=== PATIENT | female | born 1955 | race Caucasian/White ===

== ENCOUNTER → 2023-09-19 | Outpatient (CLI) | payer MEDICARE, OTHER, SELFPAY ==
--- NOTE | 2023-09-19 08:14 | BI_ITS ---
MAMMOGRAPHY - BILATERAL SCREENING REASON FOR EXAM: Female, 68 years old. Routine annual screening examination. PERTINENT HISTORY: Non-contributory. TECHNIQUE: Digital bilateral breast racquel (3D mammographic acquisition) in the CC and MLO projections. 2-D mediolateral oblique (MLO) and craniocaudad (CC) views of both breasts were obtained. CAD: Full Field Digital Mammography with Computer Added Detection was performed. COMPARISON: Comparison is made with prior outside examination dated January 02, 2023. FINDINGS: Breast Composition: There are scattered areas of fibroglandular density. There are no dominant masses or suspicious calcifications. No other significant abnormalities are identified. There has been no significant change since the prior study. BI/SCRN MAMM (CAD)W/RACQUEL BILAT IMPRESSION: Stable bilateral screening mammogram. Yearly follow-up mammogram recommended. (A) ASSESSMENT CATEGORY: BIRADS Category 1: Negative. A letter regarding these results will be sent to the patient by the facility within 30 days. Approximately 10% of breast cancers are not detected by mammography. A normal mammogram should not delay biopsy of a clinically suspicious abnormality. [id number] Electronically Signed: Shadi Wang MD at 10:24 EST ,
== END | disposition home or self-care (01) ==
LOC: OPBI 08:10
DX: Z12.31 Encounter for screening mammogram for malignant neoplasm of breast (principal)
CPT/HCPCS: 77063; 77067

== ENCOUNTER 2024-09-05 08:00 | Outpatient (RCR) | payer MEDICARE, OTHER, SELFPAY ==
--- NOTE | 2024-05-28 12:48 | HP.PTEVAL_ITS ---
Patient's Visit Information Visit Information Visit Information: RINKU ALCANTARA is a 68 year old F referred to Physical Therapy by DOROTHY MITCHELL with a diagnosis of DISPLACED PILON FRACTURE RIGHT FIBULA TIBIA ,. Date of Evaluation: 05/28/24 Physical Therapist: Demond Dawn, PT, Cert MDT, OCS Visit Plan Frequency: 2x /Week Duration: 6 Weeks Plan: BRACE ON WHEN WALKING IN COMMUNITY OKAY TO REMOVE WITH EX'S WITH SHOE PT INTERVENTIONS ROM ANKLE ,FLEXABILITY G-S ,MANUAL THERAPY CALF/MOBILIZATION FOOT/ANKLE ,STRENGTHENING ANKLE STABILIZERS ,FUNCTIONAL STRENGTHENING,PROPRIOCEPTION PROGRESSION AND VASO FOR EDEMA Subjective Subjective: This 68 y/o female presents to physical therapy with right displaced tibia fibula pilon fracture. Patient fracture tibia/fibula February 21 walking down stairs with suitcase with patient leg collapsed ,thuns went Urgent care x-rays showed severe fracture then went to [facility] repeated x-rays showed pilon fracture. Thus underwent s/p ORIF plate /screws/ shanita on 02/25/[address] Mitchell. Patient was in hospital 4 days due to pain. Patient d/c to 02/28 to home with W/C with NWB RLE with hard cast ,then replaced with CAM boot in 4 weeks.Patient was 8weeks NWB RLE then 50% WB with CAM boot with FWW. Eventually ,05/20 removed boot ,placed on brace and WBAT. Each visit had x-rays showed 20% healed. Patient has had OT/ PT HHC March 07 then last Sunday.Patient has edema . Patient has min pain worse with walking. Patient denies paresthesia/tingling. Patient sleeping good. Patient retired last week . Julia gonzalez stay with mother who has 95 with dementia. Patient has ramp. Laundry in basement. Tub/shower with seated. Patient RTD Jul 22. SOCIAL: VCATION: retired Pain Right Ankle: Pain Intensity (Out of 10): 5 Pain Intensity Range: 10 Objective Objective: POSTURE: ( frontal plane mechanics) pes planus NEURO: denies paresthesia/tingling SKIN: well approximate TRIMALLEOLAR JOINT: 81 cm GAIT: ambulates with antalgic gait decrease stance time poor tibia moving anterior on tibia with ankle AROM ANKLE: dorsiflexion 5 degrees from 0 ,plantar flexion 45 degrees ,eversion 0 ,inversion 25 degrees MMT: ( peak force) dorsiflexion 8.5 ,plantarflexion 14.8 , peroneus 4.5 ,posterior tibialis 7.7 STAIRS: one step at tight PALAPTION: calf tender Balance/Special Test Scores Lower Extremity Functional Score: 25 Goals Goal 1:: Patient to be I with HEP for ankle Goal Time Frame: 6-8 Weeks Goal 2:: Patient to improve AROM ankle by 5-10 degrees to improve gait and stairs Goal Time Frame: 6-8 Weeks Goal 3:: Patient to improve peak force ankle stabilizers by 10-15# to improve gait and function Goal Time Frame: 6-8 Weeks Goal 4:: Patient to normalize gait pattern Goal Time Frame: 4-6 Weeks Goal 5:: Patient to improve improve LFES score by 10 points to improve QOL and fucntion Goal Time Frame: 6-8 Weeks Goal 6:: Patient to demonstrate 70% improvement with improved function with less pain Goal Time Frame: 6-8 Weeks Rehabilitation Potential Physical Therapy Diagnosis: This patient underwent s/p ORIF due to pilon fx tib/fibula with increase edema ,pain weakness ,poor proprioception ,decrease ankle ROM impairs gait and function thus benefit from skilled PT Rehabilitation Potential: Good Anticipated Interventions Patient/Client Instruction: Educate patient on: Condition and Plan of Care For the Purpose of:: To decrease pain, To increase ROM, To improve muscle performance and motor function, To increase tolerance to activity/condition/position, To improve ability of physical actions for home/community/work/leisure, To improve health of tissue, To decrease soft tissue restriction, To increase flexibility/ROM, To improve endurance, To improve balance and To reduce risk of recurrence Therapeutic Exercise to Include: Strength training, Endurance training, Balance training, Flexibilty training, Gait and locomotor training and Active ROM Comment: ANKLE STABILZERS ,HIP/KNEE For the Purpose of:: To decrease pain, To decrease swelling/inflammation, To increase ROM, To improve muscle performance and motor function, To improve ability to perform ADL's, To increase tolerance to activity/condition/position, To improve ability of physical actions for home/community/work/leisure, To improve gait and locomotor functions, To improve health of tissue, To decrease soft tissue restriction, To increase flexibility/ROM, To improve endurance, To reduce risk of recurrence, To prevent re-injury and To improve tolerance to ADL's Manual Therapy Techniques to Include: Mobilization and Soft tissue mobilization Comment: CALF AND FOOT /ANKLE GRADE 1-3 For the Purpose of:: To decrease pain, To increase ROM, To improve health of tissue, To decrease soft tissue restriction and To increase flexibility/ROM Vasopneumatic device: Yes For the Purpose of:: To decrease pain, To decrease swelling/inflammation, To increase ROM, To improve nutrient delivery to tissue, To increase oxygenation perfusion, To improve health of tissue and To decrease soft tissue restriction Text: Thank you for the opportunity to evaluate your patient. For Medicare and Medicare HMO plans, please review the plan of care and approve it. It will need to be FAXED BACK to us at [phone] for Medicare purposes. For Medicare only, by signing this I certify the plan of care. Please let me know if there are questions or concerns regarding this plan of care. Physician Signature: Date:
--- NOTE | 2024-08-04 14:16 | HP.PTREVAL ---
Re-Evaluation Intro: DOROTHY MITCHELL, It has been my pleasure to treat RINKU ALCANTARA over the last 14 visits for DISPLACED PILON FRACTURE RIGHT FIBULA TIBIA ,. Please see the progress note below for an update on the physical therapy plan of care! Subjective Subjective: Seen happy with progress x-rays showed 50% healed Objective Objective/Function: POSTURE: ( frontal plane mechanics) pes planus NEURO: denies paresthesia/tingling SKIN: well approximate TRIMALLEOLAR JOINT: 81 cm GAIT: ambulates with reciprocal pattern AROM ANKLE: dorsiflexion 0 ,plantar flexion 65 degrees ,eversion 5 ,inversion 40 degrees MMT: ( peak force) dorsiflexion 32.2 ,plantarflexion 33.8 , peroneus 19.9 ,posterior tibialis 23.2 STAIRS: one step at tight SLS: 10SEC Plan Plan Plan: CONTINUE IASTM WHICH HELPED INTERVENTIONS ROM ANKLE ,FLEXABILITY G-S ,MANUAL THERAPY CALF/MOBILIZATION FOOT/ANKLE ,STRENGTHENING ANKLE STABILIZERS ,FUNCTIONAL STRENGTHENING,PROPRIOCEPTION PROGRESSION Balance/Gait/Functional tests Balance/Special Test Scores Lower Extremity Functional Score: 42 Goals Goals Goal 1:: Patient to be I with HEP for ankle Goal Time Frame: 6-8 Weeks Goal Progress: Progressing Goal 2:: Patient to improve AROM ankle by 5-10 degrees to improve gait and stairs Goal Time Frame: 6-8 Weeks Goal Progress: Progressing Goal 3:: Patient to improve peak force ankle stabilizers by 10-15# to improve gait and function( NEW GOAL) Goal Time Frame: 6-8 Weeks Goal 4:: Patient to normalize gait pattern Goal Time Frame: 4-6 Weeks Goal Progress: Goal Met Goal 5:: Patient to improve improve LFES score by 10 points to improve QOL and function( NEW GOAL) Goal Time Frame: 6-8 Weeks Goal 6:: Patient to demonstrate 70% improvement with improved function with less pain Goal Time Frame: 6-8 Weeks Goal Progress: Progressing Anticipated Interventions Anticipated Interventions Patient/Client Instruction: Educate patient on: Condition and Plan of Care For the Purpose of:: To decrease pain, To increase ROM, To improve muscle performance and motor function, To increase tolerance to activity/condition/position, To improve ability of physical actions for home/community/work/leisure, To improve health of tissue, To decrease soft tissue restriction, To increase flexibility/ROM, To improve endurance, To improve balance and To reduce risk of recurrence Therapeutic Exercise to Include: Strength training, Endurance training, Balance training, Flexibilty training, Gait and locomotor training and Active ROM Comment: ANKLE STABILZERS ,HIP/KNEE For the Purpose of:: To decrease pain, To decrease swelling/inflammation, To increase ROM, To improve muscle performance and motor function, To improve ability to perform ADL's, To increase tolerance to activity/condition/position, To improve ability of physical actions for home/community/work/leisure, To improve gait and locomotor functions, To improve health of tissue, To decrease soft tissue restriction, To increase flexibility/ROM, To improve endurance, To reduce risk of recurrence, To prevent re-injury and To improve tolerance to ADL's Manual Therapy Techniques to Include: Mobilization and Soft tissue mobilization Comment: CALF AND FOOT /ANKLE GRADE 1-3 For the Purpose of:: To decrease pain, To increase ROM, To improve health of tissue, To decrease soft tissue restriction and To increase flexibility/ROM Vasopneumatic device: Yes For the Purpose of:: To decrease pain, To decrease swelling/inflammation, To increase ROM, To improve nutrient delivery to tissue, To increase oxygenation perfusion, To improve health of tissue and To decrease soft tissue restriction Re-Evaluation Ending Re-evaluation ending: Please do not hesitate to contact me at [phone] by phone or if you have questions or concerns regarding this new plan of care! Sincerely, Demond Dawn PT, Cert MDT, OCS
--- NOTE | 2024-09-05 08:22 | HP.PTDCSUM ---
Discharge Summary D/C summary: It has been my pleasure to treat RINKU ALCANTARA referred by DOROTHY MITCHELL, with the diagnosis of DISPLACED PILON FRACTURE RIGHT FIBULA TIBIA , for a total of 22 visit(s). Discharge Date: 09/05/24 Please see the following information for a summary of their discharge status. Subjective Subjective: No pain . Just have stiffness Able to go stairs ascend/descend better Pain Right Ankle: Pain Intensity (Out of 10): 0 Overall Improvement % Improvement: 75 Objective Objective/Function: POSTURE: ( frontal plane mechanics) pes planus NEURO: denies paresthesia/tingling SKIN: well approximate TRIMALLEOLAR JOINT: 81 cm GAIT: ambulates with reciprocal pattern AROM ANKLE: dorsiflexion 5,plantar flexion 65 degrees ,eversion 5 ,inversion 40 degrees MMT: ( peak force) dorsiflexion 32.2 ,plantarflexion 33.8 , peroneus 22.8 ,posterior tibialis 25.2 STAIRS: one step at tight SLS: 30SEC Goals Goal 1:: Patient to be I with HEP for ankle Goal Progress: Goal Met Goal 2:: Patient to improve AROM ankle by 5-10 degrees to improve gait and stairs Goal Progress: Goal Met Goal 3:: Patient to improve peak force ankle stabilizers by 10-15# to improve gait and function( NEW GOAL) Goal Progress: Goal Met Goal 4:: Patient to normalize gait pattern Goal Progress: Goal Met Goal 5:: Patient to improve improve LFES score by 10 points to improve QOL and function( NEW GOAL) Goal 6:: Patient to demonstrate 70% improvement with improved function with less pain Goal Progress: Progressing Plan Plan: D/C TO HEP D/C Information Discharge Comments: HEP d/c sentence: If there are questions or concerns regarding this patient's physical therapy, please feel free to call me at [phone]. Thank you for the referral of this patient. Sincerely, Demond Dawn, PT, Cert MDT, OCS Balance/Gait/Functional tests Balance/Special Test Scores Lower Extremity Functional Score: 57 Improvement % Improvement: 75
== END 2024-09-05 19:00 | disposition home or self-care (01) ==
LOC: PT 08:00
DX: S82.871D Displaced pilon fracture of right tibia, subsequent encounter for closed fracture with routine healing (principal)
CPT/HCPCS: 97016; 97110; 97140; 97162; 97530

== ENCOUNTER → 2024-10-16 | Outpatient (CLI) | payer MEDICARE, OTHER, SELFPAY ==
--- NOTE | 2024-10-16 08:57 | BD_ITS ---
STUDY: DUAL ENERGY X-RAY ABSORPTIOMETRY / DXA REASON FOR EXAM: Female, 69 years old. Postmenopausal TECHNIQUE: Bone Mineral Density (BMD) measurements of lumbar spine and bilateral hips were obtained. COMPARISON: No relevant prior comparison study available FINDINGS: Lumbar Spine (L1-L4): g/cm2 (1.177) / T-score (1.2) / Z-score (3.4) Left Femur Total: g/cm2 (0.973) / T-score (0.3) / Z-score (1.8) Left Femoral Neck: g/cm2 (0.833) / T-score (-0.1) / Z-score (1.7) Right Femur Total: g/cm2 (0.977) / T-score (0.3) / Z-score (1.9) Right Femoral Neck: g/cm2 (0.851) / T-score (0.0) / Z-score (1.9) BD/Dexa Bone Density Study IMPRESSION: The patient is considered normal as outlined below according to World Harvey Organization (WHO) criteria with a low fracture risk. Reference Information: The T-score is the number of standard deviations above or below the standard which is normal for young adults at their peak bone mineral density. The World Health Organization (WHO) interprets the T-scores as follows: Above -1 Normal bone density Between -1 and -2.5 Osteopenia Equal to / or below -2.5 Osteoporosis As a practical clinical guideline, osteopenia may be graded as follows: Mild -1 through -1.5 Moderate -1.6 through -2.0 Severe -2.1 through -2.4 The Z-score is the number of standard deviations above or below age-matched controls. A Z-score of less than -1.5 would be considered abnormal. References: 1. NIH Osteoporosis and Related Bone Diseases http://www.osteo.org 2. International Society for Clinical Densitometry http://www.iscd.org 3. National Osteoporosis Foundation http://www.nof.org Electronically Signed: Jade Lyon MD at 9:40 EST ,
--- NOTE | 2024-10-16 08:58 | BI_ITS ---
MAMMOGRAPHY - BILATERAL SCREENING 3-D TOMOSYNTHESIS REASON FOR EXAM: Female, 69 years old. SCREENING PERTINENT HISTORY: No significant family history. TECHNIQUE: 2-D mammograms and 3-D Tomosynthesis of the breast (s) were performed. CAD was performed. COMPARISON: 09/19/2023 FINDINGS: The breast composition is composed of scattered fibroglandular density. Scattered benign calcifications are seen. No dense spiculated masses or suspicious microcalcifications are identified. No architectural distortion is identified. There is no skin thickening or retraction. There has been no significant change since the prior study. BI/SCRN MAMM (CAD)W/RACQUEL BILAT IMPRESSION: No mammographic signs of malignancy. Routine yearly mammograms recommended. ASSESSMENT CATEGORY: BIRADS Category 1: Negative. A letter regarding these results will be sent to the patient by the facility within 30 days. FOLLOW UP RECOMMENDATION: Yearly follow up mammogram recommended. (A) Approximately 10% of breast cancers are not detected by mammography. A normal mammogram should not delay biopsy of a clinically suspicious abnormality. Electronically Signed: Timothy Maddox MD at 10:21 EST ,
== END | disposition home or self-care (01) ==
LOC: OPBD 08:55
DX: Z13.820 Encounter for screening for osteoporosis (principal); M84.471A Pathological fracture, right ankle, initial encounter for fracture; Z78.0 Asymptomatic menopausal state; Z12.31 Encounter for screening mammogram for malignant neoplasm of breast
CPT/HCPCS: 77063; 77067; 77080

== ENCOUNTER 2025-09-06 11:02 | Emergency (ER) | payer MEDICARE, OTHER, SELFPAY ==
[2025-09-06 11:02] VITALS: BP 165/70; PULSE 65; RESP 14; TEMP 36.1; O2SAT 98
--- NOTE | 2025-09-06 11:14 | EDS_ITS ---
HPI History of Present Illness Chief Complaint: Lower Extremity Injury Narrative Narrative: 70-year-old female past medical history of hypothyroidism, hypertension, presents with injury to her left ankle that she sustained approximately 2 hours ago. She states that she is in the area taking care of her 96-year-old mother. She was trying to let her dogs out when she twisted her left ankle. Of note, 18 months ago she had a right ankle fracture which required ORIF by orthopedics in [place]. She had done the same thing and broke her ankle. While she did not immediately fall, she still had a hold of the door, and sat down. She thinks she may have inverted her left ankle. She complains of pain and swelling more on the lateral malleolus area. She denies hitting her head or loss of consciousness, no other injury. Pain is worse with weightbearing and movement. She has iced the area as well. She presents stating that she knows she needs an x-ray of her left ankle. PFSH [facility] Home Medications Medication Instructions Recorded Last Taken Type levothyroxine 100 mcg tablet 100 mcg PO DAILY 09/06/25 09/06/25 History metoprolol succinate 100 mg 100 mg PO DAILY 09/06/25 1 11/06/24 History tablet,extended release 24 hr vitamin D3 125 mcg (5,000 1 cap PO DAILY 09/06/2508/22 History unit)-vitamin K2 100 mcg capsule Allergy/AdvReac Type Severity Reaction Status Date / Time nitrofurantoin (From AdvReac Vomiting Verified 09/06/25 11:03 Macrobid) Social History Smoking Status: Never smoker ROS ROS ED ROS Narrative Review of systems positive for left lateral ankle pain and swelling. No hitting of head, no loss of consciousness, no neck pain or other injury. Pain worse with weightbearing and walking/movement. Relieved by nothing. EXAM Physical Exam Narrative Exam Narrative: GCS 15. ABCs intact. Cardiovascular examination regular rate and rhythm. Lungs are clear to auscultation bilaterally. Abdomen soft and nontender. Focused examination of the left ankle does show diffuse swelling throughout the left lateral malleolus, no crepitance. No pain at the base of the fifth metatarsal. Palpable dorsalis pedis pulse, left, no proximal fibular head tenderness, no palpable Achilles tendon deficit. Dorsiflexion and plantarflexion of left foot intact. Const Vital Signs: 09/06/25 11:02 Temperature 96.9 F L Temperature Source Temporal Pulse Rate 65 Respiratory Rate 14 Blood Pressure 165/70 H Blood Pressure Mean 101 Pulse Ox 98 Oxygen Delivery Method Room Air MDM MDM MDM Narrative Medical decision making narrative: The differential diagnosis includes but not limited to left ankle sprain versus fracture. She was administered ibuprofen 600 mg orally here she drove herself here, and she declined ice pack as she had already performed this at home. X- rays were obtained of the left ankle and 3 views and interpreted by myself independently. I see no evidence of acute fracture. I reviewed the radiology report which confirms my independent interpretation. At this point in time, she was placed in an Aircast. She states she has a walker and a wheelchair at home. She can be weightbearing as tolerated but especially over the first week perhaps nonweightbearing. She was referred to podiatry on-call as needed or she can follow-up with her primary care provider. IFISH can take [id number] medications for analgesia and continue ice and elevation at home. Return instructions to the emergency department were reviewed. Disposition is discharged home in stable condition. History & Record Review Discussion w/independent historian: Patient Additional record(s) reviewed:: No prior records (No prior ED visit) Radiography Diagnostic Testing: Clinical Impression(s) from Imaging Studies Ankle X-Ray 09/06/25 11:55 IMPRESSION: NEGATIVE ANKLE SERIES Reading Location: [facility] Discharge Plan Triage Chief Complaint: Lower Extremity Injury ED Provider: Rishi Staton Dx/Rx/DC Orders Clinical Impression: Left ankle sprain, Fall Instructions: ED Mechanical Fall, ED Ankle Sprain (Adult) Prescriptions: No Action metoprolol succinate 100 mg tablet extended release 24 hr 100 mg PO DAILY levothyroxine 100 mcg tablet 100 mcg PO DAILY vitamin D3-vitamin K2 125 mcg (5,000 unit)-100 mcg capsule 1 cap PO DAILY Primary Care Provider: TYLER GARCIA Referrals: TYLER GARCIA [Other] Chester Crawford MD [Med Staff - Active Staff, Podiatry] - 1 Week if not improving Activity Restrictions/Additional Instructions: Follow-up with your primary care provider in 1 week or podiatry in 1 week, especially if not improving. Wear Aircast but you may remove it for bathing or sleeping. Use your walker to help ambulate over the next week. Continue ice and elevation and [id number] medications as needed for pain. Return with increased swelling, new or worsening symptoms. Print Language: Nepali Disposition Disposition: Home, Self Care
--- OUTSIDE RECORDS SUMMARY | 2025-09-06 11:53 | XMS RPT_ITS | CCD ---
Author Organization [facility] Care Team Providers Care Repair Clerk Name Role Phone Unavailable Primary Care Provider Earnestine Davey MD Primary Care Provider [phone] Earnestine Candelario MD Primary Care Provider [phone] No, Physician Primary Care Provider DORA Wong Attending Unavailable NO, PHYSICIAN Primary Care Unavailable [facility] Consulting Blanca vailable [facility] [facility] [facility] Admitting Blanca vailable NIKUNJ KELLEY Referring Unavailable POOL KENDALL Consulting Unavailfausto leo [facility], [facility] Consulting Unav ailable NIKUNJ KELLEY Attending Unavailable NO, PHYSICIAN Primary Care Unavailable EARNESTINE CANDELARIO MD Attending Unavailable PHYSICIAN, NOT RECORDED Primary Care Unavaila EARNESTINE Chino MD Attending Unavailable PHYSICIAN, NOT RECORDED Primary Care Unavaila EARNESTINE Chino MD Attending Unavailable PHYSICIAN, NOT RECORDED Primary Care Unavaila ble PHYSICIAN, NOT RECORDED Primary Care Unavaila lise SWAIN, Rob Referring Unavailable WILIAM, S Attending Unavailable WILIAM, S Primary Care Unavailable WILIAM, Rob Attending Unavailable WILIAM, Rob Primary Care Unavailable EARNESTINE CANDELARIO MD Attending Unavailable PHYSICIAN, NOT RECORDED Primary Care Unavaila ble Medications Current Medications Medication Drug Class(es) Dates Sig (Normalized) Sig (Original) acetaminophen 325 mg oral tablet (3 sources) Start: 02-25-2024 End: 03-06-2024 take 2 tablets by mouth every four hours acetaminophen (TYLENOL) 325 MG tablet Take 2 (two) tablets (650 mg total) by mouth every 4 (four) hours for 10 days . 120 tablet 0 02/25/2024 03/06/2024 Active Start: 02-21-2024 End: 02-25-2024 take 650 mg by mouth every four hours 650 mg, Oral, Every 4 hours while awake, First dose on Cintia 02/21/24 at 1835 calcium carbonate 1500 mg / cholecalciferol 200 unt oral capsule (2 sources) Vitamin D take 1 capsule by mouth once daily calcium carbonate-vitamin D3 600 mg-5 mcg (200 unit) cap Take 1 capsule by mouth nightly . 0 Active docusate sodium 50 mg / sennosides, assisted 8.6 mg oral tablet (3 sources) Start: 2023 End: 2023 take 1 tablet by mouth twice daily senna-docusate (SENNA-S) 8.6-50 mg Take 1 (one) tablet by mouth 2 (two) times a day . 60 tablet 0 02/25/2024 03/26/2024 Active 0.4 ml enoxaparin sodium 100 mg/ml prefilled syringe (4 sources) Low Molecular Weight Heparin Start: 2023 End: 2023 inject 0.4 mL by subcutaneous injection once daily enoxaparin (LOVENOX) 40 mg/0.4 mL Syrg Inject 0.4 mL (40 mg total) under the skin daily . 12 mL 0 02/25/2024 03/26/2024 Active Start: 02-25-2024 End: 02-25-2024 inject 0.4 mL by subcutaneous injection once daily enoxaparin (LOVENOX) 30 mg/0.3 mL Syrg Inject 0.4 mL (40 mg total) under the skin daily . 18 mL 0 02/25/2024 02/25/2024 Discontinued (Stop Taking at Discharge) Start: 02-22-2024 End: 02-25-2024 enoxaparin (LOVENOX) syringe 30 mg 24 hr metoprolol succinate 50 mg extended release oral tablet (4 sources) beta-Adrenergic Sen Start: 02-24-2024 End: 03-25-2024 take 1 tablet by mouth once daily metoprolol succinate (TOPROL-XL) 50 MG 24 hr tablet Take 1 (one) tablet (50 mg total) by mouth daily Start: 02/24/24. 30 tablet 0 02/24/2024 03/25/2024 Active Start: 02-23-2024 End: 02-25-2024 metoprolol succinate (TOPROL -XL) 24 hr tablet 50 mg End: 02-25-2024 take 1 tablet by mouth once daily metoprolol succinate (TOPROL-XL) 100 MG 24 hr tablet Take 1 (one) tablet (100 mg total) by mouth nightly . 0 02/25/2024 Discontinued (Stop Taking at Discharge) oxyCODONE hydrochloride 5 mg oral tablet (4 sources) Opioid Agonist Start: 02-21-2024 End: 02-28-2024 oxyCODONE (ROXICODONE) 5 MG immediate release tablet Indications: Closed fracture of right ankle, initial encounter Take 1 (one) tablet (5 mg total) by mouth every 6 (six) hours as needed (Days supply per fill: 3) . 12 tablet 0 02/25/2024 02/28/2024 Active polyethylene glycol 3350 56435 mg powder for oral solution (3 sources) Osmotic Laxative Start: 02-25-2024 End: 03-03-2024 polyethylene glycol (GLYCOLAX) 17 gram/dose powder Take 17 (seventeen) g by mouth 2 (two) times a day for 7 days . 238 g 0 02/25/2024 03/03/2024 Active Start: 02-24-2024 End: 02-25-2024 polyethylene glycol (MIRALAX ) powder 17 g tiZANidine 2 mg oral tablet (2 sources) Central alpha-2 Adrenergic Agonist Start: 02-25-2024 End: 03-06-2024 take 1 tablet by mouth three times daily tiZANidine (ZANAFLEX) 2 MG tablet Take 1 (one) tablet (2 mg total) by mouth 3 (three) times a day for 10 days . 30 tablet 0 02/25/2024 03/06/2024 Active Completed/Discontinued Medications Medication Drug Class(es) Dates Sig (Normalized) Sig (Original) aspirin 325 mg oral tablet (1 source) Platelet Aggregation Inhibitor, Nonsteroidal Anti-inflammatory Drug Start: 02-22-2024 End: 02-25-2024 take 1 tablet by mouth twice daily aspirin 325 MG tablet Take 1 (one) tablet (325 mg total) by mouth 2 (two) times a day . 60 tablet 0 02/22/2024 02/25/2024 Discontinued (Stop Taking at Discharge) bisacodyl 10 mg rectal suppository (1 source) Stimulant Laxative Start: 02-24-2024 End: 02-25-2024 bisacodyL (DULCOLAX) suppository 10 mg ceFAZolin 2000 mg injection (1 source) Cephalosporin Antibacterial Start: 02-22-2024 End: 02-23-2024 take 2000 mg intravenously every eight hours 2,000 mg, Intravenous, at 200 mL/hr, Every 8 hours, First dose on Sun02/22/24 at 2100, For 2 doses, Starting 8 hours after pre-procedure dose x 2 doses., Indication (POST PROCEDURE): Ortho 1 ml fentaNYL 0.05 mg/ml injection (1 source) Opioid Agonist Start: 02-22-2024 End: 02-22-2024 fentaNYL (SUBLIMAZE) injection 100 mcg Start: 02-22-2024 End: 02-22-2024 fentaNYL (SUBLIMAZE) injecti on 100 mcg fentaNYL (SUBLIMAZE) inj syringe 25 mcg (1 source) Start: 02-22-2024 End: 02-22-2024 25 mcg, Intravenous, Every 5 min PRN, Pain, Starting on Sun02/22/24 at 1557, For 4 doses, PACU (only), [] Do not give more than 100 mcg while in PACU. 0.5 ml HYDROmorphone hydrochloride 1 mg/ml prefilled syringe (2 sources) Opioid Agonist Start: 02-21-2024 End: 02-22-2024 0.5 mg, Intravenous, Every 5 min PRN, Pain, Starting on Sun02/22/24 at 1557, For 6 doses, PACU (only), Give if fentanyl not effective or not ordered. Do not give more than 3 mg total. levothyroxine sodium 0.112 mg oral tablet (3 sources) l-Thyroxine Start: 02-22-2024 End: 02-25-2024 take 112 ug by mouth once daily 112 mcg, Oral, Daily, First dose on Sun02/22/24 at 0600, For patients on continuous tube feed: Hold TF from 1 hr before until 1 hr after each dose. TF rate may need adjustment to meet caloric needs. 10 ml lidocaine hydrochloride 10 mg/ml injection (1 source) Antiarrhythmic, Amide Local Anesthetic Start: 02-22-2024 End: 02-22-2024 lidocaine 1% (PF) (XYLOCAINE-MPF) 10 mg/mL (1 %) injection 2 mL Start: 02-22-2024 End: 02-22-2024 lidocaine 1% (PF) (XYLOCAINE -MPF) 10 mg/mL (1 %) injection 2 mL magnesium hydroxide 80 mg/ml oral suspension (1 source) Start: 02-24-2024 End: 02-25-2024 magnesium hydroxide (MOM) 400 mg/5 mL suspension 2,400 mg methocarbamol 500 mg oral tablet (2 sources) Muscle Relaxant Start: 02-24-2024 End: 02-25-2024 methocarbamoL (ROBAXIN) tablet 750 mg Start: 02-21-2024 End: 02-24-2024 take 500 mg by mouth three times daily 500 mg, Oral, 3 times daily, First dose on Sun02/21/24 at 2100 5 ml midazolam 1 mg/ml injection (1 source) Benzodiazepine Start: 02-22-2024 End: 02-22-2024 midazolam (VERSED) injection 2 mg Start: 02-22-2024 End: 02-22-2024 midazolam (VERSED) injection 2 mg naloxone (NARCAN) injection 0.1 mg (1 source) Start: 02-21-2024 End: 02-25-2024 naloxone (NARCAN) injection 0.1 mg ondansetron (ZOFRAN-ODT) disintegrating tablet 4 mg (1 source) Start: 02-21-2024 End: 02-25-2024 take 1 tablet by mouth every six hours as needed for nausea and vomiting ondansetron (ZOFRAN-ODT) disintegrating tablet 4 mg 20 ml ropivacaine hydrochloride 5 mg/ml injection (1 source) Amide Local Anesthetic Start: 02-22-2024 End: 02-22-2024 ROPivacaine (PF) (NAROPIN) 5 mg/mL (0.5 %) injection 35 mL Start: 02-22-2024 End: 02-22-2024 ROPivacaine (PF) (NAROPIN) 5 mg/mL (0.5 %) injection 35 mL Sodium Chloride (1 source) Start: 02-21-2024 End: 02-25-2024 sodium chloride (PF) (NS) fl ush 5 mL Problems Problem Classification Problem Date Documented Da te Episodic/Chronic Essential hypertension (2 sources) Essential (primary) hypertension; Translations: [Essential (primary) hypertension] Onset: 07-24-2023 Chronic Fracture of lower limb (18 sources) Closed fracture of right ankle; Translations: [Other fracture of right lower leg, initial encounter for closed fracture] Onset: 02-21-2024 02-21-2024 Episodic Other screening for suspected conditions (not mental disorders or infectious disease) (1 source) Encounter for screening for osteoporosis; Translations: [Encounter for screening for osteoporosis] Onset: 11-13-2024 Episodic Thyroid disorders (2 sources) Hypothyroidism, unspecified; Translations: [Hypothyroidism, unspecified] Onset: 07-24-2023 Chronic Results Test Name Value Interpretation Reference Range Facility A1Con 09-02-2025 Glucose [Mass/Vol] 108 mg/dL Normal [facility] Comment on above: Result Comment: Tawny mated Average Glucose calculated by equation ((28.7xA1C)-46.7) Estimated average glucose (eAG) is a calculated value from Hemoglobin A1C and is digital media representative of the average blood glucose level in the last 2-3 month period. Normal range: less than 114 mg/dL Performed By: #### A 1C, CMP, FES, TSH, FT4, LIPID, GFR, MG, HGMP #### [address] [address] HbA1c (Bld) [Mass fraction] 5.4 % Normal 4.0-6.0 [facility] Comment on above: Performed By: #### A 1C, CMP, FES, TSH, FT4, LIPID, GFR, MG, HGMP #### [address] [address] .GFRon 09-01-2025 Estimated Glomerular Filtration Rate 66 ml/min/1.73sqm Normal [facility] Comment on above: Result Comment: Stages of Chronic Kidney Disease (CKD) Stage Description eGFR(ml/min/1.73 sq.m.) CKD 1 Normal kidney function or >=90 normal kindney function with possible kidney damage (ex. Proteinuria) CKD 2 Kidney damage with mild loss 60-89 of kidney function CKD 3a Mild to moderate loss of kidney 45-59 function CKD 3b Moderate to severe loss of 30-44 of kindey function CKD 4 Severe loss of kidney function 15-29 CKD 5 Kidney failure <15 Note: (go live 2024) the eGFR calculation was updated to the 2020 CKD-EPI creatinine equation without a race factor to calculate the eGFR results. Performed By: #### A 1C, CMP, FES, TSH, FT4, LIPID, GFR, MG, HGMP #### [place] [id number] [facility] 09-01-2025 Albumin Level 4.1 G/dL Normal 3.2-4.8 [facility] Comment on above: Performed By: #### A 1C, CMP, FES, TSH, FT4, LIPID, GFR, MG, HGMP #### [place] [address] Albumin/Globulin [Mass ratio] 1.1 {ratio} Normal 0.9-1.6 [facility] Comment on above: Performed By: #### A 1C, CMP, FES, TSH, FT4, LIPID, GFR, MG, HGMP #### [place] [address] ALP [Catalytic activity/Vol] 85 U/L Normal 38-126 [facility] Comment on above: Performed By: #### A 1C, CMP, FES, TSH, FT4, LIPID, GFR, MG, HGMP #### [place] [id number] ALT [Catalytic activity/Vol] 11 U/L Normal 10-49 [facility] Comment on above: Performed By: #### A 1C, CMP, FES, TSH, FT4, LIPID, GFR, MG, HGMP #### [place] [id number] AST [Catalytic activity/Vol] 20 U/L Normal 8-34 [facility] Comment on above: Performed By: #### A 1C, CMP, FES, TSH, FT4, LIPID, GFR, MG, HGMP #### [place] [address] Bili Total 0.50 mg/dL Normal 0.20-1.20 [facility] Comment on above: Result Comment: Use of this assay is not recommended for patients undergoing treatment with eltrombopag due to the potential for falsely elevated results. Performed By: #### A 1C, CMP, FES, TSH, FT4, LIPID, GFR, MG, HGMP #### [address] [address] BUN/Creatinine Ratio 19.6 ratio Normal 10.0-22.0 [facility] Comment on above: Performed By: #### A 1C, CMP, FES, TSH, FT4, LIPID, GFR, MG, HGMP #### [place] [id number] Calcium [Mass/Vol] 10.0 mg/dL Normal 8.7-10.4 [facility] Comment on above: Performed By: #### A 1C, CMP, FES, TSH, FT4, LIPID, GFR, MG, HGMP #### [place] [id number] Chloride [Moles/Vol] 104 mmol/L Normal 98-110 [facility] Comment on above: Performed By: #### A 1C, CMP, FES, TSH, FT4, LIPID, GFR, MG, HGMP #### [place] [id number] CO2 [Moles/Vol] 30 mmol/L Normal 22-32 [facility] Comment on above: Performed By: #### A 1C, CMP, FES, TSH, FT4, LIPID, GFR, MG, HGMP #### [place] [id number] Creatinine [Mass/Vol] 0.92 mg/dL Normal 0.50-1.[address] [facility] Comment on above: Result Comment: Test ing performed on [employer] analyzer using enzymatic creatinine methodology. Performed By: #### A 1C, CMP, FES, TSH, FT4, LIPID, GFR, MG, HGMP #### [place] [id number] Electrolyte Balance 9.0 mEq/L Normal 4.0-15.0 [facility] Comment on above: Performed By: #### A 1C, CMP, FES, TSH, FT4, LIPID, GFR, MG, HGMP #### [place] [id number] Globulin 3.6 G/dL Normal 2.5-4.2 [facility] Comment on above: Performed By: #### A 1C, CMP, FES, TSH, FT4, LIPID, GFR, MG, HGMP #### [place] [id number] Glucose [Mass/Vol] 97 mg/dL Normal 82-115 [facility] Comment on above: Performed By: #### A 1C, CMP, FES, TSH, FT4, LIPID, GFR, MG, HGMP #### [place] [id number] Potassium [Moles/Vol] 4.4 mmol/L Normal 3.5-5.[address] [facility] Comment on above: Performed By: #### A 1C, CMP, FES, TSH, FT4, LIPID, GFR, MG, HGMP #### [place] [address] Sodium [Moles/Vol] 143 mmol/L Normal 136-145 [facility] Comment on above: Performed By: #### A 1C, CMP, FES, TSH, FT4, LIPID, GFR, MG, HGMP #### [place] [address] Total Protein 7.7 G/dL Normal 5.7-8.2 [facility] Comment on above: Performed By: #### A 1C, CMP, FES, TSH, FT4, LIPID, GFR, MG, HGMP #### [place] [id number] Urea nitrogen [Mass/Vol] 18.0 mg/dL Normal 8.0-22.0 [facility] Comment on above: Performed By: #### A 1C, CMP, FES, TSH, FT4, LIPID, GFR, MG, HGMP #### [place] [id number] FESon 09-01-2025 Iron [Mass/Vol] 117 ug/dL Normal 50-170 [facility] Comment on above: Performed By: #### A 1C, CMP, FES, TSH, FT4, LIPID, GFR, MG, HGMP #### [place] [id number] Iron Sat 50 % Normal [facility] Comment on above: Performed By: #### A 1C, CMP, FES, TSH, FT4, LIPID, GFR, MG, HGMP #### [place] [id number] TIBC 236 mcg/dL Low 250-500 [facility] Comment on above: Performed By: #### A 1C, CMP, FES, TSH, FT4, LIPID, GFR, MG, HGMP #### [place] [id number] FT4on 09-01-2025 Free T4 [Mass/Vol] 1.35 ng/dL Normal 0.89-1.76 [facility] Comment on above: Result Comment: No te - New Reference Range in effect 20 Performed By: #### A 1C, CMP, FES, TSH, FT4, LIPID, GFR, MG, HGMP #### [place] [address] HGMPon 09-01-2025 Erythrocyte distribution width (RBC) [Ratio] 14.4 % Normal 11.5-15.5 [facility] Comment on above: Performed By: #### A 1C, CMP, FES, TSH, FT4, LIPID, GFR, MG, HGMP #### [place] [address] Hematocrit (Bld) [Volume fraction] 43.0 % Normal 34.0-46.0 [facility] Comment on above: Performed By: #### A 1C, CMP, FES, TSH, FT4, LIPID, GFR, MG, HGMP #### [address] [address] Hgb 14.8 G/dL Normal 12.0-16.0 [facility] Comment on above: Performed By: #### A 1C, CMP, FES, TSH, FT4, LIPID, GFR, MG, HGMP #### [address] [address] MCH (RBC) [Entitic mass] 31.2 pg Normal 27.0-33.0 [facility] Comment on above: Performed By: #### A 1C, CMP, FES, TSH, FT4, LIPID, GFR, MG, HGMP #### [place] [address] MCHC 34.3 G/dL Normal 32.0-36.0 [facility] Comment on above: Performed By: #### A 1C, CMP, FES, TSH, FT4, LIPID, GFR, MG, HGMP #### [place] [address] MCV (RBC) [Entitic vol] 90.8 fL Normal 80.0-99.0 [facility] Comment on above: Performed By: #### A 1C, CMP, FES, TSH, FT4, LIPID, GFR, MG, HGMP #### [place] [address] Platelet 251 10 3/mcL Normal 150-450 [facility] Comment on above: Performed By: #### A 1C, CMP, FES, TSH, FT4, LIPID, GFR, MG, HGMP #### [place] [address] Platelet mean volume (Bld) [Entitic vol] 8.6 fL Normal 6.6-10.5 [facility] Comment on above: Performed By: #### A 1C, CMP, FES, TSH, FT4, LIPID, GFR, MG, HGMP #### [place] [address] RBC 4.73 10 6/mcL Normal 4.10-5.30 [facility] Comment on above: Performed By: #### A 1C, CMP, FES, TSH, FT4, LIPID, GFR, MG, HGMP #### [place] [address] WBC 5.4 10 3/mcL Normal 4.5-10.8 [facility] Comment on above: Performed By: #### A 1C, CMP, FES, TSH, FT4, LIPID, GFR, MG, HGMP #### [place] [address] LIPIDon 09-01-2025 Cholesterol [Mass/Vol] 170 mg/dL Normal 50-199 [facility] Comment on above: Result Comment: Chol esterol Reference Interval: Less than 200 Desirable 200-239 Borderline high risk 240 and above High risk Performed By: #### A 1C, CMP, FES, TSH, FT4, LIPID, GFR, MG, HGMP #### [address] [address] Cholesterol in HDL [Mass/Vol] 60 mg/dL High 40-59 [facility] Comment on above: Performed By: #### A 1C, CMP, FES, TSH, FT4, LIPID, GFR, MG, HGMP #### [address] [address] Cholesterol in LDL [Mass/Vol] 95 mg/dL Normal 0-129 [facility] Comment on above: Performed By: #### A 1C, CMP, FES, TSH, FT4, LIPID, GFR, MG, HGMP #### [address] [address] Triglyceride [Mass/Vol] 73 mg/dL Normal 3-149 [facility] Comment on above: Performed By: #### A 1C, CMP, FES, TSH, FT4, LIPID, GFR, MG, HGMP #### [address] [address] MGon 09-01-2025 Magnesium [Mass/Vol] 2.0 mg/dL Normal 1.6-2.4 [facility] Comment on above: Performed By: #### A 1C, CMP, FES, TSH, FT4, LIPID, GFR, MG, HGMP #### [address] [address] TSHon 09-01-2025 TSH 5.291 mIU/mL High 0.550-4.780 [facility] Comment on above: Performed By: #### A 1C, CMP, FES, TSH, FT4, LIPID, GFR, MG, HGMP #### [address] [address] Dexa Bone Density Studyon Dexa Bone Density Study [facility] [address] [place] [address] [id number] Dexa Bone Density Study MR#: [id number] Acct: [id number] Name: RINKU GIORDANO Rep #: [id number] : 1955 F 69 From: Jade Lyon MD PCP: EARNESTINE CANDELARIO Status: REG CLI Study: Dexa Bone Density Study Date of Exam: 10/16/24 Exam# [id number] Ordering Dr: EARNESTINE CANDELARIO [id number] STUDY: DUAL ENERGY X-RAY ABSORPTIOMETRY / DXA REASON FOR EXAM: Female, 69 years old. Postmenopausal TECHNIQUE: Bone Mineral Density (BMD) measurements of lumbar spine and bilateral hips were obtained. COMPARISON: No relevant prior comparison study available FINDINGS: Lumbar Spine (L1-L4): g/cm2 (1.177) / T-score (1.2) / Z-score (3.4) Left Femur Total: g/cm2 (0.973) / T-score (0.3) / Z-score (1.8) Left Femoral Neck: g/cm2 (0.833) / T-score (-0.1) / Z-score (1.7) Right Femur Total: g/cm2 (0.977) / T-score (0.3) / Z-score (1.9) Right Femoral Neck: g/cm2 (0.851) / T-score (0.0) / Z-score (1.9) BD/Dexa Bone Density Study IMPRESSION: The patient is considered normal as outlined below according to World Harvey Organization (WHO) criteria with a low fracture risk. Reference Information: The T-score is the number of standard deviations above or below the standard which is normal for young adults at their peak bone mineral density. The World Health Organization (WHO) interprets the T-scores as follows: Above -1 Normal bone density Between -1 and -2.5 Osteopenia Equal to / or below -2.5 Osteoporosis As a practical clinical guideline, osteopenia may be graded as follows: Mild -1 through -1.5 Moderate -1.6 through -2.0 Severe -2.1 through -2.4 The Z-score is the number of standard deviations above or below age-matched controls. A Z-score of less than -1.5 would be considered abnormal. References: 1. NIH Osteoporosis and Related Bone Diseases http://www.osteo.org 2. International Society for Clinical Densitometry http://www.iscd.org 3. 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 Feeder: Signed Normal [facility] SCRN MAMM (CAD)W/RACQUEL BILATo n 10-16-2024 SCRN MAMM (CAD)W/RACQUEL BILAT [facility] Services [address] [place] [id number] SCRN MAMM (CAD)W/RACQUEL BILAT MR#: [id number] Acct: [id number] Name: RINKU GIORDANO Rep #: [id number] : 1955 F 69 From: Timothy Maddox MD PCP: EARNESTINE CANDELARIO Status: REG CLI Study: SCRN MAMM (CAD)W/RACQUEL BILAT Date of Exam: 09/22 04/14 Exam# [id number] Ordering Dr: EARNESTINE CANDELARIO [id number] MAMMOGRAPHY - BILATERAL SCREENING 3-D TOMOSYNTHESIS REASON FOR EXAM: Female, 69 years old. SCREENING PERTINENT HISTORY: No significant family history. TECHNIQUE: 2-D mammograms and 3-D Tomosynthesis of the breast (s) were performed. CAD was performed. COMPARISON: 09/19/2023 FINDINGS: The breast composition is composed of scattered fibroglandular density. Scattered benign calcifications are seen. No dense spiculated masses or suspicious microcalcifications are identified. No architectural distortion is identified. There is no skin thickening or retraction. There has been no significant change since the prior study. BI/SCRN MAMM (CAD)W/RACQUEL BILAT IMPRESSION: No mammographic signs of malignancy. Routine yearly mammograms recommended. ASSESSMENT CATEGORY: BIRADS Category 1: Negative. A letter regarding these results will be sent to the patient by the facility within 30 days. FOLLOW UP RECOMMENDATION: Yearly follow up mammogram recommended. (A) Approximately 10% of breast cancers are not detected by mammography. A normal mammogram should not delay biopsy of a clinically suspicious abnormality. Electronically Signed: Timothy Maddox MD at 10:21 EST , CC: EARNESTINE CANDELARIO [employer] Feeder: Signed Normal [facility] CNCOon 09-11-2024 CNCO Letter Text Normal [facility] PT D/C Summary (1)on PT D/C Summary (1) [facility] Physical Therapy [facility] [address] [place] [address] / REHABILITATION SERVICES DISCHARGE SUMMARY MR#: [id number] Acct: [id number] Name: RINKU GIORDANO Rep #: [id number] : 1955 69 From: Nikunj Dawn PT, Cert. T, OCS Referring : OUT OF TOWN DOCTOR Status: REG R CR Insurance: MEDICARE PART A B [facility] Discharge Summary D/C summary: It has been my pleasure to treat RINKU GIORDANO referred by POOL KENDALL, with the diagnosis of DISPLACED PILON FRACTURE RIGHT FIBULA TIBIA , for a total of 22 visit(s). Discharge Date: 09/05/24 Please see the following information for a summary of their discharge status. Subjective Subjective: No pain . Just have stiffness Able to go stairs ascend/descend better Pain Right Ankle: Pain Intensity (Out of 10): 0 Overall Improvement % Improvement: 75 Objective Objective/Function: POSTURE: ( frontal plane mechanics) pes planus NEURO: denies paresthesia/tingling SKIN: well approximate TRIMALLEOLAR JOINT: 81 cm GAIT: ambulates with reciprocal pattern AROM ANKLE: dorsiflexion 5,plantar flexion 65 degrees ,eversion 5 ,inversion 40 degrees MMT: ( peak force) dorsiflexion 32.2 ,plantarflexion 33.8 , peroneus 22.8 ,posterior tibialis 25.2 STAIRS: one step at tight SLS: 30SEC Goals Goal 1:: Patient to be I with HEP for ankle Goal Progress: Goal Met Goal 2:: Patient to improve AROM ankle by 5-10 degrees to improve gait and stairs Goal Progress: Goal Met Goal 3:: Patient to improve peak force ankle stabilizers by 10-15# to improve gait and function( NEW GOAL) Goal Progress: Goal Met Goal 4:: Patient to normalize gait pattern Goal Progress: Goal Met Goal 5:: Patient to improve improve LFES score by 10 points to improve QOL and function( NEW GOAL) Goal 6:: Patient to demonstrate 70% improvement with improved function with less pain Goal Progress: Progressing Plan Plan: D/C TO HEP D/C Information Discharge Comments: HEP d/c sentence: If there are questions or concerns regarding this patient's physical therapy, please feel free to call me at [phone]. Thank you for the referral of this patient. Sincerely, Nikunj Dawn, PT, Cert MDT, OCS Balance/Gait/Functional tests Balance/Special Test Scores Lower Extremity Functional Score: 57 Improvement % Improvement: 75 09/05/24 0824 CC: EARNESTINE KENDALL SUZETTE Signed Normal [facility] Re-Evaluation - PT (1)on Re-Evaluation - PT (1) [facility] Physical Therapy [address] [place] [address] / REEVALUATION / MEDICARE RECERTIFICATION PHYSICAL THERAPY MR#: [id number] Acct: [id number] Name: RINKU GIORDANO Rep #: [id number] : 1955 69 From: Nikunj Dawn PT, Cert. T, OCS Referring Dr.: OUT OF TOWN DOCTOR Status:REG RCR Insurance: MEDICARE PART A B [employer] Re-Evaluation Intro: POOLMICHAEL CEDEÑODARBY, It has been my pleasure to treat RINKU GIORDANO over the last 14 visits for DISPLACED PILON FRACTURE RIGHT FIBULA TIBIA ,. Please see the progress note below for an update on the physical therapy plan of care! Subjective Subjective: Seen Dr happy with progress x-rays showed 50% healed Objective Objective/Function: POSTURE: ( frontal plane mechanics) pes planus NEURO: denies paresthesia/tingling SKIN: well approximate TRIMALLEOLAR JOINT: 81 cm GAIT: ambulates with reciprocal pattern AROM ANKLE: dorsiflexion 0 ,plantar flexion 65 degrees ,eversion 5 ,inversion 40 degrees MMT: ( peak force) dorsiflexion 32.2 ,plantarflexion 33.8 , peroneus 19.9 ,posterior tibialis 23.2 STAIRS: one step at tight SLS: 10SEC Plan Plan Plan: CONTINUE IASTM WHICH HELPED INTERVENTIONS ROM ANKLE ,FLEXABILITY G-S ,MANUAL THERAPY CALF/MOBILIZATION FOOT/ANKLE ,STRENGTHENING ANKLE STABILIZERS ,FUNCTIONAL STRENGTHENING,PROPRIOCE PTION PROGRESSION Balance/Gait/Functional tests Balance/Special Test Scores Lower Extremity Functional Score: 42 Goals Goals Goal 1:: Patient to be I with HEP for ankle Goal Time Frame: 6-8 Weeks Goal Progress: Progressing Goal 2:: Patient to improve AROM ankle by 5-10 degrees to improve gait and stairs Goal Time Frame: 6-8 Weeks Goal Progress: Progressing Goal 3:: Patient to improve peak force ankle stabilizers by 10-15# to improve gait and function( NEW GOAL) Goal Time Frame: 6-8 Weeks Goal 4:: Patient to normalize gait pattern Goal Time Frame: 4-6 Weeks Goal Progress: Goal Met Goal 5:: Patient to improve improve LFES score by 10 points to improve QOL and function( NEW GOAL) Goal Time Frame: 6-8 Weeks Goal 6:: Patient to demonstrate 70% improvement with improved function with less pain Goal Time Frame: 6-8 Weeks Goal Progress: Progressing Anticipated Interventions Anticipated Interventions Patient/Client Instruction: Educate patient on: Condition and Plan of Care For the Purpose of:: To decrease pain, To increase ROM, To improve muscle performance and motor function, To increase tolerance to activity/condition/posi tion, To improve ability of physical actions for home/community/work/lei sure, To improve health of tissue, To decrease soft tissue restriction, To increase flexibility/ROM, To improve endurance, To improve balance and To reduce risk of recurrence Therapeutic Exercise to Include: Strength training, Endurance training, Balance training, Flexibilty training, Gait and locomotor training and Active ROM Comment: ANKLE STABILZERS ,HIP/KNEE For the Purpose of:: To decrease pain, To decrease swelling/inflammation, To increase ROM, To improve muscle performance and motor function, To improve ability to perform ADL's, To increase tolerance to activity/condition/posi tion, To improve ability of physical actions for home/community/work/lei sure, To improve gait and locomotor functions, To improve health of tissue, To decrease soft tissue restriction, To increase flexibility/ROM, To improve endurance, To reduce risk of recurrence, To prevent re-injury and To improve tolerance to ADL's Manual Therapy Techniques to Include: Mobilization and Soft tissue mobilization Comment: CALF AND FOOT /ANKLE GRADE 1-3 For the Purpose of:: To decrease pain, To increase ROM, To improve health of tissue, To decrease soft tissue restriction and To increase flexibility/ROM Vasopneumatic device: Yes For the Purpose of:: To decrease pain, To decrease swelling/inflammation, To increase ROM, To improve nutrient delivery to tissue, To increase oxygenation perfusion, To improve health of tissue and To decrease soft tissue restriction Re-Evaluation Ending Re-evaluation ending: Please do not hesitate to contact me at [phone] by phone or if you have questions or concerns regarding this new plan of care! Sincerely, Nikunj Dawn, PT, Cert MDT, [facility] 08/05/24 0911 CC: EARNESTINE KENDALL SUZETTE Signed For Medicare only, by signing this I certify the plan of care. Physicians Signature Date Normal [facility] Inital Evaluation (1) - PTon 05-28-2024 Inital Evaluation (1) - PT [facility] Physical Therapy [facility] [address] [place] [address] / REHABILITATION SERVICES INITIAL EVALUATION MR#: [id number] Acct: [id number] Name: RINKU GIORDANO Rep #: [id number] : 1955 68 From: Nikunj Dawn PT, Cert. MD Menendez, OCS Referring Dr.: POOL KENDALL Status: REG RCR Insurance: MEDICARE PART A B [facility] Patient's Visit Information Visit Information Visit Information: RINUK GIORDANO is a 68 year old F referred to Physical Therapy by POOL KENDALL with a diagnosis of DISPLACED PILON FRACTURE RIGHT FIBULA TIBIA ,. Date of Evaluation: 05/28/24 Physical Therapist: Nikunj Dawn PT, Cert MONICA, OCS Visit Plan Frequency: 2x /Week Duration: 6 Weeks Plan: BRACE ON WHEN WALKING IN COMMUNITY OKAY TO REMOVE WITH EX'S WITH SHOE PT INTERVENTIONS ROM ANKLE ,FLEXABILITY G-S ,MANUAL THERAPY CALF/MOBILIZATION FOOT/ANKLE ,STRENGTHENING ANKLE STABILIZERS ,FUNCTIONAL STRENGTHENING,PROPRIOCE PTION PROGRESSION AND VASO FOR EDEMA Subjective Subjective: This 68 y/o female presents to physical therapy with right displaced tibia fibula pilon fracture. Patient fracture tibia/fibula February 21 walking down stairs with suitcase with patient leg collapsed ,thuns went Urgent care x-rays showed severe fracture then went to [facility] repeated x-rays showed pilon fracture. Thus underwent s/p ORIF plate /screws/ shanita on 02/25/[address] Kendall. Patient was in hospital 4 days due to pain. Patient d/c to 02/28 to home with W/C with NWB RLE with hard cast ,then replaced with CAM boot in 4 weeks.Patient was 8weeks NWB RLE then 50% WB with CAM boot with FWW. Eventually ,05/20 removed boot ,placed on brace and WBAT. Each visit had x-rays showed 20% healed. Patient has had OT/ PT C March 07 then last Sunday.Patient has edema . Patient has min pain worse with walking. Patient denies paresthesia/tingling. Patient sleeping good. Patient retired last week . Currently stay with mother who has 89 with dementia. Patient has ramp. Laundry in basement. Tub/shower with seated. Patient RTD Jul 22. SOCIAL: VCATION: retired Pain Right Ankle: Pain Intensity (Out of 10): 5 Pain Intensity Range: 10 Objective Objective: POSTURE: ( frontal plane mechanics) pes planus NEURO: denies paresthesia/tingling SKIN: well approximate TRIMALLEOLAR JOINT: 81 cm GAIT: ambulates with antalgic gait decrease stance time poor tibia moving anterior on tibia with ankle AROM ANKLE: dorsiflexion 5 degrees from 0 ,plantar flexion 45 degrees ,eversion 0 ,inversion 25 degrees MMT: ( peak force) dorsiflexion 8.5 ,plantarflexion 14.8 , peroneus 4.5 ,posterior tibialis 7.7 STAIRS: one step at tight PALAPTION: calf tender Balance/Special Test Scores Lower Extremity Functional Score: 25 Goals Goal 1:: Patient to be I with HEP for ankle Goal Time Frame: 6-8 Weeks Goal 2:: Patient to improve AROM ankle by 5-10 degrees to improve gait and stairs Goal Time Frame: 6-8 Weeks Goal 3:: Patient to improve peak force ankle stabilizers by 10-15# to improve gait and function Goal Time Frame: 6-8 Weeks Goal 4:: Patient to normalize gait pattern Goal Time Frame: 4-6 Weeks Goal 5:: Patient to improve improve LFES score by 10 points to improve QOL and fucntion Goal Time Frame: 6-8 Weeks Goal 6:: Patient to demonstrate 70% improvement with improved function with less pain Goal Time Frame: 6-8 Weeks Rehabilitation Potential Physical Therapy Diagnosis: This patient underwent s/p ORIF due to pilon fx tib/fibula with increase edema ,pain weakness ,poor proprioception ,decrease ankle ROM impairs gait and function thus benefit from skilled PT Rehabilitation Potential: Good Anticipated Interventions Patient/Client Instruction: Educate patient on: Condition and Plan of Care For the Purpose of:: To decrease pain, To increase ROM, To improve muscle performance and motor function, To increase tolerance to activity/condition/posi tion, To improve ability of physical actions for home/community/work/lei sure, To improve health of tissue, To decrease soft tissue restriction, To increase flexibility/ROM, To improve endurance, To improve balance and To reduce risk of recurrence Therapeutic Exercise to Include: Strength training, Endurance training, Balance training, Flexibilty training, Gait and locomotor training and Active ROM Comment: ANKLE STABILZERS ,HIP/KNEE For the Purpose of:: To decrease pain, To decrease swelling/inflammation, To increase ROM, To improve muscle performance and motor function, To improve ability to perform ADL's, To increase tolerance to activity/condition/posi tion, To improve ability of physical actions for home/community/work/lei sure, To improve gait and locomotor functions, To improve health of tissue, To decrease soft tissue restriction, To increase flexibility/ROM, To improve endurance, To reduce r (more content not included)... Normal [facility] BASIC METABOLIC PANELon 05-0 Anion gap [Moles/Vol] 13 mmol/L Normal 10-20 [facility] Comment on above: Order Comment: [facility] has implemented the eGFR calculation approach that does not have a coefficient for race that conforms to the NKF-ASN Task Force Recommendations. Performed By: #### [id number] #### [facility] [address] [place] [address] Gregorio Henry M.D. [id number] Calcium [Mass/Vol] 8.7 mg/dL Normal 8.4-10.2 [facility] Comment on above: Order Comment: [facility] has implemented the eGFR calculation approach that does not have a coefficient for race that conforms to the NKF-ASN Task Force Recommendations. Performed By: #### [id number] #### [facility] [address] [place] [address] Gregorio Henry M.D. [id number] Chloride [Moles/Vol] 107 mmol/L Normal 98-108 [facility] Comment on above: Order Comment: [facility] has implemented the eGFR calculation approach that does not have a coefficient for race that conforms to the NKF-ASN Task Force Recommendations. Performed By: #### 4 [id number] #### [facility] [address] [place] [address] Gregorio Henry M.D. [id number] Creatinine [Mass/Vol] 0.88 mg/dL Normal 0.60-1.10 [facility] Comment on above: Order Comment: [facility] has implemented the eGFR calculation approach that does not have a coefficient for race that conforms to the NKF-ASN Task Force Recommendations. Performed By: #### 4 [id number] #### [facility] [address] [place] [address] Gregorio Henry M.D. [id number] EGFR 71 mL/min/1.73 m2 Normal >=60 [facility] Comment on above: Order Comment: [facility] has implemented the eGFR calculation approach that does not have a coefficient for race that conforms to the NKF-ASN Task Force Recommendations. Result Comment: Tawny mated GFR was calculated using the 2020 CKD-EPI creatinine equation. Performed By: #### [id number] #### [facility] [address] [place] [address] Gregorio Henry M.D. [id number] Glucose [Mass/Vol] 98 mg/dL Normal 65-99 [facility] Comment on above: Order Comment: [facility] has implemented the eGFR calculation approach that does not have a coefficient for race that conforms to the NKF-ASN Task Force Recommendations. Performed By: #### 4 [id number] #### [facility] [address] [place] [address] Gregorio Henry M.D. [id number] HCO3 (Bld) [Moles/Vol] 25 mmol/L Normal 21-32 [facility] Comment on above: Order Comment: [facility] has implemented the eGFR calculation approach that does not have a coefficient for race that conforms to the NKF-ASN Task Force Recommendations. Performed By: #### 4 [id number] #### [facility] [address] [place] [address] Gregorio Henry M.D. [id number] Potassium [Moles/Vol] 3.9 mmol/L Normal 3.5-5.1 [facility] Comment on above: Order Comment: [facility] has implemented the eGFR calculation approach that does not have a coefficient for race that conforms to the NKF-ASN Task Force Recommendations. Performed By: #### 4 [id number] #### [facility] [address] [place] [address] Gregorio Henry M.D. [id number] Sodium [Moles/Vol] 141 mmol/L Normal 135-145 [facility] Comment on above: Order Comment: [facility] has implemented the eGFR calculation approach that does not have a coefficient for race that conforms to the NKF-ASN Task Force Recommendations. Performed By: #### 4 [id number] #### [facility] [address] [place] [address] Gregorio Henry M.D. [id number] Urea nitrogen [Mass/Vol] 13 mg/dL Normal 8-25 [facility] Comment on above: Order Comment: [facility] has implemented the eGFR calculation approach that does not have a coefficient for race that conforms to the NKF-ASN Task Force Recommendations. Performed By: #### 4 [id number] #### [facility] [address] [place], [place] [id number] Gregorio Henry M.D. [id number] Urea nitrogen/Creatinine [Mass ratio] 14.8 mg/mg Normal 10.0-20.0 [facility] Comment on above: Order Comment: [facility] has implemented the eGFR calculation approach that does not have a coefficient for race that conforms to the NKF-ASN Task Force Recommendations. Performed By: #### 4 [id number] #### [facility] [address] [place] [address] Gregorio Henry M.D. [id number] Basic metabolic 2000 panelon 02-25-2024 Anion gap [Moles/Vol] 13 mmol/L 10 - 2 0 mmol/L [facility] Calcium [Mass/Vol] 8.7 mg/dL 8.4 - 10. 2 mg/dL [facility] Chloride [Moles/Vol] 107 mmol/L 98 - 10 8 mmol/L [facility] Creatinine [Mass/Vol] 0.88 mg/dL 0.60 - 1.10 mg/dL [facility] GFR/1.73 sq M.predicted CKD-EPI (S/P/Bld) [Vol rate/Area] 71 - PINF [facility] Comment on above: Estimated GFR was ca lculated using the 2020 CKD-EPI creatinine equation. Glucose [Mass/Vol] 98 mg/dL 65 - 99 mg/dL [facility] HCO3 [Moles/Vol] 25 mmol/L 21 - 32 mmol/L [facility] Interpretation and review of laboratory results Normal [facility] Potassium [Moles/Vol] 3.9 mmol/L 3.5 - 5.1 mmol/L [facility] Sodium [Moles/Vol] 141 mmol/L 135 - 145 mmol/L [facility] Urea nitrogen [Mass/Vol] 13 mg/dL 8 - 25 mg/dL [facility] Urea nitrogen/Creatinine [Mass ratio] 14.8 mg/mg 10.0 - 20.0 [facility] has implemented the eGFR calculation approach that does not have a coefficient for race that conforms to the NKF-ASN Task Force Recommendations. [facility] CBCon 02-25-2024 AUTO NRBC 0.0 % Normal [facility] Comment on above: Performed By: #### 4 [id number] #### [facility] [address] [place], [place] [id number] Gregorio Henry M.D. [id number] AUTO NRBC ABS COUNT 0.00 K/mcL Normal 0.00-0.00 [facility] Comment on above: Performed By: #### 4 [id number] #### [facility] [address] [place] [address] Gregorio Henry M.D. [id number] Erythrocyte distribution width (RBC) [Ratio] 13.6 % Normal 11.6-14.8 [facility] Comment on above: Performed By: #### 4 [id number] #### [facility] [address] [place], [place] [id number] Gregorio Henry M.D. [id number] Hematocrit (Bld) [Volume fraction] 32.9 % Low 36.0-46.0 [facility] Comment on above: Performed By: #### 4 [id number] #### [facility] [address] [place], [place] [id number] Gregorio Henry M.D. [id number] Hemoglobin (Bld) [Mass/Vol] 11.0 g/dL Low 12.0-16.0 [facility] Comment on above: Performed By: #### 4 [id number] #### [facility] [address] [place] [address] Gregorio Henry M.D. [id number] MCH (RBC) [Entitic mass] 30.8 pg Normal 26.0-34.0 [facility] Comment on above: Performed By: #### 4 [id number] #### [facility] [address] [place] [address] Gregorio Henry M.D. [id number] MCV (RBC) [Entitic vol] 92.2 fL Normal 80.0-100.0 [facility] Comment on above: Performed By: #### 4 [id number] #### [facility] [address] [place] [address] Gregorio Henry M.D. [id number] MEAN CORPUSCULAR HEMOGLOBIN CONC 33.4 g/dL Normal 31.0-37.0 [facility] Comment on above: Performed By: #### 4 5038 #### [facility] [address] [place], [place] [address] Gregorio Henry M.D. [id number] Platelet mean volume (Bld) [Entitic vol] 9.8 fL Normal 9.4-12.4 [facility] Comment on above: Performed By: #### 4 5030 #### [facility] [address] [place] [address] Gregorio Henry M.D. [id number] Platelets (Bld) [#/Vol] 206 10*3/uL Normal 150-400 [facility] Comment on above: Performed By: #### 4 [id number] #### [facility] [address] [place] [address] Gregorio Henry M.D. [id number] RBC (Bld) [#/Vol] 3.57 10*6/uL Low 4.00-5.20 [facility] Comment on above: Performed By: #### 4 [id number] #### [facility] [address] [place] [address] Gregorio Henry M.D. [id number] WBC (Bld) [#/Vol] 5.63 10*3/uL Normal 4.50-11.00 [facility] Comment on above: Performed By: #### 4 [id number] #### [facility] [address] [place] [address] Gregorio Henry M.D. [id number] CBC panel Auto (Bld)on 02-24 Erythrocyte distribution width (RBC) [Entitic vol] 13.6 % 11.6 - 14.8 % [facility] Hematocrit (Bld) [Volume fraction] 32.9 % Low 36.0 - 46.0 % [facility] Hemoglobin (Bld) [Mass/Vol] 11.0 g/dL Low 12.0 - 16.0 g/dL [facility] Interpretation and review of laboratory results Abnormal [facility] MCH (RBC) [Entitic mass] 30.8 pg 26.0 - 34.0 pg [facility] MCHC (RBC) [Mass/Vol] 33.4 g/dL 31.0 - 37.0 g/dL [facility] MCV (RBC) [Entitic vol] 92.2 fL 80.0 - 100.0 fL [facility] Nucleated RBC (Bld) [#/Vol] 0.00 10*3/uL [facility] Nucleated RBC/100 WBC (Bld) [Ratio] 0.0 % [facility] Platelet mean volume (Bld) [Entitic vol] 9.8 fL 9.4 - 12.4 fL [facility] Platelets (Bld) [#/Vol] 206 10*3/uL [facility] RBC (Bld) [#/Vol] 3.57 10*6/uL Low [facility] WBC (Bld) [#/Vol] 5.63 10*3/uL [facility] BASIC METABOLIC PANELon 05-0 Anion gap [Moles/Vol] 13 mmol/L Normal 10-20 [facility] Comment on above: Order Comment: [facility] has implemented the eGFR calculation approach that does not have a coefficient for race that conforms to the NKF-ASN Task Force Recommendations. Performed By: #### 4 [id number] #### [facility] [address] [place] [address] Gregorio Henry M.D. [id number] Calcium [Mass/Vol] 8.7 mg/dL Normal 8.4-10.2 [facility] Comment on above: Order Comment: [facility] has implemented the eGFR calculation approach that does not have a coefficient for race that conforms to the NKF-ASN Task Force Recommendations. Performed By: #### 4 [id number] #### [facility] [address] [place] [address] Gregorio Henry M.D. [id number] Chloride [Moles/Vol] 112 mmol/L High 98-108 [facility] Comment on above: Order Comment: [facility] has implemented the eGFR calculation approach that does not have a coefficient for race that conforms to the NKF-ASN Task Force Recommendations. Performed By: #### 4 [id number] #### [facility] [address] [place] [address] Gregorio Henry M.D. [id number] Creatinine [Mass/Vol] 0.92 mg/dL Normal 0.60-1.10 [facility] Comment on above: Order Comment: [facility] has implemented the eGFR calculation approach that does not have a coefficient for race that conforms to the NKF-ASN Task Force Recommendations. Performed By: #### 4 [id number] #### [facility] [address] [place] [address] Gregorio Henry M.D. [id number] EGFR 67 mL/min/1.73 m2 Normal >=60 [facility] Comment on above: Order Comment: [facility] has implemented the eGFR calculation approach that does not have a coefficient for race that conforms to the NKF-ASN Task Force Recommendations. Result Comment: Tawny mated GFR was calculated using the 2020 CKD-EPI creatinine equation. Performed By: #### 4 [id number] #### [facility] [address] [place] [address] Gregorio Henry M.D. [id number] Glucose [Mass/Vol] 96 mg/dL Normal 65-99 [facility] Comment on above: Order Comment: [facility] has implemented the eGFR calculation approach that does not have a coefficient for race that conforms to the NKF-ASN Task Force Recommendations. Performed By: #### 4 [id number] #### [facility] [address] [place] [address] Gregorio Henry M.D. [id number] HCO3 (Bld) [Moles/Vol] 25 mmol/L Normal 21-32 [facility] Comment on above: Order Comment: [facility] has implemented the eGFR calculation approach that does not have a coefficient for race that conforms to the NKF-ASN Task Force Recommendations. Performed By: #### 4 [id number] #### [facility] [address] [place] [address] Gregorio Henry M.D. [id number] Potassium [Moles/Vol] 4.3 mmol/L Normal 3.5-5.1 [facility] Comment on above: Order Comment: [facility] has implemented the eGFR calculation approach that does not have a coefficient for race that conforms to the NKF-ASN Task Force Recommendations. Result Comment: Slig htly Hemolyzed Performed By: #### 4 6102 #### [facility] [address] [place] [address] Gregorio Henry M.D. [id number] Sodium [Moles/Vol] 146 mmol/L High 135-145 [facility] Comment on above: Order Comment: [facility] has implemented the eGFR calculation approach that does not have a coefficient for race that conforms to the NKF-ASN Task Force Recommendations. Performed By: #### 4 [id number] #### [facility] [address] [place] [address] Gregorio Henry M.D. [id number] Urea nitrogen [Mass/Vol] 15 mg/dL Normal 8-25 [facility] Comment on above: Order Comment: [facility] has implemented the eGFR calculation approach that does not have a coefficient for race that conforms to the NKF-ASN Task Force Recommendations. Performed By: #### 4 [id number] #### [facility] [address] [place] [address] Gregorio Henry M.D. [id number] Urea nitrogen/Creatinine [Mass ratio] 16.3 mg/mg Normal 10.0-20.0 [facility] Comment on above: Order Comment: [facility] has implemented the eGFR calculation approach that does not have a coefficient for race that conforms to the NKF-ASN Task Force Recommendations. Performed By: #### 4 [id number] #### [facility] [address] [place] [address] 06758 Gregorio Henry M.D. [id number] Bacteria identified Aer cx N om (Unsp spec)Ordered By: Alexsandra Ledesma on 02-24-2024 [facility] Basic metabolic 2000 panelon 02-24-2024 Anion gap [Moles/Vol] 13 mmol/L 10 - 2 0 mmol/L [facility] Calcium [Mass/Vol] 8.7 mg/dL 8.4 - 10. 2 mg/dL [facility] Chloride [Moles/Vol] 112 mmol/L High 98 - 10 8 mmol/L [facility] Creatinine [Mass/Vol] 0.92 mg/dL 0.60 - 1.10 mg/dL [facility] GFR/1.73 sq M.predicted CKD-EPI (S/P/Bld) [Vol rate/Area] 67 - PINF [facility] Comment on above: Estimated GFR was ca lculated using the 2020 CKD-EPI creatinine equation. Glucose [Mass/Vol] 96 mg/dL 65 - 99 mg/dL [facility] HCO3 [Moles/Vol] 25 mmol/L 21 - 32 mmol/L [facility] Interpretation and review of laboratory results Abnormal [facility] Potassium [Moles/Vol] 4.3 mmol/L 3.5 - 5.1 mmol/L [facility] Comment on above: Slightly Hemolyzed Sodium [Moles/Vol] 146 mmol/L High 135 - 145 mmol/L [facility] Urea nitrogen [Mass/Vol] 15 mg/dL 8 - 25 mg/dL [facility] Urea nitrogen/Creatinine [Mass ratio] 16.3 mg/mg 10.0 - 20.0 [facility] has implemented the eGFR calculation approach that does not have a coefficient for race that conforms to the NKF-ASN Task Force Recommendations. [facility] CBCon 02-24-2024 AUTO NRBC 0.0 % Normal [facility] Comment on above: Performed By: #### 4 [id number] #### [facility] [address] [place], [place] [id number] Gregorio Henry M.D. [id number] AUTO NRBC ABS COUNT 0.00 K/mcL Normal 0.00-0.00 [facility] Comment on above: Performed By: #### 4 6493 #### [facility] [address] [place] [address] Gregorio Henry M.D. [id number] Erythrocyte distribution width (RBC) [Ratio] 13.5 % Normal 11.6-14.8 [facility] Comment on above: Performed By: #### 4 5037 #### [facility] [address] [place], [place] [id number] Gregorio Henry M.D. [id number] Hematocrit (Bld) [Volume fraction] 33.1 % Low 36.0-46.0 [facility] Comment on above: Performed By: #### 4 503 #### [facility] [address] [place], [place] [id number] Gregorio Henry M.D. [id number] Hemoglobin (Bld) [Mass/Vol] 11.1 g/dL Low 12.0-16.0 [facility] Comment on above: Performed By: #### 4 [id number] #### [facility] [address] [place] [address] Gregorio Henry M.D. [id number] MCH (RBC) [Entitic mass] 30.6 pg Normal 26.0-34.0 [facility] Comment on above: Performed By: #### 4 [id number] #### [facility] [address] [place] [address] Gregorio Henry M.D. [id number] MCV (RBC) [Entitic vol] 91.2 fL Normal 80.0-100.0 [facility] Comment on above: Performed By: #### 4 5030 #### [facility] [address] [place], [place] [id number] Gregorio Henry M.D. [id number] MEAN CORPUSCULAR HEMOGLOBIN CONC 33.5 g/dL Normal 31.0-37.0 [facility] Comment on above: Performed By: #### 4 5035 #### [facility] [address] [place], [place] [address] Gregorio Henry M.D. [id number] Platelet mean volume (Bld) [Entitic vol] 10.1 fL Normal 9.4-12.4 [facility] Comment on above: Performed By: #### 4 503 #### [facility] [address] [place], [place] [address] Gregorio Henry M.D. [id number] Platelets (Bld) [#/Vol] 205 10*3/uL Normal 150-400 [facility] Comment on above: Performed By: #### 4 [id number] #### [facility] [address] [place] [address] Gregorio Henry M.D. [id number] RBC (Bld) [#/Vol] 3.63 10*6/uL Low 4.00-5.20 [facility] Comment on above: Performed By: #### 4 [id number] #### [facility] [address] [place] [address] 15349 Gregorio Henry M.D. [id number] WBC (Bld) [#/Vol] 6.52 10*3/uL Normal 4.50-11.00 [facility] Comment on above: Performed By: #### 4 [id number] #### [facility] [address] [place] [address] 37496 Gregorio Henry M.D. [id number] CBC panel Auto (Bld)on 02-23 Erythrocyte distribution width (RBC) [Entitic vol] 13.5 % 11.6 - 14.8 % [facility] Hematocrit (Bld) [Volume fraction] 33.1 % Low 36.0 - 46.0 % [facility] Hemoglobin (Bld) [Mass/Vol] 11.1 g/dL Low 12.0 - 16.0 g/dL [facility] Interpretation and review of laboratory results Abnormal [facility] MCH (RBC) [Entitic mass] 30.6 pg 26.0 - 34.0 pg [facility] MCHC (RBC) [Mass/Vol] 33.5 g/dL 31.0 - 37.0 g/dL [facility] MCV (RBC) [Entitic vol] 91.2 fL 80.0 - 100.0 fL [facility] Nucleated RBC (Bld) [#/Vol] 0.00 10*3/uL [facility] Nucleated RBC/100 WBC (Bld) [Ratio] 0.0 % [facility] Platelet mean volume (Bld) [Entitic vol] 10.1 fL 9.4 - 12.4 fL [facility] Platelets (Bld) [#/Vol] 205 10*3/uL [facility] RBC (Bld) [#/Vol] 3.63 10*6/uL Low [facility] WBC (Bld) [#/Vol] 6.52 10*3/uL [facility] Urine Aerobic CultureOrdered By: Alexsandra Ledesma on 02-24-2024 Bacteria identified Aer cx Nom (Unsp spec) No Growth (<1,000 CFU/mL) [facility] BASIC METABOLIC PANELon Anion gap [Moles/Vol] 12 mmol/L Normal 10-20 [facility] Comment on above: Order Comment: [facility] has implemented the eGFR calculation approach that does not have a coefficient for race that conforms to the NKF-ASN Task Force Recommendations. Performed By: #### 4 [id number] #### [facility] [address] [place], [place] [address] Gregorio Henry M.D. [id number] Calcium [Mass/Vol] 8.4 mg/dL Normal 8.4-10.2 [facility] Comment on above: Order Comment: [facility] has implemented the eGFR calculation approach that does not have a coefficient for race that conforms to the NKF-ASN Task Force Recommendations. Performed By: #### 4 [id number] #### [facility] [address] [place], [place] [address] Gregorio Henry M.D. [id number] Chloride [Moles/Vol] 106 mmol/L Normal 98-108 [facility] Comment on above: Order Comment: [facility] has implemented the eGFR calculation approach that does not have a coefficient for race that conforms to the NKF-ASN Task Force Recommendations. Performed By: #### 4 [id number] #### [facility] [address] [place] [address] 27732 Gregorio Henry M.D. [id number] Creatinine [Mass/Vol] 0.97 mg/dL Normal 0.60-1.10 [facility] Comment on above: Order Comment: [facility] has implemented the eGFR calculation approach that does not have a coefficient for race that conforms to the NKF-ASN Task Force Recommendations. Performed By: #### 4 [id number] #### [facility] [address] [place] [address] 57539 Gregorio Henry M.D. [id number] EGFR 63 mL/min/1.73 m2 Normal >=60 [facility] Comment on above: Order Comment: [facility] has implemented the eGFR calculation approach that does not have a coefficient for race that conforms to the NKF-ASN Task Force Recommendations. Result Comment: Tawny mated GFR was calculated using the 2020 CKD-EPI creatinine equation. Performed By: #### 4 [id number] #### [facility] [address] [place] [address] 29462 Gregorio Henry M.D. [id number] Glucose [Mass/Vol] 137 mg/dL High 65-99 [facility] Comment on above: Order Comment: [facility] has implemented the eGFR calculation approach that does not have a coefficient for race that conforms to the NKF-ASN Task Force Recommendations. Performed By: #### 4 [id number] #### [facility] [address] [place] [address] 48393 Gregorio Henry M.D. [id number] HCO3 (Bld) [Moles/Vol] 25 mmol/L Normal 21-32 [facility] Comment on above: Order Comment: [facility] has implemented the eGFR calculation approach that does not have a coefficient for race that conforms to the NKF-ASN Task Force Recommendations. Performed By: #### 4 [id number] #### [facility] [address] [place] [address] 82466 Gregorio Henry M.D. [id number] Potassium [Moles/Vol] 4.8 mmol/L Normal 3.5-5.1 [facility] Comment on above: Order Comment: [facility] has implemented the eGFR calculation approach that does not have a coefficient for race that conforms to the NKF-ASN Task Force Recommendations. Result Comment: Chrissy keene Hemolyzed Performed By: #### 4 [id number] #### [facility] [address] [place] [address] 17969 Gregorio Henry M.D. [id number] Sodium [Moles/Vol] 138 mmol/L Normal 135-145 [facility] Comment on above: Order Comment: [facility] has implemented the eGFR calculation approach that does not have a coefficient for race that conforms to the NKF-ASN Task Force Recommendations. Performed By: #### 4 [id number] #### [facility] [address] [place] [address] 78065 Gregorio Henry M.D. [id number] Urea nitrogen [Mass/Vol] 17 mg/dL Normal 8-25 [facility] Comment on above: Order Comment: [facility] has implemented the eGFR calculation approach that does not have a coefficient for race that conforms to the NKF-ASN Task Force Recommendations. Performed By: #### 4 [id number] #### [facility] [address] [place] [address] 89394 Gregorio Henry M.D. [id number] Urea nitrogen/Creatinine [Mass ratio] 17.5 mg/mg Normal 10.0-20.0 [facility] Comment on above: Order Comment: [facility] has implemented the eGFR calculation approach that does not have a coefficient for race that conforms to the NKF-ASN Task Force Recommendations. Performed By: #### 4 [id number] #### [facility] [address] [place] [address] 98342 Gregorio Henry M.D. [id number] Basic metabolic 2000 panelOr dered By: Jonathan Bull on 02-23-2024 Anion gap [Moles/Vol] 12 mmol/L 10 - 2 0 mmol/L [facility] Calcium [Mass/Vol] 8.4 mg/dL 8.4 - 10. 2 mg/dL [facility] Chloride [Moles/Vol] 106 mmol/L 98 - 10 8 mmol/L [facility] Creatinine [Mass/Vol] 0.97 mg/dL 0.60 - 1.10 mg/dL [facility] GFR/1.73 sq M.predicted CKD-EPI (S/P/Bld) [Vol rate/Area] 63 - PINF [facility] Comment on above: Estimated GFR was ca lculated using the 2020 CKD-EPI creatinine equation. Glucose [Mass/Vol] 137 mg/dL High 65 - 99 mg/dL [facility] HCO3 [Moles/Vol] 25 mmol/L 21 - 32 mmol/L [facility] Interpretation and review of laboratory results Abnormal [facility] Potassium [Moles/Vol] 4.8 mmol/L 3.5 - 5.1 mmol/L [facility] Comment on above: Slightly Hemolyzed Sodium [Moles/Vol] 138 mmol/L 135 - 145 mmol/L [facility] Urea nitrogen [Mass/Vol] 17 mg/dL 8 - 25 mg/dL [facility] Urea nitrogen/Creatinine [Mass ratio] 17.5 mg/mg 10.0 - 20.0 [facility] has implemented the eGFR calculation approach that does not have a coefficient for race that conforms to the NKF-ASN Task Force Recommendations. [facility] CBCon 02-23-2024 AUTO NRBC 0.0 % Normal [facility] Comment on above: Performed By: #### 4 5038 #### [facility] [address] [place], [place] [address] Gregorio Henry M.D. [id number] AUTO NRBC ABS COUNT 0.00 K/mcL Normal 0.00-0.00 [facility] Comment on above: Performed By: #### 4 [id number] #### [facility] [address] [place], [place] [address] Gregorio Henry M.D. [id number] Erythrocyte distribution width (RBC) [Ratio] 13.2 % Normal 11.6-14.8 [facility] Comment on above: Performed By: #### 4 5035 #### [facility] [address] [place], [place] [address] Gregorio Henry M.D. [id number] Hematocrit (Bld) [Volume fraction] 36.1 % Normal 36.0-46.0 [facility] Comment on above: Performed By: #### 4 [id number] #### [facility] [address] [place], [place] [address] Gregorio Henry M.D. [id number] Hemoglobin (Bld) [Mass/Vol] 11.9 g/dL Low 12.0-16.0 [facility] Comment on above: Performed By: #### 4 [id number] #### [facility] [address] [place] [address] Gregorio Henry M.D. [id number] MCH (RBC) [Entitic mass] 30.9 pg Normal 26.0-34.0 [facility] Comment on above: Performed By: #### 4 [id number] #### [facility] [address] [place] [address] Gregorio Henry M.D. [id number] MCV (RBC) [Entitic vol] 93.8 fL Normal 80.0-100.0 [facility] Comment on above: Performed By: #### 4 [id number] #### [facility] [address] [place], [place] [address] Gregorio Henry M.D. [id number] MEAN CORPUSCULAR HEMOGLOBIN CONC 33.0 g/dL Normal 31.0-37.0 [facility] Comment on above: Performed By: #### 4 5030 #### [facility] [address] [place], [place] [address] Gregorio Henry M.D. [id number] Platelet mean volume (Bld) [Entitic vol] 10.0 fL Normal 9.4-12.4 [facility] Comment on above: Performed By: #### 4 5031 #### [facility] [address] [place] [address] Gregorio Henry M.D. [id number] Platelets (Bld) [#/Vol] 226 10*3/uL Normal 150-400 [facility] Comment on above: Performed By: #### 4 [id number] #### [facility] [address] [place] [address] Gregorio Henry M.D. [id number] RBC (Bld) [#/Vol] 3.85 10*6/uL Low 4.00-5.20 [facility] Comment on above: Performed By: #### 4 [id number] #### [facility] [address] [place] [address] [id number] Gregorio Henry M.D. [id number] WBC (Bld) [#/Vol] 9.77 10*3/uL Normal 4.50-11.00 [facility] Comment on above: Performed By: #### 4 [id number] #### [facility] [address] [place] [address] 97261 Gregorio Henry M.D. [id number] CBC panel Auto (Bld)on 02-22 Erythrocyte distribution width (RBC) [Entitic vol] 13.2 % 11.6 - 14.8 % [facility] Hematocrit (Bld) [Volume fraction] 36.1 % 36.0 - 46.0 % [facility] Hemoglobin (Bld) [Mass/Vol] 11.9 g/dL Low 12.0 - 16.0 g/dL [facility] Interpretation and review of laboratory results Abnormal [facility] MCH (RBC) [Entitic mass] 30.9 pg 26.0 - 34.0 pg [facility] MCHC (RBC) [Mass/Vol] 33.0 g/dL 31.0 - 37.0 g/dL [facility] MCV (RBC) [Entitic vol] 93.8 fL 80.0 - 100.0 fL [facility] Nucleated RBC (Bld) [#/Vol] 0.00 10*3/uL [facility] Nucleated RBC/100 WBC (Bld) [Ratio] 0.0 % [facility] Platelet mean volume (Bld) [Entitic vol] 10.0 fL 9.4 - 12.4 fL [facility] Platelets (Bld) [#/Vol] 226 10*3/uL [facility] RBC (Bld) [#/Vol] 3.85 10*6/uL [facility] WBC (Bld) [#/Vol] 9.77 10*3/uL [facility] OP NOTEon 02-23-2024 OP NOTE RINKU GIORDANO [id number] 1955 DATE 02/22/2024 OPERATIVE REPORT SURGEON POOL KENDALL MD PREOPERATIVE DIAGNOSIS Right pilon fracture. POSTOPERATIVE DIAGNOSIS Right pilon fracture. PROCEDURE Open reduction and internal fixation of right pilon fracture, tibia and fibula. ANESTHESIA General plus popliteal block. BLOOD LOSS Minimal. FLUIDS Crystalloid per Anesthesia. COMPLICATIONS None. SPECIMENS None. DRAINS None. DISPOSITION Patient stable to PACU. IMPLANTS Synthes size 9 tibial nail, Synthes small frag set and Synthes 4.0 cannulated screws. HISTORY This is a patient who was visiting her 1st grandchild and her son yesterday when she slipped and fell. She sustained a fracture of the right distal tibia and fibula, which was intra-articular. She was admitted to the hospital and cleared for surgical intervention. I discussed with the patient risks and benefits of surgery including alternatives and natural history, and consent was obtained. DESCRIPTION OF PROCEDURE She was taken to the operating room after receiving a popliteal block and after being marked in the preoperative holding area. She received general anesthesia. She received preoperative antibiotics. The right lower extremity was then prepped and draped in normal sterile fashion. No tourniquet was used. A time-out was called. I began by making an incision over the patient's lateral malleolus. There was a fracture here which was exposed. I did not encounter the superficial peroneal nerve. I placed the laminar wet finisher through the fracture and then another laminar wet finisher into the posterior malleolus. There was a large fracture here and by doing so, I was able to expose the area and remove a piece of articular cartilage as identified on preoperative CT scan. I then placed a couple of guidewires from an anterior to posterior direction, 2 from medial to the tibialis anterior tendon and 1 lateral to it. I saw the wires exit into the cancellous bone. I backed the wires up and then proceeded with the case. I reduced the fibula. I held it out to length with a pointed reduction clamp and then placed a lag screw. It was a 2.7 lag screw. Prior to placing my neutralization plate and screws, I placed a periarticular reduction clamp getting a clamp on the posterior nhi and a clamp anteriorly. I was able to close the fracture down and then I advanced my guidewires. I drilled for and placed 3 of the 4.0 cannulated screws. The lateral screw was placed after I made an incision and carefully dissected to avoid any damage to the superficial peroneal nerve. I was satisfied with position of the screws and with the reduction of the posterior malleolus and with the length of the fibula. Next, I made an incision above the patella. With this suprapatellar approach, I inserted a guide and placed a guidewire into a good starting position. I advanced my guidewire and then used my opening drill. I used a ball-tipped guidewire and advanced it down the canal. I had been holding longitudinal traction and the distal tibia was well aligned. I advanced my guidewire and then began sequential reaming with a size 8.5 reamer, reaming up to a size 10, which allowed me to place a size 9 nail. The size 9 nail was placed without difficulty. I placed 2 screws proximally. Distally, there was a little bit of traffic. I placed a screw from a medial to lateral direction in the distal hole, but this was done only after removing one of the screws that had been placed prior. This was a 4.0 cannulated AP screw. I had backed the screw out and placed my medial to the lateral locking bolt and then replaced the screw in a slightly different trajectory. I then placed a screw from the oblique hole going from medial to lateral. Again, this required removal of my 2 distal AP screws so that I could see a good perfect [place]. Once this was done, I drilled for and placed my oblique screw and then replaced my 4.0 cannulated screws from the same trajectories. Final fluoroscopic images demonstrated the tibia to be out to length. Everything appeared stable and well reduced. The patient's wound was then copiously irrigated and closed in a layered fashion. Proximally it was closed with 0 Vicryl followed by 2-0 Vicryl and then 4-0 Monocryl. Distally 2-0 Vicryl, 3-0 Vicryl, and 4-0 Monocryl were used over the lateral incision. All stab incisions were closed with nylon. The patient's wounds were dressed and she was placed in a bulky [place] dressing with posterior and side slab splints. She was awoken from anesthesia and taken to the recovery room in good condition. Postoperatively, she can be toe-touch weightbearing for the next 6 to 8 weeks. She will come back to the clinic in 2 weeks' time with x-rays of her tibia/fibula and of her ankle. At that point, I hope to move her into either a short-leg cast fo (more content not included)... Normal [facility] URINE AEROBIC CULTUREon URINE AEROBIC CULTURE URINE CULTURE No Growth (<1,000 CFU/mL) Normal [facility] Comment on above: Performed By: #### 4 [id number] #### [facility] [address] [place] [address] Gregorio Henry M.D. [id number] XR Tibia and Fibula - right 2 [place]son 02-23-2024 FINDINGS/ 10 fluoroscopic views are submitted following ORIF of the right tibia and fibula. Please reference the operative note as a radiologist was not present. Total fluoroscopic time 363.9 seconds. Total fluoroscopic dose: 5.71 mGy. Workstation ID: [id number] LIKECHARITY EXAMINATION: XR OR TIBIA/FIBULA RIGHT 2 VIEWS HISTORY: ORDERING SYSTEM PROVIDED HISTORY: right tibia fx, TECHNOLOGIST PROVIDED HISTORY: Injury/Trauma Reason for exam: right tibia fx Encounter Type: Unknown Mechanism of injury: right tibia fx Fluoro dose in mGy: 5.71 ORDERING SYSTEM PROVIDED DIAGNOSIS CODES: S82.891A Closed fracture of right ankle, initial encounter COMPARISON: CT right ankle dated 02/21/2024 TECHNIQUE: Fluoro Dose Ka,r mGy: Fluoro dose in Ka,r mGy: 5.71 Intraoperative fluoroscopy LIKECHARITY Ellis Gallardo DO - 02/23/2024 EXAMINATION: XR OR TIBIA/FIBULA RIGHT 2 VIEWS HISTORY: ORDERING SYSTEM PROVIDED HISTORY: right tibia fx, TECHNOLOGIST PROVIDED HISTORY: Injury/Trauma Reason for exam: right tibia fx Encounter Type: Unknown Mechanism of injury: right tibia fx Fluoro dose in mGy: 5.71 ORDERING SYSTEM PROVIDED DIAGNOSIS CODES: S82.891A Closed fracture of right ankle, initial encounter COMPARISON: CT right ankle dated 02/21/2024 TECHNIQUE: Fluoro Dose Ka,r mGy: Fluoro dose in Ka,r mGy: 5.71 Intraoperative fluoroscopy IMPRESSION: FINDINGS/ 10 fluoroscopic views are submitted following ORIF of the right tibia and fibula. Please reference the operative note as a radiologist was not present. Total fluoroscopic time 363.9 seconds. Total fluoroscopic dose: 5.71 mGy. Workstation ID: [id number] [facility] XR Tibia and Fibula - right 2 ViewsOrdered By: Ellis Gallardo on 02-23-2024 [facility] Work Phone: BASIC METABOLIC PANELon Anion gap [Moles/Vol] 12 mmol/L Normal 10-20 [facility] Comment on above: Order Comment: [facility] has implemented the eGFR calculation approach that does not have a coefficient for race that conforms to the NKF-ASN Task Force Recommendations. Performed By: #### [id number] #### [facility] [address] [place], [place] [id number] Gregorio Henry M.D. [id number] Calcium [Mass/Vol] 9.1 mg/dL Normal 8.4-10.2 [facility] Comment on above: Order Comment: [facility] has implemented the eGFR calculation approach that does not have a coefficient for race that conforms to the NKF-ASN Task Force Recommendations. Performed By: #### 4 [id number] #### [facility] [address] [place], [place] [id number] Gregorio Henry M.D. [id number] Chloride [Moles/Vol] 106 mmol/L Normal 98-108 [facility] Comment on above: Order Comment: [facility] has implemented the eGFR calculation approach that does not have a coefficient for race that conforms to the NKF-ASN Task Force Recommendations. Performed By: #### 4 [id number] #### [facility] [address] [place], [place] [id number] Gregorio Henry M.D. [id number] Creatinine [Mass/Vol] 1.14 mg/dL Normal 0.60-1.10 [facility] Comment on above: Order Comment: [facility] has implemented the eGFR calculation approach that does not have a coefficient for race that conforms to the NKF-ASN Task Force Recommendations. Performed By: #### 4 [id number] #### [facility] [address] [place] [address] Gregorio Henry M.D. [id number] EGFR 52 mL/min/1.73 m2 Low >=60 [facility] Comment on above: Order Comment: [facility] has implemented the eGFR calculation approach that does not have a coefficient for race that conforms to the NKF-ASN Task Force Recommendations. Result Comment: Tawny mated GFR was calculated using the 2020 CKD-EPI creatinine equation. Performed By: #### 4 [id number] #### [facility] [address] [place] [address] Gregorio Henry M.D. [id number] Glucose [Mass/Vol] 91 mg/dL Normal 65-99 [facility] Comment on above: Order Comment: [facility] has implemented the eGFR calculation approach that does not have a coefficient for race that conforms to the NKF-ASN Task Force Recommendations. Performed By: #### 4 [id number] #### [facility] [address] [place] [address] Gregorio Henry M.D. [id number] HCO3 (Bld) [Moles/Vol] 27 mmol/L Normal 21-32 [facility] Comment on above: Order Comment: [facility] has implemented the eGFR calculation approach that does not have a coefficient for race that conforms to the NKF-ASN Task Force Recommendations. Performed By: #### 4 [id number] #### [facility] [address] [place] [address] Gregorio Henry M.D. [id number] Potassium [Moles/Vol] 4.2 mmol/L Normal 3.5-5.1 [facility] Comment on above: Order Comment: [facility] has implemented the eGFR calculation approach that does not have a coefficient for race that conforms to the NKF-ASN Task Force Recommendations. Result Comment: Chrissy htly Hemolyzed Performed By: #### 4 [id number] #### [facility] [address] [place], [place] [address] Gregorio Henry M.D. [id number] Sodium [Moles/Vol] 141 mmol/L Normal 135-145 [facility] Comment on above: Order Comment: [facility] has implemented the eGFR calculation approach that does not have a coefficient for race that conforms to the NKF-ASN Task Force Recommendations. Performed By: #### 4 [id number] #### [facility] [address] [place], [place] [address] Gregorio Henry M.D. [id number] Urea nitrogen [Mass/Vol] 21 mg/dL Normal 8-25 [facility] Comment on above: Order Comment: [facility] has implemented the eGFR calculation approach that does not have a coefficient for race that conforms to the NKF-ASN Task Force Recommendations. Performed By: #### 4 6161 #### [facility] [address] [place] [address] Gregorio Henry M.D. [id number] Urea nitrogen/Creatinine [Mass ratio] 18.4 mg/mg Normal 10.0-20.0 [facility] Comment on above: Order Comment: [facility] has implemented the eGFR calculation approach that does not have a coefficient for race that conforms to the NKF-ASN Task Force Recommendations. Performed By: #### 4 [id number] #### [facility] [address] [place] [address] Gregorio Henry M.D. [id number] Basic metabolic 2000 panelOr dered By: April Costello on 02-22-2024 Anion gap [Moles/Vol] 12 mmol/L 10 - 2 0 mmol/L [facility] Calcium [Mass/Vol] 9.1 mg/dL 8.4 - 10. 2 mg/dL [facility] Chloride [Moles/Vol] 106 mmol/L 98 - 10 8 mmol/L [facility] Creatinine [Mass/Vol] 1.14 mg/dL 0.60 - 1.10 mg/dL [facility] GFR/1.73 sq M.predicted CKD-EPI (S/P/Bld) [Vol rate/Area] 52 Low - PINF [facility] Comment on above: Estimated GFR was ca lculated using the 2020 CKD-EPI creatinine equation. Glucose [Mass/Vol] 91 mg/dL 65 - 99 mg/dL [facility] HCO3 [Moles/Vol] 27 mmol/L 21 - 32 mmol/L [facility] Interpretation and review of laboratory results Abnormal [facility] Potassium [Moles/Vol] 4.2 mmol/L 3.5 - 5.1 mmol/L [facility] Comment on above: Slightly Hemolyzed Sodium [Moles/Vol] 141 mmol/L 135 - 145 mmol/L [facility] Urea nitrogen [Mass/Vol] 21 mg/dL 8 - 25 mg/dL [facility] Urea nitrogen/Creatinine [Mass ratio] 18.4 mg/mg 10.0 - 20.0 [facility] has implemented the eGFR calculation approach that does not have a coefficient for race that conforms to the NKF-ASN Task Force Recommendations. [facility] CBCon 02-22-2024 AUTO NRBC 0.0 % Normal [facility] Comment on above: Performed By: #### [id number] #### [facility] [address] [place] [address] Gregorio Henry M.D. [id number] AUTO NRBC ABS COUNT 0.00 K/mcL Normal 0.00-0.00 [facility] Comment on above: Performed By: #### 4 [id number] #### [facility] [address] [place] [address] Gregorio Henry M.D. [id number] Erythrocyte distribution width (RBC) [Ratio] 13.3 % Normal 11.6-14.8 [facility] Comment on above: Performed By: #### 4 [id number] #### [facility] [address] [place], [place] [id number] Gregorio Henry M.D. [id number] Hematocrit (Bld) [Volume fraction] 38.7 % Normal 36.0-46.0 [facility] Comment on above: Performed By: #### 4 [id number] #### [facility] [address] [place] [address] Gregorio Henry M.D. [id number] Hemoglobin (Bld) [Mass/Vol] 12.7 g/dL Normal 12.0-16.0 [facility] Comment on above: Performed By: #### 4 [id number] #### [facility] [address] [place] [address] Gregorio Henry M.D. [id number] MCH (RBC) [Entitic mass] 30.2 pg Normal 26.0-34.0 [facility] Comment on above: Performed By: #### 4 [id number] #### [facility] [address] [place], [place] [address] Gregorio Henry M.D. [id number] MCV (RBC) [Entitic vol] 91.9 fL Normal 80.0-100.0 [facility] Comment on above: Performed By: #### 4 [id number] #### [facility] [address] [place], [place] [address] Gregorio Henry M.D. [id number] MEAN CORPUSCULAR HEMOGLOBIN CONC 32.8 g/dL Normal 31.0-37.0 [facility] Comment on above: Performed By: #### 4 [id number] #### [facility] [address] [place], [place] [address] Gregorio Henry M.D. [id number] Platelet mean volume (Bld) [Entitic vol] 9.8 fL Normal 9.4-12.4 [facility] Comment on above: Performed By: #### 4 [id number] #### [facility] [address] [place] [address] Gregorio Henry M.D. [id number] Platelets (Bld) [#/Vol] 227 10*3/uL Normal 150-400 [facility] Comment on above: Performed By: #### 4 [id number] #### [facility] [address] [place] [address] Gregorio Henry M.D. [id number] RBC (Bld) [#/Vol] 4.21 10*6/uL Normal 4.00-5.20 [facility] Comment on above: Performed By: #### 4 [id number] #### [facility] [address] [place] [address] Gregorio Henry M.D. [id number] WBC (Bld) [#/Vol] 7.09 10*3/uL Normal 4.50-11.00 [facility] Comment on above: Performed By: #### 4 [id number] #### [facility] [address] [place] [address] Gregorio Henry M.D. [id number] CBC panel Auto (Bld)on 02-21 Erythrocyte distribution width (RBC) [Entitic vol] 13.3 % 11.6 - 14.8 % [facility] Hematocrit (Bld) [Volume fraction] 38.7 % 36.0 - 46.0 % [facility] Hemoglobin (Bld) [Mass/Vol] 12.7 g/dL 12.0 - 16.0 g/dL [facility] MCH (RBC) [Entitic mass] 30.2 pg 26.0 - 34.0 pg [facility] MCHC (RBC) [Mass/Vol] 32.8 g/dL 31.0 - 37.0 g/dL [facility] MCV (RBC) [Entitic vol] 91.9 fL 80.0 - 100.0 fL [facility] Nucleated RBC (Bld) [#/Vol] 0.00 10*3/uL [facility] Nucleated RBC/100 WBC (Bld) [Ratio] 0.0 % [facility] Platelet mean volume (Bld) [Entitic vol] 9.8 fL 9.4 - 12.4 fL [facility] Platelets (Bld) [#/Vol] 227 10*3/uL [facility] RBC (Bld) [#/Vol] 4.21 10*6/uL [facility] WBC (Bld) [#/Vol] 7.09 10*3/uL [facility] DRUGS OF ABUSE SCREEN, URINE on 02-22-2024 AMPHETAMINE SCREEN, URINE Not detected Normal None Detected [facility] Comment on above: Order Comment: Scree n results should be used for treatment purposes only. Specimen will be kept for 2 weeks, if the sample is adequate. Confirmation testing can be initiated by calling the lab within 2 weeks. Result Comment: Urin e Amphetamine Cutoff: < 1000 ng/mL = None Detected Performed By: #### 4 [id number] #### [facility] [address] [place] [address] Gregorio Henry M.D. [id number] BARBITURATE SCREEN URINE Not detected Normal None Detected [facility] Comment on above: Order Comment: Scree n results should be used for treatment purposes only. Specimen will be kept for 2 weeks, if the sample is adequate. Confirmation testing can be initiated by calling the lab within 2 weeks. Result Comment: Urin e Barbiturates Cutoff: < 200 ng/mL = None Detected Performed By: #### 4 [id number] #### [facility] [address] [place], [place] [address] Gregorio Henry M.D. [id number] BENZODIAZEPINE SCREEN, URINE Not detected Normal None Detected [facility] Comment on above: Order Comment: Scree n results should be used for treatment purposes only. Specimen will be kept for 2 weeks, if the sample is adequate. Confirmation testing can be initiated by calling the lab within 2 weeks. Result Comment: Urin e Benzodiazepine Cutoff: < 200 ng/mL = None Detected Performed By: #### 4 [id number] #### [facility] [address] [place] [address] Gregorio Henry M.D. [id number] BUPRENORPHINE, URINE Not detected Normal None Detected [facility] Comment on above: Order Comment: Scree n results should be used for treatment purposes only. Specimen will be kept for 2 weeks, if the sample is adequate. Confirmation testing can be initiated by calling the lab within 2 weeks. Result Comment: Urin e Buprenorphine Cutoff: < 5 ng/mL = None Detected Performed By: #### 4 [id number] #### [facility] [address] [place] [address] Gregorio Henry M.D. [id number] CANNABINOID SCREEN URINE Not detected Normal None Detected [facility] Comment on above: Order Comment: Scree n results should be used for treatment purposes only. Specimen will be kept for 2 weeks, if the sample is adequate. Confirmation testing can be initiated by calling the lab within 2 weeks. Result Comment: Urin e Cannabinoids Cutoff: < 50 ng/mL = None Detected Performed By: #### 4 [id number] #### [facility] [address] [place] [address] Gregorio Henry M.D. [id number] COCAINE, SCREEN URINE Not detected Normal None Detecte d [facility] Comment on above: Order Comment: Scree n results should be used for treatment purposes only. Specimen will be kept for 2 weeks, if the sample is adequate. Confirmation testing can be initiated by calling the lab within 2 weeks. Result Comment: Urin e Cocaine Cutoff: < 300 ng/mL = None Detected Performed By: #### 4 [id number] #### [facility] [address] [place] [address] Gregorio Henry M.D. [id number] FENTANYL, URINE Positive Abnormal None Detected [facility] Comment on above: Order Comment: Scree n results should be used for treatment purposes only. Specimen will be kept for 2 weeks, if the sample is adequate. Confirmation testing can be initiated by calling the lab within 2 weeks. Result Comment: Urin e Fentanyl Cutoff: < 1 ng/mL = None Detected Performed By: #### 4 [id number] #### [facility] [address] [place] [address] Gregorio Henry M.D. [id number] METHADONE SCREEN, URINE Not detected Normal None Detected [facility] Comment on above: Order Comment: Scree n results should be used for treatment purposes only. Specimen will be kept for 2 weeks, if the sample is adequate. Confirmation testing can be initiated by calling the lab within 2 weeks. Result Comment: Urin e Methadone Cutoff: < 300 ng/mL = None Detected Performed By: #### 4 [id number] #### [facility] [address] [place] [address] Gregorio Henry M.D. [id number] OPIATE SCREEN URINE Not detected Normal None Detected [facility] Comment on above: Order Comment: Scree n results should be used for treatment purposes only. Specimen will be kept for 2 weeks, if the sample is adequate. Confirmation testing can be initiated by calling the lab within 2 weeks. Result Comment: Urin e Opiates Cutoff: < 300 ng/mL = None Detected Performed By: #### 4 [id number] #### [facility] [address] [place], [place] [address] Gregorio Henry M.D. [id number] OXYCODONE SCREEN, URINE Positive Abnormal None Detected [facility] Comment on above: Order Comment: Scree n results should be used for treatment purposes only. Specimen will be kept for 2 weeks, if the sample is adequate. Confirmation testing can be initiated by calling the lab within 2 weeks. Result Comment: Urin e Oxycodone Cutoff: < 100 ng/mL = None Detected Performed By: #### 4 [id number] #### [facility] [address] [place] [address] Gregorio Henry M.D. [id number] Drugs of Abuse Screen, Urine on 02-22-2024 Amphetamines Ql (U) Not detected None Detected [facility] Comment on above: Urine Amphetamine Cu toff: < 1000 ng/mL = None Detected Barbiturates Screen Ql (U) Not detected None Detected [facility] Comment on above: Urine Barbiturates C utoff: < 200 ng/mL = None Detected Benzodiazepines Ql (U) Not detected None Detected [facility] Comment on above: Urine Benzodiazepine Cutoff: < 200 ng/mL = None Detected Buprenorphine Ql (U) Not detected None Detected [facility] Comment on above: Urine Buprenorphine Cutoff: < 5 ng/mL = None Detected Cannabinoids Screen Ql (U) Not detected None Detected [facility] Comment on above: Urine Cannabinoids C utoff: < 50 ng/mL = None Detected Cocaine Ql (U) Not detected None Detected [facility] Comment on above: Urine Cocaine Cutoff : < 300 ng/mL = None Detected fentaNYL+Norfentanyl Screen Ql (U) Positive Abnormal None Detected [facility] Comment on above: Urine Fentanyl Cutof f: < 1 ng/mL = None Detected Interpretation and review of laboratory results Abnormal [facility] Methadone Screen Ql (U) Not detected None Detected [facility] Comment on above: Urine Methadone Cuto ff: < 300 ng/mL = None Detected Opiates Screen Ql (U) Not detected None Detecte d [facility] Comment on above: Urine Opiates Cutoff : < 300 ng/mL = None Detected oxyCODONE Ql (U) Positive Abnormal None Detected [facility] Comment on above: Urine Oxycodone Cuto ff: < 100 ng/mL = None Detected Screen results shoul d be used for treatment purposes only. Specimen will be kept for 2 weeks, if the sample is adequate. Confirmation testing can be initiated by calling the lab within 2 weeks. [facility] URINALYSISon 02-22-2024 AMORPHOUS CRYSTALS Many Abnormal None Seen , Rare [facility] Comment on above: Order Comment: [facility] has implemented the eGFR calculation approach that does not have a coefficient for race that conforms to the NKF-ASN Task Force Recommendations. Performed By: #### 4 [id number] #### [facility] [address] [place] [address] Gregorio Henry M.D. [id number] BACTERIA, URINE Few Abnormal None Seen [facility] Comment on above: Order Comment: [facility] has implemented the eGFR calculation approach that does not have a coefficient for race that conforms to the NKF-ASN Task Force Recommendations. Performed By: #### 4 [id number] #### [facility] [address] [place] [address] Gregorio Henry M.D. [id number] BILIRUBIN, URINE Negative Normal Negative [facility] Comment on above: Order Comment: [facility] has implemented the eGFR calculation approach that does not have a coefficient for race that conforms to the NKF-ASN Task Force Recommendations. Performed By: #### 4 [id number] #### [facility] [address] [place] [address] Gregorio Henry M.D. [id number] BLOOD, URINE Negative Normal Negative [facility] Comment on above: Order Comment: [facility] has implemented the eGFR calculation approach that does not have a coefficient for race that conforms to the NKF-ASN Task Force Recommendations. Performed By: #### 4 [id number] #### [facility] [address] [place] [address] Gregorio Henry M.D. [id number] Clarity (U) Cloudy Abnormal Clear [facility] Comment on above: Order Comment: [facility] has implemented the eGFR calculation approach that does not have a coefficient for race that conforms to the NKF-ASN Task Force Recommendations. Performed By: #### 4 6153 #### [facility] [address] [place], [place] [address] Gregorio Henry M.D. [id number] Color (U) Yellow Normal Colorless, Yellow [facility] Comment on above: Order Comment: [facility] has implemented the eGFR calculation approach that does not have a coefficient for race that conforms to the NKF-ASN Task Force Recommendations. Performed By: #### 4 [id number] #### [facility] [address] [place], [place] [address] Gregorio Henry M.D. [id number] Glucose Ql (U) Negative Normal Negative [facility] Comment on above: Order Comment: [facility] has implemented the eGFR calculation approach that does not have a coefficient for race that conforms to the NKF-ASN Task Force Recommendations. Performed By: #### 4 [id number] #### [facility] [address] [place] [address] Gregorio Henry M.D. [id number] Ketones Ql (U) Trace Abnormal Negative [facility] Comment on above: Order Comment: [facility] has implemented the eGFR calculation approach that does not have a coefficient for race that conforms to the NKF-ASN Task Force Recommendations. Performed By: #### 4 [id number] #### [facility] [address] [place], [place] [address] Gregorio Henry M.D. [id number] Leukocyte esterase Test strip Ql (U) Large Abnormal Negative [facility] Comment on above: Order Comment: [facility] has implemented the eGFR calculation approach that does not have a coefficient for race that conforms to the NKF-ASN Task Force Recommendations. Performed By: #### 4 [id number] #### [facility] [address] [place], [place] [address] Gregorio Henry M.D. [id number] MUCUS, URINE Few Abnormal None Seen, Rare [facility] Comment on above: Order Comment: [facility] has implemented the eGFR calculation approach that does not have a coefficient for race that conforms to the NKF-ASN Task Force Recommendations. Performed By: #### 4 [id number] #### [facility] [address] [place] [address] Gregorio Henry M.D. [id number] NITRITE, URINE Negative Normal Negative [facility] Comment on above: Order Comment: [facility] has implemented the eGFR calculation approach that does not have a coefficient for race that conforms to the NKF-ASN Task Force Recommendations. Performed By: #### 4 [id number] #### [facility] [address] [place] [address] Gregorio Henry M.D. [id number] pH (U) 6.0 [pH] Normal 5.0-7.0 [facility] Comment on above: Order Comment: [facility] has implemented the eGFR calculation approach that does not have a coefficient for race that conforms to the NKF-ASN Task Force Recommendations. Performed By: #### 4 [id number] #### [facility] [address] [place], [place] [address] Gregorio Henry M.D. [id number] Protein (U) [Mass/Vol] 30 mg/dL Abnormal Negative [facility] Comment on above: Order Comment: [facility] has implemented the eGFR calculation approach that does not have a coefficient for race that conforms to the NKF-ASN Task Force Recommendations. Result Comment: Fals e positive results may occur in urines with large amounts of hemoglobin, pH greater than 8.0, contrast medium, or disinfectants including ammonium compounds. Performed By: #### [id number] #### [facility] [address] [place], [place] [id number] Gregorio Henry M.D. [id number] RBC LM.HPF (Urine sed) [#/Area] 11 /[HPF] High 0-3 [facility] Comment on above: Order Comment: [facility] has implemented the eGFR calculation approach that does not have a coefficient for race that conforms to the NKF-ASN Task Force Recommendations. Performed By: #### [id number] #### [facility] [address] [place] [id number] Gregorio Henry M.D. [id number] Specific gravity (U) [Rel density] 1.040 High 1.005-1.025 [facility] Comment on above: Order Comment: [facility] has implemented the eGFR calculation approach that does not have a coefficient for race that conforms to the NKF-ASN Task Force Recommendations. Performed By: #### [id number] #### [facility] [address] [place], [place] [id number] Gregorio Henry M.D. [id number] SQUAMOUS EPITHELIAL 6 /hpf High 0-4 [facility] Comment on above: Order Comment: [facility] has implemented the eGFR calculation approach that does not have a coefficient for race that conforms to the NKF-ASN Task Force Recommendations. Performed By: #### [id number] #### [facility] [address] [place] [id number] Gregorio Henry M.D. [id number] UROBILINOGEN, URINE 2.0 mg/dL Abnormal <2.0 [facility] Comment on above: Order Comment: [facility] has implemented the eGFR calculation approach that does not have a coefficient for race that conforms to the NKF-ASN Task Force Recommendations. Performed By: #### [id number] #### [facility] [address] [place] [id number] Gregorio Henry M.D. [id number] WBC CLUMPS, URINE Rare Abnormal None [facility] Comment on above: Order Comment: [facility] has implemented the eGFR calculation approach that does not have a coefficient for race that conforms to the NKF-ASN Task Force Recommendations. Performed By: #### [id number] #### [facility] [address] [place] [id number] Gregorio Henry M.D. [id number] WBC LM.HPF (Urine sed) [#/Area] 59 /[HPF] High 0-5 [facility] Comment on above: Order Comment: [facility] has implemented the eGFR calculation approach that does not have a coefficient for race that conforms to the NKF-ASN Task Force Recommendations. Performed By: #### [id number] #### [facility] [address] [place] [address] Gregorio Henry M.D. [id number] UrinalysisOrdered By: Anyi Vivas on 02-22-2024 Bacteria Auto Ql (U) Few Abnormal None Se en /hpf [facility] Bilirubin Ql (U) Negative Negative [facility] automated (U) Cloudy Abnormal Clear [facility] Color (U) Yellow Colorless, Yellow [facility] Crystals.amorphous Computer assisted (U) [#/Area] Many Abnormal None Seen, Rare /hpf [facility] Epithelial cells.squamous Auto (Urine sed) [#/Area] 6 High [facility] Glucose Auto test strip (U) [Mass/Vol] Negative Negative mg/dL [facility] Hemoglobin Auto test strip Ql (U) Negative Negative [facility] Interpretation and review of laboratory results Abnormal [facility] Ketones (U) [Mass/Vol] Trace Abnormal Negative mg/dL [facility] Leukocyte clumps Auto (Urine sed) [#/Area] Rare Abnormal None Seen /hpf [facility] Leukocyte esterase Auto test strip Ql (U) Large Abnormal Negative [facility] Mucus Auto (Urine sed) [#/Area] Few Abnormal None Seen, Rare /lpf [facility] Nitrite Auto test strip Ql (U) Negative Negative [facility] pH (U) 6.0 [pH] 5.0 - 7.0 [facility] Protein (U) [Mass/Vol] 30 mg/dL Abnormal Negative [facility] Comment on above: False positive resul ts may occur in urines with large amounts of hemoglobin, pH greater than 8.0, contrast medium, or disinfectants including ammonium compounds. RBC Auto (Urine sed) [#/Area] 11 High [facility] Specific gravity (U) [Rel density] 1.040 High 1.005 - 1.025 [facility] Urobilinogen (U) [Mass/Vol] 2.0 mg/dL Abnormal NINF - 2.0 mg/dL [facility] WBC Auto (Urine sed) [#/Area] 59 High [facility] Microscopic examinat ion is performed on all urinalysis samples and only positive findings are reported. The test for blood on the chemical analytic portion of urinalysis may also be positive due to hemoglobinuria and myoglobinuria and if red blood cells are present they are quantified by microscopic examination. [facility] XR OR FLUOROSCOPY TIMEon XR OR FLUOROSCOPY TIME This is an auto finalized result. Please refer to patient chart for further information. further information. further information. Normal [facility] Comment on above: Order Comment: Injur y/Trauma or Illness?:Injury/Trauma How long have you had these symptoms (acute/chronic)?:Unknown Reason for exam?:right tibia fx Type of Exam?:Unknown Mechanism of injury?:right tibia fx Fluoro time in minutes:6.07 Fluoro dose in mGy?:5.71 XR OR TIBIA/FIBULA RIGHT 2 V IEWSon 02-22-2024 XR OR TIBIA/FIBULA RIGHT 2 VIEWS EXAMINATION: XR OR TIBIA/FIBULA RIGHT 2 VIEWS HISTORY: ORDERING SYSTEM PROVIDED HISTORY: right tibia fx, TECHNOLOGIST PROVIDED HISTORY: Injury/Trauma Reason for exam: right tibia fx Encounter Type: Unknown Mechanism of injury: right tibia fx Fluoro dose in mGy: 5.71 ORDERING SYSTEM PROVIDED DIAGNOSIS CODES: S82.891A Closed fracture of right ankle, initial encounter COMPARISON: CT right ankle dated 02/21/2024 TECHNIQUE: Fluoro Dose Ka,r mGy: Fluoro dose in Ka,r mGy: 5.71 Intraoperative fluoroscopy IMPRESSION: FINDINGS/ 10 fluoroscopic views are submitted following ORIF of the right tibia and fibula. Please reference the operative note as a radiologist was not present. Total fluoroscopic time 363.9 seconds. Total fluoroscopic dose: 5.71 mGy. Workstation ID: [id number] Dictated by: ELLIS GALLARDO on Sat February 23, 2024 7:34:26 AM EDT Transcribed by: ELLIS GALLARDO on Sat February 23, 2024 7:34:26 AM EDT Finalized by: ELLIS GALLARDO on Rust February 23, 2024 7:34:26 AM EDT [facility] Comment on above: Order Comment: Injur y/Trauma or Illness?:Injury/TraumaHow long have you had these symptoms (acute/chronic)?:UnknownReason for exam?:right tibia fxType of Exam?:UnknownMechanism of injury?:right tibia fxFluoro time in minutes:6.07Fluoro dose in mGy?:5.71 XR Tibia and Fibula - right 2 [place] 02-22-2024 Radiology Study observation (narrative) [facility] XR and RF Chest PA and Later al and [place] 02-22-2024 This is an auto finalized result. Please refer to patient chart for further information. GE RIS ABORH VERIFICATIONon 024 ABO and Rh group Nom (Bld) Blood group A Rh(D) negative [facility] Comment on above: Performed By: #### [id number] #### [facility] [address] [place] [address] Gregorio Henry M.D. [id number] ABO and Rh group Nom (Bld) ABO/Rh Verification Normal [facility] Comment on above: Result Comment: Guadalupe ent's ABO/Rh is verified. Performed By: #### [id number] #### [facility] [address] [place] [id number] Gregorio Henry M.D. [id number] ABORH Verificationon 024 ABO and Rh group Nom (Bld) Blood group A Rh(D) negative [facility] ABO and Rh group Nom (Bld) ABO/Rh Verification [facility] Comment on above: Patient's ABO/Rh is verified. [facility] ALCOHOL, [facility] 4 ALCOHOL MEDICAL < Normal <10.0 [facility] Comment on above: Result Comment: Alco hol cutoff: <10.00 mg/dL = None Detected Performed By: #### [id number] #### [facility] [address] [place] [address] Gregorio Henry M.D. [id number] Alcohol, [facility] 4 Ethanol [Mass/Vol] mg/dL NINF - 10 .0 mg/dL [facility] Comment on above: Alcohol cutoff: <10. 00 mg/dL = None Detected Antibody Identificationon Blood group antibodies identified Nom Anti-D [facility] Comment on above: Anti-D is a clinical ly significant antibody belonging to the Rh system. It can cause hemolytic transfusion reactions and hemolytic disease of the . The D antigen is present in 85% of the population. In the event that blood is required, additional time will be necessary to obtain compatible units. [facility] Blood type and Indirect anti body screen panel (Bld)on 02-21-2024 ABO and Rh group Nom (Bld) Blood group A Rh(D) negative [facility] Blood group antibody screen Ql Positive [facility] Specimen Expires 02/24/2024 23:59 EST [facility] CONSULTon 02-21-2024 CONSULT [facility] Consult Note 02/21/24 Rinku Giordano 1955 [id number] Assessment/Plan: Rinku Giordano is a 68 y.o. female with a history of HTN, hypothyroidism who presented to [place] to ED 02/21/[address] showed right spiral tibial and fibular fractures. Transferred to [facility] 02/21/2024 for subspecialty care, admitted to trauma team. Noemí consulted for preoperative evaluation, geriatric evaluation, medical management. Right tibial fracture: Secondary to a fall with twisting injury. CT revealed an intra-articular spiral distal tibia fracture and a distal fibula fracture. NWB to RLE. Orthopedic surgery planned ORIF 02/22/2024. Fall: Patient missed a step causing her to twist at the right ankle under the weight of her body. Remainder of trauma evaluation benign. No presyncopal symptoms. PT/OT. Preoperative evaluation: Juan Daniel Revised Cardiac Index Risk Factors: zero . At home, patient able to complete > 4 METS as evidenced by ability to climb two flights of stairs without CP or dyspnea. Chronic medical conditions that increase perioperative risk not captured with RCRI include: none. Most recent cardiac testing: EKG 02/21/2024 NSR. After chart review and discussion with patient, qualifies for Low Risk (0-1 RCRI with good functional status). . Further cardiac testing will not reduce patients risk and okay to proceed without further testing. Final decision to take patient to OR left to risk/benefit decision making of surgical team. Acute pain syndrome: Secondary to above. Agree with scheduled Tylenol and muscle relaxers to minimize need for opioids. Oxycodone available as needed. HTN: Continued home metoprolol with hold parameters. Hypothyroidism: Continued home Synthroid. Code status: Full code DVT Prophylaxis: Per primary team Thank you for allowing us to participate in the care of your patient. For any questions, please call the number of the covering hospitalist listed under the treatment team in care connect. Current living situation: Home Expected Disposition: Likely same Estimated discharge date: TBD I reviewed the patient's medications and noted those which may be inappropriate for their age and condition; I also provided recommendations to prevent, identify, and treat dementia, depression and delirium. We will collaborate with the multidisciplinary team to determine the patient's goals of care, status of advanced directives, and identification of a proxy decision maker, if needed. We will screen for mobility limitations and assure early, frequent, and safe mobility to help facilitate a safe transition out of the hospital. Chief Complaint / Reason for Consult: Fall History of Present Illness: Patient reports going up stairs when she missed a step with her right foot and her ankle collapsed underneath her. She denies feeling dizziness or lightheaded prior to the fall, purely mechanical in nature. She does not have frequent falls. She is having significant pain, having received IV Dilaudid at 3 PM and last oral dose at closer to 4 PM. Do think she needs something IV for the orals to be successful, ordered another dose of 0.5 IV Dilaudid. She has good exercise tolerance at baseline with no previous adverse reactions to general anesthesia. ROS: 10 systems were reviewed and negative, except as noted above. Past Medical, Surgical, Social, Family History: Past Medical History: Diagnosis Date Disease of thyroid gland Hypertension Macular degeneration Past Surgical History: Procedure Laterality Date SECTION Social History Socioeconomic History Marital status: Tobacco Use Smoking status: Never Smokeless tobacco: Never Substance and Sexual Activity Alcohol use: Not Currently Drug use: Never History reviewed. No pertinent family history. Current Medications: Medication list reviewed with patient. Please see MAR for full details. Physical Exam: BP 133/66 Pulse 63 Temp 97.9 degrees F (36.6 degrees C) (Oral) Resp 14 Ht 5' 5" Wt 81.6 kg (180 lb) SpO2 99% BMI 29.95 kg/m General: Appears in pain Eyes: EOMI ENT: neck supple Cardiovascular: Tachycardic. Respiratory: Clear to auscultation Gastrointestinal: Soft, non tender Genitourinary: no suprapubic tenderness Musculoskeletal: RLE wrapped Skin: warm, dry Neuro: Alert. Psych: Mood appropriate. Labs, Imaging, and Studies reviewed: Results from last 7 days Lab Units 02/21/24 1638 WBC K/mcL 10.49 HGB g/dL 14.3 HCT % 42.0 PLT K/mcL 264 Results from last 7 days Lab Units 02/21/24 1647 POC BUN mg/dL 20 POC CREATININE (EPOC) mg/dL 1.04 Results from last 7 days Lab Units 02/21/24 1643 POCINR 1.1 AUTHENTICATED BY BLAIRE LAZO, ON 02/21/2024 19:29:32 Normal [facility] CONSULT --- Attestation signed by Pool Kendall MD at 02/22/2024 12:02 PM I have independently seen and evaluated the patient and have reviewed the resident/mid-level provider consult and agree with the findings and plan as documented. Pool Kendall MD Right ankle pilon variant fx To OR today for ORIF and IM nail tibia Discussed with patient Questions answered CONSULT NOTE Patient Name: Rinku Giordano Admit Date: [id number] MR #: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 Normal [facility] Comment on above: Performed By: #### L [id number] #### [facility] [address] [place] [address] Marin Ortega, Ph.d. [id number] MCH (RBC) [Entitic mass] 30.6 pg Normal 26.0-34.0 [facility] Comment on above: Performed By: #### L [id number] #### [facility] [address] [place] [address] Marin Shannon, Ph.d. [id number] MCV (RBC) [Entitic vol] 89.7 fL Normal 80.0-100.0 [facility] Comment on above: Performed By: #### L [id number] #### [facility] [address] [place] [address] Marin Ortega, Ph.d. [id number] MEAN CORPUSCULAR HEMOGLOBIN CONC 34.0 g/dL Normal 31.0-37.0 [facility] Comment on above: Performed By: #### L [id number] #### [facility] [address] [place] [address] Marin Ortega, Ph.d. [id number] Monocytes (Bld) [#/Vol] 0.61 10*3/uL Normal 0.30-0.90 [facility] Comment on above: Performed By: #### L [id number] #### [facility] [address] [place] [address] Marin Ortega, Ph.d. [id number] Monocytes/100 WBC (Bld) 5.8 % Normal [facility] Comment on above: Performed By: #### L [id number] #### [facility] [address] [place], [place] [id number] Marin Ortega, Ph.d. [id number] NEUTROPHILS ABSOLUTE COUNT 8.44 K/mcL High 1.70-7.00 [facility] Comment on above: Performed By: #### L [id number] #### [facility] [address] [place] [address] Marin Ortega, Ph.d. [id number] Neutrophils/100 WBC (Bld) 80.4 % Normal [facility] Comment on above: Performed By: #### L [id number] #### [facility] [address] [place] [address] Marin Ortega, Ph.d. [id number] Platelet mean volume (Bld) [Entitic vol] 9.0 fL Low 9.4-12.4 [facility] Comment on above: Performed By: #### L [id number] #### [facility] [address] [place] [address] Marin Ortega, Ph.d. [id number] Platelets (Bld) [#/Vol] 264 10*3/uL Normal 150-400 [facility] Comment on above: Performed By: #### L [id number] #### [facility] [address] [place] [address] Marin Ortega, Ph.d. [id number] RBC (Bld) [#/Vol] 4.68 10*6/uL Normal 4.00-5.20 [facility] Comment on above: Performed By: #### L [id number] #### [facility] [address] [place] [address] Marin Ortega, Ph.d. [id number] WBC (Bld) [#/Vol] 10.49 10*3/uL Normal 4.50-11.00 [facility] Comment on above: Performed By: #### L [id number] #### [facility] [address] [place] [address] Marin Ortega, Ph.d. [id number] POC PT-INR - RASHIDASon 02-21-20 24 POC INR (SIG ELITE) 1.1 Normal 0.8-1.1 [facility] Comment on above: Performed By: #### P [id number] #### [facility] [address] [place] [address] Marin Ortega, Ph.d. [id number] PT/INRon 02-21-2024 INR Coag (PPP) [Relative time] 1.0 {INR} Normal 0.8-1.1 [facility] Comment on above: Order Comment: Loc nicholson the induction phase of oral anticoagulation, the INR may not reflect the anticoagulation status of the patient. Therapeutic ranges for INR's are: Most clinical situations: INR 2.0-3.0 Mechanical Prosthetic Valve: INR 2.5-3.5 Critical: INR >5.0 Performed By: #### [id number] #### [facility] [address] [place] [address] Gregorio Henry M.D. [id number] PT Coag (PPP) [Time] 13.1 s Normal 11.8-14.3 [facility] Comment on above: Order Comment: Loc nicholson the induction phase of oral anticoagulation, the INR may not reflect the anticoagulation status of the patient. Therapeutic ranges for INR's are: Most clinical situations: INR 2.0-3.0 Mechanical Prosthetic Valve: INR 2.5-3.5 Critical: INR >5.0 Performed By: #### [id number] #### [facility] [address] [place] [address] Gregorio Henry M.D. [id number] INR Coag (PPP) [Relative time] 1.0 {INR} 0.8 - 1.1 [facility] TYPE AND SCREENon 02-21-2024 TYPE AND SCREEN ABORH: A Negative AB SCREEN: Positive EXPIRATION DATE: 02/24/2024 23:59 EST Normal [facility] Comment on above: Performed By: #### [id number] #### [facility] [address] [place] [address] Gregorio Henry M.D. [id number] XR ANKLE RIGHT 2 VIEWSon XR ANKLE RIGHT 2 VIEWS EXAMINATION: XR ANKLE RIGHT 2 VIEWS; XR TIBIA FIBULA RIGHT 2 VIEWS 02/21/2024 2:58 pm HISTORY: ORDERING SYSTEM PROVIDED HISTORY: pain over distal tib/fib above the malleolus, evaluate for pilon fx, TECHNOLOGIST PROVIDED HISTORY: Injury/Trauma Reason for exam: / Cancer History: / Surgery, RadiationHistory: / Encounter Type: Initial Mechanism of injury: / ORDERING SYSTEM PROVIDED DIAGNOSIS CODES: COMPARISON: None. FINDINGS: Right tibia and fibula: AP, lateral views are provided, which demonstrate there is a comminuted fracture involving the distal tibia as well as fibula with slight displacement; however, the knee, ankle mortise are normally maintained. No significant soft tissue swelling, calcifications, or radiopaque foreign bodies. Right ankle: Three views are provided which demonstrate there is a spiral-appearing fracture involving the distal tibia, extending into the intraarticular surface, along its inferior edge. There is an obliquely oriented fracture through the distal fibula as well. The talotibial joint is normally aligned. There is some soft tissue swelling overlying the medial malleolus. Base of the 5th metatarsal appears intact. There are no significant calcifications or radiopaque foreign bodies. IMPRESSION: 1. There is a spiral-appearing comminuted fracture extending into the intraarticular surface involving the distal tibia, without disruption of the talotibial joint. 2. There is an obliquely oriented fracture through the distal fibula. There is some soft tissue swelling over the lateral malleolus. 3. No other fractures or dislocations of the remaining tibia and fibula. [employer] Workstation ID: [id number] Dictated by: MADIHA VILLASENOR on SunFebruary 21, 2024 3:22:18 PM EDT Transcribed by: XOCHITL BRANDON on SunFebruary 21, 2024 3:25:11 PM EDT Finalized by: MADIHA VILLASENOR on SunFebruary 21, 2024 3:36:11 PM EDT [facility] Comment on above: Order Comment: Injur y/Trauma or Illness?:Injury/Trauma pain over distal tib/fib above the malleolus, evaluate for pilon fx How long have you had these symptoms (acute/chronic)?:Acute Reason for exam?:/ History of cancer?:/ Surgeries, chemotherapy, or radiation?:/ Type of Exam?:Initial Mechanism of injury?:/ XR CHEST PA/APon 02-21-2024 XR CHEST PA/AP EXAMINATION: XR CHEST PA/AP 02/21/2024 3:46 pm HISTORY: ORDERING SYSTEM PROVIDED HISTORY: preop, TECHNOLOGIST PROVIDED HISTORY: Injury/Trauma Reason for exam: / Cancer History: / Surgery, RadiationHistory: / Encounter Type: Initial Mechanism of injury: / ORDERING SYSTEM PROVIDED DIAGNOSIS CODES: S82.876A Closed nondisplaced pilon fracture of tibia, unspecified laterality, initial encounter COMPARISON: None FINDINGS: Trachea, mediastinum and heart size are unremarkable. Slight bibasilar atelectasis is noted. No effusion or nodule or infiltrate or pneumothorax is noted. Diaphragm and bony elements are intact. IMPRESSION: Nonacute portable chest with slight chronic changes bilaterally and slight bibasilar atelectasis. Workstation ID: [id number] Dictated by: RAJEEV ADAMS on SunFebruary 21, 2024 4:23:20 PM EDT Transcribed by: RAJEEV ADAMS on SunFebruary 21, 2024 4:23:20 PM EDT Finalized by: RAJEEV ADAMS on SunFebruary 21, 2024 4:23:20 PM EDT [facility] Comment on above: Order Comment: Injur y/Trauma or Illness?:Injury/Trauma preop How long have you had these symptoms (acute/chronic)?:Acute Reason for exam?:/ History of cancer?:/ Surgeries, chemotherapy, or radiation?:/ Type of Exam?:Initial Mechanism of injury?:/ XR PELVIS 1 VIEW (STANDARD)o n 02-21-2024 XR PELVIS 1 VIEW (STANDARD) EXAMINATION: XR PELVIS 1 VIEW (STANDARD) 02/21/2024 12:46 pm HISTORY: ORDERING SYSTEM PROVIDED HISTORY: trauma, preop, TECHNOLOGIST PROVIDED HISTORY: Injury/Trauma Reason for exam: / Cancer History: / Surgery, RadiationHistory: / Encounter Type: Initial Mechanism of injury: / ORDERING SYSTEM PROVIDED DIAGNOSIS CODES: S82.876A Closed nondisplaced pilon fracture of tibia, unspecified laterality, initial encounter COMPARISON: None FINDINGS: No proximal femur fracture or hip dislocation. No pelvic fracture or diastasis. Hip joint space maintained. IMPRESSION: No acute findings. Workstation ID: [id number] Dictated by: CHAVA CORMIER on SunFebruary 21, 2024 4:24:32 PM EDT Transcribed by: CHAVA CORMIER on SunFebruary 21, 2024 4:24:32 PM EDT Finalized by: CHAVA CORMIER on SunFebruary 21, 2024 4:24:32 PM EDT [facility] Comment on above: Order Comment: Injur y/Trauma or Illness?:Injury/Trauma preop How long have you had these symptoms (acute/chronic)?:Acute Reason for exam?:/ History of cancer?:/ Surgeries, chemotherapy, or radiation?:/ Type of Exam?:Initial Mechanism of injury?:/ XR TIBIA FIBULA RIGHT 2 VIEW Son 02-21-2024 XR TIBIA FIBULA RIGHT 2 VIEWS EXAMINATION: XR ANKLE RIGHT 2 VIEWS; XR TIBIA FIBULA RIGHT 2 VIEWS 02/21/2024 2:58 pm HISTORY: ORDERING SYSTEM PROVIDED HISTORY: pain over distal tib/fib above the malleolus, evaluate for pilon fx, TECHNOLOGIST PROVIDED HISTORY: Injury/Trauma Reason for exam: / Cancer History: / Surgery, RadiationHistory: / Encounter Type: Initial Mechanism of injury: / ORDERING SYSTEM PROVIDED DIAGNOSIS CODES: COMPARISON: None. FINDINGS: Right tibia and fibula: AP, lateral views are provided, which demonstrate there is a comminuted fracture involving the distal tibia as well as fibula with slight displacement; however, the knee, ankle mortise are normally maintained. No significant soft tissue swelling, calcifications, or radiopaque foreign bodies. Right ankle: Three views are provided which demonstrate there is a spiral-appearing fracture involving the distal tibia, extending into the intraarticular surface, along its inferior edge. There is an obliquely oriented fracture through the distal fibula as well. The talotibial joint is normally aligned. There is some soft tissue swelling overlying the medial malleolus. Base of the 5th metatarsal appears intact. There are no significant calcifications or radiopaque foreign bodies. IMPRESSION: 1. There is a spiral-appearing comminuted fracture extending into the intraarticular surface involving the distal tibia, without disruption of the talotibial joint. 2. There is an obliquely oriented fracture through the distal fibula. There is some soft tissue swelling over the lateral malleolus. 3. No other fractures or dislocations of the remaining tibia and fibula. KKV/ads Workstation ID: [id number] Dictated by: MADIHA VILLASENOR on SunFebruary 21, 2024 3:22:18 PM EDT Transcribed by: XOCHITL BRANDON on SunFebruary 21, 2024 3:25:11 PM EDT Finalized by: MADIHA VILLASENOR on SunFebruary 21, 2024 3:36:11 PM EDT [facility] Comment on above: Order Comment: Injur y/Trauma or Illness?:Injury/Trauma pain over distal tib/fib above the malleolus, evaluate for pilon fx How long have you had these symptoms (acute/chronic)?:Acute Reason for exam?:/ History of cancer?:/ Surgeries, chemotherapy, or radiation?:/ Type of Exam?:Initial Mechanism of injury?:/ FT4on 01-26-2024 Free T4 [Mass/Vol] 1.46 ng/dL Normal 0.89-1.76 [facility] ([place]) Comment on above: Result Comment: No te - New Reference Range in effect 20 Performed By: #### F T4, TSH #### [place] [address] TSHon 01-26-2024 TSH 0.421 mIU/mL Low 0.550-4.780 [facility] ([place]) Comment on above: Result Comment: No te - New Reference Range in effect 20 Performed By: #### F T4, TSH #### [place] [address] TSHon 10-24-2023 TSH 4.372 mIU/mL Normal 0.550-4.780 [facility] ([place]) Comment on above: Result Comment: No te - New Reference Range in effect 20 Performed By: #### T SH #### [place] [address] .GFRon 07-24-2023 GFR >60 Normal [facility] ([place]) Comment on above: Result Comment: GFR Population mean for , Non- Americans Ages 20-29 = 116 mL/min/1.73 sq.m. Ages 30-39 = 107 mL/min/1.73 sq.m. Ages 40-49 = 99 mL/min/1.73 sq.m. Ages 50-59 = 93 mL/min/1.73 sq.m. Ages 60-69 = 85 mL/min/1.73 sq.m. Ages 70+ = 75 mL/min/1.73 sq.m. Chronic Kidney Disease: Less than 60 mL/min/1.73 square meters End Stage Renal Disease: Less than 15 mL/min/1.73 square meters Performed By: #### L IPID, TSH, GFR, HGMP, CMP #### [address] [address] GFR Non- 54 ml/min/1.73sqm Normal [facility] ([place]) Comment on above: Result Comment: GFR Population mean for , Non- Americans Ages 20-29 = 116 mL/min/1.73 sq.m. Ages 30-39 = 107 mL/min/1.73 sq.m. Ages 40-49 = 99 mL/min/1.73 sq.m. Ages 50-59 = 93 mL/min/1.73 sq.m. Ages 60-69 = 85 mL/min/1.73 sq.m. Ages 70+ = 75 mL/min/1.73 sq.m. Chronic Kidney Disease: Less than 60 mL/min/1.73 square meters End Stage Renal Disease: Less than 15 mL/min/1.73 square meters Performed By: #### L IPID, TSH, GFR, HGMP, CMP #### [address] [address] CMPon 07-24-2023 Albumin Level 4.0 G/dL Normal 3.2-4.8 [facility] ([place]) Comment on above: Performed By: #### L IPID, TSH, GFR, HGMP, CMP #### [address] [address] Albumin/Globulin [Mass ratio] 1.2 {ratio} Normal 0.9-1.6 [facility] ([place]) Comment on above: Performed By: #### L IPID, TSH, GFR, HGMP, CMP #### [address] [address] ALP [Catalytic activity/Vol] 80 U/L Normal 38-126 [facility] ([place]) Comment on above: Performed By: #### L IPID, TSH, GFR, HGMP, CMP #### [address] [address] ALT [Catalytic activity/Vol] 17 U/L Normal 10-49 [facility] ([place]) Comment on above: Performed By: #### L IPID, TSH, GFR, HGMP, CMP #### [address] [address] AST [Catalytic activity/Vol] 20 U/L Normal 8-34 [facility] ([place]) Comment on above: Performed By: #### L IPID, TSH, GFR, HGMP, CMP #### [address] [address] Bili Total 0.50 mg/dL Normal 0.20-1.20 [facility] ([place]) Comment on above: Result Comment: Use of this assay is not recommended for patients undergoing treatment with eltrombopag due to the potential for falsely elevated results. Performed By: #### L IPID, TSH, GFR, HGMP, CMP #### [address] [address] BUN/Creatinine Ratio 17.8 ratio Normal 10.0-22.0 [facility] ([place]) Comment on above: Performed By: #### L IPID, TSH, GFR, HGMP, CMP #### [address] [address] Calcium [Mass/Vol] 9.9 mg/dL Normal 8.7-10.4 [facility] ([place]) Comment on above: Performed By: #### L IPID, TSH, GFR, HGMP, CMP #### [address] [address] Chloride [Moles/Vol] 105 mmol/L Normal 98-110 [facility] ([place]) Comment on above: Performed By: #### L IPID, TSH, GFR, HGMP, CMP #### [address] [address] CO2 [Moles/Vol] 29 mmol/L Normal 22-32 [facility] ([place] Comment on above: Performed By: #### L IPID, TSH, GFR, HGMP, CMP #### [address] [address] Creatinine [Mass/Vol] 1.01 mg/dL Normal 0.50-1.20 [facility] ([place]) Comment on above: Performed By: #### L IPID, TSH, GFR, HGMP, CMP #### [place] [address] Electrolyte Balance 7.0 mEq/L Normal 4.0-15.0 [facility] ([place]) Comment on above: Performed By: #### L IPID, TSH, GFR, HGMP, CMP #### [place] [id number] Globulin 3.2 G/dL Normal 1.5-3.8 [facility] ([place] Comment on above: Performed By: #### L IPID, TSH, GFR, HGMP, CMP #### [place] [address] Glucose [Mass/Vol] 96 mg/dL Normal 82-115 [facility] ([place]) Comment on above: Performed By: #### L IPID, TSH, GFR, HGMP, CMP #### [address] [address] Potassium [Moles/Vol] 4.8 mmol/L Normal 3.5-5.0 [facility] ([place]) Comment on above: Performed By: #### L IPID, TSH, GFR, HGMP, CMP #### [place] [id number] Sodium [Moles/Vol] 141 mmol/L Normal 136-145 [facility] ([place]) Comment on above: Performed By: #### L IPID, TSH, GFR, HGMP, CMP #### [place] [address] Total Protein 7.2 G/dL Normal 5.7-8.2 [facility] ([place] Comment on above: Result Comment: No te - New Reference Range in effect 20 Performed By: #### L IPID, TSH, GFR, HGMP, CMP #### [address] [address] Urea nitrogen [Mass/Vol] 18.0 mg/dL Normal 8.0-22.0 [facility] ([place] Comment on above: Performed By: #### L IPID, TSH, GFR, HGMP, CMP #### [address] [address] HGMPon 07-24-2023 Erythrocyte distribution width (RBC) [Ratio] 13.9 % Normal 11.5-15.5 [facility] ([place] Comment on above: Performed By: #### L IPID, TSH, GFR, HGMP, CMP #### [place] [address] Hematocrit (Bld) [Volume fraction] 45.1 % Normal 34.0-46.0 [facility] ([place] Comment on above: Performed By: #### L IPID, TSH, GFR, HGMP, CMP #### [place] [address] Hgb 15.3 G/dL Normal 12.0-16.0 [facility] ([place] Comment on above: Performed By: #### L IPID, TSH, GFR, HGMP, CMP #### [address] [address] MCH (RBC) [Entitic mass] 30.9 pg Normal 27.0-33.0 [facility] ([place] Comment on above: Performed By: #### L IPID, TSH, GFR, HGMP, CMP #### [place] [id number] MCHC 34.0 G/dL Normal 32.0-36.0 [facility] ([place] Comment on above: Performed By: #### L IPID, TSH, GFR, HGMP, CMP #### [place] [id number] MCV (RBC) [Entitic vol] 90.8 fL Normal 80.0-99.0 [facility] ([place] Comment on above: Performed By: #### L IPID, TSH, GFR, HGMP, CMP #### [address] [address] Platelet 255 10 3/mcL Normal 150-450 [facility] ([place] Comment on above: Performed By: #### L IPID, TSH, GFR, HGMP, CMP #### [address] [address] Platelet mean volume (Bld) [Entitic vol] 8.9 fL Normal 6.6-10.5 [facility] ([place] Comment on above: Performed By: #### L IPID, TSH, GFR, HGMP, CMP #### [address] [address] RBC 4.96 10 6/mcL Normal 4.10-5.30 [facility] ([place] Comment on above: Performed By: #### L IPID, TSH, GFR, HGMP, CMP #### [address] [address] WBC 6.0 10 3/mcL Normal 4.5-10.8 [facility] ([place] Comment on above: Performed By: #### L IPID, TSH, GFR, HGMP, CMP #### [address] [address] LIPIDon 07-24-2023 Cholesterol [Mass/Vol] 176 mg/dL Normal 50-199 [facility] ([place]) Comment on above: Result Comment: Chol esterol Reference Interval: Less than 200 Desirable 200-239 Borderline high risk 240 and above High risk Performed By: #### L IPID, TSH, GFR, HGMP, CMP #### [address] [address] Cholesterol in HDL [Mass/Vol] 67 mg/dL High 40-59 [facility] ([place] Comment on above: Performed By: #### L IPID, TSH, GFR, HGMP, CMP #### [address] [address] Cholesterol in LDL [Mass/Vol] 91 mg/dL Normal 0-129 [facility] ([place] Comment on above: Performed By: #### L IPID, TSH, GFR, HGMP, CMP #### [facility] [address] [place] [address] Triglyceride [Mass/Vol] 90 mg/dL Normal 3-149 [facility] ([place] Comment on above: Performed By: #### L IPID, TSH, GFR, HGMP, CMP #### [facility] [address] [place] [address] TSHon 07-24-2023 TSH 0.445 mIU/mL Low 0.550-4.780 [facility] ([place]) Comment on above: Result Comment: No te - New Reference Range in effect 20 Performed By: #### L IPID, TSH, GFR, HGMP, CMP #### [address] [address] US THYROID/PARATHYROIDon [facility] BONE DENSITY STUDYon 022 Bone density scan BONE DENSITY EVALUATION: 12/21/2021 CLINICAL DATA: Post menopausal and follow-up to previous study. RISK FACTORS: race. COMPARISON: 07/23/2019 Left total femur area using a Hologic unit from [facility] with reported normal fracture risk, BMD of 0.992g/cm2, T-score of 0.40, and Z-score of 1.70. 07/23/2019 Left femur neck using a Hologic unit from [facility] with reported normal fracture risk, BMD of 0.852g/cm2, T-score of 0.01, and Z-score of 1.60. 07/23/2019 AP L1-L4 region of spine using a Hologic unit from [facility] with reported normal fracture risk, BMD of 1.156g/cm2, T-score of 1.00, and Z-score of 2.80. FINDINGS: Bone density evaluation was performed 12/21/2021 on the left femur neck using a Hologic unit. The BMD average for the exam is 0.850 g/cm2. The T-score is 0.01 and the Z-score is 1.70. Since the previous similar exam of 07/23/2019, there has been a -0.002 or -0.2% change in the BMD value which represents no significant interval change in bone density. This matches the World Health Organization's criteria for normal bone density and places the patient within normal limits of fracture risk. An additional bone density evaluation was performed 12/21/2021 on the left total femur area using a Hologic unit. The BMD average for the exam is 0.979 g/cm2. The T-score is 0.30 and the Z-score is 1.70. Since the previous similar exam of 07/23/2019, there has been a -0.013 or -1.3% change in the BMD value which represents no significant interval change in bone density. This matches the World Health Organization's criteria for normal bone density and places the patient within normal limits of fracture risk. An additional bone density evaluation was performed 12/21/2021 on the AP L1-L4 region of spine using a Hologic unit. The BMD average for the exam is 1.210 g/cm2. The T-score is 1.50 and the Z-score is 3.50. Since the previous similar exam of 07/23/2019, there has been a +0.054 or +4.7% change in the BMD value . This matches the World Health Organization's criteria for normal bone density and places the patient within normal limits of fracture risk. There has been a slight increase in lumbar BMD. IMPRESSION: BONE DENSITY WITHIN NORMAL LIMITS Scan of left femur neck is within normal levels. Scan of left total femur area is within normal levels. Scan of AP L1-L4 region of spine is within normal levels. Patient is at normal risk for fracture. There has been a slight increase in lumbar BMD. Corey Leonard M.D. [facility]/:12/21/2021 09:22:55 Car Porter: Melissa SCHRADER(Henok)(Shi), [facility] Reported By: COREY LEONARD M.D. Signed By: COREY LEONARD M.D. [facility] DIGITAL MAMMO SCREENINGon DIGITAL MAMMO SCREENING BILATERAL DIGITAL SCREENING MAMMOGRAM WITH CAD: 12/21/2021 Ordering Physician: Earnestine Candelario M.D. CLINICAL: Routine screening. Comparison is made to exams dated: 11/16/2020 mammogram and 07/08/2019 mammogram - [facility]. There are scattered fibroglandular elements in both breasts that could obscure a lesion on mammography. Current study was also evaluated with a Computer Aided Detection (CAD) system. There is a benign density left breast. No significant masses, calcifications, or other findings are seen in either breast. There has been no significant interval change. IMPRESSION: BENIGN There is no mammographic evidence of malignancy. A 1 year screening mammogram is recommended. The false-negative rate of mammography is approximately 10%. Management of a palpable abnormality must be based upon clinical grounds. Prabha Dubon M.D. ear/penrad:12/21/2021 08:31:56 Car Porter: Payton Guevara RT(R)(M), [facility] letter sent: Mammography Normal BI-RADS: 2 Benign Reported By: PRABHA DUBON M.D. Signed By: PRABHA DUBON M.D. Normal [facility] TSHon 09-01-2021 TSH 2.122 UIU/ML Normal 0.358-3.740 [facility] Comment on above: Result Comment: 3rd generation ultra sensitive TSH Performed By: #### L 500.05621 #### [facility] [address] [place] [address] CBCon 06-28-2021 Erythrocyte distribution width (RBC) [Ratio] 13.1 % Normal 11-14.5 [facility] Comment on above: Performed By: #### L 200.05987 #### [facility] [address] [place] [address] Hematocrit (Bld) [Volume fraction] 47.5 % High 35.0-47.0 [facility] Comment on above: Performed By: #### L 200.40321 #### [facility] [address] [place], [place] [id number] Hemoglobin (Bld) [Mass/Vol] 15.6 g/dL High 11.5-15.5 [facility] Comment on above: Performed By: #### L 200.12577 #### [facility] [address] [place] [address] MCHC (RBC) [Mass/Vol] 32.8 g/dL Normal 32.0-36.0 [facility] Comment on above: Performed By: #### L 200.32991 #### [facility] [address] [place] [address] MCV (RBC) [Entitic vol] 93.3 fL Normal 80.0-99.0 [facility] Comment on above: Performed By: #### L 200.33675 #### [facility] [address] [place] [address] Nucleated RBC/100 WBC (Bld) [Ratio] 0.0 % Normal Less than 1 [facility] Comment on above: Performed By: #### L 200.91152 #### [facility] [address] [place] [address] Platelet mean volume (Bld) [Entitic vol] 11.1 fL Normal 9.4-12.4 [facility] Comment on above: Performed By: #### L 200.54628 #### [facility] [address] [place] [address] PLT 274 K/CU MM Normal 150-450 [facility] Comment on above: Performed By: #### L 200.03222 #### [facility] [address] [place] [address] RBC 5.09 M/CU MM Normal 3.90-5.30 [facility] Comment on above: Performed By: #### L 200.78047 #### [facility] [address] [place] [address] WBC 5.0 K/CUMM Normal 4.5-11.0 [facility] Comment on above: Performed By: #### L 200.09015 #### [facility] [place] [address] CMPon 06-28-2021 Albumin [Mass/Vol] 4.0 g/dL Normal 3.2-5.0 [facility] Comment on above: Performed By: #### L 500.29995, L500.04813, L550.13434, L500.63307, L500.88078 #### [facility] [address] [place], [place] [id number] Albumin/Globulin [Mass ratio] 1.2 {ratio} Normal 0.8-2.0 [facility] Comment on above: Performed By: #### L 500.48113, L500.63294, L550.84339, L500.70813, L500.94546 #### [facility] [address] [place] [address] ALK PHOS 79 U/L Normal 45-117 [facility] Comment on above: Performed By: #### L 500.08208, L500.54765, L550.29904, L500.47566, L500.22689 #### [facility] [address] [place] [address] ALT [Catalytic activity/Vol] 15 U/L Normal 13-61 [facility] Comment on above: Result Comment: RESU LTS MAY BE FALSELY DEPRESSED AFTER THE ADMINISTRATION OF SULFASALAZINE AND/OR SULFAPYRIDINE. Performed By: #### L 500.27517, L500.28198, L550.26825, L500.45911, L500.46378 #### [facility] [place] [address] Anion gap [Moles/Vol] 6 mmol/L Normal 5-16 [facility] Comment on above: Performed By: #### L 500.18242, L500.84985, L550.52098, L500.50687, L500.96960 #### [facility] [place] [address] AST [Catalytic activity/Vol] 18 U/L Normal 8-34 [facility] Comment on above: Result Comment: RESU LTS MAY BE FALSELY DEPRESSED AFTER THE ADMINISTRATION OF SULFASALAZINE AND/OR SULFAPYRIDINE. Performed By: #### L 500.74399, L500.77320, L550.90965, L500.79141, L500.73158 #### [facility] [address] [place] [address] BILI TOTAL 0.50 MG/DL Normal 0.2-1.0 [facility] Comment on above: Performed By: #### L 500.65065, L500.85545, L550.33274, L500.79322, L500.43944 #### [facility] [address] [place] [address] Calcium [Mass/Vol] 10.2 mg/dL Normal 8.5-10.5 [facility] Comment on above: Result Comment: NOTE NEW NORMAL RANGE DUE TO REAGENT CHANGE Performed By: #### L 500.32114, L500.21932, L550.72127, L500.51385, L500.33231 #### [facility] [place] [id number] Chloride [Moles/Vol] 105 mmol/L Normal 98-107 [facility] Comment on above: Performed By: #### L 500.29096, L500.05412, L550.02128, L500.32344, L500.23586 #### [facility] [address] [place] [address] CO2 [Moles/Vol] 30.0 mmol/L Normal 21-32 [facility] Comment on above: Performed By: #### L 500.06980, L500.06570, L550.69771, L500.15833, L500.04744 #### [facility] [place] [id number] Creatinine [Mass/Vol] 1.17 mg/dL High 0.510-0.950 [facility] Comment on above: Result Comment: Guadalupe ents receiving either N-Acetylcysteine (NAC) or Metamizole prior to venipuncture, may have falsely depressed results. Performed By: #### L 500.37417, L500.97677, L550.86580, L500.19757, L500.83800 #### [facility] [address] [place] [address] Globulin (S) [Mass/Vol] 3.4 g/dL Normal 2.2-4.2 [facility] Comment on above: Performed By: #### L 500.45160, L500.92312, L550.85058, L500.23720, L500.19216 #### [facility] [address] [place], [place] [id number] Glucose [Mass/Vol] 93 mg/dL Normal 70-100 [facility] Comment on above: Result Comment: 70-1 00- Normal Fasting; 100-125 Impaired Fasting; greater than 126 on more than one result- Diabetes. ADA guidelines. Results may be falsely elevated after the administration of Sulfapyridine. Results may be falsely depressed after the administration of Sulfasalazine. Performed By: #### L 500.95472, L500.65832, L550.60575, L500.40650, L500.55337 #### [facility] [place] [address] Potassium [Moles/Vol] 4.8 mmol/L Normal 3.5-5.1 [facility] Comment on above: Result Comment: Slig ht Hemolysis, Result may be affected. Performed By: #### L 500.36556, L500.72039, L550.23953, L500.31573, L500.22866 #### [facility] [place] [address] Protein [Mass/Vol] 7.4 g/dL Normal 6.0-8.5 [facility] Comment on above: Performed By: #### L 500.77446, L500.11817, L550.77443, L500.49606, L500.46294 #### [facility] [address] [place], [place] [address] Sodium [Moles/Vol] 140 mmol/L Normal 136-145 [facility] Comment on above: Performed By: #### L 500.13722, L500.31121, L550.99342, L500.29584, L500.78431 #### [facility] [address] [place] [address] Urea nitrogen [Mass/Vol] 18 mg/dL Normal 7-26 [facility] Comment on above: Performed By: #### L 500.07226, L500.01275, L550.46610, L500.43682, L500.20544 #### [facility] [address] [place] [address] Urea nitrogen/Creatinine [Mass ratio] 15 mg/mg Normal 15-24 [facility] Comment on above: Performed By: #### L 500.77625, L500.35155, L550.81407, L500.08572, L500.09158 #### [facility] [address] [place] [address] GFR ESTon 06-28-2021 IF AMER 56 Normal [facility] Comment on above: Performed By: #### L 500.91941, L500.91278, L550.41730, L500.30938, L500.13867 #### [facility] [address] [place], [place] [address] IF non-AFR AMER 46 Normal [facility] Comment on above: Performed By: #### L 500.20731, L500.06595, L550.20939, L500.24386, L500.75201 #### [facility] [address] [place] [address] LIPIDon 06-28-2021 CHOL 174 MG/dL Normal 0-199 [facility] Comment on above: Performed By: #### L 500.56113, L500.80751, L550.25628, L500.23269, L500.17430 #### [facility] [address] [place] [address] Cholesterol in HDL [Mass/Vol] 58 mg/dL Normal GREATER THAN 40 [facility] Comment on above: Result Comment: Guadalupe ents receiving Metamizole prior to venipuncture, may have falsely depressed results. Performed By: #### L 500.60691, L500.23057, L550.59253, L500.06730, L500.34749 #### [facility] [address] [place] [address] Cholesterol in LDL [Mass/Vol] 91 mg/dL Normal [facility] Comment on above: Result Comment: ___C HOLESTEROL/HDL RATIO RISK___ CHD RISK = Total CHOL LDL HDL (CHOL/HDL) Recommended <200 <130 >40 <3.4 Borderline 200-239 130-159 3.4-4.99 High >240 >160 >5.0 Performed By: #### L 500.74254, L500.26288, L550.12074, L500.93937, L500.67159 #### [facility] [address] [place] [address] Triglyceride [Mass/Vol] 121 mg/dL Normal 30-149 [facility] Comment on above: Result Comment: Guadalupe ents receiving either N-Acetylcysteine (NAC) or Metamizole prior to venipuncture, may have falsely depressed results. Performed By: #### L 500.80487, L500.89387, L550.21969, L500.66134, L500.55663 #### [facility] [place] [id number] TSHon 06-28-2021 TSH 5.288 UIU/ML High 0.358-3.740 [facility] Comment on above: Result Comment: 3rd generation ultra sensitive TSH Performed By: #### L 500.58251, L500.89963, L550.62911, L500.43682, L500.56304 #### [facility] [place] [address] [id number] 06-28-2021 [id number] 44.3 NG/ML Normal 30.0-100.0 [facility] Comment on above: Result Comment: Defi ciency Less than 20 ng/mL Insufficiency 20 - Less than 30 ng/mL Sufficiency 30 - 100 ng/mL Performed By: #### L 500.56153, L500.93534, L550.74384, L500.65853, L500.23397 #### [facility] [address] [place] [address]# [phone] Vital Signs Date Time Vital Sign Value Performing Clinician Maday archibald 02-25-2024 11:35-0400 Respiratory rate 16 /min Doar Cuevas MD Work Phone: [facility] 02-25-2024 11:23-0400 Body temperature 98.1 [degF] Dora Cuevas MD Work Phone: [facility] 02-25-2024 11:23-0400 Diastolic blood pressure 78 mm[Hg] Dora Cuevas MD Work Phone: [facility] 02-25-2024 11:23-0400 Heart rate 64 /min Dora Cuevas MD Work Phone: [facility] 02-25-2024 11:23-0400 SaO2% (BldA) [Mass fraction] 93 % Dora Cuevas MD Work Phone: [facility] 02-25-2024 11:23-0400 Systolic blood pressure 159 mm[Hg] Dora Rios Work Phone: [facility] 02-21-2024 17:24-0400 Body height 165.1 cm Dora Cuevas MD Work Phone: [facility] 02-21-2024 17:24-0400 Body mass index (BMI) [Ratio] 29.95 kg/m2 Dora Cuevas MD Work Phone: [facility] 02-21-2024 17:24-0400 Body weight 81.65 kg Dora Cuevas MD Work Phone: [facility] Encounters Encounter Date Encounter Type Care Provider Facility Start: 09-01-2025 ambulatory EARNESTINE CANDELARIO MD Facil ity:A Start: 10-16-2024 End: 10-16-2024 [facility] Start: 09-05-2024 End: 09-05-2024 ambulatory S WILIAM Facility:[facility] Start: 02-27-2024 End: 05-22-2024 ambulatory NOT RECORDED PHYSICIAN Facility:R Start: 02-21-2024 End: 02-25-2024 Evaluation and management of inpatient DORA CUEVAS [facility] Start: 02-21-2024 End: 02-25-2024 Evaluation and management of inpatient Latesha Page MD Work Phone: [facility] Med Surg Ortho 2 Start: 02-21-2024 End: 02-21-2024 Emergency department patient visit NIKUNJ ALFRED [facility] Start: 01-25-2024 End: 01-29-2024 ambulatory EANRESTINE CANDELARIO MD Facility:A Start: 10-24-2023 End: 10-28-2023 ambulatory EARNESTINE CANDELARIO MD Facility:A Start: 09-19-2023 End: 09-19-2023 ambulatory [facility] Work Phone: Start: 09-19-2023 End: 09-19-2023 Patient encounter procedure [facility] Work Phone: Start: 07-24-2023 End: 07-28-2023 ambulatory EARNESTINE CANDELARIO MD Facility:A Start: 07-24-2023 End: 07-28-2023 Encounter for general adult medical examination without abnormal findings EARNESTINE CANDELARIO MD Facility:A Start: 01-02-2023 End: 01-02-2023 Subsequent hospital visit by physician Screen Mammo Mobile [facility] [place] 1 RADIO MAMMO [facility] Comment on above: Encounter for screen ing mammogram for malignant neoplasm of breast [Z12.31] Start: 2022 End: 2022 Subsequent [facility] visit [facility] Comment on above: 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] Start: 12-21-2021 End: 12-21-2021 Subsequent hospital visit by physician Earnestine Candelario MD Work Phone: [facility] Comment on above: BREAST SCREENING,POS TMENOPAUSAL Start: 07-20-2020 Patient encounter procedure Ashanti Khan MD Work Phone: [facility] Start: 07-20-2020 Progress Note Ashanti wynn MD Work Phone: [facility] Procedures Date Procedure Procedure Detail Performing Clinician Start: 02-25-2024 Basic metabolic pane l calcium total Juliana Ellen Mcfadden PA-C Work Phone: Start: 02-24-2024 Basic metabolic pane l calcium total Juliana Ellen Mcfadden PA-C Work Phone: Start: 02-23-2024 Culture bacterial quanttative colony count urine Maisha BYNUM-C Work Phone: Start: 02-23-2024 Basic metabolic pane l calcium total Juliana Ellen Mcfadden PA-C Work Phone: Start: 02-22-2024 Radiologic examinati on tibia & fibula 2 views Pool Kendall MD Work Phone: Start: 02-22-2024 XR and RF Chest PA a nd Lateral and Views Pool Kendall MD Work Phone: Start: 02-22-2024 End: 02-22-2024 OPEN REDUCTION INTERNAL FIXATION TIBIA Pool Kendall MD Work Phone: Start: 02-22-2024 Drug tst prsmv instr mnt chem analyzers pr date Leigh BYNUM-C Work Phone: Start: 02-22-2024 Urnls dip stick/tabl et reagent auto microscopy Leigh BYNUM-C Work Phone: Start: 02-22-2024 Basic metabolic pane l calcium total Juliana Ellen Mcfadden PA-C Work Phone: Start: 02-21-2024 Blood group typing Melonie Trevino MD Work Phone: Start: 02-21-2024 Blood ethanol measurement Leigh Amador PA-C Work Phone: Start: 02-21-2024 Blood typing serologic abo Leigh Amador PA-C Work Phone: Start: 02-21-2024 SUNG TOP Triage [facility] Start: 02-21-2024 LAVENDER TOP Triage [facility] Start: 02-21-2024 LIGHT GREEN TOP Triage [facility] Start: 02-21-2024 Prothrombin time Leigh Amador PA-C Work Phone: Start: 02-21-2024 RAINBOW DRAW Triage [facility] Start: 09-19-2023 Screening mammography Start: 2022 Us soft tissue head & neck real time imge docm Earnestine Candelario MD Work Phone: Start: 12-21-2021 Mammography Ashanti orteag MD Work Phone: Plan of Treatment Date Care Activity Detail Author Start: 06-28-2026 LIPID SCREEN LIPID SCREEN [facility] Start: 06-28-2024 DIABETES SCREEN DIABETES SCREEN [facility] Start: 12-21-2022 Mammography MAMMOGRAM [facility] Start: 10-22-2022 ADVANCE DIRECTIVE DISCUSSION ADVANCE DIRECTIVE DISCUSSION [facility] Start: 10-22-2022 DEPRESSION ASSESSMENT DEPRESSION ASS ESSMENT [facility] Start: 07-11-2022 COVID-19 VACCINE (5 - Booster for Pfizer series) COVID-19 VACCINE (5 - Booster for Pfizer series) [facility] Start: 06-22-2022 Influenza vaccination [facility] Start: 12-13-2021 COVID-19 VACCINE (4 - Booster for Pfizer series) COVID-19 VACCINE (4 - Booster for Pfizer series) [facility] Start: 10-22-2021 ADVANCE DIRECTIVE DISCUSSION ADVANCE DIRECTIVE DISCUSSION [facility] Start: 2018 PNEUMOCOCCAL: 65+ (1 - PCV) PNEUMOCOCCAL: 65+ (1 - PCV) [facility] Start: 2003 SHINGRIX VACCINE (1 of 2) SHINGRIX V ACCINE (1 of 2) [facility] Start: 1998 COLOGUARD (FIT-DNA) COLOGUARD (FIT-D NA) [facility] Start: 1998 Colonoscopy COLONOSCOPY [facility] Start: 1998 COLORECTAL CANCER SCREENING COLORECTAL CANCER SCREENING [facility] Start: [address] COLONOGRAPHY [facility] Start: 1998 DIAB[facility] Start: 1998 FECAL OCCULT BLOOD FECAL OCCULT BLOO D [facility] Start: 1998 LIPID SCREEN LIPID SCREEN [facility] Start: 1998 SIGMOIDOSCOPY SIGMOIDOSCOPY Clemaureen rios [facility] Start: 1972 Urine microalbumin profile DTAP,TDAP ,TD (1 - Tdap) [facility] Start: 1971 HEPATITIS C SCREENING HEPATITIS C SC REENING [facility] Start: 1965 Adult depression scr eening assessment DEPRESSION SCREENING [facility] Immunizations Immunization Date Immunization Notes Care Provider Cliff neri 05-16-2022 COVID-19 original va ccine, age 12+ yr, monovalent (PFIZER-BIONTECH - SUNG TOP) Screen [facility] [place] Payers Date Payer Category Payer Self-pay 2023 Unknown [id number] 2021 Unknown [id number] 2018 Medicare [id number] 2018 Medicare MEDICARE MEDICAR E PART A & B [id number] 2018-Present [phone] S [id number] PART A CLAIMS [address] [address] [place] [address] [id number] 1955 Unknown [id number] 1955 Unknown [id number] 1955 Unknown [id number] 1955 Unknown [id number] 1955 Unknown [id number] 1955 Unknown [id number] Unknown [id number] Unknown [id number] Social History Date Type Detail [facility] Start: 1955 Sex Assigned At Not on file [facility] Start: 07-04-2022 End: 2022 Exposure to SARS-CoV-2 (event) Not sure [facility] Start: 1955 Sex Assigned At Female [facility] Start: 02-21-2024 Tobacco smoking stat [facility] Never smoked tobacco [facility] Start: 02-21-2024 Tobacco use and exposure Smokeless tobacco non-user [facility] Start: 02-25-2024 Alcohol intake Ex-drinker (finding) [facility] Start: 02-21-2024 End: 02-22-2024 History of Social function [facility] Start: 02-21-2024 End: 02-22-2024 [employer] Utilities [facility] Has the [employer], [employer], or [employer] threatened to shut off services in your home in past 12Mo No [facility] Adult Depression Screening Assessment 0 [facility] (I/We) worried wheth er (my/our) food would run out before (I/we) got money to buy more. Never true [facility] Medical Equipment Procedure Code Equipment Code Equipment Origin al Text Equipment Identifier Dates Plate 69mm 6hl 1 /3 Tubular W/Collar Lcp - [id number] Start: 02-22-2024 Screw 5 X 40mm Locking Xl25 Recess Im Nail Tn-Advanced - [id number] FDA Start: 02-22-2024 Screw 5 X 36mm Locking Xl25 Recess Im Nail Tn-Advanced - [id number] Start: 02-22-2024 Screw 5 X 36mm X l25 Low Pro Tn Advanced - [id number] Start: 02-22-2024 Low Profile Lock ing Screw Nial 5.0mm 46mm [id number] Start: 02-22-2024 Screw 4 X 36mm C neftali Short Thrd - [id number] Start: 02-22-2024 Screw 4 X 40mm C neftali Short Thrd - [id number] Start: 02-22-2024 Screw 2.7 X 22mm Cortex Self-Tap - [id number] Start: 02-22-2024 Screw 3.5 X 12mm Cortex Self-Tap - [id number] Start: 02-22-2024 Screw 3.5 X 14mm Self-Tap Cortex - [id number] Start: 02-22-2024 Screw 4 X 14mm C anc Bone Full Thrd - [id number] Start: 02-22-2024 Screw 4 X 18mm C anc Bone Full Thrd - [id number] Start: 02-22-2024 Tibial Nail 9mm 345mm [id number] Start: 02-22-2024 Clinical Notes 07-20-2020 to 09-03-2025 Quick Note - Meredith Buck RN - 02/25/2024 12:45 PM EDTQuick Note - Meredith Buck RN - 02/25/2024 12:45 PM EDTPlan of Care - Prabha Goyal RN - 02/25/2024 11:46 AM EDTDischarge Instructions Note Date & Type Note Facility 09-03-2025 Note . MICRO - Microbiology PROCEDURE: Urine Culture [*1] SOURCE: Urine, Clean Catch BODY SITE: COLLECTED DATE/TIME: 09/01/2025 12:00 EST RECEIVED DATE/TIME: 09/01/2025 20:32 EST START DATE/TIME: 09/01/2025 20:32 EST FREE TEXT SOURCE: FINAL REPORTS Final Report [] Verified Date/Time/Personnel: 09/03/2025 07:44 EST 10,000 - 50,000 cfu/ml Mixed growth consistent with normal urogenital luisa. PRELIMINARY REPORTS Preliminary Report [] Verified Date/Time/Personnel: 09/02/2025 09:06 EST No growth to date Preliminary Report [] Verified Date/Time/Personnel: 09/01/2025 21:59 EST Specimen received in lab. Performing Locations *1: This test was performed at: [facility], [address] [place] [address], [facility] , [facility] 02-25-2024 Note DISCHARGE SUMMARY Patient: Rinku Giordano Date of : 1955 Site: [facility] Family Provider: Sera Physician Admit Date: 02/21/2024 Discharge Date/Time: 02/25/24 Morning Disposition: Home Health Care Services Clinical Summary Hospital Course: Rinku Giordano is a 68 y.o. 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 on 02/21/24 s/p Mechanical fall with a Chief Complaint of R ankle pain. Patient reportedly missed a step and got her foot stuck underneath her. She fell onto her knee. Patient did not hit head, and did not have LOC. AC/AP use: denies use of AC/AP meds. Pt with a R pilon variant fracture s/p R ankle ORIF, tibial IMN 02/[address] Kendall. Discharge Diagnoses: - R pilon Variant Fx: NWB RLE, ORIF/IMN with Dr. Kendall 02/21, PT/OT, DC on lovenox for DVT ppx, 2 week F/U with Dr. Kendall After collaboration with the multidisciplinary team, the patient was discharged with appropriate resources and follow up. At the time of discharge, the patient was tolerating a diet, had good pain control and was in a medically stable condition. Surgeries: 02/22/24 OPEN REDUCTION INTERNAL FIXATION TIBIA Consults: Procedures Hospitalize Patient To:____ Inpatient consult to Orthopedic Surgery Inpatient consult to Hospitalist Inpatient consult to Care Management Inpatient consult to Care Management Inpatient consult to Home Health Hub Allergies: Patient has no known allergies. Discharge Diet: Resume home diet Condition: Good Discharge Medications: Discharge Medications New Medications Details acetaminophen 325 MG tablet Commonly known as: TYLENOL Take 2 (two) tablets (650 mg total) by mouth every 4 (four) hours for 10 days . Quantity: 120 tablet enoxaparin 30 mg/0.3 mL Syrg Commonly known as: LOVENOX Inject 0.4 mL (40 mg total) under the skin daily . Quantity: 18 mL oxyCODONE 5 MG immediate release tablet Commonly known as: ROXICODONE Take 1 (one) tablet (5 mg total) by mouth every 6 (six) hours as needed (Days supply per fill: 3) . Quantity: 12 tablet polyethylene glycol 17 gram powder Commonly known as: MIRALAX Take 17 (seventeen) g by mouth 2 (two) times a day for 7 days . Quantity: 14 packet senna-docusate 8.6-50 mg Commonly known as: SENNA-S Take 1 (one) tablet by mouth 2 (two) times a day . Quantity: 60 tablet tiZANidine 2 MG tablet Commonly known as: ZANAFLEX Take 1 (one) tablet (2 mg total) by mouth 3 (three) times a day for 10 days . Quantity: 30 tablet Modified Medications Details metoprolol succinate 50 MG 24 hr tablet Commonly known as: TOPROL-XL What changed: medication strength how much to take when to take this Take 1 (one) tablet (50 mg total) by mouth daily Start: 02/24/24. Quantity: 30 tablet Medications To Continue Details calcium carbonate-vitamin D3 600 mg-5 mcg (200 unit) Cap Take 1 capsule by mouth nightly . levothyroxine 112 MCG tablet Commonly known as: SYNTHROID, LEVOTHROID Take 1 (one) tablet (112 mcg total) by mouth once daily . Physician(s) Family Provider: Sera, Physician, Phone: None Address: [facility] Follow Up: Pool Kendall MD [address] [facility] [id number] Schedule an appointment as soon as possible for a visit in 2 week(s) [facility] [address] [address] Follow up Follow up as needed Primary care Physician Follow up Please follow up with your PCP for blood pressure management. Your Metoprolol dose was decreased due to low heart rate in the hospital. Monitor your BP and HR daily at home until follow up. Additional Information: Patient instructions, including activity, were given to the patient/family at discharge. Please see the After Visit Summary in the electronic medical record for details. Time spent on discharge: < 30 minutes Completed by: Braulio Paulson PA-C on 02/25/24, 9:16 AM AUTHENTICATED BY BRAULIO PAULSON, ON 02/25/2024 12:44:41 [facility] 02-25-2024 Note Formatting of this n ote might be different from the original. Reviewed contents of AVS with patient. Answered all questions & concerns. Pt verbalized understanding. Removed PIV with catheter intact. Pt has received meds to beds. Daughter at the bedside. Patient has all her belongings. Pt's cell phone is on the bedside table. PSA notified pt ready to leave & meet [place]. Primary nurse aware. [facility] 02-25-2024 Miscellaneous Notes Formatting of this note might be differe nt from the original. Reviewed contents of AVS with patient. Answered all questions & concerns. Pt verbalized understanding. Removed PIV with catheter intact. Pt has received meds to beds. Daughter at the bedside. Patient has all her belongings. Pt's cell phone is on the bedside table. PSA notified pt ready to leave & meet daughter in [place]. Primary nurse aware. voice instructor went over AVS with patient and family, all questions answered. IV removed per order, no complications. Patient wheeled down via wheelchair by staff to private vehicle. 1321: [facility] ([phone]) notified to contact pt's daughter to arrange visits. DOD faxed. Accepted for services? If so, where? YES/PENDING (if [facility], include region) Yes. [facility] in Your Home accepted. Referrals sent to (names of agencies) Denials: [facility] Caretenders out of service area [facility] [phone] [facility] [phone] [facility] at Home [phone] [facility] created for the following services: (Or waiting for ____) PT/OT/HOTEL LOBBY CONCIERGE Demographics: (Where patient will be staying on discharge) Pt will dc to daughter's home. [address] [place] [address] Added to temporary address. What is the primary number to reach you? Nasreen Giordano (Child) [phone] Will update [facility] when DOD faxed. Family Physician/Primary Care Physician No pcp listed Following physician will be (list first name/last name) Pool Kendall MD Do you have a caregiver and/or teachable caregiver (list relationship, name & phone #)? N/A Are there any special precautions or safety concerns (isolation precautions, etc)? N/A Estimated Discharge Date (SIMBA): 02/25/24 Bedside report was completed including the following dual assessment, if applicable: Electronic Medical Record Review Deterioration Index (DI) Score Physician orders - active & held orders MAR - overdue & held meds Infusing medications/fluids Peripheral IVs IV dressing clean, dry, and intact IV tubing changed less than 96 hours IV tubing dated, initialed, labeled IV changed less than equal to 96 hours Central Lines CHG bath completed and documented daily Dressing present and correctly positioned The central line catheter is secured to the patient's body Central line dressing is clean, dry and intact Line necessity reviewed All hubs on the central line have a swab cap Urinary Catheters Red seal is intact Tubing is free of dependent loops and without standing urine Urine collection bag is below the bladder Catheter tubing is secured to the patient's body to prevent urethral tension No components of the urinary catheter system are touching the floor Catheter necessity reviewed Skin Integrity Turning schedule and last turned Dressings clean, dry, and intact Skin Assessment completed - skin integrity, any findings? Falls Fall risk score Intervention Bundle (check all in place) Door sign Bed/Chair Alarm on Fall Risk band Non-skid socks Patient centered interventions NG/OG Tube intact and functioning as ordered Tubing dated, initialed, labeled Tube feed solution as ordered Hemovacs/SANTHOSH drains Intact Output recorded Fully compressed SCDs On the patient and the pump turned on Total Joints Ice therapy on affected limb Ham wrap off POD1 knees Discharge by noon potential discussed Verified by note author and MARILU Armando. Bedside report was completed including the following dual assessment, if applicable: Electronic Medical Record Review Deterioration Index (DI) Score Physician orders - active & held orders MAR - overdue & held meds Infusing medications/fluids Peripheral IVs IV dressing clean, dry, and intact IV tubing changed less than 96 hours IV tubing dated, initialed, labeled IV changed less than equal to 96 hours Central Lines CHG bath completed and documented daily Dressing present and correctly positioned The central line catheter is secured to the patient's body Central line dressing is clean, dry and intact Line necessity reviewed All hubs on the central line have a swab cap Urinary Catheters Red seal is intact Tubing is free of dependent loops and without standing urine Urine collection bag is below the bladder Catheter tubing is secured to the patient's body to prevent urethral tension No components of the urinary catheter system are touching the floor Catheter necessity reviewed Skin Integrity Turning schedule and last turned Dressings clean, dry, and intact Skin Assessment completed - skin integrity, any findings? Falls Fall risk score Intervention Bundle (check all in place) Door sign Bed/Chair Alarm on Fall Risk band Non-skid socks Patient centered interventions NG/OG Tube intact and functioning as ordered Tubing dated, initialed, labeled Tube feed solution as ordered Hemovacs/SANTHOSH drains Intact Output recorded Fully compressed SCDs On the patient and the pump turned on Total Joints Ice therapy on affected limb Ham wrap off POD1 knees Discharge by noon potential discussed Verified by note author and MARILU Moreno. [id number] ENCOUNTER FOR HOME MEDICAL EQUIPMENT PATIENT: Rinku Giordano : 1955 Statement of Care: I certify that Rinku Giordano is under my care and that I, a Nurse Practitioner, Physician's Tightener, or Resident working with me, had a [id number] encounter with this patient today to evaluate and discuss the need for home medical equipment. I certify that based on the findings of this evaluation, which included but was not limited to the [id number] requirements, the following home medical equipment is medically necessary: Commode due to Beneficiary is confined to one level of the home and there is no toilet on that level. Signed by: Stefanie Dominique CNP on 02/24/2024 I discussed the need for a wheelchair with the patient including the following: The patient has a mobility limitation that significantly impairs his/her ability to participate in mobility related activities of daily living including toileting, dressing, bathing, and grooming. His/Her mobility limitation cannot be resolved by a cane or walker. His/Her home provides adequate access between rooms, maneuvering space, and surfaces for the use of a wheelchair. Use of a manual wheel chair will significantly improve his/her ability to participate in MRADL's and the patient will use it on a regular basis in the home. The patient is willing to use the wheelchair that is provided in the home. He/She has sufficient upper extremity function as well as the physical and mental capabilities needed to safely self propel his/her wheelchair. Bedside report was completed including the following dual assessment, if applicable: Electronic Medical Record Review Deterioration Index (DI) Score Physician orders - active & held orders MAR - overdue & held meds Infusing medications/fluids Peripheral IVs IV dressing clean, dry, and intact IV tubing changed less than 96 hours IV tubing dated, initialed, labeled IV changed less than equal to 96 hours Central Lines CHG bath completed and documented daily Dressing present and correctly positioned The central line catheter is secured to the patient's body Central line dressing is clean, dry and intact Line necessity reviewed All hubs on the central line have a swab cap Urinary Catheters Red seal is intact Tubing is free of dependent loops and without standing urine Urine collection bag is below the bladder Catheter tubing is secured to the patient's body to prevent urethral tension No components of the urinary catheter system are touching the floor Catheter necessity reviewed Skin Integrity Turning schedule and last turned Dressings clean, dry, and intact Skin Assessment completed - skin integrity, any findings? Falls Fall risk score Intervention Bundle (check all in place) Door sign Bed/Chair Alarm on Fall Risk band Non-skid socks Patient centered interventions NG/OG Tube intact and functioning as ordered Tubing dated, initialed, labeled Tube feed solution as ordered Hemovacs/SANTHOSH drains Intact Output recorded Fully compressed SCDs On the patient and the pump turned on Total Joints Ice therapy on affected limb Ham wrap off POD1 knees Discharge by noon potential discussed Verified by note author and MARILU Santiago. Bedside report was completed including the following dual assessment, if applicable: Electronic Medical Record Review Deterioration Index (DI) Score Physician orders - active & held orders MAR - overdue & held meds Infusing medications/fluids Peripheral IVs IV dressing clean, dry, and intact IV tubing changed less than 96 hours IV tubing dated, initialed, labeled IV changed less than equal to 96 hours Central Lines CHG bath completed and documented daily Dressing present and correctly positioned The central line catheter is secured to the patient's body Central line dressing is clean, dry and intact Line necessity reviewed All hubs on the central line have a swab cap Urinary Catheters Red seal is intact Tubing is free of dependent loops and without standing urine Urine collection bag is below the bladder Catheter tubing is secured to the patient's body to prevent urethral tension No components of the urinary catheter system are touching the floor Catheter necessity reviewed Skin Integrity Turning schedule and last turned Dressings clean, dry, and intact Skin Assessment completed - skin integrity, any findings? Falls Fall risk score Intervention Bundle (check all in place) Door sign Bed/Chair Alarm on Fall Risk band Non-skid socks Patient centered interventions NG/OG Tube intact and functioning as ordered Tubing dated, initialed, labeled Tube feed solution as ordered Hemovacs/SANTHOSH drains Intact Output recorded Fully compressed SCDs On the patient and the pump turned on Total Joints Ice therapy on affected limb Ham wrap off POD1 knees Discharge by noon potential discussed Verified by note author and MARILU [place]. RINKU GIORDANO [facility] [id number] 1955 DATE 02/22/2024 OPERATIVE REPORT SURGEON POOL KENDALL MD PREOPERATIVE DIAGNOSIS Right pilon fracture. POSTOPERATIVE DIAGNOSIS Right pilon fracture. PROCEDURE Open reduction and internal fixation of right pilon fracture, tibia and fibula. ANESTHESIA General plus popliteal block. BLOOD LOSS Minimal. FLUIDS Crystalloid per Anesthesia. COMPLICATIONS None. SPECIMENS None. DRAINS None. DISPOSITION Patient stable to PACU. IMPLANTS Synthes size 9 tibial nail, Synthes small frag set and Synthes 4.0 cannulated screws. HISTORY This is a patient who was visiting her 1st grandchild and her son yesterday when she slipped and fell. She sustained a fracture of the right distal tibia and fibula, which was intra-articular. She was admitted to the hospital and cleared for surgical intervention. I discussed with the patient risks and benefits of surgery including alternatives and natural history, and consent was obtained. DESCRIPTION OF PROCEDURE She was taken to the operating room after receiving a popliteal block and after being marked in the preoperative holding area. She received general anesthesia. She received preoperative antibiotics. The right lower extremity was then prepped and draped in normal sterile fashion. No tourniquet was used. A time-out was called. I began by making an incision over the patient's lateral malleolus. There was a fracture here which was exposed. I did not encounter the superficial peroneal nerve. I placed the laminar wet finisher through the fracture and then another laminar wet finisher into the posterior malleolus. There was a large fracture here and by doing so, I was able to expose the area and remove a piece of articular cartilage as identified on preoperative CT scan. I then placed a couple of guidewires from an anterior to posterior direction, 2 from medial to the tibialis anterior tendon and 1 lateral to it. I saw the wires exit into the cancellous bone. I backed the wires up and then proceeded with the case. I reduced the fibula. I held it out to length with a pointed reduction clamp and then placed a lag screw. It was a 2.7 lag screw. Prior to placing my neutralization plate and screws, I placed a periarticular reduction clamp getting a clamp on the posterior nhi and a clamp anteriorly. I was able to close the fracture down and then I advanced my guidewires. I drilled for and placed 3 of the 4.0 cannulated screws. The lateral screw was placed after I made an incision and carefully dissected to avoid any damage to the superficial peroneal nerve. I was satisfied with position of the screws and with the reduction of the posterior malleolus and with the length of the fibula. Next, I made an incision above the patella. With this suprapatellar approach, I inserted a guide and placed a guidewire into a good starting position. I advanced my guidewire and then used my opening drill. I used a ball-tipped guidewire and advanced it down the canal. I had been holding longitudinal traction and the distal tibia was well aligned. I advanced my guidewire and then began sequential reaming with a size 8.5 reamer, reaming up to a size 10, which allowed me to place a size 9 nail. The size 9 nail was placed without difficulty. I placed 2 screws proximally. Distally, there was a little bit of traffic. I placed a screw from a medial to lateral direction in the distal hole, but this was done only after removing one of the screws that had been placed prior. This was a 4.0 cannulated AP screw. I had backed the screw out and placed my medial to the lateral locking bolt and then replaced the screw in a slightly different trajectory. I then placed a screw from the oblique hole going from medial to lateral. Again, this required removal of my 2 distal AP screws so that I could see a good perfect [place]. Once this was done, I drilled for and placed my oblique screw and then replaced my 4.0 cannulated screws from the same trajectories. Final fluoroscopic images demonstrated the tibia to be out to length. Everything appeared stable and well reduced. The patient's wound was then copiously irrigated and closed in a layered fashion. Proximally it was closed with 0 Vicryl followed by 2-0 Vicryl and then 4-0 Monocryl. Distally 2-0 Vicryl, 3-0 Vicryl, and 4-0 Monocryl were used over the lateral incision. All stab incisions were closed with nylon. The patient's wounds were dressed and she was placed in a bulky [place] dressing with posterior and side slab splints. She was awoken from anesthesia and taken to the recovery room in good condition. Postoperatively, she can be toe-touch weightbearing for the next 6 to 8 weeks. She will come back to the clinic in 2 weeks' time with x-rays of her tibia/fibula and of her ankle. At that point, I hope to move her into either a short-leg cast for an additional 2 weeks versus a boot, but I would likely do a cast for 2 additional weeks. At the 4-week elizabeth, we can start some range of motion of the ankle and continue with toe-touch weightbearing and at the 6-week elizabeth, begin some partial weightbearing, advancing to full weightbearing by 8 weeks. She will not be able to drive during this time. She will be on aspirin for DVT prophylaxis. She is from out of town and will likely require either an ECF or staying with family members. MD Blanca GARCIA 02/22/2024 18:54 [id number] T 02/23/2024 04:53 BJT/MODL Bedside report was completed including the following dual assessment, if applicable: Electronic Medical Record Review Deterioration Index (DI) Score Physician orders - active & held orders MAR - overdue & held meds Infusing medications/fluids Peripheral IVs IV dressing clean, dry, and intact IV tubing changed less than 96 hours IV tubing dated, initialed, labeled IV changed less than equal to 96 hours Central Lines CHG bath completed and documented daily Dressing present and correctly positioned The central line catheter is secured to the patient's body Central line dressing is clean, dry and intact Line necessity reviewed All hubs on the central line have a swab cap Urinary Catheters Red seal is intact Tubing is free of dependent loops and without standing urine Urine collection bag is below the bladder Catheter tubing is secured to the patient's body to prevent urethral tension No components of the urinary catheter system are touching the floor Catheter necessity reviewed Skin Integrity Turning schedule and last turned Dressings clean, dry, and intact Skin Assessment completed - skin integrity, any findings? Falls Fall risk score Intervention Bundle (check all in place) Door sign Bed/Chair Alarm on Fall Risk band Non-skid socks Patient centered interventions NG/OG Tube intact and functioning as ordered Tubing dated, initialed, labeled Tube feed solution as ordered Hemovacs/SANTHOSH drains Intact Output recorded Fully compressed SCDs On the patient and the pump turned on Total Joints Ice therapy on affected limb Ham wrap off POD1 knees Discharge by noon potential discussed Verified by note author and Jaime RN. OCCUPATIONAL THERAPY VISIT VARIANCE NOTE Attempted to see patient at this time, but unable secondary to: Patient Unavailable (comment) (surgery today). Will follow up as appropriate. Orthopedic Surgery Post-Op Quick Note Rinku Shettyt is POD#0 s/p Right ankle ORIF, tibial IMN. -Diet: Regular diet -Post-op abx: ordered -Weight-bearing status: TDWB RLE extremity -Dressing: soft dressing, AO trilam splint, maintain until follow up -Post-op x-rays: intra-op -Pain control: acetaminophen and narcotic analgesics including oxycoedone for breakthrough -DVT prophylaxis: ASA -PT/OT: [id number] mg bid -SW: consulted If you have any additional questions please contact the on-call orthopedic resident. Rajeev Sanders DO Orthopedic Surgery Resident Brief Post Operative Note Patient Name: Rinku Giordano : 1955 (68 y.o.) Date of Service: 02/22/2024 CSN: [id number] Procedure(s): OPEN REDUCTION INTERNAL FIXATION TIBIA Pre-Operative Diagnoses: * right pilon variant Post-Operative Diagnoses: Surgeon(s) and Role: * Pool Kendall MD - Primary * Rajeev Sanders DO - Resident - Assisting Anesthesiologist: Jing Holloway DO Medical Billing Coder: Francoise Bazan RN; Estella Linares RN Recreation Technician: Josefina Vincent, TECHNOLOGIST Medical Billing Coder Relief: Holland Mao RN; Aleksandar Trevino RN Scrub Person Relief: Wendy Rodriguez RN; Inez Bolaños, appeals examinerCna Caregiver: Mahi Reynolds ST Operative findings: right ankle pilon fracture with assd fibular fracture Intra and immediate post-operative complications: none Type of anesthesia used: General Estimated blood loss: 150 mL Estimated urine output: Refer to surgical log Specimen(s): * No specimens in log * Implant(s): Implant Name Type Inv. Item Serial No. Airport Clerk Lot No. [id number] No. Used Action PLATE 69MM 6HL 1/3 TUBULAR W/COLLAR LCP - [id number] PLATE 69MM 6HL 1/3 TUBULAR W/COLLAR LCP SYNTHES LT Right 1 Implanted SCREW 4 X 36MM CAM SHORT THRD - [id number] SCREW 4 X 36MM CAM SHORT THRD SYNTHES LT Right 2 Implanted SCREW 4 X 40MM CAM SHORT THRD - [id number] SCREW 4 X 40MM CAM SHORT THRD SYNTHES LT Right 1 Implanted SCREW 2.7 X 22MM CORTEX SELF-TAP - [id number] SCREW 2.7 X 22MM CORTEX SELF-TAP SYNTHES LT Right 1 Implanted SCREW 3.5 X 12MM CORTEX SELF-TAP - [id number] SCREW 3.5 X 12MM CORTEX SELF-TAP SYNTHES LT Right 2 Implanted SCREW 3.5 X 14MM SELF-TAP CORTEX - [id number] SCREW 3.5 X 14MM SELF-TAP CORTEX SYNTHES LT Right 1 Implanted SCREW 4 X 14MM CANC BONE FULL THRD - [id number] SCREW 4 X 14MM CANC BONE FULL THRD SYNTHES LT Right 1 Implanted SCREW 4 X 18MM CANC BONE FULL THRD - [id number] SCREW 4 X 18MM CANC BONE FULL THRD SYNTHES LT Right 1 Implanted tibial nail 9mm 345mm Synthes Right 1 Implanted SCREW 5 X 40MM LOCKING XL25 RECESS IM NAIL TN-ADVANCED - [id number] SCREW 5 X 40MM LOCKING XL25 RECESS IM NAIL TN-ADVANCED SYNTHES LT [id number] Right 1 Implanted SCREW 5 X 36MM LOCKING XL25 RECESS IM NAIL TN-ADVANCED - [id number] SCREW 5 X 36MM LOCKING XL25 RECESS IM NAIL TN-ADVANCED SYNTHES LT [id number] Right 1 Implanted SCREW 5 X 36MM XL25 LOW PRO TN ADVANCED - [id number] SCREW 5 X 36MM XL25 LOW PRO TN ADVANCED SYNTHES LT [id number] Right 1 Implanted low profile locking screw nial 5.0mm 46mm Synthes [id number] Right 1 Implanted Drain(s): * No LDAs found * Wound(s): Wound 02/22/24 6 Pre-tibial Right (Active) Wound Closure Sutures 02/21/24 0012 Rajeev Sanders DO 02/22/2024 4:25 PM [facility] Tertiary Note Patient Information Patient Name: Rinku Giordano Age/Sex: 68 y.o., female : 1955 Date of evaluation: 02/22/2024 Code Status: Full Code Discussed with Trauma Attending Dr. De La Garza on rounds - Agreed with plan of care Perpetual Assessment: Rinku Giordano 68 y.o. female with a past medical history of thyroid disease, HTN, macular degeneration, presented to [facility] from [facility] on 02/21/24 s/p Mechanical fall with a Chief Complaint of R ankle pain. Patient reportedly missed a step and got her foot stuck underneath her. She fell onto her knee. Patient did not hit head, and did not have LOC. AC/AP use: denies use of AC/AP meds. Pt with a R pilon variant fracture undergoing surgery on 02/22/24. Plan: - OR with Dr. Kendall 02/21 Tertiary exam: completed Consults: Medicine (Geriatric Focused) and Ortho Spine clearance status: - Cervical spine is cleared - TLS spine are cleared WB Status: NWB RLE DVT prophylaxis: SCDs and lovenox after surgery Therapy: ordered and F/U w/recs CM/SW consulted: Dispo plan - pending Ready for discharge from trauma standpoint? No SIMBA: 1-2 days Vizient: Admitted with these risk variables:None. Injuries/Active Problems: R pilon Variant Fx: NWB RLE, OR with Dr. Kendall 02/21, PT/OT Abnormal UA: Pt asymptomatic at this time - will obtain culture. She will be receiving ABX pre and post op in setting of above. Will consider addition ABX coverage after cx results. PMH: Resume home medications as able, medicine is consulted for medical management - Hypothyroidism: Cont. Synthroid Lab Abnormalities: GFR of 52, however Cr WNL - Could be attributed to trauma, hx of HTN or abnormal UA.Cont to trend. Incidental Findings: - none Resolved Problems: none Subjective: Pt reports manageable pain to RLE without cold extremities or paresthesias Denies headache, dizziness, weakness, nausea, vomiting, abdominal pain, chest pain, palpitations. Denies note of any new injury on tertiary exam. Objective: Recent vital signs reviewed Vital signs range: Temp: [97.6 F (36.4 C)-98.3 F (36.8 C)] 97.6 F (36.4 C) Heart Rate: [48-70] 48 Resp: [13-24] 16 BP: (132-185)/(66-91) 135/80 General: Patient not in distress Neuro: GCS 15, no focal neurological deficits Head: Normocephalic, facial bones are nontender Eyes: EOMs intact, gross vision intact ENT: Nares are clear, moist mucous membranes, trachea midline Chest: Symmetrical expansion, chest wall is nontender, no palpable crepitus CV: S1 & S2 noted, no murmur/rub/gallop, palpable pulses throughout, HDS Pulm: Lungs CTA & equal bilaterally, no wheezes/rhonchi/crackles, no distress, on room air GI: Abd soft, non-distended, nontender, no peritoneal signs Pelvis: Pelvis is stable & nontender : Deferred Spine: No c-collar , C-spine is nontender, T-spine is nontender, L/S-spine are nontender, no step-offs or deformities noted Ext/MSK: Tenderness noted to RLE , no obvious deformities, no joint edema, DONTRELL x4 - except RLE 2/2 injury, distal neurovascular intact, sensation intact, wiggles toes, palpable pulses throughout, compartments soft and compressible Skin: Skin warm, dry and grossly intact, no obvious rashes or lesions noted Wounds: splint in place without shadowing Laboratory Studies: Recent laboratory studies in the last 24 hours reviewed. Pertinent findings may be listed below: Hgb: 12.7 WBC: 7.09 Plts: 227 Na: 141 K: 4.2 Cr: 1.14 INR: 1 Laboratory and Additional Data Studies Reviewed: [x] Laboratory [x] Radiology [x] Cardiology [x] Medications [x] Transcriptions [x] Microbiology [x] Outside Records [x] Family Diagnostic Imaging: Recent diagnostic imaging/reports reviewed. Pertinent findings may be listed below. Please correlate with formal radiology reads. CXR - negative for acute traumatic injuries PXR - negative for acute traumatic injuries XR R ankle/tibfib - Spiral comminuted distal tib fib fx CT R ankle - Distal tibial and fibular fractures Allergies Reviewed No Known Allergies Medications Reviewed Scheduled: acetaminophen 650 mg Oral Q4H While awake levothyroxine 112 mcg Oral Daily methocarbamoL 500 mg Oral TID metoprolol succinate 100 mg Oral Daily polyethylene glycol 17 g Oral Daily senna-docusate 1 tablet Oral BID sodium chloride (PF) 5 mL Intravenous Q8H JANETT sodium chloride 0.9 % PRN: bisacodyL, nalOXone AND Notify physician AND naloxone, ondansetron OR ondansetron, oxyCODONE, Saline lock IV AND sodium chloride (PF) AND sodium chloride (PF) AND sodium chloride 0.9 % 02/22/2024 Maisha Armstrong PA-C 7:53 AM PHYSICAL THERAPY VISIT VARIANCE NOTE Attempted to see patient at this time, but unable secondary to: Awaiting Medical Clearance (comment) (Hold, pt pending OR today). Will follow up as appropriate. Bedside report was completed including the following dual assessment, if applicable: Electronic Medical Record Review Deterioration Index (DI) Score Physician orders - active & held orders MAR - overdue & held meds Infusing medications/fluids Peripheral IVs IV dressing clean, dry, and intact IV tubing changed less than 96 hours IV tubing dated, initialed, labeled IV changed less than equal to 96 hours Central Lines CHG bath completed and documented daily Dressing present and correctly positioned The central line catheter is secured to the patient's body Central line dressing is clean, dry and intact Line necessity reviewed All hubs on the central line have a swab cap Urinary Catheters Red seal is intact Tubing is free of dependent loops and without standing urine Urine collection bag is below the bladder Catheter tubing is secured to the patient's body to prevent urethral tension No components of the urinary catheter system are touching the floor Catheter necessity reviewed Skin Integrity Turning schedule and last turned Dressings clean, dry, and intact Skin Assessment completed - skin integrity, any findings? Falls Fall risk score Intervention Bundle (check all in place) Door sign Bed/Chair Alarm on Fall Risk band Non-skid socks Patient centered interventions NG/OG Tube intact and functioning as ordered Tubing dated, initialed, labeled Tube feed solution as ordered Hemovacs/SANTHOSH drains Intact Output recorded Fully compressed SCDs On the patient and the pump turned on Total Joints Ice therapy on affected limb Ham wrap off POD1 knees Discharge by noon potential discussed Verified by note author and MARILU Bernard. Orthopedic Attestation Note The patient was seen and examined by me. I have reviewed the MAT's note along with the relevant labs, imaging studies, and additional provider notes. I have reviewed and agree with the documented history, exam, and plan of care, with the following additions and corrections: Assessment & Plan: This is a 68 y.o. female with Orthopedic problems Right pilon variant fracture -Low concern for acute compartment syndrome at this time however will continue to monitor, please feel free to reach out with any acute worsening in exam OR: Plan for OR 5/[address] R pilon ORIF with Dr Kendall Abx: chemical detection expert to OR Pain control: per primary; Apply ice PRN for pain and elevate extremity throughout night Pre-op Labs ordered - PT/INR, Type and screen; Goal INR <1.8 Weight bearing: NWB RLE Immobilization: AO splint Diet: NPO @ midnight VTE prophylaxis: Hold until after OR Dispo: Plan for OR 02/21 Discussed w/ Dr. Kendall and he agrees HPI: See MAT consult note for history Past Medical History: Diagnosis Date Disease of thyroid gland Hypertension Macular degeneration Past Surgical History: Procedure Laterality Date SECTION Physical Exam: Gen: "alert, oriented x3, no acute distress, and cooperative with exam Orthopedic exam: Lower Extremity: -Laterality: right -Inspection/Dressing: Right leg is elevated on pillows and ice bag in place; Unable to assess skin secondary to immobilization in place -Immobilization: Splint in place -Tenderness: Appropriately tender at known fracture site otherwise no other TTP throughout RLE. No pain out of proportion and no pain at rest. -Motor: able to wiggle toes. +EHL without eliciting pain -Perfusion: Warm and well-perfused, cap refill brisk in all toes. -Sensation: SILT L3-S1 -All Compartments soft and compressible. No pain with passive stretch SKELETAL SURVEY: No TTP to b/l clavicles, shoulder, upper arms, elbows, forearms, wrists, hands, pelvis, greater trochanters, femurs, knees CT Ankle Right Without Contrast 3D Result Date: 02/21/2024 EXAMINATION: CT ANKLE RIGHT WITHOUT CONTRAST 3D HISTORY: ORDERING SYSTEM PROVIDED HISTORY: pilon fracture, preop TECHNOLOGIST PROVIDED HISTORY: Injury/Trauma Reason for exam: / Encounter Type: Initial Mechanism of injury: fall ORDERING SYSTEM PROVIDED DIAGNOSIS CODES: S82.876A Closed nondisplaced pilon fracture of tibia, unspecified laterality, initial encounter COMPARISON: Plain films, same date TECHNIQUE: Dose reduction techniques were achieved by using automated exposure control and/or adjustment of mA and/or kV according to patient size and/or use of iterative reconstruction technique. Coronal and sagittal MIP (maximum intensity projection) images were performed. FINDINGS: There is a complex comminuted fracture involving the distal tibia. There is a slightly oblique/transverse component within the distal metadiaphysis, with slight lateral displacement of the distal fragment by approximately 4 mm. There is a coronal E oriented fracture involving the posterior tibia, extending to the articular surface. There is posterior displacement of the distal fracture fragment, and 5-6 mm of separation at the articular surface, greatest laterally. There is an oblique fracture of the distal fibula, with small comminuted fragments noted medially. This does extend to the level of the ankle mortise. There is a subtle lucency within the medial aspect of the talar dome, which may represent an osteochondral injury. There is a small amount of gas within the soft tissues along the anterior aspect of the ankle joint. This could reflect a hematoma block. There is diffuse soft tissue edema at the ankle. No additional fractures are seen. Distal tibial and fibular fractures, as described above. Workstation ID: [id number] XR Pelvis 1 View (Standard) Result Date: 02/21/2024 EXAMINATION: XR PELVIS 1 VIEW (STANDARD) 02/21/2024 12:46 pm HISTORY: ORDERING SYSTEM PROVIDED HISTORY: trauma, preop, TECHNOLOGIST PROVIDED HISTORY: Injury/Trauma Reason for exam: / Cancer History: / Surgery, RadiationHistory: / Encounter Type: Initial Mechanism of injury: / ORDERING SYSTEM PROVIDED DIAGNOSIS CODES: S82.876A Closed nondisplaced pilon fracture of tibia, unspecified laterality, initial encounter COMPARISON: None FINDINGS: No proximal femur fracture or hip dislocation. No pelvic fracture or diastasis. Hip joint space maintained. No acute findings. Workstation ID: [id number] XR Chest 1 View Result Date: 02/21/2024 EXAMINATION: XR CHEST PA/AP 02/21/2024 3:46 pm HISTORY: ORDERING SYSTEM PROVIDED HISTORY: preop, TECHNOLOGIST PROVIDED HISTORY: Injury/Trauma Reason for exam: / Cancer History: / Surgery, RadiationHistory: / Encounter Type: Initial Mechanism of injury: / ORDERING SYSTEM PROVIDED DIAGNOSIS CODES: S82.876A Closed nondisplaced pilon fracture of tibia, unspecified laterality, initial encounter COMPARISON: None FINDINGS: Trachea, mediastinum and heart size are unremarkable. Slight bibasilar atelectasis is noted. No effusion or nodule or infiltrate or pneumothorax is noted. Diaphragm and bony elements are intact. Nonacute portable chest with slight chronic changes bilaterally and slight bibasilar atelectasis. Workstation ID: [id number] XR Ankle Right 2 Views Result Date: 02/21/2024 EXAMINATION: XR ANKLE RIGHT 2 VIEWS; XR TIBIA FIBULA RIGHT 2 VIEWS 02/21/2024 2:58 pm HISTORY: ORDERING SYSTEM PROVIDED HISTORY: pain over distal tib/fib above the malleolus, evaluate for pilon fx, TECHNOLOGIST PROVIDED HISTORY: Injury/Trauma Reason for exam: / Cancer History: / Surgery, RadiationHistory: / Encounter Type: Initial Mechanism of injury: / ORDERING SYSTEM PROVIDED DIAGNOSIS CODES: COMPARISON: None. FINDINGS: Right tibia and fibula: AP, lateral views are provided, which demonstrate there is a comminuted fracture involving the distal tibia as well as fibula with slight displacement; however, the knee, ankle mortise are normally maintained. No significant soft tissue swelling, calcifications, or radiopaque foreign bodies. Right ankle: Three views are provided which demonstrate there is a spiral-appearing fracture involving the distal tibia, extending into the intraarticular surface, along its inferior edge. There is an obliquely oriented fracture through the distal fibula as well. The talotibial joint is normally aligned. There is some soft tissue swelling overlying the medial malleolus. Base of the 5th metatarsal appears intact. There are no significant calcifications or radiopaque foreign bodies. 1. There is a spiral-appearing comminuted fracture extending into the intraarticular surface involving the distal tibia, without disruption of the talotibial joint. 2. There is an obliquely oriented fracture through the distal fibula. There is some soft tissue swelling over the lateral malleolus. 3. No other fractures or dislocations of the remaining tibia and fibula. KKV/ads Workstation ID: [id number] XR Tibia Fibula Right 2 Views Result Date: 02/21/2024 EXAMINATION: XR ANKLE RIGHT 2 VIEWS; XR TIBIA FIBULA RIGHT 2 VIEWS 02/21/2024 2:58 pm HISTORY: ORDERING SYSTEM PROVIDED HISTORY: pain over distal tib/fib above the malleolus, evaluate for pilon fx, TECHNOLOGIST PROVIDED HISTORY: Injury/Trauma Reason for exam: / Cancer History: / Surgery, RadiationHistory: / Encounter Type: Initial Mechanism of injury: / ORDERING SYSTEM PROVIDED DIAGNOSIS CODES: COMPARISON: None. FINDINGS: Right tibia and fibula: AP, lateral views are provided, which demonstrate there is a comminuted fracture involving the distal tibia as well as fibula with slight displacement; however, the knee, ankle mortise are normally maintained. No significant soft tissue swelling, calcifications, or radiopaque foreign bodies. Right ankle: Three views are provided which demonstrate there is a spiral-appearing fracture involving the distal tibia, extending into the intraarticular surface, along its inferior edge. There is an obliquely oriented fracture through the distal fibula as well. The talotibial joint is normally aligned. There is some soft tissue swelling overlying the medial malleolus. Base of the 5th metatarsal appears intact. There are no significant calcifications or radiopaque foreign bodies. 1. There is a spiral-appearing comminuted fracture extending into the intraarticular surface involving the distal tibia, without disruption of the talotibial joint. 2. There is an obliquely oriented fracture through the distal fibula. There is some soft tissue swelling over the lateral malleolus. 3. No other fractures or dislocations of the remaining tibia and fibula. KKV/ads Workstation ID: [id number] If you have any further questions, please contact the chemical detection expert orthopedic resident/MAT Gab Chery Orthopedic Surgery Resident Associated Problem(s): Closed right pilon fracture, initial encounter 68 yo female with closed right pilon fracture sp fall this AM - D/W Dr. Kendall - XR and CT reviewed; intraarticular spiral distal tibia fracture, distal fibula fracture - plan for right ankle ORIF 02/21 (informed consent obtained) - NWB RLE; maintain splint at all times - NPO after midnight - Ancef OCTOR - multimodal pain control; strict ice and elevation documented in this encounter [facility] 02-25-2024 Hospital course Narrative Formatting of this note is different fro m the original. DISCHARGE SUMMARY Patient: Rinku Giordano Date of : 1955 Site: [facility] Family Provider: Sera Physician Admit Date: 02/21/2024 Discharge Date/Time: 02/25/24 Morning Disposition: Home Health Care Services Clinical Summary Hospital Course: Rinku Giordano is a 68 y.o. female patient of Sera, Physician with a history of thyroid disease, HTN, macular degeneration, presented to [facility] from [facility] on 02/21/24 s/p Mechanical fall with a Chief Complaint of R ankle pain. Patient reportedly missed a step and got her foot stuck underneath her. She fell onto her knee. Patient did not hit head, and did not have LOC. AC/AP use: denies use of AC/AP meds. Pt with a R pilon variant fracture s/p R ankle ORIF, tibial IMN 02/[address] Kendall. Discharge Diagnoses: - R pilon Variant Fx: NWB RLE, ORIF/IMN with Dr. Kendall 02/21, PT/OT, DC on lovenox for DVT ppx, 2 week F/U with Dr. Kendall After collaboration with the multidisciplinary team, the patient was discharged with appropriate resources and follow up. At the time of discharge, the patient was tolerating a diet, had good pain control and was in a medically stable condition. Surgeries: 02/22/24 OPEN REDUCTION INTERNAL FIXATION TIBIA Consults: Procedures Hospitalize Patient To:____ Inpatient consult to Orthopedic Surgery Inpatient consult to Hospitalist Inpatient consult to Care Management Inpatient consult to Care Management Inpatient consult to Home Health Hub Allergies: Patient has no known allergies. Discharge Diet: Resume home diet Condition: Good Discharge Medications: Discharge Medications New Medications Details acetaminophen 325 MG tablet Commonly known as: TYLENOL Take 2 (two) tablets (650 mg total) by mouth every 4 (four) hours for 10 days . Quantity: 120 tablet enoxaparin 30 mg/0.3 mL Syrg Commonly known as: LOVENOX Inject 0.4 mL (40 mg total) under the skin daily . Quantity: 18 mL oxyCODONE 5 MG immediate release tablet Commonly known as: ROXICODONE Take 1 (one) tablet (5 mg total) by mouth every 6 (six) hours as needed (Days supply per fill: 3) . Quantity: 12 tablet polyethylene glycol 17 gram powder Commonly known as: MIRALAX Take 17 (seventeen) g by mouth 2 (two) times a day for 7 days . Quantity: 14 packet senna-docusate 8.6-50 mg Commonly known as: SENNA-S Take 1 (one) tablet by mouth 2 (two) times a day . Quantity: 60 tablet tiZANidine 2 MG tablet Commonly known as: ZANAFLEX Take 1 (one) tablet (2 mg total) by mouth 3 (three) times a day for 10 days . Quantity: 30 tablet Modified Medications Details metoprolol succinate 50 MG 24 hr tablet Commonly known as: TOPROL-XL What changed: medication strength how much to take when to take this Take 1 (one) tablet (50 mg total) by mouth daily Start: 02/24/24. Quantity: 30 tablet Medications To Continue Details calcium carbonate-vitamin D3 600 mg-5 mcg (200 unit) Cap Take 1 capsule by mouth nightly . levothyroxine 112 MCG tablet Commonly known as: SYNTHROID, LEVOTHROID Take 1 (one) tablet (112 mcg total) by mouth once daily . Physician(s) Family Provider: No, Physician, Phone: None Address: [facility] Follow Up: Pool Kendall MD [address] [id number] Schedule an appointment as soon as possible for a visit in 2 week(s) [facility] [address] [place] [id number] Follow up Follow up as needed Primary care Physician Follow up Please follow up with your PCP for blood pressure management. Your Metoprolol dose was decreased due to low heart rate in the hospital. Monitor your BP and HR daily at home until follow up. Additional Information: Patient instructions, including activity, were given to the patient/family at discharge. Please see the After Visit Summary in the electronic medical record for details. Time spent on discharge: < 30 minutes Completed by: Braulio Paulson PA-C on 02/25/24, 9:16 AM documented in this encounter [facility] 02-25-2024 Note Formatting of this n ote might be different from the original. voice instructor went over AVS with patient and family, all questions answered. IV removed per order, no complications. Patient wheeled down via wheelchair by staff to private vehicle. [facility] 02-25-2024 Note [facility] Inpatient Pro joyce Note 02/25/2024 Rinku Giordano 1955 [id number] Assessment/Plan: Rinku Giordano is a 68 y.o. female with a history of HTN, hypothyroidism who presented to [place] to ED 02/21/[address] showed right spiral tibial and fibular fractures. Transferred to [facility] 02/21/2024 for subspecialty care, admitted to trauma team. S/p right ankle ORIF and tibial IMN 02/22/[address] Kendall. [facility] consulted for preoperative evaluation, geriatric evaluation, medical management. Discharged home with home health services. Right tibial fracture: Secondary to a fall with twisting injury. CT revealed an intra-articular spiral distal tibia fracture and a distal fibula fracture. NWB to RLE. Orthopedic surgery following; s/p right ankle ORIF and tibial IMN 02/22/[address] Kendall, follow up with ortho in 2 weeks. Fall: Patient missed a step causing her to twist at the right ankle under the weight of her body. Remainder of trauma evaluation benign. No presyncopal symptoms. PT/OT. Acute pain syndrome: Secondary to above. Pain control per primary HTN: Continued home metoprolol at decreased dose with hold parameters due to bradycardia. Recommend discharging on decreased dose of metoprolol until PCP follow up. Hypothyroidism: Continued home Synthroid. Code status: Full code DVT Prophylaxis: Per primary team Thank you for allowing us to participate in the care of your patient. For any questions, please call the number of the covering hospitalist listed under the treatment team in care connect. Current living situation: Home Expected Disposition: PT/OT, hopeful for home with HH Estimated discharge date: per primary. Medically cleared for discharge Subjective: Pt seen this morning. Doing well. Sitting in chair. Pain controlled with orals. No other issues. Discharged on 50 mg Toprol XL, recommended daily BP and HR until PCP follow up. Discussed with SW Delay; will finalize DME prior to discharge. Physical Exam: BP (!) 159/78 (BP Location: Left arm, Patient Position: Sitting) Pulse 64 Temp 98.1 degrees F (36.7 degrees C) (Oral) Resp 16 Ht 5' 5" Wt 81.6 kg (180 lb) SpO2 93% BMI 29.95 kg/m General: NAD Eyes: EOMI ENT: neck supple Cardiovascular: Regular rate. Respiratory: Clear to auscultation Gastrointestinal: Soft, non tender Genitourinary: no suprapubic tenderness Musculoskeletal: right lower leg immobilized and dressed Skin: warm, dry Neuro: Alert. Psych: Mood appropriate. Current Medications: acetaminophen 650 mg Oral Q4H While awake bisacodyL 10 mg Rectal Daily enoxaparin (LOVENOX) injection 30 mg Subcutaneous BID levothyroxine 112 mcg Oral Daily magnesium hydroxide 30 mL Oral Daily methocarbamoL 750 mg Oral TID metoprolol succinate 50 mg Oral Daily polyethylene glycol 17 g Oral BID senna-docusate 1 tablet Oral BID sodium chloride (PF) 5 mL Intravenous Q8H [facility] Labs, Imaging and Studies reviewed: Results from last 7 days Lab Units 02/25/24 0236 02/24/24 0223 02/23/24 0238 WBC K/mcL 5.63 6.52 9.77 HGB g/dL 11.0* 11.1* 11.9* HCT % 32.9* 33.1* 36.1 PLT K/mcL 206 205 226 Results from last 7 days Lab Units 02/25/24 0236 02/24/24 0223 02/23/24 0238 SODIUM mmol/L 141 146* 138 POTASSIUM mmol/L 3.9 4.3 4.8 CHLORIDE mmol/L 107 112* 106 BICARB mmol/L 25 25 25 BUN mg/dL 13 15 17 CREATININE mg/dL 0.88 0.92 0.97 EGFR mL/min/1.73 m2 71 67 63 GLUCOSE mg/dL 98 96 137* CALCIUM mg/dL 8.7 8.7 8.4 Results from last 7 days Lab Units 02/21/24 1837 02/21/24 1643 INR 1.0 -- POCINR -- 1.1 AUTHENTICATED BY NIR SHEEHAN, ON 02/25/2024 12:41:00 [facility] 02-25-2024 History of Present illness Narrative Formatting of this note might be differe nt from the original. Care Management Progress Note Date: 02/25/2024 Time: 9:41 AM Patient Name: Rinku Giordano Date of : 1955 Discharge Plan: D/C Disposition: Home Health Care Services Related to Current Admission?: Yes Final D/C Agency/Destination: Other (TBD) HME: Wheel chair HME Agency: [facility] Recommended : yes Options Reviewed: List provided, Explained services/benefits Reason for Choice: Patient/Family preference Discharging Transportation Plan: Transportation Type: Auto Discharge Plan Status: [employer] called [facility] [employer] and left a message requesting they deliver wheelchair and bedside commode as requested. Home health hub liaison following for [facility]. [facility] to follow. ADDENDUM 10:16a.m.: [employer] notified by [facility] bedside commode would be $75, [employer] updated pt and family, they will obtain on their own. [employer] updated [facility]. Physical Therapy PHYSICAL THERAPY TREATMENT NOTE Skilled Therapy Needs After Discharge Anticipate Resolution of Current Assessment Limitations Including: Pain Are Skilled Therapy Services Needed After Discharge: Yes Intensity of Skilled Therapy: 2-3 days per week Anticipated Duration of Skilled Therapy: Duration 10 - 30 days DME Recommendation: Wheeled Walker, Wheelchair, Elevating legrests on wheelchair DME Rationale: Patient's condition creates an increased risk of safety hazard without recommended equipment, Equipment required to maintain weight bearing status per physician orders, Wheelchair for primary in home mobility Rehab Potential: Good, For goals Outcomes Measures Prior Function - Basic Mobility Raw Score: 24 Points Prior Function - Basic Mobility % Impaired: 0% AM-PAC Basic Mobility Raw Score: 16 Points AM-PAC Basic Mobility % Impaired: 47.12% Activity Tolerance Activity Tolerance: Tolerates 30 min acitivty with multiple rests Therapy Precautions Orthotic Devices: Yes Lower Extremity: Right (splint/dressing) Weight Bearing Status: X RLE: Touch down General Rehab Precautions: Fall risk Balance Sitting Balance - Static: Supervision Sitting Balance - Dynamic: Stand by assist Standing Balance - Static: Stand by assist Hydrometeorologist - Standing Static: wheeled walker Standing Balance - Dynamic: Stand by assist Hydrometeorologist - Standing Dynamic: wheeled walker Standing Balance Treatment: weight shifting anterior, upright gaze, postural re-education, maintaining midline Skilled Intervention Provided: verbal cues, patient education For: efficient movement, initiation of tasks, attention to task, safe use of AD and/or equipment Resulting in: improved performance, improved safety, improved initiation Bed Mobility Supine to Sit: Modified independent Hydrometeorologist: bed positioning mechanics (gait belt assisting R LE) Transfers Sit to Stand: Contact guard assist (multiple reps from bed, toilet and recliner chair.) Bed to Chair: Contact guard assist Stand Pivot Transfers: Contact guard assist (multiple reps) Hydrometeorologist: wheeled walker Skilled Intervention Provided: verbal cues, tactile cues, facilitation, patient education For: attention to task, initiation of task, necessary precautions, safe use of AD and/or equipment Resulting in: improved performance, improved safety Car Transfers: (Educated/demonstrated on safe car transfer) Hydrometeorologist: wheeled walker Skilled Intervention Provided: verbal cues, demonstration, patient education For: sequencing of movement Resulting in: improved awareness Gait/Locomotion Gait Assistance: (N/A) Stair Management Technique: (Educated on how to perform wheelchair bumping up/down stairs with handout provided.) Skilled Intervention Provided: verbal cues, patient education For: stairs sequence/technique, wheelchair propulsion technique, wheelchair safety / locking brakes, wheelchair mechanical aspects Resulting in: improved awareness of gait impairments, improved safety Additional Treatment Details Pt with good adherence to TDWB to R LE. Pt performed multiple reps of sit <-> stand and tolerated bed to chair to toilet transfers. Pt tolerated static standing at sink to wash hands. Pt required cues at time for safe walker management. Home Living Obtained Home Living and PLOF info from: Patient Lives With: (mother-provides her mother with 24 hour care due to dementia) Type of Home: House Home Layout: One level, Laundry in basement Steps to enter home: Yes Rails to enter home: 1 rail Number of stairs to enter home: 2 Bathroom Shower/Tub: Tub/shower unit Additional Objective Details - Home Living: daughter is from out of town but will be staying with patient "as long as she can" Prior Level of Function Level of [place] - Transfers/Ambulation/Mobility: Independent with household ambulation, Independent with functional transfers, Independent with community ambulation Level of [place] - ADLs: Independent Level of [place] - Homemaking: Independent Driving: Patient drives For complete objective data, detailed plan of care and patient education refer to: PT Evaluation flowsheet, PT Evaluation and Treatment flowsheet, PT Treatment flowsheet, patient Plan of Care, Plan of Care progress note, and Patient Education. This note stands as the current Discharge Summary upon patient discharge from the hospital or completion of Physical Therapy Plan of Care. [facility] Inpatient Progress Note 02/25/2024 Rinku Giordano 1955 [id number] Assessment/Plan: Rinku Giordano is a 68 y.o. female with a history of HTN, hypothyroidism who presented to [place] to ED 02/21/[address] showed right spiral tibial and fibular fractures. Transferred to [facility] 02/21/2024 for subspecialty care, admitted to trauma team. S/p right ankle ORIF and tibial IMN 02/22/[address] Kendall. [facility] consulted for preoperative evaluation, geriatric evaluation, medical management. Discharged home with home health services. Right tibial fracture: Secondary to a fall with twisting injury. CT revealed an intra-articular spiral distal tibia fracture and a distal fibula fracture. NWB to RLE. Orthopedic surgery following; s/p right ankle ORIF and tibial IMN 02/22/[address] Kendall, follow up with ortho in 2 weeks. Fall: Patient missed a step causing her to twist at the right ankle under the weight of her body. Remainder of trauma evaluation benign. No presyncopal symptoms. PT/OT. Acute pain syndrome: Secondary to above. Pain control per primary HTN: Continued home metoprolol at decreased dose with hold parameters due to bradycardia. Recommend discharging on decreased dose of metoprolol until PCP follow up. Hypothyroidism: Continued home Synthroid. Code status: Full code DVT Prophylaxis: Per primary team Thank you for allowing us to participate in the care of your patient. For any questions, please call the number of the covering hospitalist listed under the treatment team in care connect. Current living situation: Home Expected Disposition: PT/OT, hopeful for home with HH Estimated discharge date: per primary. Medically cleared for discharge Subjective: Pt seen this morning. Doing well. Sitting in chair. Pain controlled with orals. No other issues. Discharged on 50 mg Toprol XL, recommended daily BP and HR until PCP follow up. Discussed with SW Delay; will finalize DME prior to discharge. Physical Exam: BP (!) 159/78 (BP Location: Left arm, Patient Position: Sitting) Pulse 64 Temp 98.1 F (36.7 C) (Oral) Resp 16 Ht 5' 5" Wt 81.6 kg (180 lb) SpO2 93% BMI 29.95 kg/m General: NAD Eyes: EOMI ENT: neck supple Cardiovascular: Regular rate. Respiratory: Clear to auscultation Gastrointestinal: Soft, non tender Genitourinary: no suprapubic tenderness Musculoskeletal: right lower leg immobilized and dressed Skin: warm, dry Neuro: Alert. Psych: Mood appropriate. Current Medications: acetaminophen 650 mg Oral Q4H While awake bisacodyL 10 mg Rectal Daily enoxaparin (LOVENOX) injection 30 mg Subcutaneous BID levothyroxine 112 mcg Oral Daily magnesium hydroxide 30 mL Oral Daily methocarbamoL 750 mg Oral TID metoprolol succinate 50 mg Oral Daily polyethylene glycol 17 g Oral BID senna-docusate 1 tablet Oral BID sodium chloride (PF) 5 mL Intravenous Q8H [facility] Labs, Imaging and Studies reviewed: Results from last 7 days Lab Units 02/25/24 0236 02/24/24 0223 02/23/24 0238 WBC K/mcL 5.63 6.52 9.77 HGB g/dL 11.0* 11.1* 11.9* HCT % 32.9* 33.1* 36.1 PLT K/mcL 206 205 226 Results from last 7 days Lab Units 02/25/24 0236 02/24/24 0223 02/23/24 0238 SODIUM mmol/L 141 146* 138 POTASSIUM mmol/L 3.9 4.3 4.8 CHLORIDE mmol/L 107 112* 106 BICARB mmol/L 25 25 25 BUN mg/dL 13 15 17 CREATININE mg/dL 0.88 0.92 0.97 EGFR mL/min/1.73 m2 71 67 63 GLUCOSE mg/dL 98 96 137* CALCIUM mg/dL 8.7 8.7 8.4 Results from last 7 days Lab Units 02/21/24 1837 02/21/24 1643 INR 1.0 -- POCINR -- 1.1 [facility] Progress Note Patient Information Patient Name: Rinku Giordano Age/Sex: 68 y.o., female : 1955 Date of evaluation: 02/25/2024 Code Status: Full Code Discussed with Trauma Attending Dr. Cuevas on rounds - Agreed with plan of care Perpetual Assessment: Rinku Giordano 68 y.o. female with a past medical history of thyroid disease, HTN, macular degeneration, presented to [facility] from [facility] on 02/21/24 s/p Mechanical fall with a Chief Complaint of R ankle pain. Patient reportedly missed a step and got her foot stuck underneath her. She fell onto her knee. Patient did not hit head, and did not have LOC. AC/AP use: denies use of AC/AP meds. Pt with a R pilon variant fracture s/p R ankle ORIF, tibial IMN 02/[address] Kendall. Acute events reported overnight - no Plan: - Therapy and dispo, planning to work with PT/OT again today then discharge home with [facility] Tertiary exam: completed on 02/21 Consults: Medicine (Geriatric Focused) and Ortho Spine clearance status: - Cervical spine is cleared - TLS spine are cleared WB Status: NWB RLE DVT prophylaxis: Lovenox sq and SCDs Therapy: 2-3 CM/SW consulted: Dispo plan - home w/HHC Ready for discharge from trauma standpoint? Yes SIMBA: Today Injuries/Active Problems: - R pilon Variant Fx: NWB RLE, ORIF/IMN with Dr. Kendall 02/21, PT/OT, DC on lovenox for DVT ppx, 2 week F/U with Dr. Kendall PMH: Resume home medications as able, medicine is consulted for medical management - Hypothyroidism: Continue Synthroid Lab Abnormalities: - Decreased GFR - GFR 52 02/21 . Repeat GFR 63. Cr WNL - Could be attributed to trauma, hx of HTN or abnormal UA, daily BMP - Anemia - ABLA in the setting of trauma, OR, Hgb 14 on admission, now 11 stable from 11.1, monitor CBC Daily, monitor for s/sx of ongoing bleeding, transfuse Hgb <7 or HDUS - Abnormal UA - denies symptoms. Urine culture pending. Incidental Findings: - None Resolved Problems: None Subjective: Reports that pain is well controlled with current regimen. Discussed plans to work with PT/OT again today and then DC home. Patient had BM overnight. Denies headache, dizziness, weakness, nausea, vomiting, abdominal pain, chest pain, palpitations, or paresthesias. Denies note of any new injury on tertiary exam. Objective: Recent vital signs reviewed Vital signs range: Temp: [98 F (36.7 C)-98.7 F (37.1 C)] 98 F (36.7 C) Heart Rate: [60-70] 70 Resp: [16] 16 BP: (129-175)/(74-89) 129/74 General: Patient not in distress Neuro: GCS 15, no focal neurological deficits Head: Normocephalic, facial bones are nontender Eyes: EOMs intact, gross vision intact ENT: Nares are clear, moist mucous membranes, trachea midline Chest: Symmetrical expansion, chest wall is nontender, no palpable crepitus CV: S1 & S2 noted, no murmur/rub/gallop, palpable pulses throughout, HDS Pulm: Lungs CTA & equal bilaterally, no wheezes/rhonchi/crackles, no distress, on room air GI: Abd soft, non-distended, nontender, no peritoneal signs Pelvis: Pelvis is stable & nontender : Deferred Spine: No c-collar , C-spine is nontender, T-spine is nontender, L/S-spine are nontender, no step-offs or deformities noted Ext/MSK: DARLEEN tenderness 2/2 splint, splint C/D/I, no obvious deformities, no joint edema, DONTRELL x4 - except RLE 2/2 injury, distal neurovascular intact, sensation intact, wiggles toes, palpable pulses throughout, compartments soft and compressible Skin: Skin warm, dry and grossly intact, no obvious rashes or lesions noted Wounds: Splint in place Laboratory Studies: Recent laboratory studies in the last 24 hours reviewed. Pertinent findings may be listed below: Hgb: 11 WBC: 5.63 Plts: 206 Na: 141 K: 3.9 Cr: 0.88 INR: - - Laboratory and Additional Data Studies Reviewed: [x] Laboratory [x] Radiology [] Cardiology [x] Medications [] Transcriptions [] Microbiology [] Outside Records [] Family Diagnostic Imaging: Recent diagnostic imaging/reports this admission reviewed. Pertinent findings may be listed below. Please see formal radiology reads. CXR - negative for acute traumatic injuries PXR - negative for acute traumatic injuries XR R ankle/tibfib - Spiral comminuted distal tib fib fx CT R ankle - Distal tibial and fibular fractures Allergies Reviewed No Known Allergies Medications Reviewed Scheduled: acetaminophen 650 mg Oral Q4H While awake bisacodyL 10 mg Rectal Daily enoxaparin (LOVENOX) injection 30 mg Subcutaneous BID levothyroxine 112 mcg Oral Daily magnesium hydroxide 30 mL Oral Daily methocarbamoL 750 mg Oral TID metoprolol succinate 50 mg Oral Daily polyethylene glycol 17 g Oral BID senna-docusate 1 tablet Oral BID sodium chloride (PF) 5 mL Intravenous Q8H JANETT sodium chloride 0.9 % PRN: nalOXone AND Notify physician AND naloxone, ondansetron OR ondansetron, oxyCODONE, Saline lock IV AND sodium chloride (PF) AND sodium chloride (PF) AND sodium chloride 0.9 % Braulio Paulson PA-C [facility] Trauma Surgery & Critical [facility] Available via [employer] or secure chat Associated attestation - Dora Cuevas MD - 02/25/2024 6:56 PM EDT I saw this patient, reviewed all relevant labs, x-rays, and vitals, and agree with the plan as outlined by the resident/TANNING WHEEL OPERATOR. Assessment: Rinku Giordano who is POD#2 status post Right ankle ORIF, tibial IMN with Dr. Kendall (DOS: 02/22/24) Plan: -AF VSS; Labs reviewed - Hgb 11, VSS -Diet: Okay to eat from an orthopedic surgery standpoint -Weight-bearing status: TDWB right lower extremity -Dressing: soft dressing, AO trilam splint, maintain until follow up , change knee dressing, order placed -Post-op x-rays: intra-op -Pain control: acetaminophen and narcotic analgesics including oxycoedone for breakthrough -DVT prophylaxis: ASA 325 mg bid -PT/OT: consulted -SW: consulted -Dispo: No further orthopedic surgical intervention planned -Follow up with Dr. Kendall in 2 weeks. S: Rinku Giordano reports doing well this AM. NAEO. Resting in bed in no acute distress. Tolerating p.o. diet, and voiding spontaneously. Family member at bedside. Patient has been mobilizing with PT. Looking to go home today. ROS: Denies fevers, chills, nausea, vomiting, SOB, CP, tingling, and numbness Physical Exam Vitals: Temp: [98 F (36.7 C)-98.7 F (37.1 C)] 98 F (36.7 C) Heart Rate: [60-70] 70 Resp: [16] 16 BP: (129-175)/(74-89) 129/74 General: alert, oriented x3 Incision: Dressings c/d/I, knee incision healing nicely. Perfusion: Warm and well perfused Sensation: Sensation intact to light touch in the L3-S1 dermatomal distribution DVT Exam: No evidence of DVT seen on physical exam. Neuro: + EHL/FHL. Wiggling all toes Labs Lab Results Component Value Date/Time HGB 11.0 (L) 02/25/2024 02:36 AM HGB 11.1 (L) 02/24/2024 02:23 AM HGB 11.9 (L) 02/23/2024 02:38 AM Lab Results Component Value Date/Time WBC 5.63 02/25/2024 02:36 AM WBC 6.52 02/24/2024 02:23 AM WBC 9.77 02/23/2024 02:38 AM Rajeev Sanders DO Orthopedic Surgery Resident Associated attestation - Pool Kendall MD - 02/25/2024 8:11 AM EDT Pain better controlled Supra patellar pain improving Flex/ext toes Intact sensation in foot Splint clean/dry Results from last 7 days Lab Units 02/25/24 0236 WBC K/mcL 5.63 HGB g/dL 11.0* HCT % 32.9* PLT K/mcL 206 S/p ORIF?IM nail pilon fx TTWB Asa 325 bid PT Home today F/u Faiza 10 days Physical Therapy PHYSICAL THERAPY TREATMENT NOTE Skilled Therapy Needs After Discharge Anticipate Resolution of Current Assessment Limitations Including: Pain, Mechanical Barriers Are Skilled Therapy Services Needed After Discharge: Yes Intensity of Skilled Therapy: 2-3 days per week Anticipated Duration of Skilled Therapy: Duration 10 - 30 days DME Recommendation: Wheeled Walker, Wheelchair, Elevating legrests on wheelchair, Removable armrests on wheelchair DME Rationale: Patient's condition creates an increased risk of safety hazard without recommended equipment, Patient's condition prevents him/her from accomplishing ADL without recommended equipment, Equipment required to maintain weight bearing status per physician orders, Patient will require increased level of care without recommended equipment, Wheelchair - mobility limitation cannot be safely resolved with ambulatory aide, Wheelchair for primary in home mobility Rehab Potential: Good, For goals Outcomes Measures Prior Function - Basic Mobility Raw Score: 24 Points Prior Function - Basic Mobility % Impaired: 0% AM-PAC Basic Mobility Raw Score: 16 Points AM-[facility] Basic Mobility % Impaired: 47.12% Activity Tolerance Activity Tolerance: Tolerates 30 min acitivty with multiple rests Therapy Precautions Orthotic Devices: Yes Lower Extremity: Right (splint + large dressing) Weight Bearing Status: X RLE: Touch down General Rehab Precautions: Fall risk Balance Sitting Balance - Static: Stand by assist Sitting Balance - Dynamic: Stand by assist Sitting Balance Treatment: weight shifting anterior, weight shifting posterior Skilled Intervention Provided: verbal cues, patient education For: LE positioning, LE management, efficient movement, postural alignment Resulting in: improved performance, improved safety, improved functional independence Standing Balance - Static: Contact guard assist, with device, with bilateral UE support Hydrometeorologist - Standing Static: wheeled walker Standing Balance - Dynamic: Contact guard assist, with bilateral UE support, with device Hydrometeorologist - Standing Dynamic: wheeled walker Standing Balance Treatment: weight shifting left, weight shifting right Skilled Intervention Provided: verbal cues, patient education For: efficient movement, postural alignment, necessary precautions Resulting in: improved functional independence, improved performance, improved safety Bed Mobility Rolling: Modified independent, Head of bed elevated Supine to Sit: Modified independent, Head of bed elevated Sit to Supine: Modified independent, Head of bed elevated Hydrometeorologist: bedrails (gait belt for RLE movement) Skilled Intervention Provided: verbal cues, patient education For: LE management, compensatory strategies, efficient movement, fall prevention, proper body mechanics, safety during functional tasks, safe use of bedrails and/or equipment Resulting in: improved functional independence, improved performance, improved safety Transfers Sit to Stand: Minimal assist Stand Pivot Transfers: Contact guard assist Squat Pivot Transfers: Contact guard assist Hydrometeorologist: wheeled walker Additional Transfer Trial 2: Yes Sit to Stand Trial 2: Minimal assist Hydrometeorologist Trial 2: wheeled walker Skilled Intervention Provided: verbal cues, visual cues, environmental setup/modification, monitoring patient response with activity, patient education For: LE management, controlled descent, necessary precautions, proper body mechanics, safe use of AD and/or equipment Resulting in: improved activity tolerance, improved adherence to precautions, improved functional independence, improved performance, improved safety Gait/Locomotion Gait Assistance: (no gait performed on this date; performed stand and squat pivot transfers to and from w/c and bed) Wheelchair Mobility: Independent Wheelchair distance: 100 Feet Wheelchair Environment/Terrain: open/community environment, multiple distractions Skilled Intervention Provided: verbal cues, environmental setup/modification, monitoring patient response with activity, patient education For: device management and safe use of device, energy conservation techniques, LE management, self-monitoring during activity, wheelchair propulsion technique, wheelchair safety / locking brakes, wheelchair mechanical aspects Resulting in: improved functional independence, improved performance, improved safety Additional Treatment Details Reviewed pt WB precautions of TDWB RLE and patient able to recall independently. She demonstrated bed mobility without assistance and was able to independently manage her RLE with use of a gait belt for bed mobility and transfers as needed. She performed both a squat and stand pivot transfer to and from the bed to the w/c during session with CGA for safety. She was educated on proper wheelchair propulsion and management for improving independence upon discharge. She was able to perform with minimal verbal cueing for safety and management of RLE to avoid obstacles. Daughter was present throughout session, all questions were answered and patient was left in bed with call light in reach. Home Living Obtained Home Living and PLOF info from: Patient Lives With: (mother-provides her mother with 24 hour care due to dementia) Type of Home: House Home Layout: One level, Laundry in basement Steps to enter home: Yes Rails to enter home: 1 rail Number of stairs to enter home: 2 Bathroom Shower/Tub: Tub/shower unit Additional Objective Details - Home Living: daughter is from out of town but will be staying with patient "as long as she can" Prior Level of Function Level of [place] - Transfers/Ambulation/Mobility: Independent with household ambulation, Independent with functional transfers, Independent with community ambulation Level of [place] - ADLs: Independent Level of [place] - Homemaking: Independent Driving: Patient drives For complete objective data, detailed plan of care and patient education refer to: PT Evaluation flowsheet, PT Evaluation and Treatment flowsheet, PT Treatment flowsheet, patient Plan of Care, Plan of Care progress note, and Patient Education. This note stands as the current Discharge Summary upon patient discharge from the hospital or completion of Physical Therapy Plan of Care. Care Management Progress Note Date: 02/24/2024 Time: 3:00 PM Patient Name: Rinku Giordano Date of : 1955 Discharge Plan: D/C Disposition: Home Health Care Services Related to Current Admission?: Yes HME: Wheel chair, 12/20 [employer] HME Agency: [facility] Recommended : yes Options Reviewed: List provided, Explained services/benefits Reason for Choice: Patient/Family preference Discharging Transportation Plan: Transportation Type: Auto Discharge Plan Status: Cm met with pt at bedside to discuss discharge needs and HHC. Pt needing HHC arranged for her to go home. Pt discharging to her mother's home. Pt daughter will transport home. Pt needing a wheelchair and BSC. Pt will need to order a wheeled walker herself. Orders and face to face for wheelchair and BSC placed. [employer] to call tomorrow and have equipment delivered to bedside. HHC pending at this time. CC will continue to follow. Assessment and Background Information: [facility] Progress Note Patient Information Patient Name: Rinku Giordano Age/Sex: 68 y.o., female : 1955 Date of evaluation: 02/24/2024 Code Status: Full Code Discussed with Trauma Attending Dr. Perkins on rounds - Agreed with plan of care Perpetual Assessment: Rinku Giordano 68 y.o. female with a past medical history of thyroid disease, HTN, macular degeneration, presented to [facility] from [facility] on 02/21/24 s/p Mechanical fall with a Chief Complaint of R ankle pain. Patient reportedly missed a step and got her foot stuck underneath her. She fell onto her knee. Patient did not hit head, and did not have LOC. AC/AP use: denies use of AC/AP meds. Pt with a R pilon variant fracture s/p R ankle ORIF, tibial IMN 02/[address] Kendall. Acute events reported overnight - no Plan: - Therapy and dispo Tertiary exam: completed on 02/21 Consults: Medicine (Geriatric Focused) and Ortho Spine clearance status: - Cervical spine is cleared - TLS spine are cleared WB Status: NWB RLE DVT prophylaxis: Lovenox sq and SCDs Therapy: 2-3 CM/SW consulted: Dispo plan - home w/HHC Ready for discharge from trauma standpoint? Yes, awaiting one more day for pain control and SW SIMBA: 1-2 days Injuries/Active Problems: - R pilon Variant Fx: NWB RLE, ORIF/IMN with Dr. Kendall 02/21, PT/OT. DC on lovenox and 2 week f/u with Dr. Kendall PMH: Resume home medications as able, medicine is consulted for medical management - Hypothyroidism: Cont. Synthroid Lab Abnormalities: - decreased GFR - GFR 52 02/21 . Repeat GFR 63. Cr WNL - Could be attributed to trauma, hx of HTN or abnormal UA.Cont to trend. - Anemia - ABLA in the setting of trauma, OR, Hgb 14 on admission, now 11.1 stable from 11.9, monitor CBC Daily, monitor for s/sx of ongoing bleeding, transfuse Hgb <7 or HDUS - Abnormal UA - denies symptoms. Urine culture pending. Incidental Findings: - none Resolved Problems: none Subjective: Reports getting up yesterday was painful to her leg. She reports improvement in pain today. Awaiting BM, passing flatus. Denies headache, dizziness, weakness, nausea, vomiting, abdominal pain, chest pain, palpitations, or paresthesias. Denies note of any new injury on tertiary exam. Objective: Recent vital signs reviewed Vital signs range: Temp: [97.9 F (36.6 C)-98.6 F (37 C)] 98 F (36.7 C) Heart Rate: [60-66] 60 Resp: [15-16] 16 BP: (118-164)/(75-89) 164/85 General: Patient not in distress Neuro: GCS 15, no focal neurological deficits Head: Normocephalic, facial bones are nontender Eyes: EOMs intact, gross vision intact ENT: Nares are clear, moist mucous membranes, trachea midline Chest: Symmetrical expansion, chest wall is nontender, no palpable crepitus CV: S1 & S2 noted, no murmur/rub/gallop, palpable pulses throughout, HDS Pulm: Lungs CTA & equal bilaterally, no wheezes/rhonchi/crackles, no distress, on room air GI: Abd soft, non-distended, nontender, no peritoneal signs Pelvis: Pelvis is stable & nontender : Deferred Spine: No c-collar , C-spine is nontender, T-spine is nontender, L/S-spine are nontender, no step-offs or deformities noted Ext/MSK: DARLEEN tenderness 2/2 splint, no obvious deformities, no joint edema, DONTRELL x4 - except RLE 2/2 injury, distal neurovascular intact, sensation intact, wiggles toes, palpable pulses throughout, compartments soft and compressible Skin: Skin warm, dry and grossly intact, no obvious rashes or lesions noted Wounds: splint in place Laboratory Studies: Recent laboratory studies in the last 24 hours reviewed. Pertinent findings may be listed below: Hgb: 11.1 WBC: 6.52 Plts: 205 Na: 146 K: 4.3 Cr: 0.92 INR: 1 Laboratory and Additional Data Studies Reviewed: [x] Laboratory [x] Radiology [] Cardiology [x] Medications [] Transcriptions [] Microbiology [] Outside Records [] Family Diagnostic Imaging: Recent diagnostic imaging/reports this admission reviewed. Pertinent findings may be listed below. Please see formal radiology reads. CXR - negative for acute traumatic injuries PXR - negative for acute traumatic injuries XR R ankle/tibfib - Spiral comminuted distal tib fib fx CT R ankle - Distal tibial and fibular fractures Allergies Reviewed No Known Allergies Medications Reviewed Scheduled: acetaminophen 650 mg Oral Q4H While awake bisacodyL 10 mg Rectal Daily enoxaparin (LOVENOX) injection 30 mg Subcutaneous BID levothyroxine 112 mcg Oral Daily magnesium hydroxide 30 mL Oral Daily methocarbamoL 750 mg Oral TID metoprolol succinate 50 mg Oral Daily polyethylene glycol 17 g Oral BID senna-docusate 1 tablet Oral BID sodium chloride (PF) 5 mL Intravenous Q8H JANETT sodium chloride 0.9 % PRN: nalOXone AND Notify physician AND naloxone, ondansetron OR ondansetron, oxyCODONE, Saline lock IV AND sodium chloride (PF) AND sodium chloride (PF) AND sodium chloride 0.9 % 02/24/2024 Stefanie Dominique CNP 12:39 PM [facility] Progress Note 02/24/2024 Rinku Giordano 1955 [id number] Assessment/Plan: Rinku Giordano is a 68 y.o. female with a history of HTN, hypothyroidism who presented to [place] to ED 02/21/[address] showed right spiral tibial and fibular fractures. Transferred to [facility] 02/21/2024 for subspecialty care, admitted to trauma team. S/p right ankle ORIF and tibial IMN 02/22/[address] Kendall. [facility] for preoperative evaluation, geriatric evaluation, medical management. Right tibial fracture: Secondary to a fall with twisting injury. CT revealed an intra-articular spiral distal tibia fracture and a distal fibula fracture. NWB to E. Orthopedic surgery following; s/p right ankle ORIF and tibial IMN 02/22/[address] Kendall, follow up with ortho in 2 weeks. PT/OT Fall: Patient missed a step causing her to twist at the right ankle under the weight of her body. Remainder of trauma evaluation benign. No presyncopal symptoms. PT/OT. Acute pain syndrome: Secondary to above. Agree with scheduled Tylenol and muscle relaxers to minimize need for opioids. Oxycodone available as needed. HTN: Continued home metoprolol at decreased dose with hold parameters due to bradycardia. Recommend discharging on decreased dose of metoprolol until PCP follow up. Hypothyroidism: Continued home Synthroid. Code status: Full code DVT Prophylaxis: Per primary team Thank you for allowing us to participate in the care of your patient. For any questions, please call the number of the covering hospitalist listed under the treatment team in care connect. Current living situation: Home Expected Disposition: PT/OT, hopeful for home with Estimated discharge date: per primary. Medically cleared for discharge Subjective: Pt seen this morning with daughter at bedside. Pain about 3/10 in right leg. Otherwise doing well and hoping to progress with therapy more. Physical Exam: BP (!) 159/89 (BP Location: Right arm, Patient Position: Lying) Pulse 62 Temp 98.6 F (37 C) (Oral) Resp 16 Ht 5' 5" Wt 81.6 kg (180 lb) SpO2 94% BMI 29.95 kg/m General: NAD Eyes: EOMI ENT: neck supple Cardiovascular: Regular rate. Respiratory: Clear to auscultation Gastrointestinal: Soft, non tender Genitourinary: no suprapubic tenderness Musculoskeletal: right lower leg immobilized and dressed Skin: warm, dry Neuro: Alert. Psych: Mood appropriate. Current Medications: acetaminophen 650 mg Oral Q4H While awake enoxaparin (LOVENOX) injection 30 mg Subcutaneous BID levothyroxine 112 mcg Oral Daily methocarbamoL 500 mg Oral TID metoprolol succinate 50 mg Oral Daily polyethylene glycol 17 g Oral Daily senna-docusate 1 tablet Oral BID sodium chloride (PF) 5 mL Intravenous Q8H JANETT Labs, Imaging and Studies reviewed: Results from last 7 days Lab Units 02/24/24 0223 02/23/24 0238 02/22/24 0248 WBC K/mcL 6.52 9.77 7.09 HGB g/dL 11.1* 11.9* 12.7 HCT % 33.1* 36.1 38.7 PLT K/mcL 205 226 227 Results from last 7 days Lab Units 02/24/24 0223 02/23/24 0238 02/22/24 0248 SODIUM mmol/L 146* 138 141 POTASSIUM mmol/L 4.3 4.8 4.2 CHLORIDE mmol/L 112* 106 106 BICARB mmol/L 25 25 27 BUN mg/dL 15 17 21 CREATININE mg/dL 0.92 0.97 1.14 EGFR mL/min/1.73 m2 67 63 52* GLUCOSE mg/dL 96 137* 91 CALCIUM mg/dL 8.7 8.4 9.1 Results from last 7 days Lab Units 02/21/24 1837 02/21/24 1643 INR 1.0 -- POCINR -- 1.1 Assessment: Rinku Giordano who is POD#2 status post Right ankle ORIF, tibial IMN with Dr. Kendall (DOS: 02/22/24) Plan: -AF VSS; Labs reviewed - Hgb 11.1 (11.9) -Diet: Okay to eat from an orthopedic surgery standpoint -Weight-bearing status: TDWB right lower extremity -Dressing: soft dressing, AO trilam splint, maintain until follow up -Post-op x-rays: intra-op -Pain control: acetaminophen and narcotic analgesics including oxycoedone for breakthrough -DVT prophylaxis: ASA 325 mg bid -PT/OT: consulted -SW: consulted -Dispo: No further orthopedic surgical intervention planned -Follow up with Dr. Kendall in 2 weeks. S: Rinku Giordano reports doing well this AM. NAEO. Resting in bed in no acute distress. Tolerating p.o. diet, and voiding spontaneously. When working with therapy yesterday, patient was able to stand at the side of the bed and transfer to the bedside commode, however having difficulties pivoting and taking independent steps with an assisted wheeled walker. Otherwise no additional complaints or concerns. ROS: Denies fevers, chills, nausea, vomiting, SOB, CP, tingling, and numbness Physical Exam Vitals: Temp: [97.9 F (36.6 C)-98.8 F (37.1 C)] 97.9 F (36.6 C) Heart Rate: [62-66] 62 Resp: [15-18] 15 BP: (114-151)/(65-85) 151/80 General: alert, oriented x3 Incision: Dressings c/d/I Perfusion: Warm and well perfused Sensation: Sensation intact to light touch in the L3-S1 dermatomal distribution DVT Exam: No evidence of DVT seen on physical exam. Neuro: + EHL/FHL. Wiggling all toes Labs Lab Results Component Value Date/Time HGB 11.1 (L) 02/24/2024 02:23 AM HGB 11.9 (L) 02/23/2024 02:38 AM HGB 12.7 02/22/2024 02:48 AM Lab Results Component Value Date/Time WBC 6.52 02/24/2024 02:23 AM WBC 9.77 02/23/2024 02:38 AM WBC 7.09 02/22/2024 02:48 AM Rogelio Vallejo DO Orthopedic Surgery Resident [facility] Progress Note Patient Information Patient Name: Rinku Giordano Age/Sex: 68 y.o., female : 1955 Date of evaluation: 02/23/2024 Code Status: Full Code Discussed with Trauma Attending Dr. Perkins on rounds - Agreed with plan of care Perpetual Assessment: Rinku Giordano 68 y.o. female with a past medical history of thyroid disease, HTN, macular degeneration, presented to [facility] from [facility] on 02/21/24 s/p Mechanical fall with a Chief Complaint of R ankle pain. Patient reportedly missed a step and got her foot stuck underneath her. She fell onto her knee. Patient did not hit head, and did not have LOC. AC/AP use: denies use of AC/AP meds. Pt with a R pilon variant fracture s/p R ankle ORIF, tibial IMN 02/[address] Kendall. Acute events reported overnight - no Plan: - Therapy and dispo Tertiary exam: completed on 02/21 Consults: Medicine (Geriatric Focused) and Ortho Spine clearance status: - Cervical spine is cleared - TLS spine are cleared WB Status: NWB RLE DVT prophylaxis: Lovenox sq and SCDs Therapy: 2-3 CM/SW consulted: Dispo plan - home w/HHC Ready for discharge from trauma standpoint? Yes, awaiting one more day for pain control and SW SIMBA: 1-2 days Injuries/Active Problems: - R pilon Variant Fx: NWB RLE, ORIF/IMN with Dr. Kendall 02/21, PT/OT. DC on lovenox and 2 week f/u with Dr. Kendall PMH: Resume home medications as able, medicine is consulted for medical management - Hypothyroidism: Cont. Synthroid Lab Abnormalities: - decreased GFR - GFR 52 02/21 . Repeat GFR 63. Cr WNL - Could be attributed to trauma, hx of HTN or abnormal UA.Cont to trend. - Anemia - ABLA in the setting of trauma, Hgb 14 on admission, now 11.9, monitor CBC Daily, monitor for s/sx of ongoing bleeding, transfuse Hgb <7 or HDUS - Abnormal UA - denies symptoms. Urine culture pending. Incidental Findings: - none Resolved Problems: none Subjective: Reports nerve block remains somewhat present. Some pain present to RLE. Denies headache, dizziness, weakness, nausea, vomiting, abdominal pain, chest pain, palpitations, or paresthesias. Denies note of any new injury on tertiary exam. Objective: Recent vital signs reviewed Vital signs range: Temp: [97.5 F (36.4 C)-98.8 F (37.1 C)] 98.3 F (36.8 C) Heart Rate: [47-70] 66 Resp: [11-20] 16 BP: (114-150)/(61-79) 118/75 General: Patient not in distress Neuro: GCS 15, no focal neurological deficits Head: Normocephalic, facial bones are nontender Eyes: EOMs intact, gross vision intact ENT: Nares are clear, moist mucous membranes, trachea midline Chest: Symmetrical expansion, chest wall is nontender, no palpable crepitus CV: S1 & S2 noted, no murmur/rub/gallop, palpable pulses throughout, HDS Pulm: Lungs CTA & equal bilaterally, no wheezes/rhonchi/crackles, no distress, on room air GI: Abd soft, non-distended, nontender, no peritoneal signs Pelvis: Pelvis is stable & nontender : Deferred Spine: No c-collar , C-spine is nontender, T-spine is nontender, L/S-spine are nontender, no step-offs or deformities noted Ext/MSK: Tenderness noted to RLE , no obvious deformities, no joint edema, DONTRELL x4 - except RLE 2/2 injury, distal neurovascular intact, sensation intact, wiggles toes, palpable pulses throughout, compartments soft and compressible Skin: Skin warm, dry and grossly intact, no obvious rashes or lesions noted Wounds: splint in place Laboratory Studies: Recent laboratory studies in the last 24 hours reviewed. Pertinent findings may be listed below: Hgb: 11.9 WBC: 9.77 Plts: 226 Na: 138 K: 4.8 Cr: 0.97 INR: 1 Laboratory and Additional Data Studies Reviewed: [x] Laboratory [x] Radiology [] Cardiology [x] Medications [] Transcriptions [] Microbiology [] Outside Records [] Family Diagnostic Imaging: Recent diagnostic imaging/reports this admission reviewed. Pertinent findings may be listed below. Please see formal radiology reads. CXR - negative for acute traumatic injuries PXR - negative for acute traumatic injuries XR R ankle/tibfib - Spiral comminuted distal tib fib fx CT R ankle - Distal tibial and fibular fractures Allergies Reviewed No Known Allergies Medications Reviewed Scheduled: acetaminophen 650 mg Oral Q4H While awake enoxaparin (LOVENOX) injection 30 mg Subcutaneous BID levothyroxine 112 mcg Oral Daily methocarbamoL 500 mg Oral TID metoprolol succinate 50 mg Oral Daily polyethylene glycol 17 g Oral Daily senna-docusate 1 tablet Oral BID sodium chloride (PF) 5 mL Intravenous Q8H JANETT sodium chloride 0.9 % PRN: bisacodyL, nalOXone AND Notify physician AND naloxone, ondansetron OR ondansetron, oxyCODONE, Saline lock IV AND sodium chloride (PF) AND sodium chloride (PF) AND sodium chloride 0.9 % 02/23/2024 Stefanie Dominique CNP 3:56 PM Anesthesia Progress Note 1 Day Post-Op Procedure(s): OPEN REDUCTION INTERNAL FIXATION TIBIA Assessment / Plan Comment: In no acute distress. Awake and oriented x 3. DONTRELL x 4. Denies post-op nausea, vomiting, or headache. Questions addressed. No post op anesthesia complications. Temp: [36.4 C-37.1 C] 37.1 C Heart Rate: [47-70] 66 Resp: [10-20] 16 BP: (97-150)/(53-79) 138/78 SpO2: [92 %-100 %] 100 % [facility] Inpatient Progress Note 02/23/2024 Rinku Giordano 1955 [id number] Assessment/Plan: Rinku Giordano is a 68 y.o. female with a history of HTN, hypothyroidism who presented to [place] to ED 02/21/[address] showed right spiral tibial and fibular fractures. Transferred to [facility] 02/21/2024 for subspecialty care, admitted to trauma team. S/p right ankle ORIF and tibial IMN 02/22/[address] Kendall. Noemí consulted for preoperative evaluation, geriatric evaluation, medical management. Right tibial fracture: Secondary to a fall with twisting injury. CT revealed an intra-articular spiral distal tibia fracture and a distal fibula fracture. NWB to RLE. Orthopedic surgery following; s/p right ankle ORIF and tibial IMN 02/22/[address] Kendall, follow up with ortho in 2 weeks. PT/OT Fall: Patient missed a step causing her to twist at the right ankle under the weight of her body. Remainder of trauma evaluation benign. No presyncopal symptoms. PT/OT. Acute pain syndrome: Secondary to above. Agree with scheduled Tylenol and muscle relaxers to minimize need for opioids. Oxycodone available as needed. HTN: Continued home metoprolol at decreased dose with hold parameters due to bradycardia. Recommend discharging on decreased dose of metoprolol until PCP follow up. Hypothyroidism: Continued home Synthroid. Code status: Full code DVT Prophylaxis: Per primary team Thank you for allowing us to participate in the care of your patient. For any questions, please call the number of the covering hospitalist listed under the treatment team in care connect. Current living situation: Home Expected Disposition: PT/OT, hopeful for home with HH Estimated discharge date: per primary. Possibly today pending PT/OT Subjective: Pt seen this morning with daughter at bedside. They are hopeful for homegoing plan, even today if possible. Pain about 5/10 with po pain meds. Pt endorses being on metoprolol for years and denies any history of bradycardia or lightheadedness. We discussed decreasing her metoprolol to 50 mg today and seeing how she does with plan for close PCP follow up. She will also take BP and HR daily until PCP follow up. Discussed with Trauma MAT [place]; decreased metoprolol dose due to bradycardia on presentation. Otherwise medically cleared for discharge. Physical Exam: BP 138/78 (BP Location: Left arm, Patient Position: Lying) Pulse 66 Temp 98.8 F (37.1 C) (Oral) Resp 16 Ht 5' 5" Wt 81.6 kg (180 lb) SpO2 95% BMI 29.95 kg/m General: NAD Eyes: EOMI ENT: neck supple Cardiovascular: Regular rate. Respiratory: Clear to auscultation Gastrointestinal: Soft, non tender Genitourinary: no suprapubic tenderness Musculoskeletal: right lower leg immobilized and dressed Skin: warm, dry Neuro: Alert. Psych: Mood appropriate. Current Medications: acetaminophen 650 mg Oral Q4H While awake enoxaparin (LOVENOX) injection 30 mg Subcutaneous BID levothyroxine 112 mcg Oral Daily methocarbamoL 500 mg Oral TID metoprolol succinate 50 mg Oral Daily polyethylene glycol 17 g Oral Daily senna-docusate 1 tablet Oral BID sodium chloride (PF) 5 mL Intravenous Q8H JANETT Labs, Imaging and Studies reviewed: Results from last 7 days Lab Units 02/23/24 0238 02/22/248 02/21/24 1638 WBC K/mcL 9.77 7.09 10.49 HGB g/dL 11.9* 12.7 14.3 HCT % 36.1 38.7 42.0 PLT K/mcL 226 227 264 Results from last 7 days Lab Units 02/23/24 0238 02/22/24 0248 02/22/24 0248 02/21/24 1647 SODIUM mmol/L 138 -- 141 -- POTASSIUM mmol/L 4.8 -- 4.2 -- CHLORIDE mmol/L 106 -- 106 -- BICARB mmol/L 25 -- 27 -- BUN mg/dL 17 -- 21 -- POC BUN mg/dL -- -- -- 20 CREATININE mg/dL 0.97 -- 1.14 -- POC CREATININE (EPOC) mg/dL -- -- -- 1.04 EGFR mL/min/1.73 m2 63 -- 52* -- GLUCOSE mg/dL 137* < > 91 -- CALCIUM mg/dL 8.4 -- 9.1 -- < > = values in this interval not displayed. Results from last 7 days Lab Units 02/21/24 1837 02/21/24 1643 INR 1.0 -- POCINR -- 1.1 Assessment: Rinku Giordano who is POD#1 status post Right ankle ORIF, tibial IMN with Dr. Kendall (DOS: 02/22/24) Plan: -AF VSS; Labs reviewed - Hgb 11.9 -Diet: Okay to eat from an orthopedic surgery standpoint -Weight-bearing status: TDWB right lower extremity -Dressing: soft dressing, AO trilam splint, maintain until follow up -Post-op x-rays: intra-op -Pain control: acetaminophen and narcotic analgesics including oxycoedone for breakthrough -DVT prophylaxis: ASA 325 mg bid -PT/OT: consulted -SW: consulted -Dispo: No further orthopedic surgical intervention planned -Follow up with Dr. Kendall in 2 weeks. S: Rinku Giordano reports doing well this AM. NAEO. Resting in bed in no acute distress with surgical block intact. Tolerating PO diet, voiding, and having flatulence. Will work with therapies. No further complaints at this time. Did discuss with daughter and patient at bedside options for discharge relating to her return to [place] or to stay closer. Daughter just got into town and is hopeful they will be able to discharge home today pending therapies. ROS: Denies fevers, chills, nausea, vomiting, SOB, CP, tingling, and numbness Physical Exam Vitals: Temp: [97.5 F (36.4 C)-98.2 F (36.8 C)] 97.5 F (36.4 C) Heart Rate: [47-70] 70 Resp: [10-20] 18 BP: (97-150)/(53-79) 128/75 General: alert, oriented x3 Incision: Dressings c/d/I Perfusion: Warm and well perfused Sensation: unable to assess 2/2 surgical block DVT Exam: No evidence of DVT seen on physical exam. Neuro: unable to assess 2/2 surgical block Labs Lab Results Component Value Date/Time HGB 11.9 (L) 02/23/2024 02:38 AM HGB 12.7 02/22/2024 02:48 AM HGB 14.3 02/21/2024 04:38 PM Lab Results Component Value Date/Time WBC 9.77 02/23/2024 02:38 AM WBC 7.09 02/22/2024 02:48 AM WBC 10.49 02/21/2024 04:38 PM Ronaldo Roche DO Orthopedic Surgery Resident Trauma Team Post Op Check CC: Mechanical Fall - POD#0 OPEN REDUCTION INTERNAL FIXATION TIBIA on 02/22/2024 with Faiza Sandoval S: Denies complaints at this time. Patient tolerated a diet post-op. Denies N/V/abd pain. Denies flatus. Discussed plan for PT/OT tomorrow. O: BP (!) 146/77 Pulse 70 Temp 97.5 F (36.4 C) (Oral) Resp 16 Ht 5' 5" Wt 81.6 kg (180 lb) SpO2 93% BMI 29.95 kg/m Physical Exam: Gen-NAD, pleasant and appropriate Neuro-No focal deficits RR- no accessory muscle use, no distress GI-soft, NT, ND MSK-full ROM and sensation except RLE A/P: Patient evaluated post-op. RLE compartments are soft, dressing is CDI, proximally NV intact. No sensation from R knee down to her toes. No motor function of R foot as of yet. Nerve block intact. Pain is well controlled, patient is easily arouses to voice and answers appropriately. VSS, AF. TDWB RLE post operatively. Please call Trauma MAT on [facility] with any urgent concerns or change in exam Vonda Heart PA-C [facility] Inpatient Progress Note 02/22/2024 Rinku Giordano 1955 [id number] Assessment/Plan: Rinku Giordano is a 68 y.o. female with a history of HTN, hypothyroidism who presented to [place] to ED 02/21/[address] showed right spiral tibial and fibular fractures. Transferred to [facility] 02/21/2024 for subspecialty care, admitted to trauma team. [facility] consulted for preoperative evaluation, geriatric evaluation, medical management. Right tibial fracture: Secondary to a fall with twisting injury. CT revealed an intra-articular spiral distal tibia fracture and a distal fibula fracture. NWB to RLE. Orthopedic surgery planned ORIF 02/22/2024. Fall: Patient missed a step causing her to twist at the right ankle under the weight of her body. Remainder of trauma evaluation benign. No presyncopal symptoms. PT/OT. Preoperative evaluation: Juan Daniel Revised Cardiac Index Risk Factors: zero . At home, patient able to complete > 4 METS as evidenced by ability to climb two flights of stairs without CP or dyspnea. Chronic medical conditions that increase perioperative risk not captured with RCRI include: none. Most recent cardiac testing: EKG 02/21/2024 NSR. After chart review and discussion with patient, qualifies for Low Risk (0-1 RCRI with good functional status). Further cardiac testing will not reduce patients risk and okay to proceed without further testing. Final decision to take patient to OR left to risk/benefit decision making of surgical team. Acute pain syndrome: Secondary to above. Agree with scheduled Tylenol and muscle relaxers to minimize need for opioids. Oxycodone available as needed. HTN: Continued home metoprolol with hold parameters. Hypothyroidism: Continued home Synthroid. Code status: Full code DVT Prophylaxis: Per primary team Thank you for allowing us to participate in the care of your patient. For any questions, please call the number of the covering hospitalist listed under the treatment team in care connect. Current living situation: Home Expected Disposition: PT/OT Estimated discharge date: Subjective: Pt seen this morning before OR with daughter at bedside. Pain controlled. No systemic symptoms. Denies UTI symptoms. She shared that her mother is elderly with dementia and the patient is her primary caregiver. She lives in [facility]. Her sister is visiting from the [facility] to care for her mother while the patient was in [place] visiting her son and his child. She is concerned about how everyone will be cared for now that she is injured. Her daughter at bedside flew in from [place] to help out. 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 Dispo pending post-op PT/OT. OR planned for this afternoon with ortho. Will monitor closely post-op Physical Exam: BP 127/73 Pulse (!) 53 Temp 97.6 F (36.4 C) (Oral) Resp 16 Ht 5' 5" Wt 81.6 kg (180 lb) SpO2 94% BMI 29.95 kg/m General: NAD Eyes: EOMI ENT: neck supple Cardiovascular: Regular rate. Respiratory: Clear to auscultation Gastrointestinal: Soft, non tender Genitourinary: no suprapubic tenderness Musculoskeletal: right lower leg immobilized and dressed Skin: warm, dry Neuro: Alert. Psych: Mood appropriate. Current Medications: acetaminophen 650 mg Oral Q4H While awake enoxaparin (LOVENOX) injection 30 mg Subcutaneous BID levothyroxine 112 mcg Oral Daily methocarbamoL 500 mg Oral TID metoprolol succinate 100 mg Oral Daily polyethylene glycol 17 g Oral Daily senna-docusate 1 tablet Oral BID sodium chloride (PF) 5 mL Intravenous Q8H JANETT Labs, Imaging and Studies reviewed: Results from last 7 days Lab Units 02/22/24 0248 02/21/24 1638 WBC K/mcL 7.09 10.49 HGB g/dL 12.7 14.3 HCT % 38.7 42.0 PLT K/mcL 227 264 Results from last 7 days Lab Units 02/22/24 0248 02/21/24 1647 SODIUM mmol/L 141 -- POTASSIUM mmol/L 4.2 -- CHLORIDE mmol/L 106 -- BICARB mmol/L 27 -- BUN mg/dL 21 -- POC BUN mg/dL -- 20 CREATININE mg/dL 1.14 -- POC CREATININE (EPOC) mg/dL -- 1.04 EGFR mL/min/1.73 m2 52* -- GLUCOSE mg/dL 91 -- CALCIUM mg/dL 9.1 -- Results from last 7 days Lab Units 02/21/24 1837 02/21/24 1643 INR 1.0 -- POCINR -- 1.1 Trauma Service Geriatric Evaluation Note Demographic/Patient Information: Patient Name: Rinku Giordano Age/Sex: 68 y.o., female : 1955 Date of evaluation: 02/21/2024 Code Status: No Order This note is to document screening for vulnerable geriatric injured patients who need further involvement of a geriatric specialist. Screening Criteria 1: Identification of Seniors at Risk (ISAR) If the response to two or more of the following questions is yes, a focused geriatric consultation should be obtained: Before you were injured, did you need someone to help you on a regular basis?No Since the injury, have you needed more help than usual to take care of yourself? Yes Have you been hospitalized for one or more nights during the past six months? No In general, do you have problems seeing well? No In general, do you have serious problems with your memory? No Do you take more than three different medications every day? No 2: Confusion Assessment Method (CAM) Completed for all patients > 65 years of age If the score of positive for delirium, a focused geriatric consult should be obtained: CAM SCORE: negative Geriatric Focused Evaluation A geriatric focused evaluation should be obtained for all injured patients 65 years of age or older with a ISAR score of ? 2 or CAM screen positive for delirium. Geriatric Focused Evaluation is not indicated Completed by [facility] or [facility] service after EPIC consult order entered by the trauma service. documented in this encounter [facility] 02-25-2024 Note Attestation signed by Dora Cuevas MD at 02/25/2024 6:56 PM I saw this patient, reviewed all relevant labs, x-rays, and vitals, and agree with the plan as outlined by the resident/TANNING WHEEL OPERATOR. [place] Trauma Service Progress Note Patient Information Patient Name: Rinku Giordano Age/Sex: 68 y.o., female : 1955 Date of evaluation: 02/25/2024 Code Status: Full Code Discussed with Trauma Attending Dr. Cuevas on rounds - Agreed with plan of care Perpetual Assessment: Rinku Girodano 68 y.o. female with a past medical history of thyroid disease, HTN, macular degeneration, presented to [facility] from [facility] on 02/21/24 s/p Mechanical fall with a Chief Complaint of R ankle pain. Patient reportedly missed a step and got her foot stuck underneath her. She fell onto her knee. Patient did not hit head, and did not have LOC. AC/AP use: denies use of AC/AP meds. Pt with a R pilon variant fracture s/p R ankle ORIF, tibial IMN 02/[address] Kendall. Acute events reported overnight - no Plan: - Therapy and dispo, planning to work with PT/OT again today then discharge home with [facility] Tertiary exam: completed on 02/21 Consults: Medicine (Geriatric Focused) and Ortho Spine clearance status: - Cervical spine is cleared - TLS spine are cleared WB Status: NWB RLE DVT prophylaxis: Lovenox sq and SCDs Therapy: 2-3 CM/SW consulted: Dispo plan - home w/[facility] Ready for discharge from trauma standpoint? Yes SIMBA: Today Injuries/Active Problems: - R pilon Variant Fx: NWB RLE, ORIF/IMN with Dr. Kendall 02/21, PT/OT, DC on lovenox for DVT ppx, 2 week F/U with Dr. Kendall PMH: Resume home medications as able, medicine is consulted for medical management - Hypothyroidism: Continue Synthroid Lab Abnormalities: - Decreased GFR - GFR 52 02/21 . Repeat GFR 63. Cr WNL - Could be attributed to trauma, hx of HTN or abnormal UA, daily BMP - Anemia - ABLA in the setting of trauma, OR, Hgb 14 on admission, now 11 stable from 11.1, monitor CBC Daily, monitor for s/sx of ongoing bleeding, transfuse Hgb <7 or HDUS - Abnormal UA - denies symptoms. Urine culture pending. Incidental Findings: - None Resolved Problems: None Subjective: Reports that pain is well controlled with current regimen. Discussed plans to work with PT/OT again today and then DC home. Patient had BM overnight. Denies headache, dizziness, weakness, nausea, vomiting, abdominal pain, chest pain, palpitations, or paresthesias. Denies note of any new injury on tertiary exam. Objective: Recent vital signs reviewed Vital signs range: Temp: [98 degrees F (36.7 degrees C)-98.7 degrees F (37.1 degrees C)] 98 degrees F (36.7 degrees C) Heart Rate: [60-70] 70 Resp: [16] 16 BP: (129-175)/(74-89) 129/74 General: Patient not in distress Neuro: GCS 15, no focal neurological deficits Head: Normocephalic, facial bones are nontender Eyes: EOMs intact, gross vision intact ENT: Nares are clear, moist mucous membranes, trachea midline Chest: Symmetrical expansion, chest wall is nontender, no palpable crepitus CV: S1 & S2 noted, no murmur/rub/gallop, palpable pulses throughout, HDS Pulm: Lungs CTA & equal bilaterally, no wheezes/rhonchi/crackles, no distress, on room air GI: Abd soft, non-distended, nontender, no peritoneal signs Pelvis: Pelvis is stable & nontender : Deferred Spine: No c-collar , C-spine is nontender, T-spine is nontender, L/S-spine are nontender, no step-offs or deformities noted Ext/MSK: DARLEEN tenderness 2/2 splint, splint C/D/I, no obvious deformities, no joint edema, DONTRELL x4 - except RLE 2/2 injury, distal neurovascular intact, sensation intact, wiggles toes, palpable pulses throughout, compartments soft and compressible Skin: Skin warm, dry and grossly intact, no obvious rashes or lesions noted Wounds: Splint in place Laboratory Studies: Recent laboratory studies in the last 24 hours reviewed. Pertinent findings may be listed below: Hgb: 11 WBC: 5.63 Plts: 206 Na: 141 K: 3.9 Cr: 0.88 INR: - - Laboratory and Additional Data Studies Reviewed: [x] Laboratory [x] Radiology [] Cardiology [x] Medications [] Transcriptions [] Microbiology [] Outside Records [] Family Diagnostic Imaging: Recent diagnostic imaging/reports this admission reviewed. Pertinent findings may be listed below. Please see formal radiology reads. CXR - negative for acute traumatic injuries PXR - negative for acute traumatic injuries XR R ankle/tibfib - Spiral comminuted distal tib fib fx CT R ankle - Distal tibial and fibular fractures Allergies Reviewed No Known Allergies Medications Reviewed Scheduled: acetaminophen 650 mg Oral Q4H While awake bisacodyL 10 mg Rectal Daily enoxaparin (LOVENOX) injection 30 mg Subcutaneous BID levothyrox (more content not included)... [facility] 02-25-2024 Note Formatting of this n ote is different from the original. 1321: [facility] ([phone]) notified to contact pt's daughter to arrange visits. DOD faxed. Accepted for services? If so, where? YES/PENDING (if [facility], include region) Yes. [facility] in Your Home accepted. Referrals sent to (names of agencies) Denials: [facility] Caretenders out of service area [facility] [phone] [facility] [phone] [facility] [phone] [facility] created for the following services: (Or waiting for ____) PT/OT/H[employer] Demographics: (Where patient will be staying on discharge) Pt will dc to daughter's home. [facility] [place] [address] Added to temporary address. What is the primary number to reach you? Nasreen Giordano (Child) [phone] Will update [facility] when DOD faxed. Family Physician/Primary Care Physician No pcp listed Following physician will be (list first name/last name) Pool Kendall MD Do you have a caregiver and/or teachable caregiver (list relationship, name & phone #)? N/A Are there any special precautions or safety concerns (isolation precautions, etc)? N/A Estimated Discharge Date (SIMBA): 02/25/24 [facility] 02-25-2024 Note Attestation signed by Faiza, Pool Reeves MD at 02/25/2024 8:11 AM Pain better controlled Supra patellar pain improving Flex/ext toes Intact sensation in foot Splint clean/dry Results from last 7 days Lab Units 02/25/24 0236 WBC K/mcL 5.63 HGB g/dL 11.0* HCT % 32.9* PLT K/mcL 206 S/p ORIF?IM nail pilon fx TTWB Asa 325 bid PT Home today F/u Tscholl 10 days Assessment: Rinku Giordano who is POD#2 status post Right ankle ORIF, tibial IMN with Dr. Kendall (DOS: 02/22/24) Plan: -AF VSS; Labs reviewed - Hgb 11, VSS -Diet: Okay to eat from an orthopedic surgery standpoint -Weight-bearing status: TDWB right lower extremity -Dressing: soft dressing, AO trilam splint, maintain until follow up , change knee dressing, order placed -Post-op x-rays: intra-op -Pain control: acetaminophen and narcotic analgesics including oxycoedone for breakthrough -DVT prophylaxis: ASA 325 mg bid -PT/OT: consulted -SW: consulted -Dispo: No further orthopedic surgical intervention planned -Follow up with Dr. Kendall in 2 weeks. S: Rinku Giordano reports doing well this AM. NAEO. Resting in bed in no acute distress. Tolerating p.o. diet, and voiding spontaneously. Family member at bedside. Patient has been mobilizing with PT. Looking to go home today. ROS: Denies fevers, chills, nausea, vomiting, SOB, CP, tingling, and numbness Physical Exam Vitals: Temp: [98 degrees F (36.7 degrees C)-98.7 degrees F (37.1 degrees C)] 98 degrees F (36.7 degrees C) Heart Rate: [60-70] 70 Resp: [16] 16 BP: (129-175)/(74-89) 129/74 General: alert, oriented x3 Incision: Dressings c/d/I, knee incision healing nicely. Perfusion: Warm and well perfused Sensation: Sensation intact to light touch in the L3-S1 dermatomal distribution DVT Exam: No evidence of DVT seen on physical exam. Neuro: + EHL/FHL. Wiggling all toes Labs Lab Results Component Value Date/Time HGB 11.0 (L) 02/25/2024 02:36 AM HGB 11.1 (L) 02/24/2024 02:23 AM HGB 11.9 (L) 02/23/2024 02:38 AM Lab Results Component Value Date/Time WBC 5.63 02/25/2024 02:36 AM WBC 6.52 02/24/2024 02:23 AM WBC 9.77 02/23/2024 02:38 AM Rajeev Sanders DO Orthopedic Surgery Resident AUTHENTICATED BY POOL KENDALL, ON 02/25/2024 08:11:38 [facility] 02-25-2024 Note Formatting of this n ote might be different from the original. Bedside report was completed including the following dual assessment, if applicable: Electronic Medical Record Review Deterioration Index (DI) Score Physician orders - active & held orders MAR - overdue & held meds Infusing medications/fluids Peripheral IVs IV dressing clean, dry, and intact IV tubing changed less than 96 hours IV tubing dated, initialed, labeled IV changed less than equal to 96 hours Central Lines CHG bath completed and documented daily Dressing present and correctly positioned The central line catheter is secured to the patient's body Central line dressing is clean, dry and intact Line necessity reviewed All hubs on the central line have a swab cap Urinary Catheters Red seal is intact Tubing is free of dependent loops and without standing urine Urine collection bag is below the bladder Catheter tubing is secured to the patient's body to prevent urethral tension No components of the urinary catheter system are touching the floor Catheter necessity reviewed Skin Integrity Turning schedule and last turned Dressings clean, dry, and intact Skin Assessment completed - skin integrity, any findings? Falls Fall risk score Intervention Bundle (check all in place) Door sign Bed/Chair Alarm on Fall Risk band Non-skid socks Patient centered interventions NG/OG Tube intact and functioning as ordered Tubing dated, initialed, labeled Tube feed solution as ordered Hemovacs/SANTHOSH drains Intact Output recorded Fully compressed SCDs On the patient and the pump turned on Total Joints Ice therapy on affected limb Ham wrap off POD1 knees Discharge by noon potential discussed Verified by note author and MARILU Armando. [facility] 02-24-2024 Note Formatting of this n ote might be different from the original. Bedside report was completed including the following dual assessment, if applicable: Electronic Medical Record Review Deterioration Index (DI) Score Physician orders - active & held orders MAR - overdue & held meds Infusing medications/fluids Peripheral IVs IV dressing clean, dry, and intact IV tubing changed less than 96 hours IV tubing dated, initialed, labeled IV changed less than equal to 96 hours Central Lines CHG bath completed and documented daily Dressing present and correctly positioned The central line catheter is secured to the patient's body Central line dressing is clean, dry and intact Line necessity reviewed All hubs on the central line have a swab cap Urinary Catheters Red seal is intact Tubing is free of dependent loops and without standing urine Urine collection bag is below the bladder Catheter tubing is secured to the patient's body to prevent urethral tension No components of the urinary catheter system are touching the floor Catheter necessity reviewed Skin Integrity Turning schedule and last turned Dressings clean, dry, and intact Skin Assessment completed - skin integrity, any findings? Falls Fall risk score Intervention Bundle (check all in place) Door sign Bed/Chair Alarm on Fall Risk band Non-skid socks Patient centered interventions NG/OG Tube intact and functioning as ordered Tubing dated, initialed, labeled Tube feed solution as ordered Hemovacs/SANTHOSH drains Intact Output recorded Fully compressed SCDs On the patient and the pump turned on Total Joints Ice therapy on affected limb Ham wrap off POD1 knees Discharge by noon potential discussed Verified by note author and MARILU Moreno. [facility] 02-24-2024 Consult note Associated Order(s): IP CONSULT TO HOME HEALTH HUB Name of [facility] agency: Pending / Accepted (if [facility], include region) PENDING Referrals sent to: (names of agencies) Pending Caretenders Declined [facility] (orders) created for the following services: [or waiting for ____ (i.e wound care)] Yes- PT/OT/Aide Verify demographics (residential address) Patient will be discharging to her mother's house: [address] [place] [id number]. What is the primary number to reach you? [phone] Following physician will be: (list first name/last name) Pool Kendall MD Estimated Discharge Date (SIMBA): TBD If discharge needs change, please reach out to liaison assigned on treatment team as hub is not notified of new consults once team is following. Thank you. [facility] 02-24-2024 Consult note Associated Order(s): IP CONSULT TO [facility] Name of [facility] agency: Pending / Accepted (if [facility], include region) PENDING Referrals sent to: (names of agencies) Pending Caretenders Declined [facility] (orders) created for the following services: [or waiting for ____ (i.e wound care)] Yes- PT/OT/Aide Verify demographics (residential address) Patient will be discharging to her mother's house: [address] [place] [id number]. What is the primary number to reach you? [phone] Following physician will be: (list first name/last name) Pool Kendall MD Estimated Discharge Date (SIMBA): TBD If discharge needs change, please reach out to liaison assigned on treatment team as hub is not notified of new consults once team is following. Thank you. Physical Therapy PHYSICAL THERAPY EVALUATION and TREATMENT NOTE PHYSICAL THERAPY EVALUATION Skilled Therapy Needs After Discharge Anticipate Resolution of Current Assessment Limitations Including: Pain, Mechanical Barriers Are Skilled Therapy Services Needed After Discharge: Yes Intensity of Skilled Therapy: 2-3 days per week Anticipated Duration of Skilled Therapy: Duration 10 - 30 days DME Recommendation: Wheeled Walker, Wheelchair, Elevating legrests on wheelchair, Removable armrests on wheelchair DME Rationale: Patient's condition creates an increased risk of safety hazard without recommended equipment, Patient's condition prevents him/her from accomplishing ADL without recommended equipment, Equipment required to maintain weight bearing status per physician orders, Patient will require increased level of care without recommended equipment, Wheelchair - mobility limitation cannot be safely resolved with ambulatory aide, Wheelchair for primary in home mobility Rehab Potential: Good, For goals Outcomes Measures Prior Function - Basic Mobility Raw Score: 24 Points Prior Function - Basic Mobility % Impaired: 0% AM-PAC Basic Mobility Raw Score: 13 Points AM-PAC Basic Mobility % Impaired: 57.65 Physical Therapy Assessment History: The following factors influence the patient's participation in the PT plan of care: Personal Factors: Age Environmental Factors: Steps to enter home The following co-morbidities (from this admission or prior) influence the patient's participation in this plan of care: Pt presents to [facility] s/p fall, undergoing ORIF and IM nail per Dr. Kendall for intra-articular spiral distal tibia fracture and a distal fibula fracture. PMhx: HTN, macular degeneration. Number of History elements affecting this patient's PT plan of care: 1 to 2 Examination of Body Systems: The patient presents with: Musculoskeletal impairments: Strength, ROM, Pain, Functional Endurance Neurologic Impairments: Coordination, Balance, Pain Cardiopulmonary Impairments: Activity Tolerance Integumentary Impairments: Active Wound, Tissue Healing. These impairments result in limitations of Gait, Functional Transfers, Safety, Stair-Climbing, Safety Awareness, Activity Tolerance, Insight. These impairments result in restrictions of Household mobility, Community mobility. Number of Body Systems elements affecting this patient's PT plan of care: 4 or more. Clinical Presentation: The patient's clinical presentation for this PT evaluation is evolving with changing characteristics as evidenced by current PT documentation. Activity Tolerance Activity Tolerance: Tolerates 30 min acitivty with multiple rests Therapy Precautions Orthotic Devices: Yes Lower Extremity: Right (splint + large dressing) Weight Bearing Status: X RLE: Touch down General Rehab Precautions: Fall risk Balance Assessment Sitting Balance - Static: Stand by assist Sitting Balance - Dynamic: Stand by assist Standing Balance - Static: Minimal assist, with device, with bilateral UE support Hydrometeorologist - Standing Static: wheeled walker Standing Balance - Dynamic: Minimal assist, with device, with bilateral UE support Hydrometeorologist - Standing Dynamic: wheeled walker Bed Mobility Supine to Sit: (pt seated EOB with OT at arrival) Sit to Supine: (pt in bedside chair at end of session) Transfers Sit to Stand: Moderate assist, Minimal assist Stand Pivot Transfers: Minimal assist (close stand by of second person for safety) Hydrometeorologist: wheeled walker Additional Transfer Trial 2: Yes Sit to Stand Trial 2: Moderate assist, Minimal assist Stand Pivot Transfers Trial 2: Minimal assist (close stand by of second person for safety) Hydrometeorologist Trial 2: wheeled walker Gait/Locomotion Gait Assistance: (no true gait performed this date; pivot to/from commode/chair/bed) Home Living Obtained Home Living and PLOF info from: Patient Lives With: (mother-provides her mother with 24 hour care due to dementia) Type of Home: House Home Layout: One level, Laundry in basement Steps to enter home: Yes Rails to enter home: 1 rail Number of stairs to enter home: 2 Bathroom Shower/Tub: Tub/shower unit Additional Objective Details - Home Living: daughter is from out of town but will be staying with patient "as long as she can" Prior Level of Function Level of [place] - Transfers/Ambulation/Mobility: Independent with household ambulation, Independent with functional transfers, Independent with community ambulation Level of [place] - ADLs: Independent Level of [place] - Homemaking: Independent Driving: Patient drives PHYSICAL THERAPY TREATMENT NOTE Total Treatment Time (Total Session Time): 26 Minutes Total Timed Code Treatment Minutes: 10 Minutes Neuromuscular Reeducation Sitting Balance Treatment: weight shifting right, upright gaze, postural re-education Skilled Intervention Provided: verbal cues, patient education For: LE positioning, LE management, postural alignment, efficient movement, energy conservation Resulting in: improved performance, improved safety, improved functional independence, improved activity tolerance Standing Balance Treatment: weight shifting anterior, upright gaze, postural re-education Skilled Intervention Provided: verbal cues, patient education For: postural alignment, efficient movement, energy conservation, UE positioning, UE management, LE positioning, LE management Resulting in: improved safety, improved performance, improved motor control, improved functional independence, improved activity tolerance Therapeutic Activities Transfers Skilled Intervention Provided: verbal cues, tactile cues, patient education, monitoring patient response with activity For: postural alignment, efficient movement, energy conservation, controlled descent Resulting in: improved safety, improved performance, improved activity tolerance Additional Treatment Details Pt cleared per nursing prior to PT arrival. Endorsing all PLOF and home information. Family at bedside. Pt with verbal cues to maintain TDWB of R LE during mobility and transfers, intermittent min A for walker managment. pt with increased nausea following transfer to commode, resolving with increased time. pt assist to transfer to bedside chair, LE elevated and ice applied for comfort. Educated in role of therapy, mobility needs/possible modifications for safety with discharge. Verbalized understanding. pt in bedside chair, needs and call light in reach at departure Past Medical History: Diagnosis Date Disease of thyroid gland Hypertension Macular degeneration Past Surgical History: Procedure Laterality Date SECTION For complete objective data, detailed plan of care and patient education refer to: PT Evaluation flowsheet, PT Evaluation and Treatment flowsheet, PT Treatment flowsheet, patient Plan of Care, Plan of Care progress note, and Patient Education. This note stands as the current Discharge Summary upon patient discharge from the hospital or completion of Physical Therapy Plan. Occupational Therapy OCCUPATIONAL THERAPY EVALUATION AND TREATMENT NOTE OCCUPATIONAL THERAPY EVALUATION Skilled Therapy Needs After Discharge Anticipate Resolution of Current Assessment Limitations Including: Pain Are Skilled Therapy Services Needed After Discharge: Yes Intensity of Skilled Therapy: 2-3 days per week Anticipated Duration of Skilled Therapy: Duration 7 - 10 days DME Recommendation: Wheeled Walker, Wheelchair, Elevating legrests on wheelchair, Bedside commode DME Rationale: Patient's condition prevents him/her from accomplishing ADL without recommended equipment, Equipment required to maintain weight bearing status per physician orders Rehab Potential: Good Outcomes Measures Prior Function Daily Activity Raw Score: 24 Prior Function Daily Activity % Impaired: 0% AM-PAC Daily Activity Raw Score: 18 AM-PAC Daily Activity % Impaired: 46.65% Occupational Therapy Assessment The patient's current functional participation deficits are LE dressing, grooming, bathing, toileting, home management, meal preparation, medication management, orthosis/brace management, hobbies, functional mobility, 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 This reduced independence will limit their life roles of premorbid level individual. The patient's co morbidities do affect patient performance in the above activities and roles. The performance deficits are a result of musculoskeletal, integumentary impairment(s) in generalized debility including strength, range of motion, balance, acitvity tolerance, respiratory capacity, pain, problem solving, insight, safety, sequencing, and pain intolerance. The patient's family / caregiver support is a leadite worker for return to prior level of function. The patient's compliance is a leadite worker to return to prior level of function. During the assessment, significant modification of task was required and multiple treatment options were identified in the plan of care. This consultation required expanded review of the medical and therapy history. Activity Tolerance Activity Tolerance: Tolerates 30 min acitivty with multiple rests Therapy Precautions Orthotic Devices: Yes Lower Extremity: Right (bulky dressing ankle) Weight Bearing Status: X RLE: Touch down General Rehab Precautions: Fall risk Cognition Overall Cognitive Status: Within Functional Limits Arousal/Alertness: Appropriate responses to stimuli Orientation Level: Oriented X4 Executive functioning: Planning / Organizing, Min impairment Safety Judgment: Decreased awareness of need for safety Problem Solving: Assistance required to identify errors made, Assistance required to implement solutions, Assistance required to generate solutions Attention: Attends to quiet environment Hearing Status: WFL Social Interaction: Cooperative, Appropriate, Apprehensive Comments: Patient demonstrates the ability to follow one step commands appropriately. Functional cognition intact for activity assessed. ADL Grooming: Supervision (s/u assist for face washing while seated unsupported) Toileting: Maximal assist (max A clothing management, SBA hygiene) IADL Bed Mobility Supine to Sit: Moderate assist (assist for RLE only, able to manage UB with instruction) Functional Transfers Sit to Stand: Minimal assist Bed to Chair Transfers: Minimal assist Toilet Transfers: Minimal assist, to/from bedside commode Hydrometeorologist: wheeled walker Additional Functional Transfer Trial 2: Yes Sit to Stand Trial 2: Minimal assist Home Living Obtained Home Living and PLOF info from: Patient Lives With: (mother-provides her mother with 24 hour care due to dementia) Type of Home: House Home Layout: One level, Laundry in basement Steps to enter home: Yes Rails to enter home: 1 rail Number of stairs to enter home: 2 Bathroom Shower/Tub: Tub/shower unit Additional Objective Details - Home Living: daughter is from out of town but will be staying with patient "as long as she can" Prior Level of Function Level of [place] - Transfers/Ambulation/Mobility: Independent with household ambulation, Independent with functional transfers, Independent with community ambulation Level of [place] - ADLs: Independent Level of [place] - Homemaking: Independent Driving: Patient drives OCCUPATIONAL THERAPY TREATMENT NOTE Total Treatment Time (Total Session Time): 60 Minutes Total Timed Code Treatment Minutes: 33 Minutes Cognitive Skills Development Skilled Intervention Provided: verbal cues, demonstration, engaged in cognitive tasks, grading task, facilitation For: improving new learning, compensatory techniques, necessary precautions, preparing for self-care tasks Resulting In: increased insight into deficits, improved caregiver/family awareness of patient's deficits, improved activity tolerance, improved problem solving Self-Care / ADL Grooming - Skilled Intervention Provided: verbal cues, facilitation, monitored patient's safety and tolerance Grooming - For: efficient movement, postural alignment Grooming - Resulting In: improved overall self care, improved functional independence Toileting - Skilled Intervention Provided: verbal cues, demonstration, facilitation, [id number] instructions, patient education Toileting - For: LE positioning, UE positioning, fall prevention, efficient movement, postural alignment, necessary precautions Toileting - Resulting In: improved functional independence, improved activity tolerance, improved overall self penitentiary Management / IADL Therapeutic Activities Bed Mobility Skilled Intervention Provided: verbal cues, tactile cues, facilitation, provided step by step instructions, patient education For: LE positioning, UE positioning, postural alignment, efficient movement Resulting In: improved performance, increased initiation in mobility task(s), improved caregiver/family awareness, improved adherence to precautions Functional Transfers Skilled Intervention Provided: verbal cues, tactile cues, demonstration, facilitation, provided step by step instructions, monitoring patient response with activity For: LE positioning, UE positioning, controlled descent, postural alignment, increased participation in mobility task, fall prevention Resulting In: increased insight into deficits, improved performance, improved functional independence, improved balance Therapeutic Exercise Neuromuscular Reeducation Sitting Balance - Static: Supervision Sitting Balance - Dynamic: Stand by assist Sitting Balance Treatment: reaching across midline, reaching outside base of support, maintaining midline orientation, reaching within base of support Skilled Intervention Provided: verbal cues, tactile cues, facilitation, patient education For: balance recovery, fall prevention, postural alignment Resulting in: improved functional independence, improved balance reactions Standing Balance - Static: Minimal assist, with bilateral UE support, 1+ to 3 minutes Standing Balance Treatment: maintaining midline Skilled Intervention Provided: demonstration, facilitation, patient education For: balance recovery, necessary precautions Resulting in: improved safety, improved trunk stability, improved functional independence Additional Treatment Details Patient and her daughter were educated in depth on activity guidelines, positioning techniques, and AD available to improve ease with functional tasks and ensure maintainence of precautions. Past Medical History: Diagnosis Date Disease of thyroid gland Hypertension Macular degeneration Past Surgical History: Procedure Laterality Date SECTION For complete objective data, detailed plan of care and patient education refer to: OT Evaluation flowsheet, OT Evaluation and Treatment flowsheet, OT Treatment flowsheet, patient Plan of Care, Plan of Care progress note, and Patient Education. This note stands as the current Discharge Summary upon patient discharge from the hospital or completion of Occupational Therapy Plan of Care. Associated Order(s): IP CONSULT TO CARE MANAGEMENT Care Management Consult Note Date: 02/22/2024 Time: 8:08 PM Patient Name: Rinku Giordano Date of : 1955 Reason for Consult: Discharge Plan: TBD Discharging Transportation Plan: TBD Discharge Plan Status: Care management consulted for discharge needs. [employer] met with Pt and dtr at bedside. [employer] introduced self and role in discharge planning. Pt lives in [place], [place]. Pt was in town to visit son when she missed a step and fell and caused right distal tib/fib fx. Pt states that she lives with mom in private residence. Pt is primary caregiver to her mom. Pt's sister is currently assisting with taking care of Pt's mom. Pt is IND at baseline and does not use any DME. Demographics confirmed and holistic assessment completed. Dtr report she will be available to help Pt if needed. PT/OT pending. Will continue to follow. Assessment and Background Information: Living Arrangements: Parent Support Systems: Family members Assistance Needed: none Type of Residence: Private residence Prior to Admission Home Care Services: No Current Home Equipment: None Holistic Assessment Medication adherence problem:: No History of falls in last 6 months:: (!) Yes Family aware of the patient's advance care planning wishes:: Yes Do you have any cultural/spiritual connections or beliefs that would impact how we deliver your care?: No Chronic pain:: No Associated Order(s): IP CONSULT TO HOSPITALIST [facility] Consult Note 02/21/24 Rinku Giordano 1955 [id number] Assessment/Plan: Rinku Giordano is a 68 y.o. female with a history of HTN, hypothyroidism who presented to [place] to ED 02/21/[address] showed right spiral tibial and fibular fractures. Transferred to [facility] 02/21/2024 for subspecialty care, admitted to trauma team. [facility] consulted for preoperative evaluation, geriatric evaluation, medical management. Right tibial fracture: Secondary to a fall with twisting injury. CT revealed an intra-articular spiral distal tibia fracture and a distal fibula fracture. NWB to E. Orthopedic surgery planned ORIF 02/22/2024. Fall: Patient missed a step causing her to twist at the right ankle under the weight of her body. Remainder of trauma evaluation benign. No presyncopal symptoms. PT/OT. Preoperative evaluation: Juan Daniel Revised Cardiac Index Risk Factors: zero . At home, patient able to complete > 4 METS as evidenced by ability to climb two flights of stairs without CP or dyspnea. Chronic medical conditions that increase perioperative risk not captured with RCRI include: none. Most recent cardiac testing: EKG 02/21/2024 NSR. After chart review and discussion with patient, qualifies for Low Risk (0-1 RCRI with good functional status). . Further cardiac testing will not reduce patients risk and okay to proceed without further testing. Final decision to take patient to OR left to risk/benefit decision making of surgical team. Acute pain syndrome: Secondary to above. Agree with scheduled Tylenol and muscle relaxers to minimize need for opioids. Oxycodone available as needed. HTN: Continued home metoprolol with hold parameters. Hypothyroidism: Continued home Synthroid. Code status: Full code DVT Prophylaxis: Per primary team Thank you for allowing us to participate in the care of your patient. For any questions, please call the number of the covering hospitalist listed under the treatment team in care connect. Current living situation: Home Expected Disposition: Likely same Estimated discharge date: TBD I reviewed the patient's medications and noted those which may be inappropriate for their age and condition; I also provided recommendations to prevent, identify, and treat dementia, depression and delirium. We will collaborate with the multidisciplinary team to determine the patient's goals of care, status of advanced directives, and identification of a proxy decision maker, if needed. We will screen for mobility limitations and assure early, frequent, and safe mobility to help facilitate a safe transition out of the hospital. Chief Complaint / Reason for Consult: Fall History of Present Illness: Patient reports going up stairs when she missed a step with her right foot and her ankle collapsed underneath her. She denies feeling dizziness or lightheaded prior to the fall, purely mechanical in nature. She does not have frequent falls. She is having significant pain, having received IV Dilaudid at 3 PM and last oral dose at closer to 4 PM. Do think she needs something IV for the orals to be successful, ordered another dose of 0.5 IV Dilaudid. She has good exercise tolerance at baseline with no previous adverse reactions to general anesthesia. ROS: 10 systems were reviewed and negative, except as noted above. Past Medical, Surgical, Social, Family History: Past Medical History: Diagnosis Date Disease of thyroid gland Hypertension Macular degeneration Past Surgical History: Procedure Laterality Date SECTION Social History Socioeconomic History Marital status: Tobacco Use Smoking status: Never Smokeless tobacco: Never Substance and Sexual Activity Alcohol use: Not Currently Drug use: Never History reviewed. No pertinent family history. Current Medications: Medication list reviewed with patient. Please see MAR for full details. Physical Exam: BP 133/66 Pulse 63 Temp 97.9 F (36.6 C) (Oral) Resp 14 Ht 5' 5" Wt 81.6 kg (180 lb) SpO2 99% BMI 29.95 kg/m General: Appears in pain Eyes: EOMI ENT: neck supple Cardiovascular: Tachycardic. Respiratory: Clear to auscultation Gastrointestinal: Soft, non tender Genitourinary: no suprapubic tenderness Musculoskeletal: RLE wrapped Skin: warm, dry Neuro: Alert. Psych: Mood appropriate. Labs, Imaging, and Studies reviewed: Results from last 7 days Lab Units 02/21/24 1638 WBC K/mcL 10.49 HGB g/dL 14.3 HCT % 42.0 PLT K/mcL 264 Results from last 7 days Lab Units 02/21/24 1647 POC BUN mg/dL 20 POC CREATININE (EPOC) mg/dL 1.04 Results from last 7 days Lab Units 02/21/24 1643 POCINR 1.1 Associated Order(s): IP CONSULT TO ORTHOPEDIC SURGERY CONSULT NOTE Patient Name: Rinku Giordano Admit Date: [id number] MR #: [id number] : 1955 Physicians: Sera, Physician (Family); Nikunj Kelley MD (Referring) Dr. Pool Kendall (orthopedic surgery) Assessment & Plan: Musculoskeletal and Integument Closed right pilon fracture, initial encounter Assessment & Plan 68 yo female with closed right pilon fracture sp fall this AM - D/W Dr. Kendall - XR and CT reviewed; intraarticular spiral distal tibia fracture, distal fibula fracture - plan for right ankle ORIF 02/21 (informed consent obtained) - NWB RLE; maintain splint at all times - NPO after midnight - Ancef OCTOR - multimodal pain control; strict ice and elevation Chief Complaint/Reason for Visit: Right ankle pain History of Present Illness: Rinku Giordano is a 68 y.o. female presenting from home with c/o right ankle pain. Patient was in town visiting her family when she missed a step and fell, causing her foot to get stuck underneath her. She initially presented to [facility] where XR revealed right distal tib/fib fractures. She was subsequently transferred to [facility] for surgical stabilization. She denies any additional orthopedic concerns/complaints at this time. She denies numbness or tingling. Patient ambulates independently at baseline. History: Past Medical History: Diagnosis Date Disease of thyroid gland Hypertension Macular degeneration Past Surgical History: Procedure Laterality Date SECTION History reviewed. No pertinent family history. Social History Socioeconomic History Marital status: Tobacco Use Smoking status: Never Smokeless tobacco: Never Substance and Sexual Activity Alcohol use: Not Currently Drug use: Never Allergy Information: I have reviewed the patient's allergies. Patient has no known allergies. Home Medications: Outpatient Medications as of 02/21/2024 Medication Sig levothyroxine (SYNTHROID, LEVOTHROID) 112 MCG tablet Take 1 (one) tablet (112 mcg total) by mouth once daily . metoprolol succinate (TOPROL-XL) 100 MG 24 hr tablet Take 1 (one) tablet (100 mg total) by mouth daily . Review of Systems: The following system(s) were reviewed and pertinent findings noted: Constitutional: negative fevers, negative chills MSK: positive right ankle pain Neuro: negative numbness, negative tingling Xray interpretation: CT scan and XR reviewed and interpreted by this provider and demonstrates displaced right distal tibial and fibular fractures without dislocation. Physical Examination: Vital Signs: BP 133/66 Pulse 63 Temp 97.9 F (36.6 C) (Oral) Resp 14 Ht 5' 5" Wt 81.6 kg (180 lb) SpO2 99% BMI 29.95 kg/m Constitutional: no acute distress and alert/oriented x3 Cardiovascular: 2+ DP pulse with BCR to all toes to right lower extremity Neurological: SILT. SP/DP/S/S/T intact. EHL/FHL intact in right lower extremity Musculoskeletal: Able to wiggle all toes. Swelling is Moderate to medial and lateral ankle. TTP over proximal tibia/fibula/knee absent. Integumentary: Skin intact with no abrasions or open wounds. Skin wrinkles Associated attestation - Pool Kendall MD - 02/22/2024 12:02 PM EDT I have independently seen and evaluated the patient and have reviewed the resident/mid-level provider consult and agree with the findings and plan as documented. Pool Kendall MD Right ankle pilon variant fx To OR today for ORIF and IM nail tibia Discussed with patient Questions answered documented in this encounter [facility] 02-24-2024 Note Formatting of this n ote might be different from the original. [id number] ENCOUNTER FOR HOME MEDICAL EQUIPMENT PATIENT: Rinku Giordano : 1955 Statement of Care: I certify that Rinku Giordano is under my care and that I, a Nurse Practitioner, Physician's Tightener, or Resident working with me, had a [id number] encounter with this patient today to evaluate and discuss the need for home medical equipment. I certify that based on the findings of this evaluation, which included but was not limited to the [id number] requirements, the following home medical equipment is medically necessary: Commode due to Beneficiary is confined to one level of the home and there is no toilet on that level. Signed by: Stefanie Dominique CNP on 02/24/2024 [facility] 02-24-2024 Note Formatting of this n ote might be different from the original. I discussed the need for a wheelchair with the patient including the following: The patient has a mobility limitation that significantly impairs his/her ability to participate in mobility related activities of daily living including toileting, dressing, bathing, and grooming. His/Her mobility limitation cannot be resolved by a cane or walker. His/Her home provides adequate access between rooms, maneuvering space, and surfaces for the use of a wheelchair. Use of a manual wheel chair will significantly improve his/her ability to participate in MRADL's and the patient will use it on a regular basis in the home. The patient is willing to use the wheelchair that is provided in the home. He/She has sufficient upper extremity function as well as the physical and mental capabilities needed to safely self propel his/her wheelchair. [facility] 02-24-2024 Note [facility] Progress Note Patient Information Patient Name: Rinku Giordano Age/Sex: 68 y.o., female : 1955 Date of evaluation: 02/24/2024 Code Status: Full Code Discussed with Trauma Attending Dr. Perkins on rounds - Agreed with plan of care Perpetual Assessment: Rinku Giordano 68 y.o. female with a past medical history of thyroid disease, HTN, macular degeneration, presented to [facility] from [facility] on 02/21/24 s/p Mechanical fall with a Chief Complaint of R ankle pain. Patient reportedly missed a step and got her foot stuck underneath her. She fell onto her knee. Patient did not hit head, and did not have LOC. AC/AP use: denies use of AC/AP meds. Pt with a R pilon variant fracture s/p R ankle ORIF, tibial IMN 02/[address] Kendall. Acute events reported overnight - no Plan: - Therapy and dispo Tertiary exam: completed on 02/21 Consults: Medicine (Geriatric Focused) and Ortho Spine clearance status: - Cervical spine is cleared - TLS spine are cleared WB Status: NWB RLE DVT prophylaxis: Lovenox sq and SCDs Therapy: 2-3 CM/SW consulted: Dispo plan - home w/HHC Ready for discharge from trauma standpoint? Yes, awaiting one more day for pain control and SW SIMBA: 1-2 days Injuries/Active Problems: - R pilon Variant Fx: NWB RLE, ORIF/IMN with Dr. Kendall 02/21, PT/OT. DC on lovenox and 2 week f/u with Dr. Kendall PMH: Resume home medications as able, medicine is consulted for medical management - Hypothyroidism: Cont. Synthroid Lab Abnormalities: - decreased GFR - GFR 52 02/21 . Repeat GFR 63. Cr WNL - Could be attributed to trauma, hx of HTN or abnormal UA.Cont to trend. - Anemia - ABLA in the setting of trauma, OR, Hgb 14 on admission, now 11.1 stable from 11.9, monitor CBC Daily, monitor for s/sx of ongoing bleeding, transfuse Hgb <7 or HDUS - Abnormal UA - denies symptoms. Urine culture pending. Incidental Findings: - none Resolved Problems: none Subjective: Reports getting up yesterday was painful to her leg. She reports improvement in pain today. Awaiting BM, passing flatus. Denies headache, dizziness, weakness, nausea, vomiting, abdominal pain, chest pain, palpitations, or paresthesias. Denies note of any new injury on tertiary exam. Objective: Recent vital signs reviewed Vital signs range: Temp: [97.9 degrees F (36.6 degrees C)-98.6 degrees F (37 degrees C)] 98 degrees F (36.7 degrees C) Heart Rate: [60-66] 60 Resp: [15-16] 16 BP: (118-164)/(75-89) 164/85 General: Patient not in distress Neuro: GCS 15, no focal neurological deficits Head: Normocephalic, facial bones are nontender Eyes: EOMs intact, gross vision intact ENT: Nares are clear, moist mucous membranes, trachea midline Chest: Symmetrical expansion, chest wall is nontender, no palpable crepitus CV: S1 & S2 noted, no murmur/rub/gallop, palpable pulses throughout, HDS Pulm: Lungs CTA & equal bilaterally, no wheezes/rhonchi/crackles, no distress, on room air GI: Abd soft, non-distended, nontender, no peritoneal signs Pelvis: Pelvis is stable & nontender : Deferred Spine: No c-collar , C-spine is nontender, T-spine is nontender, L/S-spine are nontender, no step-offs or deformities noted Ext/MSK: DARLEEN tenderness 2/2 splint, no obvious deformities, no joint edema, DONTRELL x4 - except RLE 2/2 injury, distal neurovascular intact, sensation intact, wiggles toes, palpable pulses throughout, compartments soft and compressible Skin: Skin warm, dry and grossly intact, no obvious rashes or lesions noted Wounds: splint in place Laboratory Studies: Recent laboratory studies in the last 24 hours reviewed. Pertinent findings may be listed below: Hgb: 11.1 WBC: 6.52 Plts: 205 Na: 146 K: 4.3 Cr: 0.92 INR: 1 Laboratory and Additional Data Studies Reviewed: [x] Laboratory [x] Radiology [] Cardiology [x] Medications [] Transcriptions [] Microbiology [] Outside Records [] Family Diagnostic Imaging: Recent diagnostic imaging/reports this admission reviewed. Pertinent findings may be listed below. Please see formal radiology reads. CXR - negative for acute traumatic injuries PXR - negative for acute traumatic injuries XR R ankle/tibfib - Spiral comminuted distal tib fib fx CT R ankle - Distal tibial and fibular fractures Allergies Reviewed No Known Allergies Medications Reviewed Scheduled: acetaminophen 650 mg Oral Q4H While awake bisacodyL 10 mg Rectal Daily enoxaparin (LOVENOX) injection 30 mg Subcutaneous BID levothyroxine 112 mcg Oral Daily magnesium hydroxide 30 mL Oral Daily methocarbamoL 750 mg Oral TID metoprolol succinate 50 mg Oral Daily polyethylene glycol 17 g Oral BID senna-docusate 1 tablet Oral BID sodium chloride (PF) 5 mL Intravenous Q8H JANETT sodium chloride 0.9 % PRN: nalOXone AND Notify physician AND naloxone, ondansetron OR ondansetron, oxyCODONE, Saline lock IV AND sodium chloride (PF) AN (more content not included)... [facility] 02-24-2024 Note [facility] In[facility] Pro joyce Note 02/24/2024 Rinku Giordano 1955 [id number] Assessment/Plan: Rinku Giordano is a 68 y.o. female with a history of HTN, hypothyroidism who presented to [place] to ED 02/21/[address] showed right spiral tibial and fibular fractures. Transferred to [facility] 02/21/2024 for subspecialty care, admitted to trauma team. S/p right ankle ORIF and tibial IMN 02/22/[address] Kendall. [facility] consulted for preoperative evaluation, geriatric evaluation, medical management. Right tibial fracture: Secondary to a fall with twisting injury. CT revealed an intra-articular spiral distal tibia fracture and a distal fibula fracture. NWB to RLE. Orthopedic surgery following; s/p right ankle ORIF and tibial IMN 02/22/[address] Kendall, follow up with ortho in 2 weeks. PT/OT Fall: Patient missed a step causing her to twist at the right ankle under the weight of her body. Remainder of trauma evaluation benign. No presyncopal symptoms. PT/OT. Acute pain syndrome: Secondary to above. Agree with scheduled Tylenol and muscle relaxers to minimize need for opioids. Oxycodone available as needed. HTN: Continued home metoprolol at decreased dose with hold parameters due to bradycardia. Recommend discharging on decreased dose of metoprolol until PCP follow up. Hypothyroidism: Continued home Synthroid. Code status: Full code DVT Prophylaxis: Per primary team Thank you for allowing us to participate in the care of your patient. For any questions, please call the number of the covering hospitalist listed under the treatment team in care connect. Current living situation: Home Expected Disposition: PT/OT, hopeful for home with Estimated discharge date: per primary. Medically cleared for discharge Subjective: Pt seen this morning with daughter at bedside. Pain about 3/10 in right leg. Otherwise doing well and hoping to progress with therapy more. Physical Exam: BP (!) 159/89 (BP Location: Right arm, Patient Position: Lying) Pulse 62 Temp 98.6 degrees F (37 degrees C) (Oral) Resp 16 Ht 5' 5" Wt 81.6 kg (180 lb) SpO2 94% BMI 29.95 kg/m General: NAD Eyes: EOMI ENT: neck supple Cardiovascular: Regular rate. Respiratory: Clear to auscultation Gastrointestinal: Soft, non tender Genitourinary: no suprapubic tenderness Musculoskeletal: right lower leg immobilized and dressed Skin: warm, dry Neuro: Alert. Psych: Mood appropriate. Current Medications: acetaminophen 650 mg Oral Q4H While awake enoxaparin (LOVENOX) injection 30 mg Subcutaneous BID levothyroxine 112 mcg Oral Daily methocarbamoL 500 mg Oral TID metoprolol succinate 50 mg Oral Daily polyethylene glycol 17 g Oral Daily senna-docusate 1 tablet Oral BID sodium chloride (PF) 5 mL Intravenous Q8H JANETT Labs, Imaging and Studies reviewed: Results from last 7 days Lab Units 02/24/24 0223 02/23/24 0238 02/22/24 0248 WBC K/mcL 6.52 9.77 7.09 HGB g/dL 11.1* 11.9* 12.7 HCT % 33.1* 36.1 38.7 PLT K/mcL 205 226 227 Results from last 7 days Lab Units 02/24/243 02/23/24 0238 02/22/24 0248 SODIUM mmol/L 146* 138 141 POTASSIUM mmol/L 4.3 4.8 4.2 CHLORIDE mmol/L 112* 106 106 BICARB mmol/L 25 25 27 BUN mg/dL 15 17 21 CREATININE mg/dL 0.92 0.97 1.14 EGFR mL/min/1.73 m2 67 63 52* GLUCOSE mg/dL 96 137* 91 CALCIUM mg/dL 8.7 8.4 9.1 Results from last 7 days Lab Units 02/21/24 1837 02/21/24 1643 INR 1.0 -- POCINR -- 1.1 AUTHENTICATED BY NIR SHEEHAN, ON 02/24/2024 14:34:22 [facility] 02-24-2024 Note Assessment: Rinku Giordano who is POD#2 status post Right ankle ORIF, tibial IMN with Dr. Kendall (DOS: 02/22/24) Plan: -AF VSS; Labs reviewed - Hgb 11.1 (11.9) -Diet: Okay to eat from an orthopedic surgery standpoint -Weight-bearing status: TDWB right lower extremity -Dressing: soft dressing, AO trilam splint, maintain until follow up -Post-op x-rays: intra-op -Pain control: acetaminophen and narcotic analgesics including oxycoedone for breakthrough -DVT prophylaxis: ASA 325 mg bid -PT/OT: consulted -SW: consulted -Dispo: No further orthopedic surgical intervention planned -Follow up with Dr. Kendall in 2 weeks. S: Rinku Giordano reports doing well this AM. NAEO. Resting in bed in no acute distress. Tolerating p.o. diet, and voiding spontaneously. When working with therapy yesterday, patient was able to stand at the side of the bed and transfer to the bedside commode, however having difficulties pivoting and taking independent steps with an assisted wheeled walker. Otherwise no additional complaints or concerns. ROS: Denies fevers, chills, nausea, vomiting, SOB, CP, tingling, and numbness Physical Exam Vitals: Temp: [97.9 degrees F (36.6 degrees C)-98.8 degrees F (37.1 degrees C)] 97.9 degrees F (36.6 degrees C) Heart Rate: [62-66] 62 Resp: [15-18] 15 BP: (114-151)/(65-85) 151/80 General: alert, oriented x3 Incision: Dressings c/d/I Perfusion: Warm and well perfused Sensation: Sensation intact to light touch in the L3-S1 dermatomal distribution DVT Exam: No evidence of DVT seen on physical exam. Neuro: + EHL/FHL. Wiggling all toes Labs Lab Results Component Value Date/Time HGB 11.1 (L) 02/24/2024 02:23 AM HGB 11.9 (L) 02/23/2024 02:38 AM HGB 12.7 02/22/2024 02:48 AM Lab Results Component Value Date/Time WBC 6.52 02/24/2024 02:23 AM WBC 9.77 02/23/2024 02:38 AM WBC 7.09 02/22/2024 02:48 AM Rogelio Vallejo DO Orthopedic Surgery Resident AUTHENTICATED BY ROGELIO VALLEJO, ON 02/24/2024 05:50:27 [facility] 02-23-2024 Note Formatting of this n ote might be different from the original. Bedside report was completed including the following dual assessment, if applicable: Electronic Medical Record Review Deterioration Index (DI) Score Physician orders - active & held orders MAR - overdue & held meds Infusing medications/fluids Peripheral IVs IV dressing clean, dry, and intact IV tubing changed less than 96 hours IV tubing dated, initialed, labeled IV changed less than equal to 96 hours Central Lines CHG bath completed and documented daily Dressing present and correctly positioned The central line catheter is secured to the patient's body Central line dressing is clean, dry and intact Line necessity reviewed All hubs on the central line have a swab cap Urinary Catheters Red seal is intact Tubing is free of dependent loops and without standing urine Urine collection bag is below the bladder Catheter tubing is secured to the patient's body to prevent urethral tension No components of the urinary catheter system are touching the floor Catheter necessity reviewed Skin Integrity Turning schedule and last turned Dressings clean, dry, and intact Skin Assessment completed - skin integrity, any findings? Falls Fall risk score Intervention Bundle (check all in place) Door sign Bed/Chair Alarm on Fall Risk band Non-skid socks Patient centered interventions NG/OG Tube intact and functioning as ordered Tubing dated, initialed, labeled Tube feed solution as ordered Hemovacs/SANTHOSH drains Intact Output recorded Fully compressed SCDs On the patient and the pump turned on Total Joints Ice therapy on affected limb Ham wrap off POD1 knees Discharge by noon potential discussed Verified by note author and MARILU Santiago. [facility] 02-23-2024 Note [facility] Progress Note Patient Information Patient Name: Rinku Giordano Age/Sex: 68 y.o., female : 1955 Date of evaluation: 02/23/2024 Code Status: Full Code Discussed with Trauma Attending Dr. Perkins on rounds - Agreed with plan of care Perpetual Assessment: Rinku Giordano 68 y.o. female with a past medical history of thyroid disease, HTN, macular degeneration, presented to [facility] from [facility] on 02/21/24 s/p Mechanical fall with a Chief Complaint of R ankle pain. Patient reportedly missed a step and got her foot stuck underneath her. She fell onto her knee. Patient did not hit head, and did not have LOC. AC/AP use: denies use of AC/AP meds. Pt with a R pilon variant fracture s/p R ankle ORIF, tibial IMN 02/[address] Kendall. Acute events reported overnight - no Plan: - Therapy and dispo Tertiary exam: completed on 02/21 Consults: Medicine (Geriatric Focused) and Ortho Spine clearance status: - Cervical spine is cleared - TLS spine are cleared WB Status: NWB RLE DVT prophylaxis: Lovenox sq and SCDs Therapy: 2-3 CM/SW consulted: Dispo plan - home w/HHC Ready for discharge from trauma standpoint? Yes, awaiting one more day for pain control and SW SIMAB: 1-2 days Injuries/Active Problems: - R pilon Variant Fx: NWB RLE, ORIF/IMN with Dr. Kendall 02/21, PT/OT. DC on lovenox and 2 week f/u with Dr. Kendall PMH: Resume home medications as able, medicine is consulted for medical management - Hypothyroidism: Cont. Synthroid Lab Abnormalities: - decreased GFR - GFR 52 02/21 . Repeat GFR 63. Cr WNL - Could be attributed to trauma, hx of HTN or abnormal UA.Cont to trend. - Anemia - ABLA in the setting of trauma, Hgb 14 on admission, now 11.9, monitor CBC Daily, monitor for s/sx of ongoing bleeding, transfuse Hgb <7 or HDUS - Abnormal UA - denies symptoms. Urine culture pending. Incidental Findings: - none Resolved Problems: none Subjective: Reports nerve block remains somewhat present. Some pain present to RLE. Denies headache, dizziness, weakness, nausea, vomiting, abdominal pain, chest pain, palpitations, or paresthesias. Denies note of any new injury on tertiary exam. Objective: Recent vital signs reviewed Vital signs range: Temp: [97.5 degrees F (36.4 degrees C)-98.8 degrees F (37.1 degrees C)] 98.3 degrees F (36.8 degrees C) Heart Rate: [47-70] 66 Resp: [11-20] 16 BP: (114-150)/(61-79) 118/75 General: Patient not in distress Neuro: GCS 15, no focal neurological deficits Head: Normocephalic, facial bones are nontender Eyes: EOMs intact, gross vision intact ENT: Nares are clear, moist mucous membranes, trachea midline Chest: Symmetrical expansion, chest wall is nontender, no palpable crepitus CV: S1 & S2 noted, no murmur/rub/gallop, palpable pulses throughout, HDS Pulm: Lungs CTA & equal bilaterally, no wheezes/rhonchi/crackles, no distress, on room air GI: Abd soft, non-distended, nontender, no peritoneal signs Pelvis: Pelvis is stable & nontender : Deferred Spine: No c-collar , C-spine is nontender, T-spine is nontender, L/S-spine are nontender, no step-offs or deformities noted Ext/MSK: Tenderness noted to RLE , no obvious deformities, no joint edema, DONTRELL x4 - except RLE 2/2 injury, distal neurovascular intact, sensation intact, wiggles toes, palpable pulses throughout, compartments soft and compressible Skin: Skin warm, dry and grossly intact, no obvious rashes or lesions noted Wounds: splint in place Laboratory Studies: Recent laboratory studies in the last 24 hours reviewed. Pertinent findings may be listed below: Hgb: 11.9 WBC: 9.77 Plts: 226 Na: 138 K: 4.8 Cr: 0.97 INR: 1 Laboratory and Additional Data Studies Reviewed: [x] Laboratory [x] Radiology [] Cardiology [x] Medications [] Transcriptions [] Microbiology [] Outside Records [] Family Diagnostic Imaging: Recent diagnostic imaging/reports this admission reviewed. Pertinent findings may be listed below. Please see formal radiology reads. CXR - negative for acute traumatic injuries PXR - negative for acute traumatic injuries XR R ankle/tibfib - Spiral comminuted distal tib fib fx CT R ankle - Distal tibial and fibular fractures Allergies Reviewed No Known Allergies Medications Reviewed Scheduled: acetaminophen 650 mg Oral Q4H While awake enoxaparin (LOVENOX) injection 30 mg Subcutaneous BID levothyroxine 112 mcg Oral Daily methocarbamoL 500 mg Oral TID metoprolol succinate 50 mg Oral Daily polyethylene glycol 17 g Oral Daily senna-docusate 1 tablet Oral BID sodium chloride (PF) 5 mL Intravenous Q8H JANETT sodium chloride 0.9 % PRN: bisacodyL, nalOXone AND Notify physician AND naloxone, ondansetron OR ondansetron, oxyCODONE, Saline lock IV AND sodium chloride (PF) AND sodium chloride (PF) AND sodium chloride 0.9 % 02/23/2024 Stefanie Dominique CNP 3:56 PM AUTHENTICATED BY RICH (more content not included)... [facility] 02-23-2024 Consult note Formatting of this note is different fro m the original. Physical Therapy PHYSICAL THERAPY EVALUATION and TREATMENT NOTE PHYSICAL THERAPY EVALUATION Skilled Therapy Needs After Discharge Anticipate Resolution of Current Assessment Limitations Including: Pain, Mechanical Barriers Are Skilled Therapy Services Needed After Discharge: Yes Intensity of Skilled Therapy: 2-3 days per week Anticipated Duration of Skilled Therapy: Duration 10 - 30 days DME Recommendation: Wheeled Walker, Wheelchair, Elevating legrests on wheelchair, Removable armrests on wheelchair DME Rationale: Patient's condition creates an increased risk of safety hazard without recommended equipment, Patient's condition prevents him/her from accomplishing ADL without recommended equipment, Equipment required to maintain weight bearing status per physician orders, Patient will require increased level of care without recommended equipment, Wheelchair - mobility limitation cannot be safely resolved with ambulatory aide, Wheelchair for primary in home mobility Rehab Potential: Good, For goals Outcomes Measures Prior Function - Basic Mobility Raw Score: 24 Points Prior Function - Basic Mobility % Impaired: 0% AM-PAC Basic Mobility Raw Score: 13 Points AM-PAC Basic Mobility % Impaired: 57.65 Physical Therapy Assessment History: The following factors influence the patient's participation in the PT plan of care: Personal Factors: Age Environmental Factors: Steps to enter home The following co-morbidities (from this admission or prior) influence the patient's participation in this plan of care: Pt presents to [facility] s/p fall, undergoing ORIF and IM nail per Dr. Kendall for intra-articular spiral distal tibia fracture and a distal fibula fracture. PMhx: HTN, macular degeneration. Number of History elements affecting this patient's PT plan of care: 1 to 2 Examination of Body Systems: The patient presents with: Musculoskeletal impairments: Strength, ROM, Pain, Functional Endurance Neurologic Impairments: Coordination, Balance, Pain Cardiopulmonary Impairments: Activity Tolerance Integumentary Impairments: Active Wound, Tissue Healing. These impairments result in limitations of Gait, Functional Transfers, Safety, Stair-Climbing, Safety Awareness, Activity Tolerance, Insight. These impairments result in restrictions of Household mobility, Community mobility. Number of Body Systems elements affecting this patient's PT plan of care: 4 or more. Clinical Presentation: The patient's clinical presentation for this PT evaluation is evolving with changing characteristics as evidenced by current PT documentation. Activity Tolerance Activity Tolerance: Tolerates 30 min acitivty with multiple rests Therapy Precautions Orthotic Devices: Yes Lower Extremity: Right (splint + large dressing) Weight Bearing Status: X RLE: Touch down General Rehab Precautions: Fall risk Balance Assessment Sitting Balance - Static: Stand by assist Sitting Balance - Dynamic: Stand by assist Standing Balance - Static: Minimal assist, with device, with bilateral UE support Hydrometeorologist - Standing Static: wheeled walker Standing Balance - Dynamic: Minimal assist, with device, with bilateral UE support Hydrometeorologist - Standing Dynamic: wheeled walker Bed Mobility Supine to Sit: (pt seated EOB with OT at arrival) Sit to Supine: (pt in bedside chair at end of session) Transfers Sit to Stand: Moderate assist, Minimal assist Stand Pivot Transfers: Minimal assist (close stand by of second person for safety) Hydrometeorologist: wheeled walker Additional Transfer Trial 2: Yes Sit to Stand Trial 2: Moderate assist, Minimal assist Stand Pivot Transfers Trial 2: Minimal assist (close stand by of second person for safety) Hydrometeorologist Trial 2: wheeled walker Gait/Locomotion Gait Assistance: (no true gait performed this date; pivot to/from commode/chair/bed) Home Living Obtained Home Living and PLOF info from: Patient Lives With: (mother-provides her mother with 24 hour care due to dementia) Type of Home: House Home Layout: One level, Laundry in basement Steps to enter home: Yes Rails to enter home: 1 rail Number of stairs to enter home: 2 Bathroom Shower/Tub: Tub/shower unit Additional Objective Details - Home Living: daughter is from out of town but will be staying with patient "as long as she can" Prior Level of Function Level of [place] - Transfers/Ambulation/Mobility: Independent with household ambulation, Independent with functional transfers, Independent with community ambulation Level of [place] - ADLs: Independent Level of [place] - Homemaking: Independent Driving: Patient drives PHYSICAL THERAPY TREATMENT NOTE Total Treatment Time (Total Session Time): 26 Minutes Total Timed Code Treatment Minutes: 10 Minutes Neuromuscular Reeducation Sitting Balance Treatment: weight shifting right, upright gaze, postural re-education Skilled Intervention Provided: verbal cues, patient education For: LE positioning, LE management, postural alignment, efficient movement, energy conservation Resulting in: improved performance, improved safety, improved functional independence, improved activity tolerance Standing Balance Treatment: weight shifting anterior, upright gaze, postural re-education Skilled Intervention Provided: verbal cues, patient education For: postural alignment, efficient movement, energy conservation, UE positioning, UE management, LE positioning, LE management Resulting in: improved safety, improved performance, improved motor control, improved functional independence, improved activity tolerance Therapeutic Activities Transfers Skilled Intervention Provided: verbal cues, tactile cues, patient education, monitoring patient response with activity For: postural alignment, efficient movement, energy conservation, controlled descent Resulting in: improved safety, improved performance, improved activity tolerance Additional Treatment Details Pt cleared per nursing prior to PT arrival. Endorsing all PLOF and home information. Family at bedside. Pt with verbal cues to maintain TDWB of R LE during mobility and transfers, intermittent min A for walker managment. pt with increased nausea following transfer to commode, resolving with increased time. pt assist to transfer to bedside chair, LE elevated and ice applied for comfort. Educated in role of therapy, mobility needs/possible modifications for safety with discharge. Verbalized understanding. pt in bedside chair, needs and call light in reach at departure Past Medical History: Diagnosis Date Disease of thyroid gland Hypertension Macular degeneration Past Surgical History: Procedure Laterality Date SECTION For complete objective data, detailed plan of care and patient education refer to: PT Evaluation flowsheet, PT Evaluation and Treatment flowsheet, PT Treatment flowsheet, patient Plan of Care, Plan of Care progress note, and Patient Education. This note stands as the current Discharge Summary upon patient discharge from the hospital or completion of Physical Therapy Plan. T [facility] 02-23-2024 Consult note Formatting of this note is different fro m the original. Occupational Therapy OCCUPATIONAL THERAPY EVALUATION AND TREATMENT NOTE OCCUPATIONAL THERAPY EVALUATION Skilled Therapy Needs After Discharge Anticipate Resolution of Current Assessment Limitations Including: Pain Are Skilled Therapy Services Needed After Discharge: Yes Intensity of Skilled Therapy: 2-3 days per week Anticipated Duration of Skilled Therapy: Duration 7 - 10 days DME Recommendation: Wheeled Walker, Wheelchair, Elevating legrests on wheelchair, Bedside commode DME Rationale: Patient's condition prevents him/her from accomplishing ADL without recommended equipment, Equipment required to maintain weight bearing status per physician orders Rehab Potential: Good Outcomes Measures Prior Function Daily Activity Raw Score: 24 Prior Function Daily Activity % Impaired: 0% AM-PAC Daily Activity Raw Score: 18 AM-PAC Daily Activity % Impaired: 46.65% Occupational Therapy Assessment The patient's current functional participation deficits are LE dressing, grooming, bathing, toileting, home management, meal preparation, medication management, orthosis/brace management, hobbies, functional mobility, 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 This reduced independence will limit their life roles of premorbid level individual. The patient's co morbidities do affect patient performance in the above activities and roles. The performance deficits are a result of musculoskeletal, integumentary impairment(s) in generalized debility including strength, range of motion, balance, acitvity tolerance, respiratory capacity, pain, problem solving, insight, safety, sequencing, and pain intolerance. The patient's family / caregiver support is a leadite worker for return to prior level of function. The patient's compliance is a leadite worker to return to prior level of function. During the assessment, significant modification of task was required and multiple treatment options were identified in the plan of care. This consultation required expanded review of the medical and therapy history. Activity Tolerance Activity Tolerance: Tolerates 30 min acitivty with multiple rests Therapy Precautions Orthotic Devices: Yes Lower Extremity: Right (bulky dressing ankle) Weight Bearing Status: X RLE: Touch down General Rehab Precautions: Fall risk Cognition Overall Cognitive Status: Within Functional Limits Arousal/Alertness: Appropriate responses to stimuli Orientation Level: Oriented X4 Executive functioning: Planning / Organizing, Min impairment Safety Judgment: Decreased awareness of need for safety Problem Solving: Assistance required to identify errors made, Assistance required to implement solutions, Assistance required to generate solutions Attention: Attends to quiet environment Hearing Status: WFL Social Interaction: Cooperative, Appropriate, Apprehensive Comments: Patient demonstrates the ability to follow one step commands appropriately. Functional cognition intact for activity assessed. ADL Grooming: Supervision (s/u assist for face washing while seated unsupported) Toileting: Maximal assist (max A clothing management, SBA hygiene) IADL Bed Mobility Supine to Sit: Moderate assist (assist for RLE only, able to manage UB with instruction) Functional Transfers Sit to Stand: Minimal assist Bed to Chair Transfers: Minimal assist Toilet Transfers: Minimal assist, to/from bedside commode Hydrometeorologist: wheeled walker Additional Functional Transfer Trial 2: Yes Sit to Stand Trial 2: Minimal assist Home Living Obtained Home Living and PLOF info from: Patient Lives With: (mother-provides her mother with 24 hour care due to dementia) Type of Home: House Home Layout: One level, Laundry in basement Steps to enter home: Yes Rails to enter home: 1 rail Number of stairs to enter home: 2 Bathroom Shower/Tub: Tub/shower unit Additional Objective Details - Home Living: daughter is from out of town but will be staying with patient "as long as she can" Prior Level of Function Level of [place] - Transfers/Ambulation/Mobility: Independent with household ambulation, Independent with functional transfers, Independent with community ambulation Level of [place] - ADLs: Independent Level of [place] - Homemaking: Independent Driving: Patient drives OCCUPATIONAL THERAPY TREATMENT NOTE Total Treatment Time (Total Session Time): 60 Minutes Total Timed Code Treatment Minutes: 33 Minutes Cognitive Skills Development Skilled Intervention Provided: verbal cues, demonstration, engaged in cognitive tasks, grading task, facilitation For: improving new learning, compensatory techniques, necessary precautions, preparing for self-care tasks Resulting In: increased insight into deficits, improved caregiver/family awareness of patient's deficits, improved activity tolerance, improved problem solving Self-Care / ADL Grooming - Skilled Intervention Provided: verbal cues, facilitation, monitored patient's safety and tolerance Grooming - For: efficient movement, postural alignment Grooming - Resulting In: improved overall self care, improved functional independence Toileting - Skilled Intervention Provided: verbal cues, demonstration, facilitation, [id number] instructions, patient education Toileting - For: LE positioning, UE positioning, fall prevention, efficient movement, postural alignment, necessary precautions Toileting - Resulting In: improved functional independence, improved activity tolerance, improved overall self penitentiary Management / IADL Therapeutic Activities Bed Mobility Skilled Intervention Provided: verbal cues, tactile cues, facilitation, provided step by step instructions, patient education For: LE positioning, UE positioning, postural alignment, efficient movement Resulting In: improved performance, increased initiation in mobility task(s), improved caregiver/family awareness, improved adherence to precautions Functional Transfers Skilled Intervention Provided: verbal cues, tactile cues, demonstration, facilitation, provided step by step instructions, monitoring patient response with activity For: LE positioning, UE positioning, controlled descent, postural alignment, increased participation in mobility task, fall prevention Resulting In: increased insight into deficits, improved performance, improved functional independence, improved balance Therapeutic Exercise Neuromuscular Reeducation Sitting Balance - Static: Supervision Sitting Balance - Dynamic: Stand by assist Sitting Balance Treatment: reaching across midline, reaching outside base of support, maintaining midline orientation, reaching within base of support Skilled Intervention Provided: verbal cues, tactile cues, facilitation, patient education For: balance recovery, fall prevention, postural alignment Resulting in: improved functional independence, improved balance reactions Standing Balance - Static: Minimal assist, with bilateral UE support, 1+ to 3 minutes Standing Balance Treatment: maintaining midline Skilled Intervention Provided: demonstration, facilitation, patient education For: balance recovery, necessary precautions Resulting in: improved safety, improved trunk stability, improved functional independence Additional Treatment Details Patient and her daughter were educated in depth on activity guidelines, positioning techniques, and AD available to improve ease with functional tasks and ensure maintainence of precautions. Past Medical History: Diagnosis Date Disease of thyroid gland Hypertension Macular degeneration Past Surgical History: Procedure Laterality Date SECTION For complete objective data, detailed plan of care and patient education refer to: OT Evaluation flowsheet, OT Evaluation and Treatment flowsheet, OT Treatment flowsheet, patient Plan of Care, Plan of Care progress note, and Patient Education. This note stands as the current Discharge Summary upon patient discharge from the hospital or completion of Occupational Therapy Plan of Care. [facility] 02-23-2024 Note [facility] Inpatient [facility] Note 02/23/2024 Rinku Giordano 1955 [id number] Assessment/Plan: Rinku Giordano is a 68 y.o. female with a history of HTN, hypothyroidism who presented to [place] to ED 02/21/[address] showed right spiral tibial and fibular fractures. Transferred to [facility] 02/21/2024 for subspecialty care, admitted to trauma team. S/p right ankle ORIF and tibial IMN 02/22/[address] Kendall. [facility] consulted for preoperative evaluation, geriatric evaluation, medical management. Right tibial fracture: Secondary to a fall with twisting injury. CT revealed an intra-articular spiral distal tibia fracture and a distal fibula fracture. NWB to RLE. Orthopedic surgery following; s/p right ankle ORIF and tibial IMN 02/22/[address] Kendall, follow up with ortho in 2 weeks. PT/OT Fall: Patient missed a step causing her to twist at the right ankle under the weight of her body. Remainder of trauma evaluation benign. No presyncopal symptoms. PT/OT. Acute pain syndrome: Secondary to above. Agree with scheduled Tylenol and muscle relaxers to minimize need for opioids. Oxycodone available as needed. HTN: Continued home metoprolol at decreased dose with hold parameters due to bradycardia. Recommend discharging on decreased dose of metoprolol until PCP follow up. Hypothyroidism: Continued home Synthroid. Code status: Full code DVT Prophylaxis: Per primary team Thank you for allowing us to participate in the care of your patient. For any questions, please call the number of the covering hospitalist listed under the treatment team in care connect. Current living situation: Home Expected Disposition: PT/OT, hopeful for home with Estimated discharge date: per primary. Possibly today pending PT/OT Subjective: Pt seen this morning with daughter at bedside. They are hopeful for homegoing plan, even today if possible. Pain about 5/10 with po pain meds. Pt endorses being on metoprolol for years and denies any history of bradycardia or lightheadedness. We discussed decreasing her metoprolol to 50 mg today and seeing how she does with plan for close PCP follow up. She will also take BP and HR daily until PCP follow up. Discussed with Trauma MAT [place]; decreased metoprolol dose due to bradycardia on presentation. Otherwise medically cleared for discharge. Physical Exam: BP 138/78 (BP Location: Left arm, Patient Position: Lying) Pulse 66 Temp 98.8 degrees F (37.1 degrees C) (Oral) Resp 16 Ht 5' 5" Wt 81.6 kg (180 lb) SpO2 95% BMI 29.95 kg/m General: NAD Eyes: EOMI ENT: neck supple Cardiovascular: Regular rate. Respiratory: Clear to auscultation Gastrointestinal: Soft, non tender Genitourinary: no suprapubic tenderness Musculoskeletal: right lower leg immobilized and dressed Skin: warm, dry Neuro: Alert. Psych: Mood appropriate. Current Medications: acetaminophen 650 mg Oral Q4H While awake enoxaparin (LOVENOX) injection 30 mg Subcutaneous BID levothyroxine 112 mcg Oral Daily methocarbamoL 500 mg Oral TID metoprolol succinate 50 mg Oral Daily polyethylene glycol 17 g Oral Daily senna-docusate 1 tablet Oral BID sodium chloride (PF) 5 mL Intravenous Q8H JANETT Labs, Imaging and Studies reviewed: Results from last 7 days Lab Units 02/23/24 02302/22/248 02/21/24 1638 WBC K/mcL 9.77 7.09 10.49 HGB g/dL 11.9* 12.7 14.3 HCT % 36.1 38.7 42.0 PLT K/mcL 226 227 264 Results from last 7 days Lab Units 02/23/24 02302/22/24 02402/22/24 0248 02/21/24 1647 SODIUM mmol/L 138 -- 141 -- POTASSIUM mmol/L 4.8 -- 4.2 -- CHLORIDE mmol/L 106 -- 106 -- BICARB mmol/L 25 -- 27 -- BUN mg/dL 17 -- 21 -- POC BUN mg/dL -- -- -- 20 CREATININE mg/dL 0.97 -- 1.14 -- POC CREATININE (EPOC) mg/dL -- -- -- 1.04 EGFR mL/min/1.73 m2 63 -- 52* -- GLUCOSE mg/dL 137* < > 91 -- CALCIUM mg/dL 8.4 -- 9.1 -- < > = values in this interval not displayed. Results from last 7 days Lab Units 02/21/24 1837 02/21/24 1643 INR 1.0 -- POCINR -- 1.1 AUTHENTICATED BY NIR SHEEHAN, ON 02/23/2024 13:59:59 [facility] 02-23-2024 Note Assessment: Rinku Giordano who is POD#1 status post Right ankle ORIF, tibial IMN with Dr. Kendall (DOS: 02/22/24) Plan: -AF VSS; Labs reviewed - Hgb 11.9 -Diet: Okay to eat from an orthopedic surgery standpoint -Weight-bearing status: TDWB right lower extremity -Dressing: soft dressing, AO trilam splint, maintain until follow up -Post-op x-rays: intra-op -Pain control: acetaminophen and narcotic analgesics including oxycoedone for breakthrough -DVT prophylaxis: ASA 325 mg bid -PT/OT: consulted -SW: consulted -Dispo: No further orthopedic surgical intervention planned -Follow up with Dr. Kendall in 2 weeks. S: Rinku Giordano reports doing well this AM. NAEO. Resting in bed in no acute distress with surgical block intact. Tolerating PO diet, voiding, and having flatulence. Will work with therapies. No further complaints at this time. Did discuss with daughter and patient at bedside options for discharge relating to her return to [place] or to stay closer. Daughter just got into town and is hopeful they will be able to discharge home today pending therapies. ROS: Denies fevers, chills, nausea, vomiting, SOB, CP, tingling, and numbness Physical Exam Vitals: Temp: [97.5 degrees F (36.4 degrees C)-98.2 degrees F (36.8 degrees C)] 97.5 degrees F (36.4 degrees C) Heart Rate: [47-70] 70 Resp: [10-20] 18 BP: (97-150)/(53-79) 128/75 General: alert, oriented x3 Incision: Dressings c/d/I Perfusion: Warm and well perfused Sensation: unable to assess 2/2 surgical block DVT Exam: No evidence of DVT seen on physical exam. Neuro: unable to assess 2/2 surgical block Labs Lab Results Component Value Date/Time HGB 11.9 (L) 02/23/2024 02:38 AM HGB 12.7 02/22/2024 02:48 AM HGB 14.3 02/21/2024 04:38 PM Lab Results Component Value Date/Time WBC 9.77 02/23/2024 02:38 AM WBC 7.09 02/22/2024 02:48 AM WBC 10.49 02/21/2024 04:38 PM Ronaldo Perugini, DO Orthopedic Surgery Resident AUTHENTICATED BY RONALDO ROCHE, ON 02/23/2024 07:30:22 [facility] 02-23-2024 Note Formatting of this n ote might be different from the original. Bedside report was completed including the following dual assessment, if applicable: Electronic Medical Record Review Deterioration Index (DI) Score Physician orders - active & held orders MAR - overdue & held meds Infusing medications/fluids Peripheral IVs IV dressing clean, dry, and intact IV tubing changed less than 96 hours IV tubing dated, initialed, labeled IV changed less than equal to 96 hours Central Lines CHG bath completed and documented daily Dressing present and correctly positioned The central line catheter is secured to the patient's body Central line dressing is clean, dry and intact Line necessity reviewed All hubs on the central line have a swab cap Urinary Catheters Red seal is intact Tubing is free of dependent loops and without standing urine Urine collection bag is below the bladder Catheter tubing is secured to the patient's body to prevent urethral tension No components of the urinary catheter system are touching the floor Catheter necessity reviewed Skin Integrity Turning schedule and last turned Dressings clean, dry, and intact Skin Assessment completed - skin integrity, any findings? Falls Fall risk score Intervention Bundle (check all in place) Door sign Bed/Chair Alarm on Fall Risk band Non-skid socks Patient centered interventions NG/OG Tube intact and functioning as ordered Tubing dated, initialed, labeled Tube feed solution as ordered Hemovacs/SANTHOSH drains Intact Output recorded Fully compressed SCDs On the patient and the pump turned on Total Joints Ice therapy on affected limb Ham wrap off POD1 knees Discharge by noon potential discussed Verified by note author and MARILU Orona. [facility] 02-23-2024 Note Formatting of this n ote might be different from the original. GIORDANORINKU CSN [id number] 1955 DATE 02/22/2024 OPERATIVE REPORT SURGEON POOL KENDALL MD PREOPERATIVE DIAGNOSIS Right pilon fracture. POSTOPERATIVE DIAGNOSIS Right pilon fracture. PROCEDURE Open reduction and internal fixation of right pilon fracture, tibia and fibula. ANESTHESIA General plus popliteal block. BLOOD LOSS Minimal. FLUIDS Crystalloid per Anesthesia. COMPLICATIONS None. SPECIMENS None. DRAINS None. DISPOSITION Patient stable to PACU. IMPLANTS Synthes size 9 tibial nail, Synthes small frag set and Synthes 4.0 cannulated screws. HISTORY This is a patient who was visiting her 1st grandchild and her son yesterday when she slipped and fell. She sustained a fracture of the right distal tibia and fibula, which was intra-articular. She was admitted to the hospital and cleared for surgical intervention. I discussed with the patient risks and benefits of surgery including alternatives and natural history, and consent was obtained. DESCRIPTION OF PROCEDURE She was taken to the operating room after receiving a popliteal block and after being marked in the preoperative holding area. She received general anesthesia. She received preoperative antibiotics. The right lower extremity was then prepped and draped in normal sterile fashion. No tourniquet was used. A time-out was called. I began by making an incision over the patient's lateral malleolus. There was a fracture here which was exposed. I did not encounter the superficial peroneal nerve. I placed the laminar wet finisher through the fracture and then another laminar wet finisher into the posterior malleolus. There was a large fracture here and by doing so, I was able to expose the area and remove a piece of articular cartilage as identified on preoperative CT scan. I then placed a couple of guidewires from an anterior to posterior direction, 2 from medial to the tibialis anterior tendon and 1 lateral to it. I saw the wires exit into the cancellous bone. I backed the wires up and then proceeded with the case. I reduced the fibula. I held it out to length with a pointed reduction clamp and then placed a lag screw. It was a 2.7 lag screw. Prior to placing my neutralization plate and screws, I placed a periarticular reduction clamp getting a clamp on the posterior nhi and a clamp anteriorly. I was able to close the fracture down and then I advanced my guidewires. I drilled for and placed 3 of the 4.0 cannulated screws. The lateral screw was placed after I made an incision and carefully dissected to avoid any damage to the superficial peroneal nerve. I was satisfied with position of the screws and with the reduction of the posterior malleolus and with the length of the fibula. Next, I made an incision above the patella. With this suprapatellar approach, I inserted a guide and placed a guidewire into a good starting position. I advanced my guidewire and then used my opening drill. I used a ball-tipped guidewire and advanced it down the canal. I had been holding longitudinal traction and the distal tibia was well aligned. I advanced my guidewire and then began sequential reaming with a size 8.5 reamer, reaming up to a size 10, which allowed me to place a size 9 nail. The size 9 nail was placed without difficulty. I placed 2 screws proximally. Distally, there was a little bit of traffic. I placed a screw from a medial to lateral direction in the distal hole, but this was done only after removing one of the screws that had been placed prior. This was a 4.0 cannulated AP screw. I had backed the screw out and placed my medial to the lateral locking bolt and then replaced the screw in a slightly different trajectory. I then placed a screw from the oblique hole going from medial to lateral. Again, this required removal of my 2 distal AP screws so that I could see a good perfect [place]. Once this was done, I drilled for and placed my oblique screw and then replaced my 4.0 cannulated screws from the same trajectories. Final fluoroscopic images demonstrated the tibia to be out to length. Everything appeared stable and well reduced. The patient's wound was then copiously irrigated and closed in a layered fashion. Proximally it was closed with 0 Vicryl followed by 2-0 Vicryl and then 4-0 Monocryl. Distally 2-0 Vicryl, 3-0 Vicryl, and 4-0 Monocryl were used over the lateral incision. All stab incisions were closed with nylon. The patient's wounds were dressed and she was placed in a bulky [place] dressing with posterior and side slab splints. She was awoken from anesthesia and taken to the recovery room in good condition. Postoperatively, she can be toe-touch weightbearing for the next 6 to 8 weeks. She will come back to the clinic in 2 weeks' time with x-rays of her tibia/fibula and of her ankle. At that point, I hope to move her into either a short-leg cast for an additional 2 weeks versus a boot, but I would likely do a cast for 2 additional weeks. At the 4-week elizabeth, we can start some range of motion of the ankle and continue with toe-touch weightbearing and at the 6-week elizabeth, begin some partial weightbearing, advancing to full weightbearing by 8 weeks. She will not be able to drive during this time. She will be on aspirin for DVT prophylaxis. She is from out of town and will likely require either an ECF or staying with family members. MD Blanca GARCIA 02/22/2024 18:54 [id number] T 02/23/2024 04:53 BJT/MODL [facility] 02-22-2024 Note Trauma Team Post Op Check CC: Mechanical Fall - POD#0 OPEN REDUCTION INTERNAL FIXATION TIBIA on 02/22/2024 with Faiza Sandoval S: Denies complaints at this time. Patient tolerated a diet post-op. Denies N/V/abd pain. Denies flatus. Discussed plan for PT/OT tomorrow. O: BP (!) 146/77 Pulse 70 Temp 97.5 degrees F (36.4 degrees C) (Oral) Resp 16 Ht 5' 5" Wt 81.6 kg (180 lb) SpO2 93% BMI 29.95 kg/m Physical Exam: Gen-NAD, pleasant and appropriate Neuro-No focal deficits RR- no accessory muscle use, no distress GI-soft, NT, ND MSK-full ROM and sensation except RLE A/P: Patient evaluated post-op. RLE compartments are soft, dressing is CDI, proximally NV intact. No sensation from R knee down to her toes. No motor function of R foot as of yet. Nerve block intact. Pain is well controlled, patient is easily arouses to voice and answers appropriately. VSS, AF. TDWB RLE post operatively. Please call Trauma MAT on [facility] with any urgent concerns or change in exam Vonda Heart PA-C AUTHENTICATED BY [facility], ON 02/22/2024 21:55:52 [facility] 02-22-2024 Consult note Associated Order(s): IP CONSULT TO CARE MANAGEMENT Care Management Consult Note Date: 02/22/2024 Time: 8:08 PM Patient Name: Rinku Giordano Date of : 1955 Reason for Consult: Discharge Plan: TBD Discharging Transportation Plan: TBD Discharge Plan Status: Care management consulted for discharge needs. [employer] met with Pt and dtr at bedside. [employer] introduced self and role in discharge planning. Pt lives in [place], [place]. Pt was in town to visit son when she missed a step and fell and caused right distal tib/fib fx. Pt states that she lives with mom in private residence. Pt is primary caregiver to her mom. Pt's sister is currently assisting with taking care of Pt's mom. Pt is IND at baseline and does not use any DME. Demographics confirmed and holistic assessment completed. Dtr report she will be available to help Pt if needed. PT/OT pending. Will continue to follow. Assessment and Background Information: Living Arrangements: Parent Support Systems: Family members Assistance Needed: none Type of Residence: Private residence Prior to Admission Home Care Services: No Current Home Equipment: None Holistic Assessment Medication adherence problem:: No History of falls in last 6 months:: (!) Yes Family aware of the patient's advance care planning wishes:: Yes Do you have any cultural/spiritual connections or beliefs that would impact how we deliver your care?: No Chronic pain:: No [facility] 02-22-2024 Note Formatting of this n ote might be different from the original. Bedside report was completed including the following dual assessment, if applicable: Electronic Medical Record Review Deterioration Index (DI) Score Physician orders - active & held orders MAR - overdue & held meds Infusing medications/fluids Peripheral IVs IV dressing clean, dry, and intact IV tubing changed less than 96 hours IV tubing dated, initialed, labeled IV changed less than equal to 96 hours Central Lines CHG bath completed and documented daily Dressing present and correctly positioned The central line catheter is secured to the patient's body Central line dressing is clean, dry and intact Line necessity reviewed All hubs on the central line have a swab cap Urinary Catheters Red seal is intact Tubing is free of dependent loops and without standing urine Urine collection bag is below the bladder Catheter tubing is secured to the patient's body to prevent urethral tension No components of the urinary catheter system are touching the floor Catheter necessity reviewed Skin Integrity Turning schedule and last turned Dressings clean, dry, and intact Skin Assessment completed - skin integrity, any findings? Falls Fall risk score Intervention Bundle (check all in place) Door sign Bed/Chair Alarm on Fall Risk band Non-skid socks Patient centered interventions NG/OG Tube intact and functioning as ordered Tubing dated, initialed, labeled Tube feed solution as ordered Hemovacs/SANTHOSH drains Intact Output recorded Fully compressed SCDs On the patient and the pump turned on Total Joints Ice therapy on affected limb Ham wrap off POD1 knees Discharge by noon potential discussed Verified by note author and Jaime RN. [facility] 02-22-2024 Note Formatting of this n ote might be different from the original. OCCUPATIONAL THERAPY VISIT VARIANCE NOTE Attempted to see patient at this time, but unable secondary to: Patient Unavailable (comment) (surgery today). Will follow up as appropriate. T [facility] 02-22-2024 Note Formatting of this n ote might be different from the original. Orthopedic Surgery Post-Op Quick Note Rinku Giordano is POD#0 s/p Right ankle ORIF, tibial IMN. -Diet: Regular diet -Post-op abx: ordered -Weight-bearing status: TDWB RLE extremity -Dressing: soft dressing, AO trilam splint, maintain until follow up -Post-op x-rays: intra-op -Pain control: acetaminophen and narcotic analgesics including oxycoedone for breakthrough -DVT prophylaxis: ASA -PT/OT: [id number] mg bid -SW: consulted If you have any additional questions please contact the on-call orthopedic resident. Rajeev Sanders DO Orthopedic Surgery Resident T [facility] 02-22-2024 Note Formatting of this n ote is different from the original. Brief Post Operative Note Patient Name: Rinku Giordano : 1955 (68 y.o.) Date of Service: 02/22/2024 CSN: [id number] Procedure(s): OPEN REDUCTION INTERNAL FIXATION TIBIA Pre-Operative Diagnoses: * right pilon variant Post-Operative Diagnoses: Surgeon(s) and Role: * Pool Kendall MD - Primary * Rajeev Sanders DO - Resident - Assisting Anesthesiologist: Jing Holloway DO Medical Billing Coder: Francoise Bazan RN; Estella Linares RN Recreation Technician: Josefina Vincent, TECHNOLOGIST Medical Billing Coder Relief: Holland aMo RN; Aleksandar Trevino RN Scrub Person Relief: Wendy Rodriguez RN; Inez Bolaños RN Cna Caregiver: Mahi Reynolds ST Operative findings: right ankle pilon fracture with assd fibular fracture Intra and immediate post-operative complications: none Type of anesthesia used: General Estimated blood loss: 150 mL Estimated urine output: Refer to surgical log Specimen(s): * No specimens in log * Implant(s): Implant Name Type Inv. Item Serial No. Airport Clerk Lot No. LRB No. Used Action PLATE 69MM 6HL 1/3 TUBULAR W/COLLAR LCP - [id number] PLATE 69MM 6HL 1/3 TUBULAR W/COLLAR LCP SYNTHES LT Right 1 Implanted SCREW 4 X 36MM CAM SHORT THRD - [id number] SCREW 4 X 36MM CAM SHORT THRD SYNTHES LT Right 2 Implanted SCREW 4 X 40MM CAM SHORT THRD - [id number] SCREW 4 X 40MM CAM SHORT THRD SYNTHES LT Right 1 Implanted SCREW 2.7 X 22MM CORTEX SELF-TAP - [id number] SCREW 2.7 X 22MM CORTEX SELF-TAP SYNTHES LT Right 1 Implanted SCREW 3.5 X 12MM CORTEX SELF-TAP - [id number] SCREW 3.5 X 12MM CORTEX SELF-TAP SYNTHES LT Right 2 Implanted SCREW 3.5 X 14MM SELF-TAP CORTEX - [id number] SCREW 3.5 X 14MM SELF-TAP CORTEX SYNTHES LT Right 1 Implanted SCREW 4 X 14MM CANC BONE FULL THRD - [id number] SCREW 4 X 14MM CANC BONE FULL THRD SYNTHES LT Right 1 Implanted SCREW 4 X 18MM CANC BONE FULL THRD - [id number] SCREW 4 X 18MM CANC BONE FULL THRD SYNTHES LT Right 1 Implanted tibial nail 9mm 345mm Synthes Right 1 Implanted SCREW 5 X 40MM LOCKING XL25 RECESS IM NAIL TN-ADVANCED - [id number] SCREW 5 X 40MM LOCKING XL25 RECESS IM NAIL TN-ADVANCED SYNTHES LT [id number] Right 1 Implanted SCREW 5 X 36MM LOCKING XL25 RECESS IM NAIL TN-ADVANCED - [id number] SCREW 5 X 36MM LOCKING XL25 RECESS IM NAIL TN-ADVANCED SYNTHES LT [id number] Right 1 Implanted SCREW 5 X 36MM XL25 LOW PRO TN ADVANCED - [id number] SCREW 5 X 36MM XL25 LOW PRO TN ADVANCED SYNTHES LT [id number] Right 1 Implanted low profile locking screw nial 5.0mm 46mm Synthes [id number] Right 1 Implanted Drain(s): * No LDAs found * Wound(s): Wound 02/22/24 6 Pre-tibial Right (Active) Wound Closure Sutures 02/21/24 0012 Rajeev Sanders DO 02/22/2024 4:25 PM [facility] 02-22-2024 Attending History and physical note Formatting of this note might be differe nt from the original. INTERVAL HISTORY AND PHYSICAL Patient Name: Rinku Giordano Admit Date: [id number] MR #: [id number] : 1955 The H&P has been reviewed and the patient has been examined. I concur with the findings of the H&P. There are no significant changes. It is appropriate to proceed with the planned procedure. Pool Kendall MD 02/22/2024 12:02 PM Source Note - Braulio Reza CNP - 02/21/2024 6:24 PM EDT CONSULT NOTE Patient Name: Rinku Giordano Admit Date: [id number] MR #: [id number] : 1955 Physicians: No, Physician (Family); Nikunj Kelley MD (Referring) Dr. Pool Kendall (orthopedic surgery) Assessment & Plan: Musculoskeletal and Integument Closed right pilon fracture, initial encounter Assessment & Plan 68 yo female with closed right pilon fracture sp fall this AM - D/W Dr. Kendall - XR and CT reviewed; intraarticular spiral distal tibia fracture, distal fibula fracture - plan for right ankle ORIF 02/21 (informed consent obtained) - NWB RLE; maintain splint at all times - NPO after midnight - Ancef OCTOR - multimodal pain control; strict ice and elevation Chief Complaint/Reason for Visit: Right ankle pain History of Present Illness: Rinku Giordano is a 68 y.o. female presenting from home with c/o right ankle pain. Patient was in town visiting her family when she missed a step and fell, causing her foot to get stuck underneath her. She initially presented to [facility] where XR revealed right distal tib/fib fractures. She was subsequently transferred to [facility] for surgical stabilization. She denies any additional orthopedic concerns/complaints at this time. She denies numbness or tingling. Patient ambulates independently at baseline. History: Past Medical History: Diagnosis Date Disease of thyroid gland Hypertension Macular degeneration Past Surgical History: Procedure Laterality Date SECTION History reviewed. No pertinent family history. Social History Socioeconomic History Marital status: Tobacco Use Smoking status: Never Smokeless tobacco: Never Substance and Sexual Activity Alcohol use: Not Currently Drug use: Never Allergy Information: I have reviewed the patient's allergies. Patient has no known allergies. Home Medications: Outpatient Medications as of 02/21/2024 Medication Sig levothyroxine (SYNTHROID, LEVOTHROID) 112 MCG tablet Take 1 (one) tablet (112 mcg total) by mouth once daily . metoprolol succinate (TOPROL-XL) 100 MG 24 hr tablet Take 1 (one) tablet (100 mg total) by mouth daily . Review of Systems: The following system(s) were reviewed and pertinent findings noted: Constitutional: negative fevers, negative chills MSK: positive right ankle pain Neuro: negative numbness, negative tingling Xray interpretation: CT scan and XR reviewed and interpreted by this provider and demonstrates displaced right distal tibial and fibular fractures without dislocation. Physical Examination: Vital Signs: BP 133/66 Pulse 63 Temp 97.9 F (36.6 C) (Oral) Resp 14 Ht 5' 5" Wt 81.6 kg (180 lb) SpO2 99% BMI 29.95 kg/m Constitutional: no acute distress and alert/oriented x3 Cardiovascular: 2+ DP pulse with BCR to all toes to right lower extremity Neurological: SILT. SP/DP/S/S/T intact. EHL/FHL intact in right lower extremity Musculoskeletal: Able to wiggle all toes. Swelling is Moderate to medial and lateral ankle. TTP over proximal tibia/fibula/knee absent. Integumentary: Skin intact with no abrasions or open wounds. Skin wrinkles [employer] Work Phone: 02-22-2024 History and physical note Formatting of this note might be differe nt from the original. INTERVAL HISTORY AND PHYSICAL Patient Name: Rinku Giordano Admit Date: [id number] MR #: [id number] : 1955 The H&P has been reviewed and the patient has been examined. I concur with the findings of the H&P. There are no significant changes. It is appropriate to proceed with the planned procedure. Pool Kendall MD 02/22/2024 12:02 PM Source Note - Braulio Reza, LINDA - 02/21/2024 6:24 PM EDT CONSULT NOTE Patient Name: Rinku Giordano Admit Date: [id number] MR #: [id number] : 1955 Physicians: No, Physician (Family); Nikunj Kelley MD (Referring) Dr. Pool Kendall (orthopedic surgery) Assessment & Plan: Musculoskeletal and Integument Closed right pilon fracture, initial encounter Assessment & Plan 68 yo female with closed right pilon fracture sp fall this AM - D/W Dr. Kendall - XR and CT reviewed; intraarticular spiral distal tibia fracture, distal fibula fracture - plan for right ankle ORIF 02/21 (informed consent obtained) - NWB RLE; maintain splint at all times - NPO after midnight - Ancef OCTOR - multimodal pain control; strict ice and elevation Chief Complaint/Reason for Visit: Right ankle pain History of Present Illness: Rinku Giordano is a 68 y.o. female presenting from home with c/o right ankle pain. Patient was in town visiting her family when she missed a step and fell, causing her foot to get stuck underneath her. She initially presented to [facility] where XR revealed right distal tib/fib fractures. She was subsequently transferred to [facility] for surgical stabilization. She denies any additional orthopedic concerns/complaints at this time. She denies numbness or tingling. Patient ambulates independently at baseline. History: Past Medical History: Diagnosis Date Disease of thyroid gland Hypertension Macular degeneration Past Surgical History: Procedure Laterality Date SECTION History reviewed. No pertinent family history. Social History Socioeconomic History Marital status: Tobacco Use Smoking status: Never Smokeless tobacco: Never Substance and Sexual Activity Alcohol use: Not Currently Drug use: Never Allergy Information: I have reviewed the patient's allergies. Patient has no known allergies. Home Medications: Outpatient Medications as of 02/21/2024 Medication Sig levothyroxine (SYNTHROID, LEVOTHROID) 112 MCG tablet Take 1 (one) tablet (112 mcg total) by mouth once daily . metoprolol succinate (TOPROL-XL) 100 MG 24 hr tablet Take 1 (one) tablet (100 mg total) by mouth daily . Review of Systems: The following system(s) were reviewed and pertinent findings noted: Constitutional: negative fevers, negative chills MSK: positive right ankle pain Neuro: negative numbness, negative tingling Xray interpretation: CT scan and XR reviewed and interpreted by this provider and demonstrates displaced right distal tibial and fibular fractures without dislocation. Physical Examination: Vital Signs: BP 133/66 Pulse 63 Temp 97.9 F (36.6 C) (Oral) Resp 14 Ht 5' 5" Wt 81.6 kg (180 lb) SpO2 99% BMI 29.95 kg/m Constitutional: no acute distress and alert/oriented x3 Cardiovascular: 2+ DP pulse with BCR to all toes to right lower extremity Neurological: SILT. SP/DP/S/S/T intact. EHL/FHL intact in right lower extremity Musculoskeletal: Able to wiggle all toes. Swelling is Moderate to medial and lateral ankle. TTP over proximal tibia/fibula/knee absent. Integumentary: Skin intact with no abrasions or open wounds. Skin wrinkles documented in this encounter [facility] 02-22-2024 Hospital Discharge instructions Braulio Paulson PA-C - 02/22/2024 11:05 AM EDT ANKLE FRACTURE (OPEN REDUCTION AND INTERNAL FIXATION), HOME CARE INSTRUCTIONS After the operation, it is important to follow your surgeon s instructions. Although many people feel better in just a few days, remember that your body needs time to rest. Medications -Take medication as directed. No driving or drinking alcohol while taking pain medication. -Resume all medication you were taking before surgery. Wound Care -Do not remove your splint or dressing. This will be done by your surgeon at your follow-up visit. -Do not get your incision wet. Keep the incision clean and dry until your follow-up appointment. Activity -You may feel like resting more after the surgery. Rest when you feel it is needed. -Do not drive while you are taking pain medication. -Do not place any weight on the affected ankle. Use crutches for walking. -Use pillows to keep your leg elevated. This helps lessen swelling and pain and improves blood flow. -Use ice on your leg to lessen swelling. Ice is best if started after surgery and for the next 24 - 48 hours for 15 - 20 minutes every hour as long as you need it. Put crushed ice in a plastic bag and cover it with a towel or use a plastic bag of frozen peas with a clean towel. Diet -You may begin eating or drinking as soon as you feel up to it. Call Your Surgeon if: -You have chills or a persistent temperature over 101 degrees F. -Your skin is itchy, swollen or has a rash. -You have questions or concerns about your surgery, condition, or care. Call 911 or go to the nearest emergency room if: -Your splint becomes soaked with blood. -Your skin or toes on the injured leg turn blue or white or they feel cold, numb or tingly. -You have trouble breathing all of a sudden. -You have chest pain. MANAGING YOUR PAIN AT HOME, HOME CARE INSTRUCTION Good pain control is very important. The pain medicines that are prescribed for you will help you be more comfortable while your body heals. It may take days, weeks or even months for your pain to go away completely. It should become better over time. For Good Pain Control -Take your pain medication as instructed -Take pain medications before your pain becomes severe so you can have better pain relief -For 2 or 3 days, it may help to take pain medication as often as ordered to keep your pain under better control. Then begin to take less medications each day until you no longer need them. Taking Pain Medication Safely -Do not drive, operate heavy machinery, ride motorcycles or ATV s, drink alcohol, or take other medication that make you tired or sleepy while you are taking narcotic pain medications. -Do not do any dangerous activities while taking pain medications. They may decrease your ability to make safe decisions. Potential Side Effects of Pain Medications -Do not take pain medications on an empty stomach. This may lead to nausea and vomiting. -Pain medicines often cause constipation. Each day as directed: -Take an hzkq-riq-urwckiv product that has a stool softener & laxative in it such as Senokot S, colace. -Drink 6 to 8 glasses of water -Eat foods that are high in fiber such as fruits and vegetables. If you become constipated despite these measures, you may take a mild jxnc-onu-ebnavjr laxative, such as Milk of Magnesia or use a Dulcolax suppository. TRAUMA FOLLOW-UP AND HOME CARE INSTRUCTIONS ACTIVITY AND SAFE PAIN MEDICATION USE -Do not drive while taking pain medicine. -Do not take bplu-ymf-xuwjwcu pain medicine of any type while taking prescription pain medication. -May return to school/work on . -Activity as tolerated unless instructed otherwise. WOUND CARE -Keep your wounds dry and clean. Wash all wounds with soap and water and pat it dry. -You can shower but do not take a bath, swim or get in a hot tub until all your wounds are completely healed. When showering, cover your incision with plastic wrap. -If stitches/beto are present, they will be removed at your follow up appointment. Some sutures are dissolvable and will disappear on their own. -If small paper-like strips (called steri-strips) are on your incision, do not remove them. They will either fall off or will be removed by your surgeon at your follow-up visit. -If you had a chest tube, leave the chest tube dressing in place and do not take a shower for 48 hours. Then change the dressing each day. CALL YOUR DOCTOR IF YOU NOTICE: -Signs of infection: redness, swelling, odor or drainage from wounds, fever above 101 F. -Sudden, severe pain or pain not relieved by medication. -Calf pain, redness or swelling. -Loss or appetite, nausea or vomiting. -You have any other questions or concerns. Please see your primary care provider for a follow-up exam and update on your recent admission. If you do not have a primary care physician, make an appointment with the trauma clinic. Hours are: Sunday-Sunday 8am-4pm . For any other questions, problems, or NON-NARCOTIC refills such as Flexeril, Motrin, etc., please call . Leave your name, phone number, and a brief message. You will be contacted between the hours of 8am-4pm 7 days a week. All NARCOTIC refills will require a clinic appointment. If it is an Emergency, call 911 or go to the nearest Emergency room. TRAUMA CLINIC FOLLOW-UP To make or cancel an appointment, call . The Trauma Clinic is located at the [facility], [address]. Park in the [place] parking garage. Yanni Webber RN - 02/25/2024 11:54 AM EDT [facility] in Your Home P) [phone] F) [phone] documented in this encounter [facility] 02-22-2024 Note [facility] Inpatient Pro joyce Note 02/22/2024 Rinku Giordano 1955 [id number] Assessment/Plan: Rinku Giordano is a 68 y.o. female with a history of HTN, hypothyroidism who presented to [place] to ED 02/21/[address] showed right spiral tibial and fibular fractures. Transferred to [facility] 02/21/2024 for subspecialty care, admitted to trauma team. Noemí consulted for preoperative evaluation, geriatric evaluation, medical management. Right tibial fracture: Secondary to a fall with twisting injury. CT revealed an intra-articular spiral distal tibia fracture and a distal fibula fracture. NWB to RLE. Orthopedic surgery planned ORIF 02/22/2024. Fall: Patient missed a step causing her to twist at the right ankle under the weight of her body. Remainder of trauma evaluation benign. No presyncopal symptoms. PT/OT. Preoperative evaluation: Juan Daniel Revised Cardiac Index Risk Factors: zero . At home, patient able to complete > 4 METS as evidenced by ability to climb two flights of stairs without CP or dyspnea. Chronic medical conditions that increase perioperative risk not captured with RCRI include: none. Most recent cardiac testing: EKG 02/21/2024 NSR. After chart review and discussion with patient, qualifies for Low Risk (0-1 RCRI with good functional status). Further cardiac testing will not reduce patients risk and okay to proceed without further testing. Final decision to take patient to OR left to risk/benefit decision making of surgical team. Acute pain syndrome: Secondary to above. Agree with scheduled Tylenol and muscle relaxers to minimize need for opioids. Oxycodone available as needed. HTN: Continued home metoprolol with hold parameters. Hypothyroidism: Continued home Synthroid. Code status: Full code DVT Prophylaxis: Per primary team Thank you for allowing us to participate in the care of your patient. For any questions, please call the number of the covering hospitalist listed under the treatment team in care connect. Current living situation: Home Expected Disposition: PT/OT Estimated discharge date: TBD Subjective: Pt seen this morning before OR with daughter at bedside. Pain controlled. No systemic symptoms. Denies UTI symptoms. She shared that her mother is elderly with dementia and the patient is her primary caregiver. She lives in [facility]. Her sister is visiting from the [facility] to care for her mother while the patient was in [place] visiting her son and his child. She is concerned about how everyone will be cared for now that she is injured. Her daughter at bedside flew in from [place] to help out. 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 Dispo pending post-op PT/OT. OR planned for this afternoon with ortho. Will monitor closely post-op Physical Exam: BP 127/73 Pulse (!) 53 Temp 97.6 degrees F (36.4 degrees C) (Oral) Resp 16 Ht 5' 5" Wt 81.6 kg (180 lb) SpO2 94% BMI 29.95 kg/m General: NAD Eyes: EOMI ENT: neck supple Cardiovascular: Regular rate. Respiratory: Clear to auscultation Gastrointestinal: Soft, non tender Genitourinary: no suprapubic tenderness Musculoskeletal: right lower leg immobilized and dressed Skin: warm, dry Neuro: Alert. Psych: Mood appropriate. Current Medications: acetaminophen 650 mg Oral Q4H While awake enoxaparin (LOVENOX) injection 30 mg Subcutaneous BID levothyroxine 112 mcg Oral Daily methocarbamoL 500 mg Oral TID metoprolol succinate 100 mg Oral Daily polyethylene glycol 17 g Oral Daily senna-docusate 1 tablet Oral BID sodium chloride (PF) 5 mL Intravenous Q8H JANETT Labs, Imaging and Studies reviewed: Results from last 7 days Lab Units 02/22/24 0248 02/21/24 1638 WBC K/mcL 7.09 10.49 HGB g/dL 12.7 14.3 HCT % 38.7 42.0 PLT K/mcL 227 264 Results from last 7 days Lab Units 02/22/24 0248 02/21/24 1647 SODIUM mmol/L 141 -- POTASSIUM mmol/L 4.2 -- CHLORIDE mmol/L 106 -- BICARB mmol/L 27 -- BUN mg/dL 21 -- POC BUN mg/dL -- 20 CREATININE mg/dL 1.14 -- POC CREATININE (EPOC) mg/dL -- 1.04 EGFR mL/min/1.73 m2 52* -- GLUCOSE mg/dL 91 -- CALCIUM mg/dL 9.1 -- Results from last 7 days Lab Units 02/21/24 1837 02/21/24 1643 INR 1.0 -- POCINR -- 1.1 AUTHENTICATED BY NIR SHEEHAN, ON 02/22/2024 13:47:34 [facility] 02-22-2024 Note Formatting of this n ote is different from the original. [place] [facility] Tertiary Note Patient Information Patient Name: Rinku Giordano Age/Sex: 68 y.o., female : 1955 Date of evaluation: 02/22/2024 Code Status: Full Code Discussed with Trauma Attending Dr. De La Garza on rounds - Agreed with plan of care Perpetual Assessment: Rinku Giordano 68 y.o. female with a past medical history of thyroid disease, HTN, macular degeneration, presented to [facility] from [facility] on 02/21/24 s/p Mechanical fall with a Chief Complaint of R ankle pain. Patient reportedly missed a step and got her foot stuck underneath her. She fell onto her knee. Patient did not hit head, and did not have LOC. AC/AP use: denies use of AC/AP meds. Pt with a R pilon variant fracture undergoing surgery on 02/22/24. Plan: - OR with Dr. Kendall 02/21 Tertiary exam: completed Consults: Medicine (Geriatric Focused) and Ortho Spine clearance status: - Cervical spine is cleared - TLS spine are cleared WB Status: NWB RLE DVT prophylaxis: SCDs and lovenox after surgery Therapy: ordered and F/U w/recs CM/SW consulted: Dispo plan - pending Ready for discharge from trauma standpoint? No SIMBA: 1-2 days Vizient: Admitted with these risk variables:None. Injuries/Active Problems: R pilon Variant Fx: NWB RLE, OR with Dr. Kendall 02/21, PT/OT Abnormal UA: Pt asymptomatic at this time - will obtain culture. She will be receiving ABX pre and post op in setting of above. Will consider addition ABX coverage after cx results. PMH: Resume home medications as able, medicine is consulted for medical management - Hypothyroidism: Cont. Synthroid Lab Abnormalities: GFR of 52, however Cr WNL - Could be attributed to trauma, hx of HTN or abnormal UA.Cont to trend. Incidental Findings: - none Resolved Problems: none Subjective: Pt reports manageable pain to RLE without cold extremities or paresthesias Denies headache, dizziness, weakness, nausea, vomiting, abdominal pain, chest pain, palpitations. Denies note of any new injury on tertiary exam. Objective: Recent vital signs reviewed Vital signs range: Temp: [97.6 F (36.4 C)-98.3 F (36.8 C)] 97.6 F (36.4 C) Heart Rate: [48-70] 48 Resp: [13-24] 16 BP: (132-185)/(66-91) 135/80 General: Patient not in distress Neuro: GCS 15, no focal neurological deficits Head: Normocephalic, facial bones are nontender Eyes: EOMs intact, gross vision intact ENT: Nares are clear, moist mucous membranes, trachea midline Chest: Symmetrical expansion, chest wall is nontender, no palpable crepitus CV: S1 & S2 noted, no murmur/rub/gallop, palpable pulses throughout, HDS Pulm: Lungs CTA & equal bilaterally, no wheezes/rhonchi/crackles, no distress, on room air GI: Abd soft, non-distended, nontender, no peritoneal signs Pelvis: Pelvis is stable & nontender : Deferred Spine: No c-collar , C-spine is nontender, T-spine is nontender, L/S-spine are nontender, no step-offs or deformities noted Ext/MSK: Tenderness noted to RLE , no obvious deformities, no joint edema, DONTRELL x4 - except RLE 2/2 injury, distal neurovascular intact, sensation intact, wiggles toes, palpable pulses throughout, compartments soft and compressible Skin: Skin warm, dry and grossly intact, no obvious rashes or lesions noted Wounds: splint in place without shadowing Laboratory Studies: Recent laboratory studies in the last 24 hours reviewed. Pertinent findings may be listed below: Hgb: 12.7 WBC: 7.09 Plts: 227 Na: 141 K: 4.2 Cr: 1.14 INR: 1 Laboratory and Additional Data Studies Reviewed: [x] Laboratory [x] Radiology [x] Cardiology [x] Medications [x] Transcriptions [x] Microbiology [x] Outside Records [x] Family Diagnostic Imaging: Recent diagnostic imaging/reports reviewed. Pertinent findings may be listed below. Please correlate with formal radiology reads. CXR - negative for acute traumatic injuries PXR - negative for acute traumatic injuries XR R ankle/tibfib - Spiral comminuted distal tib fib fx CT R ankle - Distal tibial and fibular fractures Allergies Reviewed No Known Allergies Medications Reviewed Scheduled: acetaminophen 650 mg Oral Q4H While awake levothyroxine 112 mcg Oral Daily methocarbamoL 500 mg Oral TID metoprolol succinate 100 mg Oral Daily polyethylene glycol 17 g Oral Daily senna-docusate 1 tablet Oral BID sodium chloride (PF) 5 mL Intravenous Q8H JANETT sodium chloride 0.9 % PRN: bisacodyL, nalOXone AND Notify physician AND naloxone, ondansetron OR ondansetron, oxyCODONE, Saline lock IV AND sodium chloride (PF) AND sodium chloride (PF) AND sodium chloride 0.9 % 02/22/2024 Maisha Armstrong PA-C 7:53 AM [facility] Work Phone: 02-22-2024 Note Formatting of this n ote might be different from the original. PHYSICAL THERAPY VISIT VARIANCE NOTE Attempted to see patient at this time, but unable secondary to: Awaiting Medical Clearance (comment) (Hold, pt pending OR today). Will follow up as appropriate. [facility] 02-22-2024 Note Formatting of this n ote might be different from the original. Bedside report was completed including the following dual assessment, if applicable: Electronic Medical Record Review Deterioration Index (DI) Score Physician orders - active & held orders MAR - overdue & held meds Infusing medications/fluids Peripheral IVs IV dressing clean, dry, and intact IV tubing changed less than 96 hours IV tubing dated, initialed, labeled IV changed less than equal to 96 hours Central Lines CHG bath completed and documented daily Dressing present and correctly positioned The central line catheter is secured to the patient's body Central line dressing is clean, dry and intact Line necessity reviewed All hubs on the central line have a swab cap Urinary Catheters Red seal is intact Tubing is free of dependent loops and without standing urine Urine collection bag is below the bladder Catheter tubing is secured to the patient's body to prevent urethral tension No components of the urinary catheter system are touching the floor Catheter necessity reviewed Skin Integrity Turning schedule and last turned Dressings clean, dry, and intact Skin Assessment completed - skin integrity, any findings? Falls Fall risk score Intervention Bundle (check all in place) Door sign Bed/Chair Alarm on Fall Risk band Non-skid socks Patient centered interventions NG/OG Tube intact and functioning as ordered Tubing dated, initialed, labeled Tube feed solution as ordered Hemovacs/SANTHOSH drains Intact Output recorded Fully compressed SCDs On the patient and the pump turned on Total Joints Ice therapy on affected limb Ham wrap off POD1 knees Discharge by noon potential discussed Verified by note author and MARILU Bernard. [facility] 02-21-2024 Note Trauma Service Geria tric Evaluation Note Demographic/Patient Information: Patient Name: Rinku Giordano Age/Sex: 68 y.o., female : 1955 Date of evaluation: 02/21/2024 Code Status: No Order This note is to document screening for vulnerable geriatric injured patients who need further involvement of a geriatric specialist. Screening Criteria 1: Identification of Seniors at Risk (ISAR) If the response to two or more of the following questions is "yes," a focused geriatric consultation should be obtained: Before you were injured, did you need someone to help you on a regular basis?No Since the injury, have you needed more help than usual to take care of yourself? Yes Have you been hospitalized for one or more nights during the past six months? No In general, do you have problems seeing well? No In general, do you have serious problems with your memory? No Do you take more than three different medications every day? No 2: Confusion Assessment Method (CAM) Completed for all patients > 65 years of age If the score of "positive" for delirium, a focused geriatric consult should be obtained: CAM SCORE: negative Geriatric Focused Evaluation A geriatric focused evaluation should be obtained for all injured patients 65 years of age or older with a ISAR score of ? 2 or CAM screen positive for delirium. Geriatric Focused Evaluation is not indicated Completed by [facility] or [facility] service after EPIC consult order entered by the trauma service. AUTHENTICATED BY JULIANA MCFADDEN, ON 02/21/2024 18:28:43 [facility] 02-21-2024 Consult note Associated Order(s): IP CONSULT TO [facility] Consult Note 02/21/24 Rinku Giordano 1955 [id number] Assessment/Plan: Rinku Giordano is a 68 y.o. female with a history of HTN, hypothyroidism who presented to [place] to ED 02/21/[address] showed right spiral tibial and fibular fractures. Transferred to [facility] 02/21/2024 for subspecialty care, admitted to trauma team. [facility] consulted for preoperative evaluation, geriatric evaluation, medical management. Right tibial fracture: Secondary to a fall with twisting injury. CT revealed an intra-articular spiral distal tibia fracture and a distal fibula fracture. NWB to RLE. Orthopedic surgery planned ORIF 02/22/2024. Fall: Patient missed a step causing her to twist at the right ankle under the weight of her body. Remainder of trauma evaluation benign. No presyncopal symptoms. PT/OT. Preoperative evaluation: Juan Daniel Revised Cardiac Index Risk Factors: zero . At home, patient able to complete > 4 METS as evidenced by ability to climb two flights of stairs without CP or dyspnea. Chronic medical conditions that increase perioperative risk not captured with RCRI include: none. Most recent cardiac testing: EKG 02/21/2024 NSR. After chart review and discussion with patient, qualifies for Low Risk (0-1 RCRI with good functional status). . Further cardiac testing will not reduce patients risk and okay to proceed without further testing. Final decision to take patient to OR left to risk/benefit decision making of surgical team. Acute pain syndrome: Secondary to above. Agree with scheduled Tylenol and muscle relaxers to minimize need for opioids. Oxycodone available as needed. HTN: Continued home metoprolol with hold parameters. Hypothyroidism: Continued home Synthroid. Code status: Full code DVT Prophylaxis: Per primary team Thank you for allowing us to participate in the care of your patient. For any questions, please call the number of the covering hospitalist listed under the treatment team in care connect. Current living situation: Home Expected Disposition: Likely same Estimated discharge date: TBD I reviewed the patient's medications and noted those which may be inappropriate for their age and condition; I also provided recommendations to prevent, identify, and treat dementia, depression and delirium. We will collaborate with the multidisciplinary team to determine the patient's goals of care, status of advanced directives, and identification of a proxy decision maker, if needed. We will screen for mobility limitations and assure early, frequent, and safe mobility to help facilitate a safe transition out of the hospital. Chief Complaint / Reason for Consult: Fall History of Present Illness: Patient reports going up stairs when she missed a step with her right foot and her ankle collapsed underneath her. She denies feeling dizziness or lightheaded prior to the fall, purely mechanical in nature. She does not have frequent falls. She is having significant pain, having received IV Dilaudid at 3 PM and last oral dose at closer to 4 PM. Do think she needs something IV for the orals to be successful, ordered another dose of 0.5 IV Dilaudid. She has good exercise tolerance at baseline with no previous adverse reactions to general anesthesia. ROS: 10 systems were reviewed and negative, except as noted above. Past Medical, Surgical, Social, Family History: Past Medical History: Diagnosis Date Disease of thyroid gland Hypertension Macular degeneration Past Surgical History: Procedure Laterality Date SECTION Social History Socioeconomic History Marital status: Tobacco Use Smoking status: Never Smokeless tobacco: Never Substance and Sexual Activity Alcohol use: Not Currently Drug use: Never History reviewed. No pertinent family history. Current Medications: Medication list reviewed with patient. Please see MAR for full details. Physical Exam: BP 133/66 Pulse 63 Temp 97.9 F (36.6 C) (Oral) Resp 14 Ht 5' 5" Wt 81.6 kg (180 lb) SpO2 99% BMI 29.95 kg/m General: Appears in pain Eyes: EOMI ENT: neck supple Cardiovascular: Tachycardic. Respiratory: Clear to auscultation Gastrointestinal: Soft, non tender Genitourinary: no suprapubic tenderness Musculoskeletal: RLE wrapped Skin: warm, dry Neuro: Alert. Psych: Mood appropriate. Labs, Imaging, and Studies reviewed: Results from last 7 days Lab Units 02/21/24 1638 WBC K/mcL 10.49 HGB g/dL 14.3 HCT % 42.0 PLT K/mcL 264 Results from last 7 days Lab Units 02/21/24 1647 POC BUN mg/dL 20 POC CREATININE (EPOC) mg/dL 1.04 Results from last 7 days Lab Units 02/21/24 1643 POCINR 1.1 [facility] Work Phone: 02-21-2024 Note Formatting of this n ote is different from the original. Orthopedic Attestation Note The patient was seen and examined by me. I have reviewed the MAT's note along with the relevant labs, imaging studies, and additional provider notes. I have reviewed and agree with the documented history, exam, and plan of care, with the following additions and corrections: Assessment & Plan: This is a 68 y.o. female with Orthopedic problems Right pilon variant fracture -Low concern for acute compartment syndrome at this time however will continue to monitor, please feel free to reach out with any acute worsening in exam OR: Plan for OR 5/3 R pilon ORIF with Dr Kendall Abx: chemical detection expert to OR Pain control: per primary; Apply ice PRN for pain and elevate extremity throughout night Pre-op Labs ordered - PT/INR, Type and screen; Goal INR <1.8 Weight bearing: NWB RLE Immobilization: AO splint Diet: NPO @ midnight VTE prophylaxis: Hold until after OR Dispo: Plan for OR 5/3 Discussed w/ Dr. Kendall and he agrees HPI: See MAT consult note for history Past Medical History: Diagnosis Date Disease of thyroid gland Hypertension Macular degeneration Past Surgical History: Procedure Laterality Date SECTION Physical Exam: Gen: "alert, oriented x3, no acute distress, and cooperative with exam Orthopedic exam: Lower Extremity: -Laterality: right -Inspection/Dressing: Right leg is elevated on pillows and ice bag in place; Unable to assess skin secondary to immobilization in place -Immobilization: Splint in place -Tenderness: Appropriately tender at known fracture site otherwise no other TTP throughout RLE. No pain out of proportion and no pain at rest. -Motor: able to wiggle toes. +EHL without eliciting pain -Perfusion: Warm and well-perfused, cap refill brisk in all toes. -Sensation: SILT L3-S1 -All Compartments soft and compressible. No pain with passive stretch SKELETAL SURVEY: No TTP to b/l clavicles, shoulder, upper arms, elbows, forearms, wrists, hands, pelvis, greater trochanters, femurs, knees CT Ankle Right Without Contrast 3D Result Date: 02/21/2024 EXAMINATION: CT ANKLE RIGHT WITHOUT CONTRAST 3D HISTORY: ORDERING SYSTEM PROVIDED HISTORY: pilon fracture, preop TECHNOLOGIST PROVIDED HISTORY: Injury/Trauma Reason for exam: / Encounter Type: Initial Mechanism of injury: fall ORDERING SYSTEM PROVIDED DIAGNOSIS CODES: S82.876A Closed nondisplaced pilon fracture of tibia, unspecified laterality, initial encounter COMPARISON: Plain films, same date TECHNIQUE: Dose reduction techniques were achieved by using automated exposure control and/or adjustment of mA and/or kV according to patient size and/or use of iterative reconstruction technique. Coronal and sagittal MIP (maximum intensity projection) images were performed. FINDINGS: There is a complex comminuted fracture involving the distal tibia. There is a slightly oblique/transverse component within the distal metadiaphysis, with slight lateral displacement of the distal fragment by approximately 4 mm. There is a coronal E oriented fracture involving the posterior tibia, extending to the articular surface. There is posterior displacement of the distal fracture fragment, and 5-6 mm of separation at the articular surface, greatest laterally. There is an oblique fracture of the distal fibula, with small comminuted fragments noted medially. This does extend to the level of the ankle mortise. There is a subtle lucency within the medial aspect of the talar dome, which may represent an osteochondral injury. There is a small amount of gas within the soft tissues along the anterior aspect of the ankle joint. This could reflect a hematoma block. There is diffuse soft tissue edema at the ankle. No additional fractures are seen. Distal tibial and fibular fractures, as described above. Workstation ID: [id number] XR Pelvis 1 View (Standard) Result Date: 02/21/2024 EXAMINATION: XR PELVIS 1 VIEW (STANDARD) 02/21/2024 12:46 pm HISTORY: ORDERING SYSTEM PROVIDED HISTORY: trauma, preop, TECHNOLOGIST PROVIDED HISTORY: Injury/Trauma Reason for exam: / Cancer History: / Surgery, RadiationHistory: / Encounter Type: Initial Mechanism of injury: / ORDERING SYSTEM PROVIDED DIAGNOSIS CODES: S82.876A Closed nondisplaced pilon fracture of tibia, unspecified laterality, initial encounter COMPARISON: None FINDINGS: No proximal femur fracture or hip dislocation. No pelvic fracture or diastasis. Hip joint space maintained. No acute findings. Workstation ID: [id number] XR Chest 1 View Result Date: 02/21/2024 EXAMINATION: XR CHEST PA/AP 02/21/2024 3:46 pm HISTORY: ORDERING SYSTEM PROVIDED HISTORY: preop, TECHNOLOGIST PROVIDED HISTORY: Injury/Trauma Reason for exam: / Cancer History: / Surgery, RadiationHistory: / Encounter Type: Initial Mechanism of injury: / ORDERING SYSTEM PROVIDED DIAGNOSIS CODES: S82.876A Closed nondisplaced pilon fracture of tibia, unspecified laterality, initial encounter COMPARISON: None FINDINGS: Trachea, mediastinum and heart size are unremarkable. Slight bibasilar atelectasis is noted. No effusion or nodule or infiltrate or pneumothorax is noted. Diaphragm and bony elements are intact. Nonacute portable chest with slight chronic changes bilaterally and slight bibasilar atelectasis. Workstation ID: [id number] XR Ankle Right 2 Views Result Date: 02/21/2024 EXAMINATION: XR ANKLE RIGHT 2 VIEWS; XR TIBIA FIBULA RIGHT 2 VIEWS 02/21/2024 2:58 pm HISTORY: ORDERING SYSTEM PROVIDED HISTORY: pain over distal tib/fib above the malleolus, evaluate for pilon fx, TECHNOLOGIST PROVIDED HISTORY: Injury/Trauma Reason for exam: / Cancer History: / Surgery, RadiationHistory: / Encounter Type: Initial Mechanism of injury: / ORDERING SYSTEM PROVIDED DIAGNOSIS CODES: COMPARISON: None. FINDINGS: Right tibia and fibula: AP, lateral views are provided, which demonstrate there is a comminuted fracture involving the distal tibia as well as fibula with slight displacement; however, the knee, ankle mortise are normally maintained. No significant soft tissue swelling, calcifications, or radiopaque foreign bodies. Right ankle: Three views are provided which demonstrate there is a spiral-appearing fracture involving the distal tibia, extending into the intraarticular surface, along its inferior edge. There is an obliquely oriented fracture through the distal fibula as well. The talotibial joint is normally aligned. There is some soft tissue swelling overlying the medial malleolus. Base of the 5th metatarsal appears intact. There are no significant calcifications or radiopaque foreign bodies. 1. There is a spiral-appearing comminuted fracture extending into the intraarticular surface involving the distal tibia, without disruption of the talotibial joint. 2. There is an obliquely oriented fracture through the distal fibula. There is some soft tissue swelling over the lateral malleolus. 3. No other fractures or dislocations of the remaining tibia and fibula. KKV/ads Workstation ID: [id number] XR Tibia Fibula Right 2 Views Result Date: 02/21/2024 EXAMINATION: XR ANKLE RIGHT 2 VIEWS; XR TIBIA FIBULA RIGHT 2 VIEWS 02/21/2024 2:58 pm HISTORY: ORDERING SYSTEM PROVIDED HISTORY: pain over distal tib/fib above the malleolus, evaluate for pilon fx, TECHNOLOGIST PROVIDED HISTORY: Injury/Trauma Reason for exam: / Cancer History: / Surgery, RadiationHistory: / Encounter Type: Initial Mechanism of injury: / ORDERING SYSTEM PROVIDED DIAGNOSIS CODES: COMPARISON: None. FINDINGS: Right tibia and fibula: AP, lateral views are provided, which demonstrate there is a comminuted fracture involving the distal tibia as well as fibula with slight displacement; however, the knee, ankle mortise are normally maintained. No significant soft tissue swelling, calcifications, or radiopaque foreign bodies. Right ankle: Three views are provided which demonstrate there is a spiral-appearing fracture involving the distal tibia, extending into the intraarticular surface, along its inferior edge. There is an obliquely oriented fracture through the distal fibula as well. The talotibial joint is normally aligned. There is some soft tissue swelling overlying the medial malleolus. Base of the 5th metatarsal appears intact. There are no significant calcifications or radiopaque foreign bodies. 1. There is a spiral-appearing comminuted fracture extending into the intraarticular surface involving the distal tibia, without disruption of the talotibial joint. 2. There is an obliquely oriented fracture through the distal fibula. There is some soft tissue swelling over the lateral malleolus. 3. No other fractures or dislocations of the remaining tibia and fibula. [employer] Workstation ID: [id number] If you have any further questions, please contact the chemical detection expert orthopedic resident/MAT Gab Chery Orthopedic Surgery Resident [employer] Work Phone: 02-21-2024 Consult note Associated Order(s): IP CONSULT TO ORTHO PEDIC SURGERY CONSULT NOTE Patient Name: Rinku Giordano Admit Date: [id number] MR #: [id number] : 1955 Physicians: No, Physician (Family); Nikunj Kelley MD (Referring) Dr. Pool Kendall (orthopedic surgery) Assessment & Plan: Musculoskeletal and Integument Closed right pilon fracture, initial encounter Assessment & Plan 68 yo female with closed right pilon fracture sp fall this AM - D/W Dr. Kendall - XR and CT reviewed; intraarticular spiral distal tibia fracture, distal fibula fracture - plan for right ankle ORIF 02/21 (informed consent obtained) - NWB RLE; maintain splint at all times - NPO after midnight - Ancef OCTOR - multimodal pain control; strict ice and elevation Chief Complaint/Reason for Visit: Right ankle pain History of Present Illness: Rinku Giordano is a 68 y.o. female presenting from home with c/o right ankle pain. Patient was in town visiting her family when she missed a step and fell, causing her foot to get stuck underneath her. She initially presented to [facility] where XR revealed right distal tib/fib fractures. She was subsequently transferred to [facility] for surgical stabilization. She denies any additional orthopedic concerns/complaints at this time. She denies numbness or tingling. Patient ambulates independently at baseline. History: Past Medical History: Diagnosis Date Disease of thyroid gland Hypertension Macular degeneration Past Surgical History: Procedure Laterality Date SECTION History reviewed. No pertinent family history. Social History Socioeconomic History Marital status: Tobacco Use Smoking status: Never Smokeless tobacco: Never Substance and Sexual Activity Alcohol use: Not Currently Drug use: Never Allergy Information: I have reviewed the patient's allergies. Patient has no known allergies. Home Medications: Outpatient Medications as of 02/21/2024 Medication Sig levothyroxine (SYNTHROID, LEVOTHROID) 112 MCG tablet Take 1 (one) tablet (112 mcg total) by mouth once daily . metoprolol succinate (TOPROL-XL) 100 MG 24 hr tablet Take 1 (one) tablet (100 mg total) by mouth daily . Review of Systems: The following system(s) were reviewed and pertinent findings noted: Constitutional: negative fevers, negative chills MSK: positive right ankle pain Neuro: negative numbness, negative tingling Xray interpretation: CT scan and XR reviewed and interpreted by this provider and demonstrates displaced right distal tibial and fibular fractures without dislocation. Physical Examination: Vital Signs: BP 133/66 Pulse 63 Temp 97.9 F (36.6 C) (Oral) Resp 14 Ht 5' 5" Wt 81.6 kg (180 lb) SpO2 99% BMI 29.95 kg/m Constitutional: no acute distress and alert/oriented x3 Cardiovascular: 2+ DP pulse with BCR to all toes to right lower extremity Neurological: SILT. SP/DP/S/S/T intact. EHL/FHL intact in right lower extremity Musculoskeletal: Able to wiggle all toes. Swelling is Moderate to medial and lateral ankle. TTP over proximal tibia/fibula/knee absent. Integumentary: Skin intact with no abrasions or open wounds. Skin wrinkles Associated attestation - Pool Kendall MD - 02/22/2024 12:02 PM EDT I have independently seen and evaluated the patient and have reviewed the resident/mid-level provider consult and agree with the findings and plan as documented. Pool Kendall MD Right ankle pilon variant fx To OR today for ORIF and IM nail tibia Discussed with patient Questions answered [facility] 02-21-2024 Emergency department Note Formatting of this note might be differe nt from the original. TRAUMA TO DO ORDERS [phone] [facility] 02-21-2024 Emergency department Note Formatting of this note might be differe nt from the original. TRAUMA TO DO ORDERS [phone] ED Physician Note: NAME: Rinku Giordano 68 y.o. CSN: [id number] PCP: No, Physician History: Chief Complaint: Fall HPI/ROS: The history was obtained from the patient and transfer record . Rinku is a 68 y.o. female who presents with fall and right ankle pain. Patient missed a step going down the stairs twisting the right ankle falling down onto her knee. Denies any head injury or LOC. No neck pain or back pain. Given fentanyl by medics. Splint applied at freestanding ED. PMHx: Past Medical History: Diagnosis Date Disease of thyroid gland Hypertension Macular degeneration PMSx: Past Surgical History: Procedure Laterality Date SECTION FAM. Hx: History reviewed. No pertinent family history. SOC. Hx: Social History Socioeconomic History Marital status: Tobacco Use Smoking status: Never Smokeless tobacco: Never Substance and Sexual Activity Alcohol use: Not Currently Drug use: Never MEDs: Previous Medications Medication Sig levothyroxine (SYNTHROID, LEVOTHROID) 112 MCG tablet Take 1 (one) tablet (112 mcg total) by mouth once daily . metoprolol succinate (TOPROL-XL) 100 MG 24 hr tablet Take 1 (one) tablet (100 mg total) by mouth daily . ALL: No Known Allergies Physical Exam: Patient Vitals for the past 24 hrs: BP Temp Temp src Pulse Resp SpO2 Height Weight 02/21/24 1724 139/68 97.9 F (36.6 C) Oral 62 15 96 % 5' 5" 81.6 kg (180 lb) Physical Exam Nursing note and Vital Signs Reviewed General: Awake and Alert. Cooperative. No acute distress. Head: Normocephalic, atraumatic. Eyes: EOM's grossly intact Mouth: Moist mucus membranes. Neck: Supple, trachea midline. No midline tenderness. Heart: RRR Lungs: no hypoxia or distress Abdomen: soft, non-tender, non-distended, no rebound or guarding Extremities: Right leg in a splint Skin: warm and dry Neurologic: Neurovascularly intact Psychiatric: appropriate attention and speech Laboratory & Radiological Imaging (if done): Labs Reviewed - No data to display No orders to display Procedures Procedures ED Course / Medical Decision Making: I have reviewed the chief complaint, triage note, past medical/surgical, family, and social history. Medical Decision Making Patient presents as transfer for a right ankle fracture. Patient will have orthopedic consultation for operative fixation and trauma consultation for admission. She declines need for further pain medication at this time. Amount and/or Complexity of Data Reviewed Independent Historian: EMS External Data Reviewed: notes. Discussion of management or test interpretation with external provider(s): Trauma MAT Ortho MAT Risk Decision regarding hospitalization. Risk Details: Shared decision making utilized. Differential diagnosis includes not limited to fall, ankle fracture, dislocation . Medications Ordered/Given During ED Visit Medications - No data to display Clinical Impression: 1. Closed fracture of right ankle, initial encounter Disposition: Patient is admitted to Trauma Piyush DO Greg ED Attending Physician (Please note that portions of this note have been completed with a voice recognition software. Efforts were made to correct any errors, but occasionally words are mis-transcribed.) James Garza DO 02/21/24 1758 Pt's O2 dropping to 80's on RA this RN placed her on 3L NC and brought her O2 up to 99%. Dr. Garza notified at this time. Transfer note; Per Dr Kelley request conference call with ortho chemical detection expert [facility] for potential out pt follow up and possible transfer. Did discuss with Dr Kelley due to traumatic injury need for trauma involvement per process, declined trauma conference call Per Dr Kelley pt missed a step , twisting the right ankle which resulted in bending underneath the pt as she came down on her knee. No other injury. Imaging reveals a distal tib fib fracture Medics: Gave 50 mcg fentanyl intranasally Bed: 20 Expected date: Expected time: Means of arrival: Comments: ELISA/Goldy/Greg documented in this encounter [facility] 02-21-2024 Physician Emergency department Note Formatting of this note is different fro m the original. ED Physician Note: NAME: Rinku Giordano 68 y.o. CSN: [id number] PCP: No, Physician History: Chief Complaint: Fall HPI/ROS: The history was obtained from the patient and transfer record . Rinku is a 68 y.o. female who presents with fall and right ankle pain. Patient missed a step going down the stairs twisting the right ankle falling down onto her knee. Denies any head injury or LOC. No neck pain or back pain. Given fentanyl by medics. Splint applied at freestanding ED. PMHx: Past Medical History: Diagnosis Date Disease of thyroid gland Hypertension Macular degeneration PMSx: Past Surgical History: Procedure Laterality Date SECTION FAM. Hx: History reviewed. No pertinent family history. SOC. Hx: Social History Socioeconomic History Marital status: Tobacco Use Smoking status: Never Smokeless tobacco: Never Substance and Sexual Activity Alcohol use: Not Currently Drug use: Never MEDs: Previous Medications Medication Sig levothyroxine (SYNTHROID, LEVOTHROID) 112 MCG tablet Take 1 (one) tablet (112 mcg total) by mouth once daily . metoprolol succinate (TOPROL-XL) 100 MG 24 hr tablet Take 1 (one) tablet (100 mg total) by mouth daily . ALL: No Known Allergies Physical Exam: Patient Vitals for the past 24 hrs: BP Temp Temp src Pulse Resp SpO2 Height Weight 02/21/24 1724 139/68 97.9 F (36.6 C) Oral 62 15 96 % 5' 5" 81.6 kg (180 lb) Physical Exam Nursing note and Vital Signs Reviewed General: Awake and Alert. Cooperative. No acute distress. Head: Normocephalic, atraumatic. Eyes: EOM's grossly intact Mouth: Moist mucus membranes. Neck: Supple, trachea midline. No midline tenderness. Heart: RRR Lungs: no hypoxia or distress Abdomen: soft, non-tender, non-distended, no rebound or guarding Extremities: Right leg in a splint Skin: warm and dry Neurologic: Neurovascularly intact Psychiatric: appropriate attention and speech Laboratory & Radiological Imaging (if done): Labs Reviewed - No data to display No orders to display Procedures Procedures ED Course / Medical Decision Making: I have reviewed the chief complaint, triage note, past medical/surgical, family, and social history. Medical Decision Making Patient presents as transfer for a right ankle fracture. Patient will have orthopedic consultation for operative fixation and trauma consultation for admission. She declines need for further pain medication at this time. Amount and/or Complexity of Data Reviewed Independent Historian: EMS External Data Reviewed: notes. Discussion of management or test interpretation with external provider(s): Trauma MAT Ortho MAT Risk Decision regarding hospitalization. Risk Details: Shared decision making utilized. Differential diagnosis includes not limited to fall, ankle fracture, dislocation . Medications Ordered/Given During ED Visit Medications - No data to display Clinical Impression: 1. Closed fracture of right ankle, initial encounter Disposition: Patient is admitted to Trauma Piyush DO Greg ED Attending Physician (Please note that portions of this note have been completed with a voice recognition software. Efforts were made to correct any errors, but occasionally words are mis-transcribed.) James Garza DO 02/21/24 1758 [facility] 02-21-2024 Emergency department Note Formatting of this note might be differe nt from the original. Pt's O2 dropping to 80's on RA this RN placed her on 3L NC and brought her O2 up to 99%. Dr. Garza notified at this time. [facility] 02-21-2024 Emergency department Triage note Formatting of this note might be differe nt from the original. Transfer note; Per Dr Kelley request conference call with ortho chemical detection expert [facility] for potential out pt follow up and possible transfer. Did discuss with Dr Kelley due to traumatic injury need for trauma involvement per process, declined trauma conference call Per Dr Kelley pt missed a step , twisting the right ankle which resulted in bending underneath the pt as she came down on her knee. No other injury. Imaging reveals a distal tib fib fracture Medics: Gave 50 mcg fentanyl intranasally [facility] 02-21-2024 Emergency department Note Formatting of this note might be differe nt from the original. Bed: 20 Expected date: Expected time: Means of arrival: Comments: ELISA/Goldy/Greg [facility] 02-21-2024 Evaluation + Plan note Associated Problem(s): Closed right keith n fracture, initial encounter 68 yo female with closed right pilon fracture sp fall this AM - D/W Dr. Kendall - XR and CT reviewed; intraarticular spiral distal tibia fracture, distal fibula fracture - plan for right ankle ORIF 02/21 (informed consent obtained) - NWB RLE; maintain splint at all times - NPO after midnight - Ancef OCTOR - multimodal pain control; strict ice and elevation [facility] 01-02-2023 History of Present illness Narrative Formatting of this note might be differe nt from the original. Radiology Service Progress Note PATIENT NAME: Rinku Giordano DATE OF SERVICE: January 02, 2023 TIME: 4:48 PM PATIENT IDENTITY VERIFICATION COMPLETED USING TWO (2) IDENTIFIERS: Name and Date of confirmed by patient verbally. FALL SCREENING: Has the patient had 2 falls in the last year or 1 fall with injury or currently using an Ambulatory Assistive Device (Walker, Cane, Wheelchair, Crutches, etc.)? No PATIENT GENDER DATA: Female. status: : No status: NO. PATIENT RELEVANT IMPLANT DATA REVIEWED: Not Applicable RADIOLOGY DEPARTMENT: Mammography PERIPHERAL IV DATA: Not applicable SIGNED BY: RT Ann(R) January 02, 2023 4:48 PM documented in this encounter [facility] 07-20-2020 History of Present illness Narrative DATE OF SERVICE: 07/18/2020 CHIEF COMPLAINT: A 65-year-old female. Says June 13, she had like a desk fall on top of her. She was dismantling it in her home and it crushed her. She did not seek any medical attention and it has been off-and-on swollen. Decided to come in here because it is still swollen. Currently, it is not swollen, but if she walks on it for a while, it does swell in her foot. CURRENT MEDICATIONS: 1. Metoprolol. 2. Levothyroxine. 3. Pantoprazole. 4. Calcium. ALLERGIES: CHOCOLATE, RAW ONIONS. MEDICAL ISSUES: 1. High blood pressure. 2. . SOCIAL HISTORY: Positive alcohol. No smoking. FAMILY HISTORY: High blood pressure, diabetes, stroke. REVIEW OF SYSTEMS: Denies any fever or chills, just left foot pain as described. EXAMINATION: Blood pressure 157/80, pulse 62, respiratory rate 18, temp 98.4, pulse oximetry 95% on room air. Left foot pain is present around the base of the metatarsals but no obvious deformity. No other pain . STUDIES: X-rays read by myself did reveal age-indeterminate ossicle around the navicular as well as might be a small avulsion fracture around the tarsals. This was where the patient was having pain. DIAGNOSIS: Left foot crush injury. PLAN: I do suspect this is healing appropriately. I did recommend rest, wrap, and refer to Orthopedics or her primary care doctor if it is still bothering her. The patient agrees with plan. No further questions; Kush Khan MD /[id number] SSI File#: [id number] END OF DOCUMENT / CHANGE LOG FOLLOWS Last Edited By Ele[employer]. Signed By Ashanti Khan MD #IBRKH Ashanti Khan MD #IBRKH on 07/20/2020 19:15 ET on 07/20/2020 19:15 ET Revision Number - 2 ^^^ Verified/Reviewed by 07/20/201914 [facility] PATIENT NAME: RINKU GIORDANO [address] [facility] [address] [address] MEDICAL REC #: [id number] [place] [address] [place] [facility] PHYSICIAN documented in this encounter [facility] Evaluation note No assessment information availa lise [facility] Work Phone: Evaluation note Diagnosis Closed fracture of distal end of right fibula and tibia, initial encounter- Primary Closed fracture of right ankle, initial encounter Closed right pilon fracture, initial encounter Closed fracture of distal end of right fibula and tibia, initial encounter Closed right pilon fracture, initial encounter documented in this encounter [facility] Summary Purpose Family History No Family History Records FoundNo Family History Records FoundNo Family History Records FoundNo Family History Records FoundNo Family History Records FoundNo Family History Records FoundNo Family History Records Found Advance Directives No Advanced Directives Records FoundDocuments on File Type Date Recorded 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 Advance Directives and Living Will 02/21/2024 6:07 PM Yes but not on file Date Activated Date Inactivated Comments 02/21/2024 6:34 PM 02/25/2024 3:09 PM Chief Complaint and Reason for Visit Chief Complaint SCREENING Reason for Referral Specialty Diagnoses / Procedures Referred By Contac t Referred To Contact Home Health Services Diagnoses Closed fracture of right ankle, initial encounter Closed right pilon fracture, initial encounter Closed fracture of distal end of right fibula and tibia, initial encounter Nir Sheehan MD [facility] [place] [address] Referral ID Status Reason Start Date Expiration Date Visits Requested Visits Authorized [id number] Authorized Patient Preference 02/24/2024 02/23/2025 1 1 Additional Source Comments Source Comments (unrecognize d section and content) In the event this informatio n is protected by the Federal Confidentiality of Alcohol and Drug Abuse Patient Records regulations: The Federal rules restrict any use of the information to criminally investigate or prosecute any alcohol or drug abuse patient.[facility] the event this information is protected by the Federal Confidentiality of Alcohol and Drug Abuse Patient Records regulations: The Federal rules restrict any use of the information to criminally investigate or prosecute any alcohol or drug abuse patient.[facility] Center[facility] the event this information is protected by the Federal Confidentiality of Alcohol and Drug Abuse Patient Records regulations: The Federal rules restrict any use of the information to criminally investigate or prosecute any alcohol or drug abuse patient.[facility] the event this information is protected by the Federal Confidentiality of Alcohol and Drug Abuse Patient Records regulations: The Federal rules restrict any use of the information to criminally investigate or prosecute any alcohol or drug abuse patient.[facility] INFORMATION SOURCE (unrecogn ized section and content) DATE CREATED AUTHOR 12/31/2021 [facility] [place] DATE CREATED AUTHOR AUTHOR'S ORGANIZ ATION 02/28/2024 [facility] DATE CREATED AUTHOR AUTHOR'S ORGANIZ ATION 02/28/2024 [facility] DATE CREATED AUTHOR AUTHOR'S ORGANIZ ATION 05/27/2024 [facility] DATE CREATED AUTHOR AUTHOR'S ORGANIZ ATION 09/15/2024 [facility] DATE CREATED AUTHOR AUTHOR'S ORGANIZ ATION 11/14/2024 [facility] DATE CREATED AUTHOR AUTHOR'S ORGANIZ ATION 09/03/2025 [facility] Care Teams (unrecognized sec tion and content) Repair Clerk Relationship Specialty Start Date End Date Earnestine Candelario MD [address] [place] [address] PCP - General Internal Medicine 07/10/22 Repair Clerk Relationship Specialty Start Date End Date Earnestine Candelraio MD [address] [place] [address] PCP - General Internal Medicine 07/10/22 Team Status: Active Member Role Status Dates EARNESTINE CANDELARIO Primary Care Provider Active Team Status: Inactive Member Role Status Dates RADHA SCOTT Primary Care Provide r, Attending Provider, Referring Provider Active Repair Clerk Relationship Specialty Start Date End Date No, Physician [facility] PCP - General 02/21/24 Goals (unrecognized section and content) Goals may be documented in a n alternate section Reason for Visit (unrecogniz ed section and content) Reason Comments Fall Specialty Diagnoses / Procedures Referred By Contac t Referred To Contact Diagnoses Closed fracture of right ankle, initial encounter Closed fracture of distal end of right fibula and tibia, initial encounter Trauma: ankle fracture Referral ID Status Reason Start Date Expiration Date Visits Re quested Visits Authorized [id number] 1 1 Scheduled Active and Recently Administ ered Medications (unrecognized section and content) Medication Order 02/23/2024 02/24/2024 02/25/2024 acetaminophen (TYLENOL) tablet 650 mg 650 mg, Oral, Every 4 hours while awake, First dose on Cintia 02/21/24 at 183 0513 (Given - Provider: Tiffanie Longoria RN)0956 (Given - Provider: Adwoa Pabon, RN)1427 (Given - Provider: Adwoa Pabon, MARILU)1800 (Not Given - Provider: Jenn Morelos, MARILU - Reason: Other - Comment: medication dosage missed)2132 (Given - Provider: Jenn Morelos RN) 0539 (Given - Provider: Jenn Morelos, MARILU)1003 (Given - Provider: Liliya Brower RN)1442 (Given - Provider: Liliya Brower RN)1833 (Given - Provider: Liliya Brower RN)2217 (Given - Provider: Tiffanie Longoria RN) 0632 (Given - Provider: Tiffnaie Longoria RN)1137 (Given - Provider: Prabha Goyal, MARILU) bisacodyL (DULCOLAX) suppository 10 mg 10 mg, Rectal, Daily, First dose (after last modification) on Sun02/24/24 at 1330, [] Use oral product first for constipation, if ordered and tolerated. 1257 (Given - Provider: Liliya Brower RN) 0900 (Not Given - Provider: Prabha Goyal RN - Reason: Patient/family refused) ceFAZolin (ANCEF) IVPB 2 g (premix) (COMPLETED) 2,000 mg, Intravenous, at 200 mL/hr, Every 8 hours, First dose on Sun02/22/24 at 2100, For 2 doses, Starting 8 hours after pre-procedure dose x 2 doses., Indication (POST PROCEDURE): Ortho 0512 (New Bag - Provider: Tiffanie Longoria RN)0542 (Stopped - Provider: Jenn Morelos RN) enoxaparin (LOVENOX) syringe 30 mg 30 mg, Subcutaneous, 2 times daily, First dose on Sun02/22/24 at 2100, Administer in abdomen unless otherwise directed by prescriber. Notify physician if patient refuses., Indication: VTE Prophylaxis 0956 (Given - Provider: Adwoa Pabon RN)2132 (Given - Provider: Jenn Morelos, MARILU) 0832 (Given - Provider: Liliya Brower RN)2217 (Given - Provider: Tiffanie Longoria RN) 0836 (Given - Provider: Prabha Goyal, MARILU) levothyroxine (SYNTHROID, LEVOTHROID) tablet 112 mcg 112 mcg, Oral, Daily, First dose on Sun02/22/24 at 0600, For patients on continuous tube feed: Hold TF from 1 hr before until 1 hr after each dose. TF rate may need adjustment to meet caloric needs. 0513 (Given - Provider: Tiffanie Longoria RN) 0539 (Given - Provider: Jenn Morelos, MARILU) 0632 (Given - Provider: Tiffanie Von, RN) magnesium hydroxide (MOM) 400 mg/5 mL suspension 2,400 mg 2,400 mg (30 mL), Oral, Daily, First dose on 02/24/24 at 0930 1003 (Given - Provider: Liliya Brower RN) 0900 (Not Given - Provider: Prabha Goyal RN - Reason: Patient/family refused) methocarbamoL (ROBAXIN) tablet 500 mg (CANCELED) 500 mg, Oral, 3 times daily, First dose on Cintia 02/21/24 at 2100 0956 (Given - Provider: Adwoa Pabon RN)1427 (Given - Provider: Adwoa Pabon RN)2132 (Given - Provider: Jenn Morelos RN) 0832 (Given - Provider: Liliya Brower RN) methocarbamoL (ROBAXIN) tablet 750 mg 750 mg, Oral, 3 times daily, First dose (after last modification) on 02/24/24 at 1500 1442 (Given - Provider: Liliya Brower RN)2217 (Given - Provider: Tiffanie Longoria RN) 0836 (Given - Provider: Prabha Goyal RN) metoprolol succinate (TOPROL-XL) 24 hr tablet 50 mg 50 mg, Oral, Daily, First dose (after last modification) on 02/23/24 at 1045, Hold for HR <60 or SBP <110. DO NOT CRUSH OR CHEW. 0956 (Given - Provider: Adwoa Pabon RN) 0832 (Given - Provider: Liliya Brower RN) 0837 (Given - Provider: Prabha Goyal, MARILU) polyethylene glycol (MIRALAX) powder 17 g 17 g, Oral, 2 times daily, First dose (after last modification) on 02/24/24 at 2100 2218 (Not Given - Provider: Tiffanie Longoria RN - Reason: Patient/family refused) 0900 (Not Given - Provider: Prabha Goyal, MARILU - Reason: Patient/family refused) senna-docusate (SENNA-S) 8.6-50 mg per tablet 1 tablet 1 tablet, Oral, 2 times daily, First dose on Cintia 02/21/24 at 2100, NOT for abdominal surgery patients. Hold for loose stools. Do Not Crush or Chew if administering orally due to bitter taste. May be crushed if given via tube. 0900 (Not Given - Provider: Adwoa Pabon RN - Reason: Patient/family refused)2132 (Given - Provider: Jenn Morelos, MARILU) 0832 (Given - Provider: Liliya Brower, RN)2217 (Given - Provider: Tiffanie Longoria, RN) 0836 (Given - Provider: Prabha Goyal, MARILU) sodium chloride (PF) (NS) flush 5 mL(Linked Group 1) 5 mL, Intravenous, Every 8 hours scheduled, First dose on Cintia 02/21/24 at 2200, Saline lock 0513 (Given - Provider: Tiffanie Longoria, RN)1400 (Due)2200 (Canceled Entry - Provider: Jenn Morelos RN) 0600 (Canceled Entry - Provider: Jenn Morelos RN)1400 (Canceled Entry - Provider: Liliya Brower, RN)2230 (Given - Provider: Tiffanie Longoria RN) 0635 (Given - Provider: Tiffanie Longoria RN) PRN Medication Order 02/23/2024 02/24/2024 02/25/2024 naloxone (NARCAN) injection 0.1 mg(Linked Group 2) 0.1 mg, Intravenous, As needed, opioid reversal, For respiratory rate less than or equal to 8 per minute., Starting on Cintia 02/21/24 at 1756, Mix nalOXone (NARCAN) 0.4 mg (1mL) with 9 mL of Normal Saline to total 10 mL. Administer 0.1 mg (2.5mL) IV Push every 2 minutes until respiratory rate is 10 or greater. naloxone (NARCAN) injection 0.4 mg(Linked Group 2) 0.4 mg, Intravenous, As needed, opioid reversal, patient is pulseless, breathless, and unresponsive, Starting on Cintia 02/21/24 at 1756, Call a code first, then administer naloxone dose undiluted IV Push over 30 seconds. ondansetron (ZOFRAN) injection 4 mg(Linked Group 3) 4 mg, Intravenous, Every 6 hours PRN, nausea, vomiting, Starting on Cintia 02/21/24 at 1833, [] Oral or IV - use oral route if tolerated. 1242 (See Alternativ e - Provider: Prabha Goyal RN) ondansetron (ZOFRAN-ODT) disintegrating tablet 4 mg(Linked Group 3) 4 mg, Oral, Every 6 hours PRN, nausea, vomiting, Starting on Cintia 02/21/24 at 1833, [] Oral or IV - use oral route if tolerated. Formulation requires tablet remain in sealed package until immediately prior to dose being administered. 1242 (Given - Provid er: Prabha Goyal RN) oxyCODONE (ROXICODONE) immediate release tablet 5 mg 5 mg, Oral, Every 4 hours PRN, moderate to severe pain, Starting on 02/23/24 at 2007 0844 (Given - Provid er: Prabha Goyal RN) oxyCODONE (ROXICODONE) immediate release tablet 5-10 mg (CANCELED) 5-10 mg, Oral, Every 4 hours PRN, moderate to severe pain, 1 tab PRN pain 4-7/10, 2 tabs PRN pain 8-10/10, Starting on Cintia 02/21/24 at 1823 0513 (Given - Provider: Tiffanie Longoria RN)0956 (Given - Provider: Adwoa Pabon, MARILU)1426 (Given - Provider: Adwoa Pabon RN) sodium chloride (PF) (NS) flush 5 mL(Linked Group 1) 5 mL, Intravenous, As needed, line care, Starting on Cintia 02/21/24 at 1829 sodium chloride 0.9% (NS)(Linked Group 1) 0-150 mL/hr, Intravenous, As needed, To flush line after IV infusions when no maintenance IV ordered or a compatibility issue. Infuse 20ml at the same rate as the secondary infusion, Starting on Cintia 02/21/24 at 1829, Run as Primary IV. NOT intended for KVO. Linked Groups Order Group 1: Saline lock IV (CANCELED) Routine, Continuous, Starting on Cintia 02/21/24 at 1830, Until Specified And sodium chloride (PF) (NS) flush 5 mLJump to med 5 mL, Intravenous, As needed, line care, Starting on Cintia 02/21/24 at 1829 And sodium chloride (PF) (NS) flush 5 mLJump to med 5 mL, Intravenous, Every 8 hours scheduled, First dose on Cintia 02/21/24 at 2200, Saline lock And sodium chloride 0.9% (NS)Jump to med 0-150 mL/hr, Intravenous, As needed, To flush line after IV infusions when no maintenance IV ordered or a compatibility issue. Infuse 20ml at the same rate as the secondary infusion, Starting on Cintia 02/21/24 at 1829, Run as Primary IV. NOT intended for KVO. Group 2: naloxone (NARCAN) injection 0.1 mgJump to med 0.1 mg, Intravenous, As needed, opioid reversal, For respiratory rate less than or equal to 8 per minute., Starting on Cintia 02/21/24 at 1756, Mix nalOXone (NARCAN) 0.4 mg (1mL) with 9 mL of Normal Saline to total 10 mL. Administer 0.1 mg (2.5mL) IV Push every 2 minutes until respiratory rate is 10 or greater. And Notify physician (CANCELED) STAT, Until discontinued, Starting on Cintia 02/21/24 at 1800, Until Specified, Respiratory rate less than: 8, For respiratory rate less than or equal to 8, notify physician and/or appropriate staff for additional orders. And naloxone (NARCAN) injection 0.4 mgJump to med 0.4 mg, Intravenous, As needed, opioid reversal, patient is pulseless, breathless, and unresponsive, Starting on Cintia 02/21/24 at 1756, Call a code first, then administer naloxone dose undiluted IV Push over 30 seconds. Group 3: ondansetron (ZOFRAN-ODT) disintegrating tablet 4 mgJump to med 4 mg, Oral, Every 6 hours PRN, nausea, vomiting, Starting on Cintia 02/21/24 at 1833, [] Oral or IV - use oral route if tolerated. Formulation requires tablet remain in sealed package until immediately prior to dose being administered. Or ondansetron (ZOFRAN) injection 4 mgJump to med 4 mg, Intravenous, Every 6 hours PRN, nausea, vomiting, Starting on Cintia 02/21/24 at 1833, [] Oral or IV - use oral route if tolerated. FOR RECORDS PERTAINING TO PATIENTS WHO ARE OR HAVE BEEN ENROLLED IN A CHEMICAL DEPENDENCY/SUBSTANCEABUSE PROGRAM, SOME INFORMATION MAY BE OMITTED. This clinical summary was aggregated from multiple sources. Caution should be exercised in using it in the provision of clinical care. This summary normalizes information from multiple sources, and as a consequence, information in this document may materially change the coding, format and clinical context of patient data. In addition, data may be omitted in some cases. CLINICAL DECISIONS SHOULD BE BASED ON THE PRIMARY CLINICAL RECORDS. [facility]. provides no warranty or guarantee of the accuracy or completeness of information in this document.
--- NOTE | 2025-09-06 11:55 | RAD_ITS ---
PROCEDURE: ANKLE MIN 3 VIEWS 09/06/2025 REASON FOR EXAM: TRAUMA TECHNIQUE: Procedure Code: GRETAANK Modality: DX Procedure: ANKLE MIN 3 VIEWS Laterality: Left COMPARISON: None FINDINGS: Bones: No demonstrated fracture Joints: Ankle mortise well-preserved Soft tissues: No suspicious soft tissue swelling or foreign body Other: RAD/Ankle min 3 Views IMPRESSION: NEGATIVE ANKLE SERIES Reading Location: [id number]
[2025-09-06 13:43] VITALS: BP 145/66; PULSE 80; RESP 14; TEMP 37; O2SAT 100
== END 2025-09-06 13:44 | disposition home or self-care (01) ==
PROVIDERS: Emergency Provider Emergency Medicine; Visit Provider Emergency Medicine
DX: S93.402A Sprain of unspecified ligament of left ankle, initial encounter (principal); I10 Essential (primary) hypertension; E03.9 Hypothyroidism, unspecified; Z79.890 Hormone replacement therapy; W19.XXXA Unspecified fall, initial encounter
CPT/HCPCS: 73610; 99283